=== PATIENT | female | born 1955 | race Caucasian/White ===

== ENCOUNTER 2020-04-07 11:52 | Emergency (ER) | payer MEDICARE, SELFPAY ==
[2020-04-07 12:06] VITALS: BP 175/120; PULSE 107; RESP 14; TEMP 36.6; O2SAT 99; BMI 32.1
--- NOTE | 2020-04-07 12:37 | XRR_ITS ---
PROCEDURE INFORMATION: Exam: XR Left Tibia and Fibula Exam date and time: 04/07/2020 1:15 PM Age: 64 years old Clinical indication: Injury or trauma; Fall; Blunt trauma; Lower leg; Left TECHNIQUE: Imaging protocol: XR Left tibia and fibula. Views: 2 views. COMPARISON: No relevant prior studies available. FINDINGS: Bones/joints: Normal. Soft tissues: Prepatellar soft tissue defect with adjacent edema and/or hematoma. XR/XR tibia fibula LT 2V [id number] IMPRESSION: Prepatellar soft tissue defect with adjacent edema and/or hematoma. No evidence for acute fracture.
--- NOTE | 2020-04-07 12:37 | CTR_ITS ---
PROCEDURE INFORMATION: Exam: CT Lumbar Spine Without Contrast Exam date and time: 04/07/2020 1:18 PM Age: 64 years old Clinical indication: Injury or trauma; Fall; Blunt trauma (contusions or hematomas); Patient HX: Fell 2 wks ago pain in lower back down left leg TECHNIQUE: Imaging protocol: Computed tomography images of the lumbar spine without contrast. Radiation optimization: All CT scans at this facility use at least one of these dose optimization techniques: automated exposure control; mA and/or kV adjustment per patient size (includes targeted exams where dose is matched to clinical indication); or iterative reconstruction. COMPARISON: No relevant prior studies available. RADIATION DOSE METRICS: Total DLP (mGy-cm): 2078.12 FINDINGS: Vertebrae: No evidence for acute fracture. There is a predominantly lytic lesion at the inferior left aspect of the L1 vertebra measuring 2.1 x 1.5 cm in AP/transverse dimensions, consistent with a metastatic lesion. A similar lesion is present in the right L4 posterior elements measuring 2.2 x 2.2 cm in AP/transverse dimensions there is a small soft tissue component extending posterior to this lesion measuring 6 mm in the transverse dimension. There is a predominantly lytic lesion involving the left L5 posterior element extending into the left sacrum which is not completely visualized on these images however measures 0.1 x 3.1 x 3.0 cm in the visualized craniocaudad/transverse/AP dimensions. There is a small soft tissue component posteriorly. L1-L2: There is vacuum disc phenomenon at this level. Moderate facet arthropathy. Canal and neural foramina are within normal limits in caliber. L2-L3: Moderate facet arthropathy. No significant canal or neural foramina stenosis. L3-L4: There is a disc bulge with possible superimposed small midline protrusion and moderate facet arthropathy. No significant canal or neural foramina stenosis. L4-L5: Moderate facet arthropathy. No significant disc protrusion. No severe spinal canal stenosis. No significant neural foraminal narrowing. L5-S1: There are posterior osteophytes and a minimal disc bulge. Moderate facet arthropathy. There is mild to moderate narrowing of the bilateral neural foramina.The soft tissue component of the left L5 lytic lesion extends to the posterior aspect of the left neural foramen contributing to mild to moderate narrowing. Soft tissues: Unremarkable. CT/CT lumbar spine wo con* [id number] IMPRESSION: 1. There are lytic lesions in the sacrum and at the L1, L4, and L5 levels, consistent with metastatic disease. A soft tissue component of the left L5 posterior element lytic lesion extends to the posterior aspect of the left L5-S1 neural foramina contributing to mild to moderate narrowing. 2. Multilevel, multifactorial degenerative changes are present as described above. Radiation Dose CTDIVOL = (mGy): DLP = 2078.12 (mGy-cm)
--- NOTE | 2020-04-07 12:37 | XRR_ITS ---
PROCEDURE INFORMATION: Exam: XR Left Hip with Pelvis when Performed Exam date and time: 04/07/2020 1:15 PM Age: 64 years old Clinical indication: Injury or trauma; Fall; Blunt trauma (contusions or hematomas); Left; Hip TECHNIQUE: Imaging protocol: XR Left hip with pelvis when performed. Views: 2 or 3 views. COMPARISON: No relevant prior studies available. FINDINGS: Bones/joints: Multiple incidental pelvic enthesophytes. There are degenerative changes across the left hip joint. There are [id number] degenerative changes across the sacroiliac joints and pubic symphysis. There is contour abnormality of the left superior pubic ramus which is somewhat obscured by overlying bowel gas. Soft tissues: Unremarkable. XR/XR hip LT 2-3V wo/w pel* [id number] IMPRESSION: There is contour abnormality of the left superior pubic ramus raising concern for acute fracture. This is not optimally visualized secondary to overlying bowel gas. CT scan of the pelvis is recommended for further evaluation.
--- NOTE | 2020-04-07 12:37 | XRR_ITS ---
PROCEDURE INFORMATION: Exam: XR Left Knee Exam date and time: 04/07/2020 1:15 PM Age: 64 years old Clinical indication: Injury or trauma; Fall; Blunt trauma; Knee; Left TECHNIQUE: Imaging protocol: XR Left knee. Views: 1 or 2 views. COMPARISON: No relevant prior studies available. FINDINGS: Bones/joints: There is an small to moderate suprapatellar joint effusion. Soft tissues: There is a prepatellar soft tissue defect with adjacent soft tissue edema and/or hematoma. XR/XR knee LT 1-2V [id number] IMPRESSION: 1. Prepatellar soft tissue defect with adjacent edema and/or hematoma. 2. Small to moderate suprapatellar joint effusion.
--- NOTE | 2020-04-07 13:12 | W.ED.FALL ---
HPI - Fall General: Chief Complaint: Fall Stated Complaint: FALL/BACK & L LEG PAIN Time Seen by Provider: 04/07/20 12:31 Source: patient Mode of arrival: ambulatory Limitations: physical limitation History of Present Illness: HPI Narrative: 64-year-old female patient presents the emergency department complaining of left hip pain left tib-fib pain and left knee pain. Patient also complains of lumbar pain. Patient states that she slipped and fell at [facility] 2 weeks ago and the pain is progressively worsened patient states gotten to the point where she cannot tolerate the pain. Patient denies any numbness or tingling. Patient is able to walk but states it is painful to do so. Patient denies any fever. Patient states she did not strike her head. Patient is not on any blood thinners. Associated symptoms-after fall: Denies abdominal pain, chest pain, headache(s), lightheadedness or neck pain Review of Systems General: Reports: 10 or more systems reviewed and unremarkable except in HPI and below Const: Denies: fever(s) or chills Eyes: Denies: change in vision or blurry vision Card: Denies: chest pain, palpitations, irregular heart rhythm, lightheadedness or syncope Resp: Denies: dyspnea, productive cough, non-productive cough or wheezing GI: Denies: abdominal pain, nausea, vomiting, diarrhea or constipation : Denies: flank pain, difficulty voiding, dysuria or urinary frequency Musc: Reports: extremity pain (Patient complains of left hip pain left tib-fib pain and left knee pain); Denies: neck pain or back pain Skin/Breast: Denies: rash Neuro: Denies: headache(s), numbness in extremities, weakness in extremities or sensory changes Psych: Denies: anxiety, suicidal ideation or homicidal ideation Physical Exam Const: COMMON NORMALS: no acute distress, average body habitus, patient oriented x3, no limitations, healthy appearing, alert and well nourished HENMT: COMMON NORMALS: normocephalic, atraumatic, hearing grossly normal bilaterally, external ears normal, EAC's normal, TM's normal bilaterally, Normal external nose present, Normal nasal mucous membranes and turbinates present, moist oral mucous membranes, oropharynx normal, dentition normal and gingiva normal HEAD & SCALP: normocephalic and atraumatic NOSE: Normal external nose present and Normal nasal mucous membranes and turbinates present EXTERNAL EAR: Yes external ears normal EXTERNAL AUDITORY CANAL: EAC's normal TYMPANIC MEMBRANE: TM's normal bilaterally Eye: COMMON NORMALS: Equal, round and reactive pupils present, EOMs intact bilaterally, conjunctivae normal, no scleral icterus, no papilledema, normal visual chappell by confrontation and fundi normal bilaterally CONJUNCTIVA: Yes conjunctivae normal PUPIL: Yes Equal, round and reactive pupils present DIRECT OPHTHALMOSCOPY: Yes no papilledema and Yes fundi normal bilaterally Neck/C-Spine: COMMON NORMALS: full ROM, no lymphadenopathy, supple, no meningeal signs, Thyroid normal and No carotid bruits THYROID: Thyroid normal Chest: COMMONS NORMALS: normal inspection of the chest, normal palpation of entire chest wall, normal inspection of the breasts and normal palpation of the breasts Resp: COMMON NORMALS: normal respiratory effort, No retractions, No use of accessory muscles, clear to auscultation bilaterally and percussion normal AUSCULTATION: clear to auscultation bilaterally PERCUSSION: percussion normal Cardio: COMMON NORMALS: regular rate and regular rhythm RATE: regular rate RHYTHM: regular rhythm GI: COMMON NORMALS: Normal to inspection, nondistended, normoactive bowel sounds present, Soft to palpation, non-tender, No hepatosplenomegaly present, no masses and no bruits PALPATION: Yes Soft to palpation and Yes No hepatosplenomegaly present : COMMON NORMALS: Yes no CVA tenderness BLADDER/KIDNEY EXAM: Yes no CVA tenderness and No CVA tenderness Back/Pelvis: COMMON NORMALS: no CVA tenderness, thoracic and lumbar spine normal to inspection, no thoracic nor lumbar tenderness, thoraco-lumbar ROM normal and straight leg raise negative bilaterally GENERAL BACK: No CVA tenderness LUMBAR SPINE/LOWER BACK: Yes normal to inspection, Yes lumbar spinal tenderness, Yes paraspinal muscle tenderness and Yes paraspinal muscle spasm Extremity: COMMON NORMALS: normal to inspection, capillary refill normal, no calf tenderness and no pedal edema GENERAL: Yes normal exam except as noted LEFT LOWER EXTREMITY: Yes hip joint Left hip: Yes palpation and Yes neurovascular exam (Neurovascularly intact), Yes knee joint Left knee: Yes palpation (Pain with palpitation) and Yes neurovascular exam ( there is no erythema or edematous area noted) and Yes lower leg Left lower leg: Yes palpation (Tender to palpation to the lateral aspect of the tib-fib) and Yes neurovascular exam (Neurovascularly intact) Neuro: COMMON NORMALS: patient oriented x3 SENSORIUM/ORIENTATION: Yes alert MENINGEAL SIGNS: Yes no meningeal signs Course Vital Signs: Vital signs: Vital Signs Temperature 97.9 F 04/07/20 12:06 Pulse Rate 99 04/07/20 15:47 Respiratory Rate 16 04/07/20 15:47 Blood Pressure 170/115 04/07/20 15:47 Pulse Oximetry 99 04/07/20 15:47 MDM - Fall MDM Narrative: Medical decision making narrative: Patient is well-appearing nontoxic and in no acute distress. Patient states she fell 2 weeks ago and has had progressively worsening hip pain and leg pain to the left side. Patient's initial x-ray of her knee tib-fib did not show any acute findings patient's hip showed questionable metastatic lesion I did order a CT of the hip which revealed Patient: Dacia Way #: [id number] : 4Acct#:[id number] Age/Sex: 64 / FADM Date: 04/07/20 Loc: ERRoom/Bed: Attending Dr: Ordering Provider/Ordering MD: Lorna Allen NP Date of Service: 04/07/20 Procedure(s): CT pelvis con [id number] Accession Number(s): [id number] Report Number: [id number] PROCEDURE INFORMATION: Exam: CT Pelvis Without Contrast; Skeletal Exam date and time: 04/07/2020 2:59 PM Age: 64 years old Clinical indication: Pelvic pain; Additional info: Possible pubic ramis FX TECHNIQUE: Imaging protocol: Computed tomography images of the pelvis without contrast. Exam focused on the skeletal structures. Radiation optimization: All CT scans at this facility use at least one of these dose optimization techniques: automated exposure control; mA and/or kV adjustment per patient size (includes targeted exams where dose is matched to clinical indication); or iterative reconstruction. COMPARISON: CT Chest/Abdomen/Pelvis w IV* 08/05/2018 10:48 AM RADIATION DOSE METRICS: Total DLP (mGy-cm): 341.43 FINDINGS: Bones/joints: There are lytic lesions in the lower lumbar spine and left sacrum, consistent with metastatic disease. There is a lytic lesion with a soft tissue component in the left superior pubic ramus measuring 4.0 cm in the transverse oblique defect dimension. Soft tissue component measures 2.3 x 2.0 cm in the transverse/AP dimensions along the anterior aspect of the superior pubic ramus adjacent to the pubic symphysis. This is in the region of cortical irregularity noted on the prior hip radiographs. No associated fracture is seen. Soft tissues: Unremarkable. CT/CT pelvis wo con [id number] IMPRESSION: There is a lytic lesion in the left superior pubic ramus with a soft tissue component, consistent with metastatic disease. Radiation Dose CTDIVOL = (mGy): DLP = 341.43 (mGy-cm) Patient does have history of breast cancer. Based on these findings I will have patient follow-up with oncology. I told patient we will call her on Wednesday with appointment time. I did send patient home with a short course of pain medications precautions of taking these pain medications were discussed. Patient is neurovascularly intact distal to area of pain. Patient did not have any chest pain or shortness of breath. 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
[2020-04-07] MEDS: ketorolac 30 mg/mL INJ IM (13:27)
[2020-04-07] MEDS: orphenadrine 30 mg/mL Inj 2 mL 60 MG IM (13:27)
--- NOTE | 2020-04-07 14:31 | CTR_ITS ---
PROCEDURE INFORMATION: Exam: CT Pelvis Without Contrast; Skeletal Exam date and time: 04/07/2020 2:59 PM Age: 64 years old Clinical indication: Pelvic pain; Additional info: Possible pubic ramis FX TECHNIQUE: Imaging protocol: Computed tomography images of the pelvis without contrast. Exam focused on the skeletal structures. Radiation optimization: All CT scans at this facility use at least one of these dose optimization techniques: automated exposure control; mA and/or kV adjustment per patient size (includes targeted exams where dose is matched to clinical indication); or iterative reconstruction. COMPARISON: CT Chest/Abdomen/Pelvis w IV* 08/05/2018 10:48 AM RADIATION DOSE METRICS: Total DLP (mGy-cm): 341.43 FINDINGS: Bones/joints: There are lytic lesions in the lower lumbar spine and left sacrum, consistent with metastatic disease. There is a lytic lesion with a soft tissue component in the left superior pubic ramus measuring 4.0 cm in the transverse oblique defect dimension. Soft tissue component measures 2.3 x 2.0 cm in the transverse/AP dimensions along the anterior aspect of the superior pubic ramus adjacent to the pubic symphysis. This is in the region of cortical irregularity noted on the prior hip radiographs. No associated fracture is seen. Soft tissues: Unremarkable. CT/CT pelvis wo con [id number] IMPRESSION: There is a lytic lesion in the left superior pubic ramus with a soft tissue component, consistent with metastatic disease. Radiation Dose CTDIVOL = (mGy): DLP = 341.43 (mGy-cm)
[2020-04-07 15:47] VITALS: BP 170/115; PULSE 99; RESP 16; O2SAT 99
--- NOTE | 2020-04-08 10:42 | DCPLANNER ---
software engineering manager had message to schedule a follow up appointment for patient with oncology. software engineering manager called the oncology department, spoke with Lilli, patient access coordinator for that department, gave clinic patients information. software engineering manager was told that patients information would be printed and reviewed. Clinic is working on scheduling a follow up appointment for patient. Clinic will call patient with appointment information.
--- NOTE | 2020-04-16 11:49 | DCPLANNER ---
Patient had a follow up appointment scheduled for 04.08.[address] Brito - patient did attend appointment.
== END 2020-04-07 15:49 | disposition home or self-care (01) ==
PROVIDERS: Emergency Provider Registered Nurse
DX: M89.9 Disorder of bone, unspecified (principal)
CPT/HCPCS: 12345; 72131; 72192; 73502; 73560; 73590; 96372; 99282; 99283; J1885; J2360

== ENCOUNTER 2020-04-08 15:12 | Outpatient (CLI) | payer MEDICARE, SELFPAY ==
--- NOTE | 2020-04-08 18:07 | ONC FU_ITS ---
Dr. Brito Patient Follow-Up Note Patient: Dacia Way Unit #: [id number]: 1955 Dicatated By: Colt Brito M.D.Date of Visit:Apr 08, 2020 Onc Med Follow-up/Prog Note Chief Complaint: Metastatic breast cancer. 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 On 10/31/2016 she had presented to the emergency room with chest pain. Chest x-ray at that time showed a well-circumscribed opacity in the left lung base measuring 2.1 cm. The appearance was suggestive of pleural or intraparenchymal nodule. She had further evaluation with contrast enhanced chest CT on 11/23/2016. That study showed numerous left upper and left lower lobe pulmonary nodules, the largest in the left lower lobe measuring 1.9 x 2.0 x 1.6 cm. The appearance was suspicious for metastatic disease or primary lung cancer with metastatic disease. Also noted was an anterosuperior mediastinal mass measuring 3.8 x 2.3 cm. The reported differential diagnosis included thymoma/thymic tumor, lymphadenopathy, and germ cell tumor. There was no additional adenopathy identified, and thymic etiology was favored. She was referred to Dr. Villalpando. On 12/14/2016 she underwent left thoracoscopy with wedge resection of the left lower lobe nodule. 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 The tumor was positive for NSE, CK-7, CK-CAM 5.2, and CK-HMW. It was focally positive for synaptophysin and for TTF-1. It was negative for CD-56, chromogranin, and CK-20. It measured 3.0 x 2.3 x 1.5 cm and it was noted to extend to the pleural surface. I had seen her initially on 12/30/2016. At that point she was still recovering from her surgery. Based on the pathology, it was difficult to determine whether her tumor was more in the category of neuroendocrine cancer or non-small cell lung cancer. Her subsequent laboratory evaluation included CBC showing hemoglobin 11.8 g, white blood cell count 10,500, and platelet count 338,000. The red cell indices were hypochromic/microcytic with MCV 73 MCH 24. Chem profile was unremarkable. Her neuroendocrine markers included a chromogranin A of 1 nmol/L, normal range 0-5, whole blood serotonin 178 ng/mL, normal range 50-200, and nonspecific enolase 4.4 ng/mL, normal range 0.0-12.5. Further pathologic evaluation showed that her tumor was strongly positive for BCA-225, suggestive of breast origin. A breast prognostic profile then showed the tumor to be ER positive at 99% with [place] positive at 1%, both strong intensity. It was negative for overexpression of HER-2/bel, 0+ by IHC and amplification ratio by FISH 1.1 with 1.8 HER-2 copies/cell. She had a known history of breast cancer for which she had undergone left mastectomy in 1999. She apparently did receive adjuvant chemotherapy, but those records were not available. There had previously been no evidence of recurrence of the breast cancer. Restaging chest CT on 02/16/2017 showed postsurgical changes in the left lower lobe with a residual left lower lobe nodule measuring 2.3 x 1.8 cm. Three pulmonary nodules were noted in the left upper lobe, largest measuring 1.3 x 1.0 cm, and it appeared unchanged. Two additional smaller nodules included a subpleural nodule in the left upper lobe which had increased from 6 mm to 9 mm. There was a new left pulmonary ligament lymph node. 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 Given the pathologic findings, she then began treatment with letrozole 2.5 mg daily in combination with palbociclib 125 mg daily on a 21/28 day schedule, cycle 1 day 1 on 04/14/2017. She tolerated her initial cycle of palbociclib without significant adverse effects. She then continued treatment at the same dosage and schedule. Repeat chest CT on 08/25/2017 showed smaller anterior mediastinal mass measuring 2.0 x 2.1 cm compared to 3.0 x 3.9 cm on the February 2017 study. A left infrahilar nodule also was slightly smaller. Left upper and lower lobe pulmonary nodules appeared unchanged. Restaging PET/CT on 10/23/2017 reported no evidence for recurrent or residual malignancy. A 1.5 cm anterior mediastinal soft tissue lesion showed less FDG uptake than normal mediastinal background. Left lower lobe pulmonary nodules were FDG negative. On 09/13/2018 she underwent laparoscopic cholecystectomy for chronic cholecystitis. She also underwent liver biopsy. Pathology showed acute and chronic cholecystitis and cholelithiasis. The liver biopsy showed benign hepatic parenchyma with minimal chronic inflammation within portal triads. I had seen her for a follow-up visit on 10/12/2018. At that point she appeared stable clinically with no obvious progression of the breast cancer. She continued her treatment with letrozole/palbociclib. Following that visit, we were unable to get her scheduled for follow-up despite multiple attempts to contact her to get her prescription renewed. Her other medical illnesses have been limited to hyperlipidemia and type II diabetes. She has had a long-standing hypochromic/microcytic anemia, presumably thalassemia trait. She does have a history of smoking 1 pack of cigarettes daily beginning at age 23. She quit smoking in October 2016. INTERIM HISTORY: On 04/07/2020 she presented to the emergency room with pain in her lower back and left leg following a fall 2 weeks earlier. According to her daughter, the back pain actually started well before the fall occurred. In any case, her CT of the lumbar spine and pelvis showed multiple lytic lesions including the sacrum, L1, L4 and L5 levels. At the L5 level the posterior element lytic lesion was noted to extend to the posterior aspect of the left L5/S1 neural foramina contributing to mild to moderate narrowing. The pelvis showed a lytic lesion in the left superior pubic ramus measuring 4.0 cm in transverse oblique defect dimension. An associated soft tissue component measured 2.3 x 2.0 cm. There appeared to be no associated fracture. X-ray of the left knee showed prepatellar soft tissue defect with adjacent edema and/or hematoma with small to moderate suprapatellar joint effusion. Her laboratory studies showed mild anemia, hemoglobin 10.6 g. The nonfasting blood sugar was significantly elevated. Her transferrin saturation was slightly low at 19.1%. Her alkaline phosphatase was just slightly elevated at 108/105 U/L. The bilirubin and liver enzymes were normal. She is seen now for a follow-up visit. She has very limited activity. In addition to her back and leg pain, she has very poor vision, apparently due to cataracts. She mainly now just gets up to the bathroom. Her ECOG score is 3. Her appetite has been okay. She is eating 2 meals a day. Her weight is down 5 pounds. She does not have fever or night sweats. She has no shortness of breath, cough, or chest pain. She reports having occasional nausea. She is having acid reflux. Bowel function has been okay. She has urinary frequency and nocturia. She does not complain of headache. She occasionally has dizziness. She has been having tingling on the bottom of her left foot and she says it allred on the top of her left foot. Medications: Farxiga 1 Tablet (of 5 mg) Oral daily, MetFORMIN HCl 1 (1000 mg) Tablet Oral b.i.d., Trulicity (0.75 mg/0.05mL) Subcutaneous q 7 days, Trulicity 1.5 mg (of 0.75 mg/0.5mL) Subcutaneous q 7 days Allergies: No Known Allergies. Review of Systems: Constitutional - She has very limited activity now. She mainly just gets up to the bathroom. Her appetite is okay. She generally eats 2 meals a day. Her weight is down 5 pounds. She does not have fever, night sweats, or hot flashes. ECOG score is 3, Eyes - She has very poor vision due to cataracts, ENMT - No sinus congestion/drainage. No mouth sores. No sore throat or difficulty swallowing, Hematologic/Lymphatic - No abnormal bruising or bleeding, Respiratory - No shortness of breath. No cough. No pleuritic pain or hemoptysis, Cardiovascular - No angina pain. No palpitations, Gastrointestinal - She occasionally has nausea. She is having acid reflux. No diarrhea or constipation. No blood in the stool or black stools, Genitourinary (F) - No dysuria or hematuria. She has urinary frequency and nocturia. No urgency or incontinence, Musculoskeletal - She is having pain in her lower back, left hip, and left leg. She has pain from her left knee down to her foot. She is not walking very well, Integumentary - No skin rash, Neurologic - No headache. She occasionally has dizziness. She has tingling on the bottom of her left foot and she says it allred on the top of her foot. No other focal neurologic symptoms, Psychiatric - No anxiety or depression. No insomnia. Vital Signs: Performed on Apr 08, 2020 15:28 Height - 62.00 in Weight - 164.8 lbs (LOW) BSA - 1.76 sq.m BMI - 30.14 (HIGH) Temperature - 97.8 F (LOW) Pulse - 101 /min (HIGH) Respiration - 24 /min BP - 181/94 mm(hg) (HIGH) O2 Sat - 98 % Pain - 10 Physical Examination: Constitutional - She appears generally weak, but not acutely ill, Eyes - Sclerae nonicteric. Conjunctivae clear, ENMT - No lesions noted in the oral cavity, Hematologic/Lymphatic - No cervical or clavicular adenopathy, Respiratory - Lungs sound clear, Cardiovascular - Heart is regular with no murmur, gallop or rub noted, Breasts - There are no chest wall lesions noted. There is no axillary adenopathy, Abdomen - Soft. The incisions appear well healed. Liver and spleen are not enlarged. There is no abdominal mass or ascites noted and there is no inguinal adenopathy, Extremities - No edema, Neurologic - No focal neurologic deficits noted. Impression: 1. Patient with multiple nodules in the left lung, initially felt to be atypical carcinoid but subsequently determined to be metastatic breast cancer, ER/NY positive and HER-2 bel negative. 2. She underwent left thoracoscopy with wedge resection of left lower lobe pulmonary nodule on 12/14/2016. 3. She underwent left mastectomy and adjuvant chemotherapy for breast cancer in 1999. 4. There was additional CT evidence of anterior/superior mediastinal mass. The nature of this is uncertain, but the appearance favored thymic etiology. Her other medical illnesses include: 5. Hyperlipidemia. 6. Type II diabetes. 7. She has a longstanding microcytic anemia, presumed to be thalassemia trait. In April 2017 she began treatment with letrozole 2.5 mg daily in combination with palbociclib 125 mg daily on a 21/ day schedule. As of August 2017 she had completed 4 cycles of treatment. Her repeat chest CT at that point did show evidence of response, and she also did appear to have clinical improvement. She continued treatment with letrozole/palbociclib. Restaging PET/CT on 10/23/2017 showed no evidence for recurrent or residual malignancy. She then continued treatment with letrozole in combination with palbociclib. As of her visit on 10/12/2018 she appeared stable clinically with no obvious progression of the breast cancer. However, she was then lost to follow-up, and she stopped her treatment. She comes in now with CT evidence of bony metastatic disease in the lumbar spine and pelvis. She is very symptomatic with it. Plan: I am going to first review the CT scans with Dr. Lundberg, and she likely will benefit with palliative radiation. She will need additional evaluation for the left leg pain, I think the best way to do that may be with a bone scan. She also will need restaging CT scans of the chest, abdomen, and pelvis. She will also then restart systemic therapy, most likely with fulvestrant in combination with a CDK 4/6 inhibitor. In the meantime, she will be given a prescription for MSIR 15 mg to take up to every 4 hours as needed for pain, as she is getting no benefit with hydrocodone 5/APAP 325. Signed By: Colt Brito M.D. <<Signature on File>>
== END 2020-04-08 15:13 | disposition home or self-care (01) ==
PROVIDERS: PCP Nurse Practitioner Family; Visit Provider Internal Medicine Medical Oncology
DX: C50.912 Malignant neoplasm of unspecified site of left female breast (principal); Z17.0 Estrogen receptor positive status [ER+]; C79.51 Secondary malignant neoplasm of bone; C78.02 Secondary malignant neoplasm of left lung; E78.5 Hyperlipidemia, unspecified; E11.9 Type 2 diabetes mellitus without complications; D64.9 Anemia, unspecified; D56.3 Thalassemia minor
CPT/HCPCS: 99214

== ENCOUNTER 2020-05-28 05:50 | Outpatient (RCR) | payer MEDICARE, SELFPAY ==
--- NOTE | 2020-05-06 08:22 | NM_ITS ---
WS: [id number] NUCLEAR MEDICINE BONE SCAN Radiopharmaceutical: 25.6 Tc-99m MDP mCi IV Injection site: Right antecubital Postinjection imaging delay: 2 hr CLINICAL INFORMATION: INTIAL STAGING-HX OF CANCER/METASTATIC BREAST CANCER COMPARISON: August 05, 2018 FINDINGS: Bone lesions: Multiple punctate foci of radiotracer uptake consistent bony metastatic disease involvi ng the cervical spine, thoracic spine, and lumbar spine. This more prominent in the thoracic spine. P rominent lesion involving the left scapula near glenoid. Multiple foci in the left greater than right ribs. Additional punctate foci involving the upper sacrum at the S1 vertebral body. Additional tiny faint foci involving the right distal femur. Small faint foci involving the right ilium and acetabulu m with additional faint focus in the right femoral neck A few additional foci involving the calvarium . Soft tissue contours: Normal. Kidneys: Normal. Other findings: None. NM/NM bone scan whole body* [id number] IMPRESSION: Multiple new abnormal bony foci of radiotracer uptake compatible with metastati c disease described above
--- NOTE | 2020-05-07 | CT_ITS ---
Radiation Therapy Planning CT images; total exam DLP: 770.23 mGy-cm MTDD
--- NOTE | 2020-05-08 21:33 | N.ONRAD NP_ITS ---
Radiation Oncology New Patient Visit Patient: Dacia Way MR#: [id number] : 1955 Age: 64 Sex: Female Dictated by: Dr. Viktor Lundberg Date of Service: 05/06/2020 Referring Physician(s) : Dr. Brito Diagnosis: C79.51 - secondary malignant neoplasm of bone, Diagnosed 04/08/2020 (active), C50.912 - malignant neoplasm of unspecified site of left female breast, Diagnosed 03/26/2017 (active), stage iv, tx, nx, m1, gx, C78.02 - secondary malignant neoplasm of left lung, Diagnosed 03/26/2017 (active) and C34.32 - malignant neoplasm of lower lobe, left bronchus or lung, Diagnosed 12/30/2016 (active). Radiotherapy to date: Summary > No prior radiation therapy. Chief Complaint / History of Present Illness: The patient is a 64-year-old female who was diagnosed in 2017 with metastatic breast cancer involving multiple pulmonary nodules which were initially thought to be atypical carcinoid (immediate grade neuroendocrine carcinoma). The patient has been treated with a wedge resection of a left lower lobe nodule, left mastectomy with adjuvant chemotherapy, letrozole, and Ibrance. On April 07, 2020 the patient presented to the emergency room with low back and left leg pain, and a subsequent CT of the lumbar spine/pelvis (04/07/2020) showed multiple osseous lytic lesions involving L1, L4, L5, S1, and left superior pubic ramus. In follow-up today, the patient reports pain in her low back, and left iliac wing. Per physical exam, the patient has point tenderness along her mid lower lumbar spine and left iliac wing. This correlates with lytic lesions personally reviewed on her most recent CT scan. Of note, the patient did not express pain located in the left superior pubic ramus. Current Medications: Alendronate Sodium, exemestane, farxiga, femara, first-Mouthwash BLM, hydrocodone-Acetaminophen, ibrance, metFORMIN HCl, metFORMIN HCl, morphine Sulfate, pantoprazole Sodium, priLOSEC OTC, prochlorperazine Maleate, trulicity, trulicity. Allergies: No Known Allergies Medical History: - Diabetes type II, - history of breast cancer, - hyperlipidemia. No history of collagen vascular disease. No previous radiation therapy. Surgical History: Appendectomy in 1960, cholecystectomy in 09/2018, left mastectomy in 1999 and left thoracoscopy with wedge biopsy of left lower lobe containing pulmonary nodule on 12/14/2016. Family History: Father is at age 64 having experienced coronary artery disease, and suicide. Mother is at age 79 having experienced coronary artery disease, and breast cancer, and diabetes. Brother is alive. Brother is having experienced coronary artery disease, and diabetes. Sister is alive. Sister is having experienced coronary artery disease. Sister is having experienced diabetes. Father had heart disease and of suicide. Her mother had diabetes and heart disease. She also had been treated for breast cancer. One brother and 2 sisters also with heart disease and diabetes. Social History: Last screened on 10/12/2018 - Yes - but has quit. Smoked 1.0 pack/day for 39 years (39 pack years). Last screened on 07/12/2018 - Never drank. Patient indicated access to the following support systems: lives with spouse, significant other, family, or friends, lives in own house, supportive family/friends willing to assist with needs, and adequate transportation available for expected visits. Patient indicated the following nutritional habits: regular meals. Patient indicated participation in the following forms of activity: daily activities. Current Complaints / Review of Systems: Constitutional - Complains of a poor appetite. Complains of mild fatigue. Complains of change in weight down about 10 lbs. since last seen on . Denies fever and night sweats. Eyes - Complains of blurred vision related to cateracts. Denies double vision. ENMT - Denies dysphagia, ear pain, mouth dryness, stomatitis and altered taste. Neck - Denies neck pain. Integumentary - Denies rash. Breasts - Has no left chest wall pain or right breast pain. Cardiovascular - Denies arrhythmias, chest pain and edema. Respiratory - Denies cough, dyspnea and wheezing. Gastrointestinal - Complains of occasional diarrhea. Complains of mild heartburn / dyspepsia. Complains of nausea. Complains of satiety. Denies abdominal pain, constipation, melena / GI bleeding and vomiting. Genitourinary (F) - Complains of nocturia gets up 1 to 2 times per night. Denies dysuria, frequency, hematuria, incontinence, urgency, vaginal discharge / bleeding and vaginal spotting. Musculoskeletal - Complains of bone pain lower back, left hip and knee and muscle weakness in the lower extremity. Denies joint pain. Neurologic - Complains of dizziness that occurs upon sitting to standing. Denies headaches. Endocrine - Complains of Type 2 diabetes. Denies thyroid disease. Hematologic/Lymphatic - Denies tender or enlarged lymph nodes.. Vital Signs: Performed on 05/06/2020 5:47 PM BMI - 28.277 kg/m2 (high), Height - 62.00 in, Weight - 154.6 lbs, Temperature - 98.3 f, Pulse - 92, Respiration - 20, O2 Sat - 100 %, Pain - 4 and BP - 123/ 84 mm(hg). Physical Exam: GENERAL:??? The patient is alert, and in no acute distress. HEENT:??? Head is normocephalic. Face is symmetric. External ocular movements are intact. Sclera and conjunctivae are non erythematous. NECK:??? Trachea is displaced to the right. LYMPH NODES:???There is no cervical or supraclavicular lymphadenopathy. LUNGS:??? Clear to auscultation bilaterally. Respiratory movement is unlabored. The patient has point tenderness in her lower lumbar spine and left iliac wing. HEART:??? Regular rate and rhythm. EXTREMITIES:??? No deformities. NEUROLOGIC:??? Gait and station are normal.??? The patient is well coordinated and strength is equal bilaterally. DIRECT MAIL MARKETER:??? Cranial nerves II-XII are intact and without focal deficits.??? Psych: Affect is normal. Skin: Cursory review of the skin reveals no obvious lesions concerning for malignancy. Performance Status: 2 - Ambulatory/capable of all self-care, unable to perform any work activities. Up and about more than 50% of waking hours. (ECOG) Pathology: Primary, c79.51 - secondary malignant neoplasm of bone, Diagnosed 04/08/2020 (active), Primary, c50.912 - malignant neoplasm of unspecified site of left female breast, Diagnosed 03/26/2017 (active) stage iv, tx, nx, m1, gx, Primary, c78.02 - secondary malignant neoplasm of left lung, Diagnosed 03/26/2017 (active) and Primary, c34.32 - malignant neoplasm of lower lobe, left bronchus or lung, Diagnosed 12/30/2016 (active). Lab: Imaging: See HPI Impression: The patient is a 64-year-old female who was diagnosed with ER positive, HER-2 negative, metastatic breast cancer which was treated with a wedge resection of a left lower lobe pulmonary nodule in 2016, left mastectomy and adjuvant chemotherapy in 1999, and letrozole/palbociclib. The patient now has multiple lytic lesions involving the pelvis, and lumbar sacral spine. The patient is most symptomatic with respect to her lumbar sacral spine and left iliac wing. Plan: Palliative radiation therapy to a total dose of 30 Bower in 10 fractions to the lumbar sacral spine (i.e., L4-S3), bilateral SI joints, and the lytic focus in the left iliac wing. The patient did not express significant pain in the left superior pubic ramus, therefore, radiation to this location was deferred to a later date. Signed by Viktor Lundberg MD: 05/08/2020 9:31:23 PM <<Signature on File>> CPT Code: CPT Code:
--- NOTE | 2020-05-16 12:22 | ONCRAD TMN_ITS ---
Radiation Oncology Weekly Treatment Management Patient: Dacia Way MR#: [id number] : 1955> Attending Physician: Dinesh Vizcarra M.D. Date of Service: 05/16/2020 Referring Physician(s): Dr. Colt Brito Diagnosis: C79.51 - Secondary malignant neoplasm of bone, Diagnosed 04/08/2020 (Active) Treatment Site: Pelvis Fraction #x: Start Date: 05/14/2020 End Date: 05/16/2020 Elapsed Days: 2 Reason for visit: The patient is being seen today as part of their regularly scheduled weekly on treatment visits to assess for acute toxicities from radiotherapy. Review of Systems: She reported improvement in her pain but is still requiring morphine 15 mg every 4 hours. Vital Signs: Performed on 05/16/2020 12:13 PM BMI - 27.984 kg/m2 (high), Height - 62.00 in, Weight - 153.0 lbs, Temperature - 97.6 f, Pulse - 94, Respiration - 20, O2 Sat - 99 %, Pain - 0 and BP - 114/ 72 mm(hg). Imaging: Radiation therapy imaging related to accurate target localization (i.e. KV, MV and CBCT) was reviewed. Appropriate changes, if any, were made to ensure treatment accuracy. Plan: Continue palliative radiotherapy as prescribed. Signed by: Dr. Dinesh Vizcarra 05/16/2020 12:21:41 PM
--- NOTE | 2020-05-20 12:08 | N.ONRAD NP_ITS ---
Radiation Oncology Weekly Treatment Management Patient: Dacia Way MR#: [id number] : 1955 Attending Physician: Dr. Dinesh Vizcarra Date of Service: 05/20/2020 Referring Physician(s): Colt Brito M.D. Diagnosis: Metastatic breast cancer Treatment Site: Pelvis Dose: 15 Gy of a prescribed 30 Gy. Review of Systems: The patient denied any complaints. She does not require prior narcotic regimen. Vital Signs: Weight - 150 lbs. Temperature -97.9 F, BP -117/78 mm (hg). Pulse ???98 bpm, Respirations - 18, oxygen saturation was 95% on room air Physical Exam: The skin within the pelvis did not demonstrate any erythema. Imaging: Radiation therapy imaging related to accurate target localization (i.e. KV, MV and CBCT) was reviewed. Appropriate changes, if any, were made to ensure treatment accuracy. Plan: Continue palliative radiotherapy as planned. Signed by: Dr. Dinesh Vizcarra 05/20/2020 12:06:23 PM
[2020-05-22 11:54] LABS: Basophils % 0.4 %; Eosinophils # 0.6 10^3/uL (0.0-0.8); Eosinophils % 10.8 %; Hematocrit 38.1 % (37.0-47.0); Hemoglobin 11.4 g/dL (11.5-15.3); Lymphocytes # 0.7 10^3/uL (0.8-4.8); Lymphocytes % 12.5 %; Mean Corpuscular HGB Conc 29.9 g/dL (30.0-36.0); Mean Corpuscular Hemoglobin 24.3 pg (28.0-34.0); Mean Corpuscular Volume 81.2 fL (81-99); Monocytes # 0.3 10^3/uL (0.2-0.9); Monocytes % 5.1 %; Neutrophils # 3.99 10^3/uL (1.8-7.7); Neutrophils % 70.3 %; Nucleated Red Blood Cells % 0 %; Platelet Count 225 10^3/cmm (130-400); Red Blood Count 4.69 10^6/uL (4.1-5.3); Red Cell Distribution Width 14.9 % (12.1-15.1); White Blood Count 5.7 10^3/uL (4.0-10.0)
[2020-05-22 12:12] LABS: Alanine Aminotransferase 10 U/L (0-33); Albumin Level 3.5 g/dL (3.5-5.2); Alkaline Phosphatase 90 IU/L (35-105); Anion Gap 15.7 (5-19); Aspartate Amino Transferase 15 U/L (0-32); Blood Urea Nitrogen 15 mg/dL (8-23); Calcium 9.1 mg/dL (8.5-10.5); Carbon Dioxide 24 mmol/L (22-29); Chloride 101 mmol/L (98-107); Globulin 2.9 g/dL (1.3-4.6); Glomerular Filtration Rate 123.4 mL/min (90-130); Glucose 114 mg/dL (65-115); Osmolality Calculated 286 mOsm/kg (285-295); Potassium 3.7 mmol/L (3.5-5.1); Sodium 137 mmol/L (136-145); Total Bilirubin 0.3 mg/dL (0.15-1.2); Total Protein 6.4 g/dL (6.6-8.7)
[2020-05-23 08:38] LABS: CA 27.29 581 U/mL (<38)
[2020-05-23] MEDS: fulvestrant 250 mg/5 mL Syringe 500 MG IM (12:00)
--- NOTE | 2020-05-27 12:05 | ONCRAD TMN_ITS ---
Radiation Oncology Weekly Treatment Management Patient: Seamus Pedesron MR#: [id number] : 1955> Attending Physician: Dinesh Vizcarra M.D. Date of Service: 05/27/2020 Referring Physician(s): Colt Brito M.D. Diagnosis: Metastatic breast cancer Treatment Site: Pelvis Dose: 27 Gy of a prescribed 30 Gy. Review of Systems: The patient reported dehydration. She also scribed dysuria and left flank pain. Vital Signs: Weight - 148 lbs. Temperature -98.9 F, BP -110/68 (mm Hg). Pulse ??? 88 bpm, Respirations - 16, oxygen saturation was 100% with ambient air Imaging: Radiation therapy imaging related to accurate target localization (i.e. KV, MV and CBCT) was reviewed. Appropriate changes, if any, were made to ensure treatment accuracy. Plan: Palliative radiotherapy concludes tomorrow. I will obtain a urinalysis for the patient's dysuria. Signed by: Dr. Dinesh Vizcarra 05/27/2020 12:04:51 PM
[2020-05-27] MEDS: lactated ringers 1,000 ML 999 ML IV (12:50)
[2020-05-27 15:38] LABS: Add Urine Microscopic? NO
[2020-05-27 15:46] LABS: Bilirubin Urine Neg (Negative); Blood Urine Neg (Negative); Glucose Urine UA 4+ (Normal); Ketones Urine 2+ (Negative); Leukocyte Esterase Urine Negative (Negative); Nitrate Urine Negative (Negative); Protein Urine Neg (Negative); Urine Appearance Clear (CLEAR); Urine Color Yellow (Yellow); Urobilinogen Urine Norm (Negative); pH Urine 5 (5-7)
--- NOTE | 2020-05-29 08:34 | ONC FU_ITS ---
K[facility]rera Patient Note Patient: Dacia Way Unit #: [id number]: 1955 Dictated By: Soco SawyerDate of Visit: May 23, 2020 Onc MED Follow-Up/Prog Note Chief Complaint: Metastatic breast cancer. 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 On 10/31/2016 she had presented to the emergency room with chest pain. Chest x-ray at that time showed a well-circumscribed opacity in the left lung base measuring 2.1 cm. The appearance was suggestive of pleural or intraparenchymal nodule. She had further evaluation with contrast enhanced chest CT on 11/23/2016. That study showed numerous left upper and left lower lobe pulmonary nodules, the largest in the left lower lobe measuring 1.9 x 2.0 x 1.6 cm. The appearance was suspicious for metastatic disease or primary lung cancer with metastatic disease. Also noted was an anterosuperior mediastinal mass measuring 3.8 x 2.3 cm. The reported differential diagnosis included thymoma/thymic tumor, lymphadenopathy, and germ cell tumor. There was no additional adenopathy identified, and thymic etiology was favored. She was referred to Dr. Villalpando. On 12/14/2016 she underwent left thoracoscopy with wedge resection of the left lower lobe nodule. 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 The tumor was positive for NSE, CK-7, CK-CAM 5.2, and CK-HMW. It was focally positive for synaptophysin and for TTF-1. It was negative for CD-56, chromogranin, and CK-20. It measured 3.0 x 2.3 x 1.5 cm and it was noted to extend to the pleural surface. Dr Brito had seen her initially on 12/30/2016. At that point she was still recovering from her surgery. Based on the pathology, it was difficult to determine whether her tumor was more in the category of neuroendocrine cancer or non-small cell lung cancer. Her subsequent laboratory evaluation included CBC showing hemoglobin 11.8 g, white blood cell count 10,500, and platelet count 338,000. The red cell indices were hypochromic/microcytic with MCV 73 MCH 24. Chem profile was unremarkable. Her neuroendocrine markers included a chromogranin A of 1 nmol/L, normal range 0-5, whole blood serotonin 178 ng/mL, normal range 50-200, and nonspecific enolase 4.4 ng/mL, normal range 0.0-12.5. Further pathologic evaluation showed that her tumor was strongly positive for BCA-225, suggestive of breast origin. A breast prognostic profile then showed the tumor to be ER positive at 99% with AL positive at 1%, both strong intensity. It was negative for overexpression of HER-2/bel, 0+ by IHC and amplification ratio by FISH 1.1 with 1.8 HER-2 copies/cell. She had a known history of breast cancer for which she had undergone left mastectomy in 1999. She apparently did receive adjuvant chemotherapy, but those records were not available. There had previously been no evidence of recurrence of the breast cancer. Restaging chest CT on 02/16/2017 showed postsurgical changes in the left lower lobe with a residual left lower lobe nodule measuring 2.3 x 1.8 cm. Three pulmonary nodules were noted in the left upper lobe, largest measuring 1.3 x 1.0 cm, and it appeared unchanged. Two additional smaller nodules included a subpleural nodule in the left upper lobe which had increased from 6 mm to 9 mm. There was a new left pulmonary ligament lymph node. 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 Given the pathologic findings, she then began treatment with letrozole 2.5 mg daily in combination with palbociclib 125 mg daily on a 21/28 day schedule, cycle 1 day 1 on 04/14/2017. She tolerated her initial cycle of palbociclib without significant adverse effects. She then continued treatment at the same dosage and schedule. Repeat chest CT on 08/25/2017 showed smaller anterior mediastinal mass measuring 2.0 x 2.1 cm compared to 3.0 x 3.9 cm on the February 2017 study. A left infrahilar nodule also was slightly smaller. Left upper and lower lobe pulmonary nodules appeared unchanged. Restaging PET/CT on 10/23/2017 reported no evidence for recurrent or residual malignancy. A 1.5 cm anterior mediastinal soft tissue lesion showed less FDG uptake than normal mediastinal background. Left lower lobe pulmonary nodules were FDG negative. On 09/13/2018 she underwent laparoscopic cholecystectomy for chronic cholecystitis. She also underwent liver biopsy. Pathology showed acute and chronic cholecystitis and cholelithiasis. The liver biopsy showed benign hepatic parenchyma with minimal chronic inflammation within portal triads. Dr Brito had seen her for a follow-up visit on 10/12/2018. At that point she appeared stable clinically with no obvious progression of the breast cancer. She continued her treatment with letrozole/palbociclib. Following that visit, we were unable to get her scheduled for follow-up despite multiple attempts to contact her to get her prescription renewed. Her other medical illnesses have been limited to hyperlipidemia and type II diabetes. She has had a long-standing hypochromic/microcytic anemia, presumably thalassemia trait. She does have a history of smoking 1 pack of cigarettes daily beginning at age 23. She quit smoking in October 2016. INTERIM HISTORY: On 04/07/2020 she presented to the emergency room with pain in her lower back and left leg following a fall 2 weeks earlier. According to her daughter, the back pain actually started well before the fall occurred. In any case, her CT of the lumbar spine and pelvis showed multiple lytic lesions including the sacrum, L1, L4 and L5 levels. At the L5 level the posterior element lytic lesion was noted to extend to the posterior aspect of the left L5/S1 neural foramina contributing to mild to moderate narrowing. The pelvis showed a lytic lesion in the left superior pubic ramus measuring 4.0 cm in transverse oblique defect dimension. An associated soft tissue component measured 2.3 x 2.0 cm. There appeared to be no associated fracture. X-ray of the left knee showed prepatellar soft tissue defect with adjacent edema and/or hematoma with small to moderate suprapatellar joint effusion. Her laboratory studies showed mild anemia, hemoglobin 10.6 g. The nonfasting blood sugar was significantly elevated. Her transferrin saturation was slightly low at 19.1%. Her alkaline phosphatase was just slightly elevated at 108/105 U/L. The bilirubin and liver enzymes were normal. In addition to her back and leg pain, she has very poor vision, apparently due to cataracts. Mrs. Way was seen by Dr. Brito on April 08, 2020. At that time she was referred to radiation for palliative radiation. She was also advised that she we will change her treatment plan to Ibrance 125 mg daily 21 out of 28 days, Faslodex and Xgeva. Mrs. Way is currently undergoing palliative radiation to the lumbar sacral spine, bilateral SI joints and a lytic focus in the left iliac wing. She is here today to begin her first cycle of Ibrance, start Faslodex and Xgeva. She states overall she feels pretty good. Her pain is controlled with her current pain regimen of the MSIR 15 mg. She denies any new shortness of breath orthopnea. She denies any fever or chills. She has had no known Covid symptoms or any known exposure. She has no pending test. She states her appetite is fair. Her energy is marginal she still has a hard time getting up and getting around. She has supportive care with her family. She denies any nausea or vomiting at this time. Her ECOG is 3. Past Medical History: Diabetes type II History of breast cancer Hyperlipidemia Past Surgical History: Cholecystectomy in 2019 Left thoracoscopy with wedge biopsy of left lower lobe containing pulmonary nodule in 2017 Left mastectomy in 1999 Appendectomy in 1959 Allergies: No Known Allergies. Medications: Farxiga 1 Tablet (of 5 mg) Oral daily MetFORMIN HCl 1 (1000 mg) Tablet Oral b.i.d. Ondansetron HCl 1 Tablet (of 4 mg) Oral q 4 hours PRN Pantoprazole Sodium 1 Tablet (of 40 mg) Tablet, enteric coated Oral daily Prochlorperazine Maleate 1 Tablet (of 10 mg) Oral q 4 hours PRN Trulicity 1.5 mg (of 0.75 mg/0.5mL) Subcutaneous q 7 days Family History: Ms. Way's mother at age 79: coronary artery disease, and breast cancer, and diabetes. Ms. Way's father at age 64: coronary artery disease, and suicide. Ms. Way has 2 brothers: 1 alive, 1 . Ms. Way's first brother's coronary artery disease, and diabetes. She has 3 sisters: 1 alive, 2 . Ms. Way's first sister's coronary artery disease. Another sister's diabetes. Father had heart disease and of suicide. Her mother had diabetes and heart disease. She also had been treated for breast cancer. One brother and 2 sisters also with heart disease and diabetes. Social History: Ms. Way is and she is unemployed. Ms. Way no longer smokes but had smoked 1.0 pack/day for 39 years. She has no history of drinking. Ms. Way reports the following support systems: lives with spouse, significant other, family, or friends, lives in own house, supportive family/friends willing to assist with needs, and adequate transportation available for expected visits. Her diet consists of regular meals. She indicates her activity level as: daily activities. She has a history of smoking 1 pack of cigarettes daily since age 23. She quit smoking in October 2016. She does not drink alcohol. Review Of Symptoms: Constitutional Denies lack of appetite, fatigue, fever, lethargy, malaise, night sweats or rigors / chills. Allergic/Immunologic Denies allergies and adverse reactions. ENMT Denies dysphagia, ear pain, epistaxis, esophagitis, problems with hearing, mouth dryness, oral bleeding, otitis, sinusitis, sputum production, stomatitis, altered taste and tinnitus. Hematologic/Lymphatic Denies easy bruising and tender or enlarged lymph nodes. Respiratory Denies cough, dyspnea, hemoptysis, hiccoughs, pleuritic chest pain and wheezing. Cardiovascular Denies arrhythmias, chest pain, dyspnea, edema, orthopnea and palpitations. Gastrointestinal Denies abdominal pain, change in bowel habits, constipation, diarrhea, heartburn / dyspepsia, hematemesis, hemorrhoids, melena / GI bleeding, nausea, pain / cramping and vomiting. Genitourinary (F) Denies dysuria, frequency, hematuria, incontinence, nocturia, urgency, urine color change, vaginal discharge / bleeding and vaginal spotting. Musculoskeletal Denies muscle weakness and decreased range of motion. Has bone pain from bone mets but is controlled at present. Integumentary Denies alopecia, blistering, bruising, dry skin, facial burning, nail changes, photosensitivity, pruritus, rash and urticaria. Neurologic Denies disorientation, dizziness, abnormal gait, headaches, insomnia and memory loss. Psychiatric Denies hallucinations and mood swings. Vital Signs: Performed on May 23, 2020 09:52 Height - 62.00 in Weight - 150.0 lbs (LOW) BSA - 1.69 sq.m BMI - 27.44 Temperature - 97.6 F (LOW) Pulse - 93 /min Respiration - 22 /min BP - 123/74 mm(hg) O2 Sat - 96 % Pain - 0,3 - Capable of only limited self-care, confined to bed or chair more than 50% of waking hours. (ECOG) Physical Examination: Constitutional Alert, oriented, no acute distress. Skin pink, warm and dry. Head Normocephalic; atraumatic. Eyes Conjunctivae and sclerae are clear and without icterus. Pupils are reactive and equal. Neck Supple without masses or thyromegaly. No jugular venous distension. Hematologic/Lymphatic No petechiae or purpura. No tender or palpable lymph nodes in the cervical, supraclavicular, or axillary area. Respiratory Lungs are clear to auscultation without rhonchi or wheezing. Cardiovascular Regular rate and rhythm of heart without murmurs,clicks, gallops or rubs. Abdomen Non-tender, non-distended, no masses, ascites or hepatosplenomegaly.Good bowel sounds noted in all quads. No guarding or rebound tenderness. No pulsatile masses. Back/Spine Non-tender to palpation. Extremities No evidence of lower extremities abnormalities, tender or enlarged lymph nodes and upper extremities abnormalities. Musculoskeletal No tenderness or swelling, normal range of motion without obvious weakness. Integumentary No rashes or lesions. Neurologic No sensory or motor deficits, normal cerebellar function. Psychiatric Alert and oriented times three. Coherent speech. Verbalizes understanding of our discussions today. Laboratory:Test performed on May 22, 2020 11:40 Sodium 137 mmol/L Potassium 3.7 mmol/L Chloride 101 mmol/L CO2 24 mmol/L Anion Gap 15.7 BUN 15 mg/dL Creatinine 0.5 mg/dL Cr Clearance (Est) 119.2000 mL/min eGFR 123.4 mL/min Glucose 114 mg/dL Osmolality - Calculated 286 mOsm/kg Calcium 9.1 mg/dL Protein, Total 6.4 g/dL Albumin 3.5 g/dL Globulin 2.9 g/dL Bilirubin, Total 0.3 mg/dL ALT (SGPT) 10 U/L AST (SGOT) 15 U/L Alkaline Phosphatase 90 IU/L WBC 5.7 10 3/uL RBC 4.69 10 6/uL HGB 11.4 g/dL HCT 38.1 % MCV 81.2 fL MCH 24.3 pg MCHC 29.9 g/dL RDW 14.9 % Platelet Count 225 10 3/cmm MPV 9.0 fL Neutrophils 3.99 10 3/uL Lymphocytes 0.7 10 3/uL Monocytes 0.3 10 3/uL Eosinophils 0.6 10 3/uL Basophils 0.0 10 3/uL Neutrophil % 70.3 % Lymphocyte % 12.5 % Monocyte % 5.1 % Eosinophil % 10.8 % Basophils % 0.4 % NRBC % 0 % Impression: 1. Patient with multiple nodules in the left lung, initially felt to be atypical carcinoid but subsequently determined to be metastatic breast cancer, ER/AL positive and HER-2 bel negative. 2. She underwent left thoracoscopy with wedge resection of left lower lobe pulmonary nodule on 12/14/2016. 3. She underwent left mastectomy and adjuvant chemotherapy for breast cancer in 1999. 4. There was additional CT evidence of anterior/superior mediastinal mass. The nature of this is uncertain, but the appearance favored thymic etiology. Her other medical illnesses include: 5. Hyperlipidemia. 6. Type II diabetes. 7. She has a longstanding microcytic anemia, presumed to be thalassemia trait. In April 2017 she began treatment with letrozole 2.5 mg daily in combination with palbociclib 125 mg daily on a 21/28 day schedule. As of August 2017 she had completed 4 cycles of treatment. Her repeat chest CT at that point did show evidence of response, and she also did appear to have clinical improvement. She continued treatment with letrozole/palbociclib. Restaging PET/CT on 10/23/2017 showed no evidence for recurrent or residual malignancy. She then continued treatment with letrozole in combination with palbociclib. As of her visit on 10/12/2018 she appeared stable clinically with no obvious progression of the breast cancer. However, she was then lost to follow-up, and she stopped her treatment. She comes in now with CT evidence of bony metastatic disease in the lumbar spine and pelvis. She has been very symptomatic with it. She was referred to radiation oncology and is currently undergoing palliative radiation at [facility]. She also has pain control with MS IR 15 mg. Plan: 1. We will proceed with Faslodex 500 mg IM today for her first loading dose. 2. I have opted to hold her Ibrance until she completes radiation therapy. She is having a large amount of bone (lumbar sacral spine, bilateral SI joints and lytic focus in the left iliac wing) being radiated and Ibrance does have a tendency to drop blood counts. 3. We will also hold her Xgeva today until she completes her radiation therapy. She has had significant bone pain and I am concerned with the radiation and the Xgeva that her bone pain may worsen. She currently has control of the pain with MSIR. Her initial radiation treatment plan suggested that she would have 10 fractions. She began her first radiation on 05/14/2020. She is tolerating that well thus far. 4. We will have her return in 2 weeks for her second loading dose of Faslodex. I have asked for a CBC CMP at that time as well. 5. Her labs from 05/22/2020 were reviewed in detail and discussed with Ms. Way and her daughter and a copy was given to her daughter. WBC 5.7 hemoglobin 11.4 platelets 10 25,000 ANC is 4000 potassium 3.7 creatinine 0.5 random glucose was 114 her LFTs are normal. Her baseline CA 27-29 from 05/22/2020 was 581. 6. In regards to the Ibrance she has been on it before but was reminded that it can cause low blood counts, nausea vomiting, fatigue, rash, amongst others. In regards to the positive X she was advised that side effects that include injection site irritation, infection, hot flashes, increased risk of osteoporosis, mood swings nausea, mucous membrane dryness, alopecia, headache amongst others. 7. The patient and family were informed of potential side effects of Xgeva ( a RANK ligand inhibitor) include but not limited to nausea/vomiting, rash, fatigue, dizziness, hypophosphatemia, hypokalemia, hypomagnesemia, constipation, diarrhea, anemia, bone pain, myalgia, dyspnea, fever, cough, osteonecrosis of the jaw, hypocalcemia, cystitis and site reactions, such as infection, redness, swelling. They were instructed how to reach the provider rock contractor if questions or concerns arise. 8. The patient and family were informed of chemotherapy plan and specific drugs were discussed. We also discussed how chemotherapy works and identified common side effects including alopecia; myelosuppression-including neutropenia, anemia, thrombocytopenia; peripheral neuropathy; fatigue; nausea; diarrhea; constipation; bleeding or bruising; skin changes-rash/dryness; mouth sores; drug hypersensitivity/allergic reactions or anaphylaxis and increased risk of blood clots. They have also been informed how to contact the clinic with side effects or symptoms, including but not limited to fever greater than 100.4???, chills, sore throat, bleeding or bruising that is not explained or mouth sores, cough, nasal discharge, diarrhea, constipation, nausea and/or vomiting not relieved with medications on hand at home, as well as any other concern or question they may have. Our hours are 8:00 a.m. to 4:30 p.m. on Wednesday through and 8-12:00 on Wednesday. However, someone is rock contractor 24 hours per day and they have been advised to contact the [facility] at if it is after hours. We have also discussed potential long-term side effects of chemotherapy including secondary cancers, infertility, pulmonary complications, cardiac complications, and again peripheral neuropathy. We have discussed that they certainly need to let us know before taking any antioxidants or herbal or further dietary supplements, as we are unsure of how these agents react with chemotherapy and we request that they avoid these products for now. They were informed that it is okay to take multivitamins at normal doses. They verbally state that they understand to take all medications as directed by their healthcare provider unless otherwise indicated. Instructions for oral care with baking soda and salt water rinses as well as a guide for use of [id number] medication were provided with the treatment plan. They have been given a written patient treatment plan, of which a copy is in the chart, as well as specific drug information. They have no questions and verbalized understanding and are willing to proceed with chemotherapy at this time. The majority of this visit was spent in face to face (greater than 45 minutes) communication with this patient and/or his/her family in regards to plan of care, side effect identification and management. Signed By: Soco Sawyer-GEO, IGLESIA Brito MD <<Signature on File>>
== END 2020-06-03 23:59 | disposition home or self-care (01) ==
LOC: ONCMED 05:50
PROVIDERS: Nurse Practitioner; Absent Provider Radiology Radiation Oncology; PCP Nurse Practitioner Family; Visit Provider Radiology Radiation Oncology
DX: Z51.0 Encounter for antineoplastic radiation therapy (principal); C50.812 Malignant neoplasm of overlapping sites of left female breast; Z17.0 Estrogen receptor positive status [ER+]; C78.02 Secondary malignant neoplasm of left lung; C79.51 Secondary malignant neoplasm of bone; E78.5 Hyperlipidemia, unspecified; E11.9 Type 2 diabetes mellitus without complications; D53.9 Nutritional anemia, unspecified; D56.3 Thalassemia minor; Z79.899 Other long term (current) drug therapy; Z79.818 Long term (current) use of other agents affecting estrogen receptors and estrogen levels
CPT/HCPCS: 36415; 77290; 77295; 77300; 77334; 77336; 77387; 77412; 78306; 80053; 81003; 85025; 86300; 96360; 96372; 96402; 99215; A9561; J9395

== ENCOUNTER 2020-06-06 05:49 | Outpatient (RCR) | payer MEDICARE, SELFPAY ==
[2020-06-06 13:05] LABS: Basophils % 0.6 %; Eosinophils # 0.1 10^3/uL (0.0-0.8); Eosinophils % 3.1 %; Hematocrit 37.8 % (37.0-47.0); Hemoglobin 11.6 g/dL (11.5-15.3); Lymphocytes # 0.5 10^3/uL (0.8-4.8); Lymphocytes % 15.6 %; Mean Corpuscular HGB Conc 30.7 g/dL (30.0-36.0); Mean Corpuscular Hemoglobin 24.3 pg (28.0-34.0); Mean Corpuscular Volume 79.2 fL (81-99); Mean Platelet Volume 8.4 fL (7.4-10.4); Monocytes # 0.2 10^3/uL (0.2-0.9); Neutrophils % 75.1 %; Nucleated Red Blood Cells % 0 %; Platelet Count 196 10^3/cmm (130-400); Red Blood Count 4.77 10^6/uL (4.1-5.3); Red Cell Distribution Width 15.9 % (12.1-15.1); White Blood Count 3.2 10^3/uL (4.0-10.0)
[2020-06-06 13:27] LABS: Alanine Aminotransferase 11 U/L (0-33); Albumin Level 3.3 g/dL (3.5-5.2); Alkaline Phosphatase 98 IU/L (35-105); Anion Gap 14.2 (5-19); Aspartate Amino Transferase 20 U/L (0-32); Blood Urea Nitrogen 17 mg/dL (8-23); Calcium 8.3 mg/dL (8.5-10.5); Carbon Dioxide 29 mmol/L (22-29); Chloride 99 mmol/L (98-107); Glucose 121 mg/dL (65-115); Osmolality Calculated 291 mOsm/kg (285-295); Potassium 3.2 mmol/L (3.5-5.1); Sodium 139 mmol/L (136-145); Total Bilirubin 0.6 mg/dL (0.15-1.2); Total Protein 6.3 g/dL (6.6-8.7)
[2020-06-06] MEDS: fulvestrant 250 mg/5 mL Syringe 500 MG IM (13:35)
[2020-06-06] MEDS: denosumab 120 mg SDV SUBCUT (13:40)
== END 2020-07-04 23:59 | disposition home or self-care (01) ==
LOC: ONCMED 05:49
PROVIDERS: Absent Provider Radiology Radiation Oncology; PCP Nurse Practitioner Family; Visit Provider Nurse Practitioner
DX: Z51.11 Encounter for antineoplastic chemotherapy (principal); C50.812 Malignant neoplasm of overlapping sites of left female breast; Z17.0 Estrogen receptor positive status [ER+]; C79.51 Secondary malignant neoplasm of bone; C78.02 Secondary malignant neoplasm of left lung; Z79.818 Long term (current) use of other agents affecting estrogen receptors and estrogen levels
CPT/HCPCS: 36415; 80053; 85025; 96372; 96402; J0897; J9395

== ENCOUNTER 2020-08-03 15:45 | Emergency (ER) | payer MEDICARE, SELFPAY ==
[2020-08-03 16:19] VITALS: BP 105/72; PULSE 87; RESP 14; TEMP 36.2; O2SAT 97; BMI 25.4
[2020-08-03 19:22] VITALS: BP 114/86; PULSE 80; RESP 14; O2SAT 96
--- NOTE | 2020-08-03 19:24 | W.ED.GENADLT ---
HPI - General Adult General: Chief complaint: General Medical Stated complaint: SORE THROAT/BLISTERS ON TONGUE Time Seen by Provider: 08/03/20 19:19 History of Present Illness: HPI narrative: Patient here because she said her tongue hurts and her throat hurts. She is on acyclovir and azithromycin prescribed by Dr. Brito. They told her to come back if she did not seem like she is feeling better. Patient is taken fluids and felt little nauseous this morning denies any other problems. Did have Covid earlier on first week of July. Onset (ago): day(s) Associated symptoms: Reports no associated symptoms; Deny chest pain, dyspnea, headache(s), nausea, rash or vomiting Review of Systems Const: Denies: fever(s), chills or body aches Eyes: Denies: change in vision or blurry vision ENMT: Reports: throat pain and other (Tongue is painful); Denies: nasal congestion Card: Denies: chest pain or dyspnea on exertion Resp: Denies: dyspnea, productive cough or non-productive cough GI: Denies: abdominal pain, nausea or vomiting Musc: Denies: extremity pain Skin/Breast: Denies: rash Neuro: Denies: headache(s) Psych: Denies: anxiety or depression Julio Cesar/Lymph: Denies: easy bruising Physical Exam Const: COMMON NORMALS: no acute distress, average body habitus and patient oriented x3 HENMT: COMMON NORMALS: normocephalic HEAD & SCALP: normal to inspection and normocephalic FACE & SINUS: normal facial exam MOUTH: tongue abnormal (Dry and red) THROAT: posterior oropharynx normal Eye: COMMON NORMALS: conjunctivae normal GENERAL EYE: appearance normal, both eyes and all related structures CONJUNCTIVA: Yes conjunctivae normal Neck/C-Spine: COMMON NORMALS: no JVD Chest: COMMONS NORMALS: normal inspection of the chest Resp: COMMON NORMALS: normal respiratory effort and clear to auscultation bilaterally AUSCULTATION: clear to auscultation bilaterally Cardio: COMMON NORMALS: no JVD, regular rate and regular rhythm RATE: regular rate RHYTHM: regular rhythm GI: COMMON NORMALS: Normal to inspection, nondistended, normoactive bowel sounds present Extremity: COMMON NORMALS: normal to inspection and full ROM Neuro: COMMON NORMALS: patient oriented x3 Skin: OTHER: Turgor poor and back to hands chest sugars fine Course Vital Signs: Vital signs: Vital Signs Temperature 97.1 F L 08/03/20 16:19 Pulse Rate 80 08/03/20 19:22 Respiratory Rate 14 08/03/20 19:22 Blood Pressure 114/86 08/03/20 19:22 Pulse Oximetry 96 08/03/20 19:22 Discharge Plan Discharge Condition: Good Prescriptions: No Action [place] 5-325 mg tablet 1 tab PO Q6H Qty: 14 RF: 0 Coding 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
[2020-08-03] MEDS: lidocaine 2% viscous 15 ML, aluminum-mag hydrox-simethicon 30 ML, sucralfate oral liq 1 GM PO (19:36)
[2020-08-03] MEDS: sodium chloride 0.9% 1,000 ML 999 ML IV (19:36)
[2020-08-03 20:07] VITALS: BP 148/65; PULSE 86; RESP 18; O2SAT 99
[2020-08-03 20:41] VITALS: BP 147/77; PULSE 76; RESP 18; TEMP 36.6; O2SAT 98
== END 2020-08-03 20:41 | disposition home or self-care (01) ==
PROVIDERS: Emergency Provider Emergency Medicine; PCP Nurse Practitioner Family
DX: J02.9 Acute pharyngitis, unspecified (principal); K14.6 Glossodynia
CPT/HCPCS: 12345; 96360; 99282; J7030

== ENCOUNTER 2020-08-06 16:40 | Inpatient (IN) | payer MEDICARE, SELFPAY ==
[2020-08-06] VITALS (8 sets, daily range): BP systolic 115–141; BP diastolic 66–90; PULSE 65–87; RESP 16–20; TEMP 36.6–36.9; O2SAT 95–99; BMI 22.6
--- NOTE | 2020-08-06 17:11 | ECG_ITS ---
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: : 1955 Requested By: Aura Vick I Order Number: [id number] Reading MD: CORNELIO LR Measurements Intervals [place] Rate: 72 P: 57 MS: 239 QRS: -38 QRSD: 129 T: -7 QT: 545 QTc: 597 Interpretive Statements SINUS RHYTHM WITH SINUS ARRHYTHMIA WITH FIRST DEGREE AV BLOCK LEFT AXIS DEVIATION [QRS AXIS < -30] RIGHT BUNDLE BRANCH BLOCK [120+ ms QRS DURATION, UPRIGHT V1, 40+ ms S IN I/aVL/V4/V5/V6] POSSIBLE SEPTAL MYOCARDIAL INFARCTION , OF INDETERMINATE AGE [30 ms Q WAVE IN V1/V2] PROLONGED QT INTERVAL CRITICAL TEST RESULT Compared to ECG 09/12/2018 09:45:43 Left-axis deviation now present Myocardial infarct finding now present Prolonged QT interval now present Electronically Signed On 08-06-2020 18:02:14 POWER OPERATOR by CORNELIO LR [email or web address]
--- NOTE | 2020-08-06 17:11 | W.ED.WEAKNES ---
HPI - Weakness General: Chief complaint: Weakness Stated complaint: GENERAL WEAKNESS, NUMBNESS BILATERAL EXT. Time Seen by Provider: 08/06/20 16:58 Source: patient Mode of arrival: EMS Limitations: no limitations History of Present Illness: HPI Narrative: This is a 64-year-old female patient with a history of metastatic breast cancer including bony metastases who presents to the emergency department with tingling in both hands as well as spasms in both hands making it difficult for her to open open her hands. This started around 2 PM today and has progressively worsened. She has no prior history of electrolyte abnormalities according to her. She has no prior history of a CVA. She has no focal weakness but has generalized weakness. MD Complaint: generalized weakness, numbness and tingling Onset (ago): hour(s) (2) Duration: constant and progressively worsening Location: left hand and right hand Migration: none Severity: moderate Quality: tingling and numbness Relieving factors: none Exacerbating factors: none Associated symptoms: Denies chest pain, chills, confusion, melena, decreased appetite, diaphoresis, dysuria, easy bruising, fever(s), headache(s), myalgias, nausea, rash, short of breath, syncope or vomiting Review of Systems General: Reports: 10 or more systems reviewed and unremarkable except in HPI and below Const: Denies: fever(s), chills or diaphoresis Eyes: Denies: change in vision or blurry vision ENMT: Denies: throat pain, enlarged tonsils, odynophagia, hoarseness, mouth pain or swelling of lips/tongue Card: Denies: chest pain or syncope Resp: Denies: dyspnea, productive cough or non-productive cough GI: Denies: nausea, vomiting or melena : Denies: dysuria Musc: Denies: neck pain, back pain or extremity swelling Skin/Breast: Denies: rash, pruritus or erythema Neuro: Denies: headache(s) or confusion Endo: Denies: polyuria, polydipsia or tired all the time Julio Cesar/Lymph: Denies: easy bruising PFSH ED PFSH: Social History (Reviewed 08/06/20 @ 23:22 by Aura Vick MD, [facility] [place] Smoking and tobacco status: never smoked Alcohol intake: never Substance/Drug Use: never Housing: House Physical Exam Const: COMMON NORMALS: no acute distress, average body habitus, patient oriented x3, no limitations, healthy appearing, alert and well nourished HENMT: COMMON NORMALS: normocephalic, atraumatic and moist oral mucous membranes HEAD & SCALP: normocephalic and atraumatic Eye: COMMON NORMALS: Equal, round and reactive pupils present, EOMs intact bilaterally, conjunctivae normal and no scleral icterus CONJUNCTIVA: Yes conjunctivae normal PUPIL: Yes Equal, round and reactive pupils present Neck/C-Spine: COMMON NORMALS: no meningeal signs and no JVD Resp: COMMON NORMALS: normal respiratory effort, No retractions, No use of accessory muscles, clear to auscultation bilaterally and percussion normal AUSCULTATION: clear to auscultation bilaterally PERCUSSION: percussion normal Cardio: COMMON NORMALS: no JVD, regular rate, regular rhythm, S1 normal heart sound present, S2 normal heart sound present, No gallops present (Cardio), No clicks present (Cardio), No murmurs present (Cardio), No rub (Cardio) and Peripheral pulses 2+ throughout RATE: regular rate RHYTHM: regular rhythm HEART SOUNDS: S1 normal heart sound present and S2 normal heart sound present PERIPHERAL PULSES: Peripheral pulses 2+ throughout GI: COMMON NORMALS: Normal to inspection, nondistended, normoactive bowel sounds present, Soft to palpation, non-tender, No hepatosplenomegaly present, no masses and no bruits PALPATION: Yes Soft to palpation and Yes No hepatosplenomegaly present Extremity: COMMON NORMALS: normal to inspection, full ROM, capillary refill normal, no calf tenderness and no pedal edema Neuro: COMMON NORMALS: patient oriented x3 SENSORIUM/ORIENTATION: Yes alert MENINGEAL SIGNS: Yes no meningeal signs COORDINATION/BALANCE: No dgepbh-ga-kcfy test normal and No coan-uz-cxut test normal MOTOR EXAM: Motor abnormalities not present and Abnormal motor strength present bilateral proximal 4 / 5 COORDINATION: oegqcz-wf-iymj test abnormal and ihaj-ez-opjh test abnormal Skin: COMMON NORMALS: no rashes or lesions noted, no wounds, turgor normal, no jaundice, no petechiae and no mottling GENERAL SKIN EXAM: no rashes or lesions noted and turgor normal Course ED course: Patient with carpopedal spasm and evaluation shows she has severe hypocalcemia and hypokalemia. She was given a 2 g of IV calcium gluconate and 40 mEQ of IV kcl and admitted to the hospital for further evaluation and management. She remained stable throughout her ED stay Consultations: Consultation #1: Discussed the patient with Dr. Rolon, hospitalist and he kindly accepted patient to his service. Time: 19:11 Vital Signs: Vital signs: Vital Signs Temperature 98.5 F 08/06/20 21:31 Pulse Rate 77 08/06/20 21:31 Respiratory Rate 18 08/06/20 21:31 Blood Pressure 141/90 08/06/20 21:31 Pulse Oximetry 96 08/06/20 21:31 MDM - Weakness MDM Narrative: Medical decision making narrative: This pleasant 64 year old female with a history of metastatic breast cancer who presented to the emergency department for evaluation of spasms in her hands and feet as well as numbness and tingling. Evaluation shows she has severe hypocalcemia and hypokalemia. She was given intravenous medications to correct this and admitted to the hospitalist service for further evaluation and management. Medical Records: Attestation: I reviewed the patient's medical records. Lab Data: Attestation: I reviewed the patient's lab results. Labs: Lab Results 08/06/20 08/06/20 08/06/20 Range/Units 16:59 16:59 16:59 WBC 7.7 (4.0-10.0) 10^3/ uL RBC 4.17 (4.1-5.3) 10^6/u L Hgb 10.5 L (11.5-15.3) g/dL Hct 34.3 L (37.0-47.0) % MCV 82.3 (81-99) fL MCH 25.2 L (28.0-34.0) pg MCHC 30.6 (30.0-36.0) g/dL RDW 18.8 H (12.1-15.1) % Plt Count 227 (130-400) 10^3/c mm MPV 9.1 (7.4-10.4) fL Neut % (Auto) 81.9 % Lymph % (Auto) 9.4 % Iroquois % (Auto) 5.6 % Eos % (Auto) 0.0 % Baso % (Auto) 0.4 % Neut # (Auto) 6.27 (1.8-7.7) 10^3/u L Lymph # (Auto) 0.7 L (0.8-4.8) 10^3/u L [place]ois # (Auto) 0.4 (0.2-0.9) 10^3/u L Eos # (Auto) 0.0 (0.0-0.8) 10^3/u L Baso # (Auto) 0.0 (0.0-0.1) 10^3/u L Nucleated RBC % (a uto) 0.3 % Nucleated RBCs # 0.0 /100WBC PT 16.00 H (12.1-14.9) SECO NDS INR 1.24 H (0.8-1.2) APTT 33.9 (23.9-36.7) SECO NDS Sodium 140 (136-145) mmol/L Potassium 2.1 L* (3.5-5.1) mmol/L Chloride 94 L (98-107) mmol/L Carbon Dioxide 31 H (22-29) mmol/L Anion Gap 17.1 (5-19) BUN 4 L (8-23) mg/dL Creatinine 0.5 (0.5-0.9) mg/dL GFR Calculation 123.4 (90-130) mL/min Glucose 100 (65-115) mg/dL POC Glucose (70-110) mg/dL Calculated Osmolal ity 287 (285-295) mOsm/k g Calcium 5.0 L* (8.5-10.5) mg/dL Total Bilirubin 1.0 (0.15-1.2) mg/dL AST 18 (0-32) U/L ALT 9 (0-33) U/L Alkaline Phosphata se 93 (35-105) IU/L Total Protein 5.5 L (6.6-8.7) g/dL Albumin 2.4 L (3.5-5.2) g/dL Globulin 3.1 (1.3-4.6) g/dL Urine Color (Yellow) Urine Appearance (CLEAR) Urine pH (5-7) Ur Specific Gravit y (1.005-1.030) Urine Protein (Negative) Urine Glucose (UA) (Normal) Urine Ketones (Negative) Urine Blood (Negative) Urine Nitrate (Negative) Urine Bilirubin (Negative) Urine Urobilinogen (Negative) mg/dL Ur Leukocyte Alison ase (Negative) Urine RBC (0-2) /hpf Urine WBC (0-5) /hpf Ur Squamous Epith Cells (0-5) /hpf Amorphous Sediment Urine Bacteria (NONE) /hpf Urine Opiates Scre en (Negative) ng/mL Ur Barbiturates Sc reen (Negative) ng/mL Ur Phencyclidine S crn (Negative) ng/mL Ur Amphetamines Sc reen (Negative) ng/mL U Benzodiazepines Scrn (Negative) ng/mL Urine Cocaine Scre en (Negative) ng/mL U Marijuana (THC) Screen (Negative) ng/mL 08/06/20 08/06/20 08/06/20 Range/Units 17:54 18:15 18:15 WBC (4.0-10.0) 10^3/ uL RBC (4.1-5.3) 10^6/u L Hgb (11.5-15.3) g/dL Hct (37.0-47.0) % MCV (81-99) fL MCH (28.0-34.0) pg MCHC (30.0-36.0) g/dL RDW (12.1-15.1) % Plt Count (130-400) 10^3/c mm MPV (7.4-10.4) fL Neut % (Auto) % Lymph % (Auto) % Iroquois % (Auto) % Eos % (Auto) % Baso % (Auto) % Neut # (Auto) (1.8-7.7) 10^3/u L Lymph # (Auto) (0.8-4.8) 10^3/u L [place]quois # (Auto) (0.2-0.9) 10^3/u L Eos # (Auto) (0.0-0.8) 10^3/u L Baso # (Auto) (0.0-0.1) 10^3/u L Nucleated RBC % (a uto) % Nucleated RBCs # /100WBC PT (12.1-14.9) SECO NDS INR (0.8-1.2) APTT (23.9-36.7) SECO NDS Sodium (136-145) mmol/L Potassium (3.5-5.1) mmol/L Chloride (98-107) mmol/L Carbon Dioxide (22-29) mmol/L Anion Gap (5-19) BUN (8-23) mg/dL Creatinine (0.5-0.9) mg/dL GFR Calculation (90-130) mL/min Glucose (65-115) mg/dL POC Glucose 100 (70-110) mg/dL Calculated Osmolal ity (285-295) mOsm/k g Calcium (8.5-10.5) mg/dL Total Bilirubin (0.15-1.2) mg/dL AST (0-32) U/L ALT (0-33) U/L Alkaline Phosphata se (35-105) IU/L Total Protein (6.6-8.7) g/dL Albumin (3.5-5.2) g/dL Globulin (1.3-4.6) g/dL Urine Color Yellow (Yellow) Urine Appearance Turbid (CLEAR) Urine pH 7 (5-7) Ur Specific Gravit y 1.005 (1.005-1.030) Urine Protein 1+ H (Negative) Urine Glucose (UA) Norm (Normal) Urine Ketones Negative (Negative) Urine Blood 2+ H (Negative) Urine Nitrate Negative (Negative) Urine Bilirubin Neg (Negative) Urine Urobilinogen 1 H (Negative) mg/dL Ur Leukocyte Alison ase 2+ H (Negative) Urine RBC 5-10 H (0-2) /hpf Urine WBC Too numerous to c nt H (0-5) /hpf Ur Squamous Epith Cells 0-4 H (0-5) /hpf Amorphous Sediment Not Reportable Urine Bacteria 4+ H (NONE) /hpf Urine Opiates Scre en Positive H (Negative) ng/mL Ur Barbiturates Sc reen Negative (Negative) ng/mL Ur Phencyclidine S crn Negative (Negative) ng/mL Ur Amphetamines Sc reen Positive H (Negative) ng/mL U Benzodiazepines Scrn Negative (Negative) ng/mL Urine Cocaine Scre en Negative (Negative) ng/mL U Marijuana (THC) Screen Negative (Negative) ng/mL Imaging Data^: CT Head: Attestation: I personally reviewed and interpreted this imaging study as follows: Radiologist's impression: [address] [address] [address] Scan Report Signed Patient: Dacia Way #: [id number] : 4Acct#:[id number] Age/Sex: 64 / FADM Date: 08/06/20 Loc: ERRoom/Bed: Attending Dr: Ordering Provider/Ordering MD: Aura Vick MD, [facility] [place] of Service: 08/06/20 Procedure(s): CT head wo con* [id number] Accession Number(s): [id number] Report Number: [id number] PROCEDURE INFORMATION: Exam: CT Head Without Contrast Exam date and time: 08/06/2020 5:21 PM Age: 64 years old Clinical indication: Weakness, extremity; Additional info: Symptoms of acute stroke, weakness, numbness in both hands TECHNIQUE: Imaging protocol: Computed tomography of the head without contrast. Radiation optimization: All CT scans at this facility use at least one of these dose optimization techniques: automated exposure control; mA and/or kV adjustment per patient size (includes targeted exams where dose is matched to clinical indication); or iterative reconstruction. Other technique: STROKE PROTOCOL was implemented. COMPARISON: NM bone scan whole body* [id number] 05/06/2020 8:22 AM RADIATION DOSE METRICS: Total DLP (mGy-cm): 735.62 FINDINGS: Brain: There is mild cortical atrophy. Low-density changes in the white matter are consistent with nonspecific small vessel chronic ischemic change. There is no intracranial mass, hemorrhage or edema. Cerebral ventricles: No ventriculomegaly. Bones/joints: There is a 1.4 cm sized lytic lesion in the right frontal calvarium and a 2.0 cm sized lesion in the high right parietal calvarium consistent with bone metastasis as demonstrated on prior bone scan. Paranasal sinuses: Visualized sinuses are unremarkable. No fluid levels. Mastoid air cells: Visualized mastoid air cells are well aerated. Soft tissues: Unremarkable. CT/CT head wo con* [id number] IMPRESSION: 1. Calvarial metastasis. 2. No acute intracranial finding. ASSESSMENT: ASPECTS ([place] Stroke Program Early CT Score) is 10. Radiation Dose CTDIVOL = (mGy): DLP = 735.62 (mGy-cm) Dictated By:Eduarod Lilly Signed By:Roseanna Lilly Date/Time:08/06/201733 DD/ [address]: Attestation: I personally reviewed and interpreted this imaging study as follows: Radiologist's impression: [facility] [facility] [place] [address] CT Scan Report Signed Patient: Dacia Way #: [id number] : 4Acct#:[id number] Age/Sex: 64 / FADM Date: 08/06/20 Loc: ERRoom/Bed: Attending Dr: Ordering Provider/Ordering MD: Aura Vick MD, [facility] [place] of Service: 08/06/20 Procedure(s): CT angio headneck* [id number] Accession Number(s): [id number] Report Number: [id number] PROCEDURE INFORMATION: Exam: CT Angiography Head With Contrast, Arteries Exam date and time: 08/06/2020 5:21 PM Age: 64 years old Clinical indication: Weakness; Additional info: Stroke-like symptoms TECHNIQUE: Imaging protocol: Computed tomography angiography of the head with intravenous contrast. 3D rendering (Not supervised by radiologist): MIP and/or 3D reconstructed images were created by the technologist. Radiation optimization: All CT scans at this facility use at least one of these dose optimization techniques: automated exposure control; mA and/or kV adjustment per patient size (includes targeted exams where dose is matched to clinical indication); or iterative reconstruction. Contrast material: VISI 320; Contrast volume: 95 ml; Contrast route: INTRAVENOUS (IV); COMPARISON: No relevant prior studies available. RADIATION DOSE METRICS: Total DLP (mGy-cm): 9.31 FINDINGS: ANTERIOR CIRCULATION: Right internal carotid artery: There is atherosclerotic calcification in the right cavernous carotid artery without stenosis or occlusion. Right middle cerebral artery: Unremarkable. No occlusion or significant stenosis. No aneurysm. Right anterior cerebral artery: Unremarkable. No occlusion or significant stenosis. No aneurysm. Left internal carotid artery: There is atherosclerotic plaque in the left cavernous carotid artery without stenosis or occlusion. Left middle cerebral artery: Unremarkable. No occlusion or significant stenosis. No aneurysm. Left anterior cerebral artery: Unremarkable. No occlusion or significant stenosis. No aneurysm. POSTERIOR CIRCULATION: Right vertebral artery: Unremarkable. No occlusion or significant stenosis. No aneurysm. Left vertebral artery: Unremarkable. No occlusion or significant stenosis. No aneurysm. Basilar artery: Unremarkable. No occlusion or significant stenosis. No aneurysm. Right posterior cerebral artery: Unremarkable. No occlusion or significant stenosis. No aneurysm. Left posterior cerebral artery: Unremarkable. No occlusion or significant stenosis. No aneurysm. Brain: No definite mass, mass effect, or midline shift. Cerebral ventricles: No ventriculomegaly. Bones/joints: Calvarial lesions are seen in the right frontal and parietal bones consistent with bone metastasis is seen on CT scan of the brain. Soft tissues: Unremarkable. IMPRESSION: There is no major vascular occlusion or aneurysm. PROCEDURE INFORMATION: Exam: CT Angiography Neck With Contrast Exam date and time: 08/06/2020 5:21 PM Age: 64 years old Clinical indication: Weakness; Additional info: Stroke-like symptoms TECHNIQUE: Imaging protocol: Computed tomography angiography of the neck with intravenous contrast. 3D rendering (Not supervised by radiologist): MIP and/or 3D reconstructed images were created by the technologist. Radiation optimization: All CT scans at this facility use at least one of these dose optimization techniques: automated exposure control; mA and/or kV adjustment per patient size (includes targeted exams where dose is matched to clinical indication); or iterative reconstruction. Contrast material: VISI 320; Contrast volume: 95 ml; Contrast route: INTRAVENOUS (IV); COMPARISON: No relevant prior studies available. RADIATION DOSE METRICS: Total DLP (mGy-cm): 1959.31 FINDINGS: Right common carotid artery: The origin of the right common carotid artery is obscured by streak artifact but there is no evidence of stenosis in the common carotid artery. Right internal carotid artery: No stenosis of the extracranial segment. No dissection or occlusion. Right external carotid artery: No occlusion or stenosis of the origin. Right vertebral artery: There is some small focal calcified plaque at the origin of the right vertebral artery but no stenosis is seen in the cervical portion of the vertebral artery. Left common carotid artery: No stenosis. No dissection or occlusion. Left internal carotid artery: No stenosis of the extracranial segment. No dissection or occlusion. Left external carotid artery: No occlusion or stenosis of the origin. Left vertebral artery: No stenosis. No dissection or occlusion. Bones/joints: No acute fracture. Soft tissues: Normal. No significant soft tissue swelling. CT/CT angio headneck* [id number] IMPRESSION: 1. There is no evidence for major vascular occlusion or stenosis in the common or internal carotid artery on either side of the neck. 2. No stenosis in either vertebral artery. REFERENCES: NASCET CRITERIA. The degree of internal carotid artery stenosis is based on NASCET criteria. Normal is no stenosis. Mild is less than 50% stenosis. Moderate is 50-69% stenosis. Severe is 70% to 99% stenosis. Total occlusion is no detectable patent lumen. Radiation Dose CTDIVOL = (mGy): DLP = 1959.31~1958.31 (mGy-cm) Dictated By:Eduardo Lilly Signed By:Patric Lillyigned Date/Time:08/06/201754 DD/ 52 EKG Data^: EKG 1: Attestation: I personally reviewed and interpreted this EKG as follows: EKG interpretation date: 08/06/20 EKG interpretation time: 18:00 Prior EKG tracings: not available for review Interpretation: Sinus rhythm with sinus arrhythmia. Heart rate 72 bpm. Right bundle branch block. Prolonged QT interval. Critical Care Time Critical Care Time: Critical Care Time: Yes Total Critical Care Time: 60 Attestation: This case had a high probability of a clinically significant, sudden, or life threatening deterioration of this patient's condition which required my full and direct attention, intervention and personal management. Discharge Plan Discharge Patient Disposition: Admitted As Inpatient Admit Provider: Odell Rolon Clinical Impression: Hypocalcemia, Metastatic breast cancer, Hypokalemia, Carpopedal spasm Condition: Stable Coding Level of Care Code ED Animal Attendant for Chg Carlos
[2020-08-06 17:25] LABS: Basophils % 0.4 %; Hematocrit 34.3 % (37.0-47.0); Hemoglobin 10.5 g/dL (11.5-15.3); Lymphocytes # 0.7 10^3/uL (0.8-4.8); Lymphocytes % 9.4 %; Mean Corpuscular HGB Conc 30.6 g/dL (30.0-36.0); Mean Corpuscular Hemoglobin 25.2 pg (28.0-34.0); Mean Corpuscular Volume 82.3 fL (81-99); Mean Platelet Volume 9.1 fL (7.4-10.4); Monocytes # 0.4 10^3/uL (0.2-0.9); Monocytes % 5.6 %; Neutrophils # 6.27 10^3/uL (1.8-7.7); Neutrophils % 81.9 %; Nucleated Red Blood Cells % 0.3 %; Platelet Count 227 10^3/cmm (130-400); Red Blood Count 4.17 10^6/uL (4.1-5.3); Red Cell Distribution Width 18.8 % (12.1-15.1); White Blood Count 7.7 10^3/uL (4.0-10.0)
[2020-08-06 17:36] LABS: INR 1.24 (0.8-1.2)
[2020-08-06 17:37] LABS: Partial Thromboplastin Time 33.9 SECONDS (23.9-36.7)
[2020-08-06 17:38] LABS: Alanine Aminotransferase 9 U/L (0-33); Albumin Level 2.4 g/dL (3.5-5.2); Alkaline Phosphatase 93 IU/L (35-105); Anion Gap 17.1 (5-19); Aspartate Amino Transferase 18 U/L (0-32); Blood Urea Nitrogen 4 mg/dL (8-23); Carbon Dioxide 31 mmol/L (22-29); Chloride 94 mmol/L (98-107); Creatinine Clr Calc Pharmacy 55.0947; Globulin 3.1 g/dL (1.3-4.6); Glomerular Filtration Rate 123.4 mL/min (90-130); Glucose 100 mg/dL (65-115); Osmolality Calculated 287 mOsm/kg (285-295); Sodium 140 mmol/L (136-145); Total Protein 5.5 g/dL (6.6-8.7)
[2020-08-06 17:59] LABS: Glucose Point of Care 100 mg/dL (70-110)
[2020-08-06] MEDS: iodixanol 320 mg/mL 100mL Btl IV (18:03)
[2020-08-06 18:29] LABS: Potassium 2.1 mmol/L (3.5-5.1)
[2020-08-06 19:03] LABS: Protein Urine 1+ (Negative); Specific Gravity, Urine 1.005 (1.005-1.030); Urine Appearance Turbid (CLEAR); Urine Color Yellow (Yellow); pH Urine 7 (5-7)
--- NOTE | 2020-08-06 19:03 | PC.NURSE ---
report recieved from JAGDISH Minaya and care transferred to JAGDISH Castillo
[2020-08-06 19:04] LABS: Add Urine Microscopic? YES; Bilirubin Urine Neg (Negative); Blood Urine 2+ (Negative); Glucose Urine UA Norm (Normal); Ketones Urine Negative (Negative); Leukocyte Esterase Urine 2+ (Negative); Nitrate Urine Negative (Negative); Urobilinogen Urine 1 mg/dL (Negative)
[2020-08-06 19:10] LABS: Amphetamines Screen Urine Positive (Negative); Barbiturates Screen Urine Negative (Negative); Benzodiazepines Screen Urine Negative (Negative); Cocaine Screen Urine Negative (Negative); Opiate Screen Urine Positive (Negative); PCP Screen Urine Negative (Negative); THC Screen Urine Negative (Negative)
[2020-08-06] MEDS: calcium gluconate 0.1 gm/mL 10% SDV 10mL 2 GM IVP (19:13)
[2020-08-06] MEDS: lidocaine 1% 5 ML in potassium chloride premix 100 ML 25 ML IV (19:19)
[2020-08-06 19:34] LABS: Add Urine Culture? Yes; Bacteria Urine 4+ /hpf; Squamous Epithelial Cell Urine 0-4 /hpf (0-5); WBC Urine TOO NUMEROUS TO CNT /hpf (0-5)
--- NOTE | 2020-08-06 19:38 | PM.HP ---
Providers/Chief Complaint Primary Care Provider: Morteza Cote NP Chief Complaint: GENERAL WEAKNESS, NUMBNESS BILATERAL EXT. History of Present Illness Dacia Way is a 64 year old female with a history of metastatic breast cancer with metastasis to the lumbar vertebral status post left mastectomy, status post radiation therapy to the lumbar spine, patient currently undergoing chemotherapy. She presented to the emergency department with a complaint of spasms of both hands and numbness of both upper extremities and the right lower extremity. Patient denied any episodes of nausea or vomiting or anxiety or hyperventilation. She also denies any diarrhea. Work-up in the emergency department revealed severe hypercalcemia with a calcium of 5. Her potassium level is also low at 2.1. Patient diagnosed with carpopedal spasms secondary to hypocalcemia. She was given 2 g of calcium gluconate IV and 40 mEq of potassium IV in the ED. Patient is admitted for further management. Review of Systems Narrative: Patient denied any headache, she denied any fever, she denied any bodily pains. She endorsed generalized weakness. Except as documented, all other systems reviewed and negative. Medications/Allergies Home Medications Medication Instructions Recorded Confirmed Last Taken Type hydrocodone-acetaminophen [Perry] 1 tab PO Q6H #14 tab 04/07/20 08/06/20 08/05/20 Rx lidocaine HCl [Lidocaine Viscous] 5 ml MUCOUS MEMBRANE TID PRN #100 08/03/20 08/06/20 08/05/20 Rx ml azithromycin See Rx Instructions .ROUTE .COMPLEX 08/06/20 08/06/20 08/05/20 History famciclovir 500 mg PO TID@1000,1200,2230 08/06/20 08/06/20 08/06/20 History metformin 500 mg PO DAILY@2230 08/06/20 08/06/20 08/05/20 History pantoprazole 40 mg PO DAILY@2230 08/06/20 08/06/20 08/05/20 History Allergies Allergy/AdvReac Type Severity Reaction Status Date / Time No Known Allergies Allergy Verified 08/06/20 16:49 PFSH Acute PFSH: Social History Smoking and tobacco status: never smoked Alcohol intake: never Substance/Drug Use: never Housing: House Vitals/I&O/Wt Last Vital Signs Temp 97.8 F 08/06/20 16:42 Pulse 65 08/06/20 19:20 Resp 16 08/06/20 19:20 BP 129/81 08/06/20 18:19 Pulse Ox 97 08/06/20 19:20 Weight last 48 hrs Weight 54.431 kg Physical Exam Const: COMMON NORMALS: no acute distress, patient oriented x3 and well nourished GENERAL APPEARANCE: cooperative and comfortable NUTRITIONAL APPEARANCE: obese Eye: COMMON NORMALS: Equal, round and reactive pupils present, EOMs intact bilaterally, conjunctivae normal and no scleral icterus Neck/C-Spine: COMMON NORMALS: supple, no JVD and No carotid bruits Lymph: LYMPHATIC: no lymphedema noted Chest: COMMONS NORMALS: normal inspection of the chest and normal inspection of the breasts (Left mastectomy) Resp: COMMON NORMALS: normal respiratory effort AUSCULTATION: clear to auscultation bilaterally, no crackles, no rales, no rhonchi and no wheezes Cardio: RHYTHM: regular rhythm HEART SOUNDS: S1 normal heart sound present and S2 normal heart sound present PERIPHERAL PULSES: Peripheral pulses 2+ throughout GI: INSPECTION: Yes normal to inspection AUSCULTATION: Yes normoactive bowel sounds PALPATION: Yes Soft to palpation, Yes Tenderness to palpation present (GI) and Yes No hepatosplenomegaly present Back/Pelvis: COMMON NORMALS: no CVA tenderness Extremity: GENERAL: No cyanosis and No edema Neuro: COMMON NORMALS: patient oriented x3, CN's II-XII intact bilaterally and no focal motor deficits Psych: COMMON NORMALS: mental status grossly normal, cooperative and speech normal THOUGHT CONTENT: Yes Normal thought content present Skin: GENERAL SKIN EXAM: no rashes or lesions noted and turgor normal Data : 08/07/20 05:08 08/07/20 05:08 A&P Assessment and plan (1) Metastatic breast cancer: Patient currently undergoing chemotherapy Status: Acute (2) Bone metastasis: Status: Chronic (3) Hypocalcemia: Unknown etiology Status: Acute (4) Hypokalemia: Status: Acute (5) Carpopedal spasm: Secondary to hypercalcemia Status: Acute Additional A&P Information Admit patient to the medical floor. Telemetry. Aggressive IV calcium replacement. Hydrate with IV normal saline. Check serial calcium level. Check free ionized calcium. Check vitamin D leves. Check and monitor phosphate levels Replete potassium IV Monitor BMP. Attestations Medical Necessity Statement*: Patient presenting with severe symptomatic hypercalcemia needing prompt calcium replacement by IV route. She will need to be hospitalized for IV potassium replacement and monitoring. She is expected to spend more than 2 midnights. Time Spent in Patient Care: (>than 50% of time spent in counselling and/or direct pt care on unit). Time spent in patient care: 65 minutes. Coding Level of Care Code Acute [employer] Professor for g Fwd Exam Comprehensive Diagnoses Metastatic breast cancer C50.919 Bone metastasis C79.51 Hypocalcemia E83.51 Hypokalemia E87.6 Carpopedal spasm R29.0
--- NOTE | 2020-08-06 19:44 | PC.NURSE ---
patient given water by nurse with hcp approval
[2020-08-06 21:53] LABS: Ionized Calcium 0.7 mmol/L (1.1-1.4)
[2020-08-06] MEDS: enoxaparin 40 mg/0.4 mL Syringe SUBCUT (22:02)
[2020-08-06] MEDS: sodium chloride 0.9% 1,000 ML 100 ML IV (22:06)
[2020-08-06 22:13] LABS: Phosphorus 1.3 mg/dL (2.5-4.5)
[2020-08-06 22:54] LABS: Calcium 5.7 mg/dL (8.5-10.5); Magnesium 0.7 mg/dL (1.7-2.3)
[2020-08-06] MEDS: pneumococcal (23 valent) SDV 0.5 mL IM (23:49)
[2020-08-06] MEDS: magnesium sulfate premix 2 GM/50 ML PIGGYBACK IV (23:55)
[2020-08-07] VITALS (13 sets, daily range): BP systolic 100–136; BP diastolic 68–82; PULSE 64–98; RESP 16–18; TEMP 36.1–36.7; O2SAT 95–98
[2020-08-07] MEDS: HYDROcodone-acetaminophen 5-325 mg Tablet 1 TAB PO (04:10)
[2020-08-07 06:05] LABS: Basophils % 0.5 %; Eosinophils % 0.3 %; Hematocrit 31.2 % (37.0-47.0); Hemoglobin 9.6 g/dL (11.5-15.3); Lymphocytes # 0.7 10^3/uL (0.8-4.8); Lymphocytes % 12.7 %; Mean Corpuscular HGB Conc 30.8 g/dL (30.0-36.0); Mean Corpuscular Hemoglobin 25.9 pg (28.0-34.0); Mean Corpuscular Volume 84.1 fL (81-99); Mean Platelet Volume 9.2 fL (7.4-10.4); Monocytes # 0.5 10^3/uL (0.2-0.9); Monocytes % 8.4 %; Neutrophils # 4.33 10^3/uL (1.8-7.7); Neutrophils % 74.7 %; Nucleated Red Blood Cells % 0.3 %; Platelet Count 182 10^3/cmm (130-400); Red Blood Count 3.71 10^6/uL (4.1-5.3); Red Cell Distribution Width 19.2 % (12.1-15.1); White Blood Count 5.8 10^3/uL (4.0-10.0)
[2020-08-07 06:42] LABS: Anion Gap 13.3 (5-19); Blood Urea Nitrogen 5 mg/dL (8-23); Calcium 6.3 mg/dL (8.5-10.5); Carbon Dioxide 32 mmol/L (22-29); Chloride 98 mmol/L (98-107); Creatinine Clr Calc Pharmacy 55.0947; Glomerular Filtration Rate 222.6 mL/min (90-130); Glucose 77 mg/dL (65-115); Magnesium 1.6 mg/dL (1.7-2.3); Osmolality Calculated 288 mOsm/kg (285-295); Phosphorus 2.3 mg/dL (2.5-4.5); Sodium 141 mmol/L (136-145)
[2020-08-07 06:48] LABS: Potassium 2.3 mmol/L (3.5-5.1)
--- NOTE | 2020-08-07 09:39 | PC.CHAP ---
Pastoral Care Encounter/Spiritual Assessment Type of Contact [] Declined flight engineer instructor visit [] Patient/Family/Request visit [] Outpatient visit [] Follow-up visit [] Physician referral [] Code/Alert [x] Routine visit [] Staff referral [] Actively dying [] Patient sleeping [] Family support [] [] Out of room [] Palliative care [] [] Receiving care in room [] Pre-surgical visit [] Trauma [] Long length of stay [] ICU visit [] Other: Relational/Emotional Strength [x] Patient feels connected with others/family/visitors/staff [] Distress [] Loneliness/isolation [] Abandonment Spirituality of Patient [x] Person of Nereida [] Attends Yarsani of their [place]re[place] [] Believes in Prayer [] Reads Bible or Buddhism materials [] There are Spiritual issues to be addressed Sweater Designer Interventions [x] Prayer [] Active listening [] Non-anxious presence [] Spiritual/emotional support [] Crisis/trauma care [] Spiritual counseling [] Bereavement support [] Provided bereavement packet [] Provided Bible/devotional materials [] Provided toy/stuffed animal, coloring book to patient or family member [] Provided Communion [] Anointing/[place] [] Salvation [x] Completed spiritual assessment [] Other: Impact on Illness or Injury [] Angry [] Fearful [] Anxious [] Often cries [] Exhaustion [] Unable to work [] Unable to attend yazidi [] Unable to walk/stand [] Unable to read [] Unable to drive [] Unable to eat/drink [] Unable to sleep [] Unable to be with family [] Patient intubated [] Other: Summary Time spent with patient patient doing much better
[2020-08-07] MEDS: sodium chloride 0.9% 1,000 ML 100 ML IV (10:45)
[2020-08-07] MEDS: cefTRIAXone 1,000 MG in sodium chloride 0.9% (plus) 50 ML 100 MG IV (10:45)
[2020-08-07] MEDS: potassium phosphate (mEq K) 40 MEQ in sodium chloride 0.9% (100 ml) 100 ML 27.3 MEQ IV ×3 (10:46→22:17)
[2020-08-07] MEDS: magnesium sulfate premix 4 GM/100 ML PREMIX IV (10:46)
--- NOTE | 2020-08-07 16:20 | P.PN_ITS ---
Subjective Subjective: Interval history: Patient denies shortness of breath or chest pain. She denies any signs and symptoms of urinary tract infection. She denies using any illicit drugs. She was found to have UTI and started on ceftriaxone. Vitals/I&O/Wt Last Vital Signs Temp 97.8 F 08/07/20 15:26 Pulse 80 08/07/20 15:26 Resp 17 08/07/20 15:26 BP 118/77 08/07/20 15:26 Pulse Ox 98 08/07/20 15:26 08/07/20 08/07/20 08/07/20 06:59 14:59 22:59 Intake Total 225 / 225 1270 / 1270 Output Total 350 / 350 150 / 150 Balance -125 / -125 1120 / 1120 Weight last 48 hrs Weight 54.431 kg Weight 54.431 kg Physical Exam Narrative: EXAM NARRATIVE: Patient has clear lungs and regular heart. Abdomen is soft and nontender. No lower extremity edema. Data : 08/07/20 05:08 08/07/20 05:08 A&P Assessment and plan (1) Metastatic breast cancer: Patient currently undergoing chemotherapy Status: Acute (2) Bone metastasis: Status: Chronic (3) Hypocalcemia: Unknown etiology Status: Acute (4) Hypokalemia: Status: Acute (5) Carpopedal spasm: Secondary to hypercalcemia Status: Acute Additional A&P Information PLAN: Replete electrolytes. Ceftriaxone started. Physical therapy. Encouraged oral intake. Attestations Medical Necessity Statement*: Patient with severe electrolyte abnormality as w ell as UTI requires close inpatient monitoring and treatment until deemed safe for discharge. Coding Level of Care Code Acute Housekeeper Child Care for Jeffrey Gonzalez Diagnoses Metastatic breast cancer C50.919 Bone metastasis C79.51 Hypocalcemia E83.51 Hypokalemia E87.6 Carpopedal spasm R29.0
[2020-08-07] MEDS: enoxaparin 40 mg/0.4 mL Syringe SUBCUT (21:17)
[2020-08-08] MEDS: pantoprazole DR 40 mg Tablet PO ×2 (02:44→22:55)
[2020-08-08 04:00] VITALS: BP 115/78; PULSE 77; RESP 18; TEMP 36.6; O2SAT 95
[2020-08-08 06:00] VITALS: PULSE 66
[2020-08-08 06:51] LABS: Basophils % 0.5 %; Eosinophils % 0.5 %; Hematocrit 27.6 % (37.0-47.0); Hemoglobin 8.6 g/dL (11.5-15.3); Lymphocytes # 0.8 10^3/uL (0.8-4.8); Lymphocytes % 20.4 %; Mean Corpuscular HGB Conc 31.2 g/dL (30.0-36.0); Mean Corpuscular Hemoglobin 25.4 pg (28.0-34.0); Mean Corpuscular Volume 81.7 fL (81-99); Mean Platelet Volume 8.7 fL (7.4-10.4); Monocytes # 0.4 10^3/uL (0.2-0.9); Monocytes % 10.3 %; Neutrophils # 2.58 10^3/uL (1.8-7.7); Neutrophils % 66.5 %; Nucleated Red Blood Cells % 0 %; Platelet Count 143 10^3/cmm (130-400); Red Blood Count 3.38 10^6/uL (4.1-5.3); Red Cell Distribution Width 19.3 % (12.1-15.1); White Blood Count 3.9 10^3/uL (4.0-10.0)
[2020-08-08 07:17] LABS: Alanine Aminotransferase 7 U/L (0-33); Albumin Level 2.1 g/dL (3.5-5.2); Alkaline Phosphatase 90 IU/L (35-105); Anion Gap 13.2 (5-19); Aspartate Amino Transferase 13 U/L (0-32); Blood Urea Nitrogen 4 mg/dL (8-23); Carbon Dioxide 30 mmol/L (22-29); Chloride 98 mmol/L (98-107); Globulin 2.9 g/dL (1.3-4.6); Glomerular Filtration Rate 222.6 mL/min (90-130); Glucose 84 mg/dL (65-115); Magnesium 1.6 mg/dL (1.7-2.3); Osmolality Calculated 284 mOsm/kg (285-295); Phosphorus 5.3 mg/dL (2.5-4.5); Sodium 139 mmol/L (136-145); Total Bilirubin 0.7 mg/dL (0.15-1.2)
[2020-08-08 07:22] LABS: Calcium 5.5 mg/dL (8.5-10.5); Potassium 2.2 mmol/L (3.5-5.1)
[2020-08-08 07:30] VITALS: BP 111/68; PULSE 66; RESP 19; TEMP 36.4; O2SAT 95
[2020-08-08] MEDS: potassium chloride ER 20 mEq Tablet PO (10:14)
[2020-08-08] MEDS: cefTRIAXone 1,000 MG in sodium chloride 0.9% (plus) 50 ML 100 MG IV (10:14)
[2020-08-08] MEDS: magnesium sulfate premix 2 GM/50 ML PIGGYBACK IV (11:04)
[2020-08-08 11:21] VITALS: BP 118/69; PULSE 64; RESP 18; TEMP 36.4; O2SAT 97
[2020-08-08] MEDS: lidocaine 1% 5 ML in potassium chloride premix 100 ML 25 ML IV ×2 (11:45→16:51)
[2020-08-08 15:20] VITALS: BP 110/65; PULSE 85; RESP 19; TEMP 36.7; O2SAT 97
--- NOTE | 2020-08-08 15:23 | P.PN_ITS ---
Subjective Subjective: Interval history: Patient reports feeling much better. Denies shortness of breath or chest pain this morning. Was tolerating physical therapy relatively well this morning. Potassium came back very low at 2.2 and replacement was ordered. Urine is growing 2 gram-negative rods. Vitals/I&O/Wt Last Vital Signs Temp 98.0 F 08/08/20 15:20 Pulse 85 08/08/20 15:20 Resp 19 H 08/08/20 15:20 BP 110/65 08/08/20 15:20 Pulse Ox 97 08/08/20 15:20 08/08/20 08/08/20 08/08/20 06:59 14:59 22:59 Intake Total 109.0909 / 1597.2727 410 / 410 50 / 460 Output Total 1000 / 1150 Balance -890.9091 / 447.2727 410 / 410 50 / 460 Weight last 48 hrs Weight 54.885 kg Weight 54.431 kg Weight 54.431 kg Physical Exam Narrative: EXAM NARRATIVE: Patient has clear lungs and regular heart. Abdomen is soft and nontender. No lower extremity edema. Data : 08/08/20 05:33 08/08/20 05:33 Micro: Microbiology 08/06/20 18:15 Urine Culture - Preliminary Urine,Clean Catch Gram Negative Rods Gram Negative Rods#2 A&P Assessment and plan (1) Metastatic breast cancer: Patient currently undergoing chemotherapy Status: Acute (2) Bone metastasis: Status: Chronic (3) Hypocalcemia: Unknown etiology Status: Acute (4) Hypokalemia: Status: Acute (5) Carpopedal spasm: Secondary to hypercalcemia Status: Acute Additional A&P Information PLAN: Replete electrolytes. Continue antibiotic. Awaiting culture results. Monitor labs Physical therapy. Attestations Medical Necessity Statement*: Patient with severe electrolyte abnormality as well as UTI requires close inpatient monitoring and treatment until deemed safe for discharge. Coding Level of Care Code Acute Adult Care Provider for Jfefrey Fwd Diagnoses Metastatic breast cancer C50.919 Bone metastasis C79.51 Hypocalcemia E83.51 Hypokalemia E87.6 Carpopedal spasm R29.0
[2020-08-08] MEDS: potassium chloride ER 20 mEq Tablet 40 MEQ PO (17:49)
[2020-08-08 19:52] VITALS: BP 131/84; PULSE 87; RESP 18; TEMP 36.6; O2SAT 97
[2020-08-08] MEDS: enoxaparin 40 mg/0.4 mL Syringe SUBCUT (20:27)
[2020-08-09] VITALS (8 sets, daily range): BP systolic 122–144; BP diastolic 71–84; PULSE 71–96; RESP 16–20; TEMP 36.2–36.9; O2SAT 90–98
[2020-08-09] MEDS: HYDROcodone-acetaminophen 5-325 mg Tablet 1 TAB PO (04:49)
[2020-08-09 05:12] LABS: Basophils % 0.5 %; Eosinophils # 0.1 10^3/uL (0.0-0.8); Eosinophils % 1.6 %; Hematocrit 29.7 % (37.0-47.0); Lymphocytes # 0.7 10^3/uL (0.8-4.8); Lymphocytes % 17.3 %; Mean Corpuscular HGB Conc 30.3 g/dL (30.0-36.0); Mean Corpuscular Hemoglobin 25.5 pg (28.0-34.0); Mean Corpuscular Volume 84.1 fL (81-99); Mean Platelet Volume 9.6 fL (7.4-10.4); Monocytes # 0.4 10^3/uL (0.2-0.9); Monocytes % 9.4 %; Neutrophils % 68.1 %; Nucleated Red Blood Cells % 0 %; Platelet Count 144 10^3/cmm (130-400); Red Blood Count 3.53 10^6/uL (4.1-5.3); Red Cell Distribution Width 19.5 % (12.1-15.1); White Blood Count 3.8 10^3/uL (4.0-10.0)
[2020-08-09] MEDS: morphine 4 mg/mL SDV 1 mL 2 MG IVP (05:20)
[2020-08-09] MEDS: ondansetron 2 mg/ML SDV 2 mL 4 MG IVP (05:23)
[2020-08-09 05:28] LABS: Alanine Aminotransferase 9 U/L (0-33); Albumin Level 2.4 g/dL (3.5-5.2); Alkaline Phosphatase 89 IU/L (35-105); Anion Gap 13.6 (5-19); Aspartate Amino Transferase 13 U/L (0-32); Blood Urea Nitrogen 3 mg/dL (8-23); Calcium 6.1 mg/dL (8.5-10.5); Carbon Dioxide 27 mmol/L (22-29); Chloride 98 mmol/L (98-107); Globulin 2.9 g/dL (1.3-4.6); Glomerular Filtration Rate 159.7 mL/min (90-130); Glucose 128 mg/dL (65-115); Magnesium 1.3 mg/dL (1.7-2.3); Osmolality Calculated 280 mOsm/kg (285-295); Sodium 136 mmol/L (136-145); Total Bilirubin 0.4 mg/dL (0.15-1.2); Total Protein 5.3 g/dL (6.6-8.7)
[2020-08-09 05:53] LABS: Potassium 2.6 mmol/L (3.5-5.1)
--- NOTE | 2020-08-09 06:35 | PC.NURSE ---
Pt given opportunity to get out of bed and into a chair. Pt declined and stated she would stay in bed because her head hurt if she moved.
[2020-08-09] MEDS: magnesium sulfate premix 4 GM/100 ML PREMIX IV (08:16)
[2020-08-09] MEDS: potassium chloride ER 20 mEq Tablet 40 MEQ PO ×3 (09:04→16:23)
[2020-08-09] MEDS: cefTRIAXone 1,000 MG in sodium chloride 0.9% (plus) 50 ML 100 MG IV (10:18)
--- NOTE | 2020-08-09 11:51 | PM.PN ---
Subjective Subjective: Interval history: Patient reports feeling better this morning but reported that she got somewhat lightheaded during physical therapy and had slight headache this morning. This resolved and during my evaluation patient was asymptomatic. She continues to have significant hypokalemia and hypomagnesemia. Cultures are growing Klebsiella and E. coli susceptible to ceftriaxone. Vitals/I&O/Wt Last Vital Signs Temp 97.9 F 08/09/20 11:14 Pulse 86 08/09/20 11:14 Resp 17 08/09/20 11:14 BP 144/71 08/09/20 11:14 Pulse Ox 95 08/09/20 11:14 08/08/20 08/09/20 08/09/20 22:59 06:59 14:59 Intake Total 500 / 910 300 / 1210 510 / 510 Output Total 300 / 300 600 / 900 1000 / 1000 Balance 200 / 610 -300 / 310 -490 / -490 Weight last 48 hrs Weight 55.792 kg Weight 54.885 kg Physical Exam Narrative: EXAM NARRATIVE: Patient has clear lungs and regular heart. Abdomen is soft and nontender. No lower extremity edema. Data : 08/09/20 04:46 08/09/20 04:46 Micro: Microbiology 08/06/20 18:15 Urine Culture - Final Urine,Clean Catch Klebsiella pneumoniae Escherichia coli A&P Assessment and plan (1) Metastatic breast cancer: Patient currently undergoing chemotherapy Status: Acute (2) Bone metastasis: Status: Chronic (3) Hypocalcemia: Unknown etiology Status: Acute (4) Hypokalemia: Status: Acute (5) Carpopedal spasm: Secondary to hypercalcemia Status: Acute Additional A&P Information PLAN: Replete electrolytes. Continue ceftriaxone with plan to transition to oral Omnicef Monitor CBC and CMP. Encouraged oral intake. Continue physical therapy. Attestations Medical Necessity Statement*: Patient with severe electrolyte disbalance and UTI requires close inpatient monitoring and treatment until deemed safe for discharge. Coding Level of Care Code Acute Manager Wound for Jeffrey Gonzalez Diagnoses Metastatic breast cancer C50.919 Bone metastasis C79.51 Hypocalcemia E83.51 Hypokalemia E87.6 Carpopedal spasm R29.0
--- NOTE | 2020-08-09 16:11 | PC.SOCIAL ---
*IMM* Patient received IMM from medicare. Placed in chart and initialled.
[2020-08-09] MEDS: enoxaparin 40 mg/0.4 mL Syringe SUBCUT (20:58)
[2020-08-09] MEDS: pantoprazole DR 40 mg Tablet PO (21:00)
[2020-08-10] VITALS (7 sets, daily range): BP systolic 110–128; BP diastolic 68–81; PULSE 82–104; RESP 17–20; TEMP 36.5–36.9; O2SAT 92–99
[2020-08-10 05:30] LABS: Basophils % 1.3 %; Eosinophils # 0.1 10^3/uL (0.0-0.8); Eosinophils % 4.2 %; Hematocrit 27.9 % (37.0-47.0); Hemoglobin 8.3 g/dL (11.5-15.3); Lymphocytes # 0.6 10^3/uL (0.8-4.8); Lymphocytes % 19.9 %; Mean Corpuscular HGB Conc 29.7 g/dL (30.0-36.0); Mean Corpuscular Hemoglobin 25.2 pg (28.0-34.0); Mean Corpuscular Volume 84.5 fL (81-99); Mean Platelet Volume 9.6 fL (7.4-10.4); Monocytes # 0.3 10^3/uL (0.2-0.9); Monocytes % 10.1 %; Neutrophils # 1.85 10^3/uL (1.8-7.7); Neutrophils % 60.6 %; Nucleated Red Blood Cells % 0.7 %; Platelet Count 121 10^3/cmm (130-400); Red Cell Distribution Width 19.4 % (12.1-15.1); White Blood Count 3.1 10^3/uL (4.0-10.0)
[2020-08-10 05:57] LABS: Alanine Aminotransferase 8 U/L (0-33); Albumin Level 2.4 g/dL (3.5-5.2); Alkaline Phosphatase 89 IU/L (35-105); Anion Gap 12.3 (5-19); Aspartate Amino Transferase 12 U/L (0-32); Blood Urea Nitrogen 4 mg/dL (8-23); Calcium 6.5 mg/dL (8.5-10.5); Carbon Dioxide 22 mmol/L (22-29); Chloride 106 mmol/L (98-107); Globulin 2.9 g/dL (1.3-4.6); Glomerular Filtration Rate 159.7 mL/min (90-130); Glucose 192 mg/dL (65-115); Magnesium 1.4 mg/dL (1.7-2.3); Osmolality Calculated 284 mOsm/kg (285-295); Potassium 4.3 mmol/L (3.5-5.1); Sodium 136 mmol/L (136-145); Total Bilirubin 0.3 mg/dL (0.15-1.2); Total Protein 5.3 g/dL (6.6-8.7)
[2020-08-10] MEDS: HYDROcodone-acetaminophen 5-325 mg Tablet 1 TAB PO (06:46)
[2020-08-10] MEDS: magnesium sulfate premix 4 GM/100 ML PREMIX IV (07:26)
[2020-08-10] MEDS: cefTRIAXone 1,000 MG in sodium chloride 0.9% (plus) 50 ML 100 MG IV (09:55)
--- NOTE | 2020-08-10 16:22 | PM.PN ---
Subjective Subjective: Interval history: Patient reports feeling better this morning but reports that her is working today and she will not be able to go home today. She wants to wait until tomorrow. She denies shortness of breath or chest pain. Patient is pancytopenic today and this is likely related to underlying metastatic malignancy. Vitals/I&O/Wt Last Vital Signs Temp 98.0 F 08/10/20 15:39 Pulse 84 08/10/20 15:39 Resp 18 08/10/20 15:39 BP 127/77 08/10/20 15:39 Pulse Ox 97 08/10/20 15:39 08/10/20 08/10/20 08/10/20 06:59 14:59 22:59 Intake Total 870 / 870 Output Total 450 / 2400 Balance -450 / -1630 870 / 870 Weight last 48 hrs Weight 147.4 g Weight 55.792 kg Physical Exam Narrative: EXAM NARRATIVE: Patient has clear lungs and regular heart. Abdomen is soft and nontender. No lower extremity edema. Data : 08/10/20 04:53 08/10/20 04:53 Micro: Microbiology 08/09/20 18:30 C.difficile Toxin B Gene (PCR) - Final Stool Routine Collection A&P Assessment and plan (1) Metastatic breast cancer: Patient currently undergoing chemotherapy Status: Acute (2) Bone metastasis: Status: Chronic (3) Hypocalcemia: Unknown etiology Status: Acute (4) Hypokalemia: Status: Acute (5) Carpopedal spasm: Secondary to hypercalcemia Status: Acute (6) Urinary tract infection: Present on admission. Status: Acute Additional A&P Information PLAN: Replete magnesium Continue ceftriaxone with plan to transition to oral Omnicef Repeat CBC and CMP in a.m. Encouraged oral intake. Continue physical therapy. Attestations Medical Necessity Statement*: Patient with metastatic breast cancer and electrolyte abnormality as well as UTI requires close inpatient monitoring and treatment till deemed safe for discharge. Coding Level of Care Code Acute Ecological Modeler for Boubacarg Fwd Diagnoses Metastatic breast cancer C50.919 Bone metastasis C79.51 Hypocalcemia E83.51 Hypokalemia E87.6 Carpopedal spasm R29.0 Urinary tract infection N39.0
[2020-08-10] MEDS: enoxaparin 40 mg/0.4 mL Syringe SUBCUT (21:35)
[2020-08-10] MEDS: pantoprazole DR 40 mg Tablet PO (21:35)
[2020-08-11] VITALS (7 sets, daily range): BP systolic 115–146; BP diastolic 68–82; PULSE 88–101; RESP 17–20; TEMP 36.5–37.2; O2SAT 97–99
[2020-08-11] MEDS: cefTRIAXone 1,000 MG in sodium chloride 0.9% (plus) 50 ML 100 MG IV (08:39)
--- NOTE | 2020-08-11 09:34 | PM.DCS ---
Discharge Providers Date of Admission: 08/06/20 19:21 Date of Discharge: August 11, 2020 Attending Provider at Admission: Odell Rolon Attending Provider at Discharge: Sohail Major MD Primary Care Provider: Morteza Cote NP Diagnoses at Discharge Discharge Diagnosis (1) Metastatic breast cancer: Status: Acute (2) Bone metastasis: Status: Chronic (3) Hypocalcemia: Status: Acute (4) Hypokalemia: Status: Acute (5) Carpopedal spasm: Status: Acute (6) Urinary tract infection: Status: Acute Permanent problem details: With 2 organisms growing morning Klebsiella pneumoniae and E. coli (7) Hypomagnesemia: Status: Acute Permanent problem details: Present on admission. Reason for Visit Reason for Visit: GENERAL WEAKNESS, NUMBNESS BILATERAL EXT. Hospital Course Hospital Course Patient with underlying widely metastatic cancer presented with severe electrolyte abnormality as well as urinary tract infection. Patient was treated accordingly with antibiotics and electrolytes were repleted. Patient gradually improved and this morning reports feeling much better and strong enough to be dismissed home. Patient will be started on oral magnesium oxide as well as small dose 8 mEq of potassium chloride. I will request lab work checked next Wednesday with results sent to primary care physician. Patient will need to follow-up with her oncology doctors as she is getting radiation treatments as well. Patient does have pancytopenia likely related to infection and/or underlying malignancy. Given clinical improvement I think infection plays least role. We are trying to arrange home health which most likely can be done tomorrow. This morning patient denies shortness of breath or chest pain. Reports that she has left lower extremity numbness and tingling since February last year. This could definitely be related to peripheral neuropathy versus metastatic malignancy. Physical Exam Narrative: EXAM NARRATIVE: Patient shows clear lungs and regular heart. No lower extremity edema. Discharge Data Data Completed and Pending: Completed Studies During Hospitalization Category Date Time Status CT angio headneck * [id number] Stat Cat Scan 08/06/20 17:[address] head wo con* [id number] Stat Cat Scan 08/06/20 17:11 Completed Pending at discharge Category Date Time Status Complete Blood Co unt w/Auto Routine Lab 08/11/20 07:21 Ordered Comprehensive Met abolic Panel Routi ne Lab 08/11/20 07:21 Ordered Magnesium Routine Lab 08/11/20 07:21 Ordered Phosphorus Routin e Lab 08/11/20 07:21 Ordered Vitals: Last Vital Signs Temp 98.7 F 08/11/20 07:26 Pulse 98 08/11/20 07:26 Resp 17 08/11/20 07:26 BP 146/71 08/11/20 07:26 Pulse Ox 97 08/11/20 07:26 Discharge Plan Discharge Patient Disposition: Home Health Service Condition: Stable Prescriptions: New cefdinir 300 mg capsule 300 mg PO BID 5 Days Qty: 10 RF: 0 magnesium oxide 400 mg magnesium tablet 400 mg PO BID Qty: 60 RF: 0 potassium chloride [K-Tab] 8 mEq tablet extended release 8 meq PO DAILY Qty: 30 RF: 0 Continued hydrocodone-acetaminophen [[place]] 5-325 mg tablet 1 tab PO Q6H Qty: 14 RF: 0 Lidocaine Viscous 2 % solution 5 ml mucous membrane TID PRN (Reason: pain) Qty: 100 RF: 0 famciclovir 500 mg tablet 500 mg PO TID@1000,1200,2230 RF: 0 pantoprazole 40 mg tablet,delayed release (DR/EC) 40 mg PO DAILY@2230 RF: 0 metformin 500 mg Tablet 500 mg PO DAILY@2230 RF: 0 Discontinued azithromycin 250 mg tablet See Rx Instructions .ROUTE .COMPLEX RF: 0 Discharge Orders: Discharge Order (Routine); Ordered 08/11/20 Ordered By: Sohail Major Other Ambulatory Orders: Complete Blood Count w/Auto (Routine) Timeframe: 20200816 Location: Determined by Patient Ordered By: Sohail Major Comprehensive Metabolic Panel (Routine) Timeframe: 20200816 Facility: [facility] - Location: Lab - Main Lab Ordered By: Sohail Major Magnesium (Routine) Timeframe: 20200816 Facility: [facility] - Location: Lab - Main Lab Ordered By: Sohail Major Referrals: Morteza Cote NP [Primary Care Provider] - 4-7 days Discharge Diet: Usual diet Discharge Activity: Increase activity as tolerated Activity Restrictions/Additional Instructions: Please call your doctor or present to emergency department if your condition worsens or you develop diarrhea, lightheadedness, fatigue or see blood in your stool or black stool. Discharge Attestations Time Spent in Discharge Care*: greater than 30 min Quality Metrics Clinical Quality Measures During this hospital stay, did patient experience: None Coding Level of Care Code Acute Still Operator Gin for Chg Fwd Diagnoses Metastatic breast cancer C50.919 Bone metastasis C79.51 Hypocalcemia E83.51 Hypokalemia E87.6 Carpopedal spasm R29.0 Urinary tract infection N39.0 Hypomagnesemia E83.42
== END 2020-08-11 13:02 | disposition home health service (06) | DRG 641 ==
LOC: ER 16:58 → MEDSURG 20:23
PROVIDERS: Admitting Provider Internal Medicine; Emergency Provider Family Medicine; PCP Nurse Practitioner Family; Visit Provider Internal Medicine
DX: E83.51 Hypocalcemia (principal); C79.51 Secondary malignant neoplasm of bone; R29.0 Tetany; N39.0 Urinary tract infection, site not specified; D61.818 Other pancytopenia; C50.912 Malignant neoplasm of unspecified site of left female breast; Z90.12 Acquired absence of left breast and nipple; Z92.3 Personal history of irradiation; Z79.899 Other long term (current) drug therapy; E87.6 Hypokalemia; B96.1 Klebsiella pneumoniae [K. pneumoniae] as the cause of diseases classified elsewhere; B96.20 Unspecified Escherichia coli [E. coli] as the cause of diseases classified elsewhere; E83.42 Hypomagnesemia; G62.9 Polyneuropathy, unspecified; Z79.891 Long term (current) use of opiate analgesic
CPT/HCPCS: 12345; 36415; 36416; 70450; 70496; 70498; 80048; 80053; 80306; 81001; 82310; 82330; 82962; 83735; 84100; 85025; 85610; 85730; 87077; 87086; 87186; 87493; 90471; 90732; 92526; 92610; 93005; 96360; 96372; 97110; 97116; 97162; 99282; 99283; J0610; J0696; J1650; J2270; J2405; J3475; J3480; J7030; Q9967

== ENCOUNTER 2020-08-13 08:56 | Outpatient (CLI) | payer MEDICARE, SELFPAY ==
[2020-08-13 09:25] LABS: Basophils # 0.1 10^3/uL (0.0-0.1); Basophils % 1.3 %; Eosinophils # 0.1 10^3/uL (0.0-0.8); Eosinophils % 1.8 %; Hematocrit 30.8 % (37.0-47.0); Hemoglobin 9.3 g/dL (11.5-15.3); Lymphocytes # 0.8 10^3/uL (0.8-4.8); Lymphocytes % 20.6 %; Mean Corpuscular HGB Conc 30.2 g/dL (30.0-36.0); Mean Corpuscular Hemoglobin 25.8 pg (28.0-34.0); Mean Corpuscular Volume 85.3 fL (81-99); Mean Platelet Volume 9.7 fL (7.4-10.4); Monocytes # 0.3 10^3/uL (0.2-0.9); Monocytes % 7.8 %; Neutrophils # 2.62 10^3/uL (1.8-7.7); Neutrophils % 65.5 %; Nucleated Red Blood Cells % 0 %; Platelet Count 213 10^3/cmm (130-400); Red Blood Count 3.61 10^6/uL (4.1-5.3); Red Cell Distribution Width 20.4 % (12.1-15.1)
[2020-08-13 09:37] LABS: Alanine Aminotransferase 15 U/L (0-33); Alkaline Phosphatase 101 IU/L (35-105); Anion Gap 12.1 (5-19); Aspartate Amino Transferase 25 U/L (0-32); Blood Urea Nitrogen 7 mg/dL (8-23); Calcium 7.9 mg/dL (8.5-10.5); Carbon Dioxide 25 mmol/L (22-29); Chloride 103 mmol/L (98-107); Globulin 3.5 g/dL (1.3-4.6); Glomerular Filtration Rate 159.7 mL/min (90-130); Glucose 145 mg/dL (65-115); Osmolality Calculated 285 mOsm/kg (285-295); Potassium 3.1 mmol/L (3.5-5.1); Sodium 137 mmol/L (136-145); Total Bilirubin 0.4 mg/dL (0.15-1.2); Total Protein 6.5 g/dL (6.6-8.7)
[2020-08-13 11:28] LABS: Iron 57 ug/dL (37-145); Magnesium 1.1 mg/dL (1.7-2.3); Percent Saturation 33.1 % (20-50); Total Iron Binding Capacity 172 mcg/dl; Unsaturated Iron Binding 115 ug/dL (112-347)
[2020-08-13] MEDS: fulvestrant 250 mg/5 mL Syringe 500 MG IM (11:38)
[2020-08-13] MEDS: denosumab 120 mg SDV SUBCUT (11:40)
--- NOTE | 2020-08-13 20:17 | ONC FU_ITS ---
Dr. Brito Patient Follow-Up Note Patient: Dacia [address] Unit #: [id number]: [id number] Dicatated By: Colt Brito M.D.Date of Visit:Aug 13, 2020 Onc Med Follow-up/Prog Note Chief Complaint: Metastatic breast cancer. 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 On 10/31/2016 she had presented to the emergency room with chest pain. Chest x-ray at that time showed a well-circumscribed opacity in the left lung base measuring 2.1 cm. The appearance was suggestive of pleural or intraparenchymal nodule. She had further evaluation with contrast enhanced chest CT on 11/23/2016. That study showed numerous left upper and left lower lobe pulmonary nodules, the largest in the left lower lobe measuring 1.9 x 2.0 x 1.6 cm. The appearance was suspicious for metastatic disease or primary lung cancer with metastatic disease. Also noted was an anterosuperior mediastinal mass measuring 3.8 x 2.3 cm. The reported differential diagnosis included thymoma/thymic tumor, lymphadenopathy, and germ cell tumor. There was no additional adenopathy identified, and thymic etiology was favored. She was referred to Dr. Villalpando. On 12/14/2016 she underwent left thoracoscopy with wedge resection of the left lower lobe nodule. 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 The tumor was positive for NSE, CK-7, CK-CAM 5.2, and CK-HMW. It was focally positive for synaptophysin and for TTF-1. It was negative for CD-56, chromogranin, and CK-20. It measured 3.0 x 2.3 x 1.5 cm and it was noted to extend to the pleural surface. I had seen her initially on 12/30/2016. At that point she was still recovering from her surgery. Based on the pathology, it was difficult to determine whether her tumor was more in the category of neuroendocrine cancer or non-small cell lung cancer. Her subsequent laboratory evaluation included CBC showing hemoglobin 11.8 g, white blood cell count 10,500, and platelet count 338,000. The red cell indices were hypochromic/microcytic with MCV 73 MCH 24. Chem profile was unremarkable. Her neuroendocrine markers included a chromogranin A of 1 nmol/L, normal range 0-5, whole blood serotonin 178 ng/mL, normal range 50-200, and nonspecific enolase 4.4 ng/mL, normal range 0.0-12.5. Further pathologic evaluation showed that her tumor was strongly positive for BCA-225, suggestive of breast origin. A breast prognostic profile then showed the tumor to be ER positive at 99% with MA positive at 1%, both strong intensity. It was negative for overexpression of HER-2/bel, 0+ by IHC and amplification ratio by FISH 1.1 with 1.8 HER-2 copies/cell. She had a known history of breast cancer for which she had undergone left mastectomy in 1999. She apparently did receive adjuvant chemotherapy, but those records were not available. There had previously been no evidence of recurrence of the breast cancer. Restaging chest CT on 02/16/2017 showed postsurgical changes in the left lower lobe with a residual left lower lobe nodule measuring 2.3 x 1.8 cm. Three pulmonary nodules were noted in the left upper lobe, largest measuring 1.3 x 1.0 cm, and it appeared unchanged. Two additional smaller nodules included a subpleural nodule in the left upper lobe which had increased from 6 mm to 9 mm. There was a new left pulmonary ligament lymph node. 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 Given the pathologic findings, she then began treatment with letrozole 2.5 mg daily in combination with palbociclib 125 mg daily on a 21/28 day schedule, cycle 1 day 1 on 04/14/2017. She tolerated her initial cycle of palbociclib without significant adverse effects. She then continued treatment at the same dosage and schedule. Repeat chest CT on 08/25/2017 showed smaller anterior mediastinal mass measuring 2.0 x 2.1 cm compared to 3.0 x 3.9 cm on the February 2017 study. A left infrahilar nodule also was slightly smaller. Left upper and lower lobe pulmonary nodules appeared unchanged. Restaging PET/CT on 10/23/2017 reported no evidence for recurrent or residual malignancy. A 1.5 cm anterior mediastinal soft tissue lesion showed less FDG uptake than normal mediastinal background. Left lower lobe pulmonary nodules were FDG negative. On 09/13/2018 she underwent laparoscopic cholecystectomy for chronic cholecystitis. She also underwent liver biopsy. Pathology showed acute and chronic cholecystitis and cholelithiasis. The liver biopsy showed benign hepatic parenchyma with minimal chronic inflammation within portal triads. I had seen her for a follow-up visit on 10/12/2018. At that point she appeared stable clinically with no obvious progression of the breast cancer. She continued her treatment with letrozole/palbociclib. Following that visit, we were unable to get her scheduled for follow-up despite multiple attempts to contact her to get her prescription renewed. Her other medical illnesses have been limited to hyperlipidemia and type II diabetes. She has had a long-standing hypochromic/microcytic anemia, presumably thalassemia trait. She does have a history of smoking 1 pack of cigarettes daily beginning at age 23. She quit smoking in October 2016. INTERIM HISTORY: On 04/07/2020 she presented to the emergency room with pain in her lower back and left leg following a fall 2 weeks earlier. According to her daughter, the back pain actually started well before the fall occurred. In any case, her CT of the lumbar spine and pelvis showed multiple lytic lesions including the sacrum, L1, L4 and L5 levels. At the L5 level the posterior element lytic lesion was noted to extend to the posterior aspect of the left L5/S1 neural foramina contributing to mild to moderate narrowing. The pelvis showed a lytic lesion in the left superior pubic ramus measuring 4.0 cm in transverse oblique defect dimension. An associated soft tissue component measured 2.3 x 2.0 cm. There appeared to be no associated fracture. X-ray of the left knee showed prepatellar soft tissue defect with adjacent edema and/or hematoma with small to moderate suprapatellar joint effusion. Her laboratory studies showed mild anemia, hemoglobin 10.6 g. The nonfasting blood sugar was significantly elevated. Her transferrin saturation was slightly low at 19.1%. Her alkaline phosphatase was just slightly elevated at 108/105 U/L. The bilirubin and liver enzymes were normal. In the setting of symptomatic bony metastatic disease, she was given palliative radiation to the pelvis, completed on 05/28/2020 to a total dose of 3000 cGy. In the meantime, on 05/23/2020 she began second line hormonal therapy with fulvestrant in combination with palbociclib. She tolerated the initial injection of fulvestrant with no adverse effects, and she did return in 2 weeks to complete for the second injection as part of her loading dose schedule. During that time, she also started treatment with denosumab for the metastatic bone involvement. Her further treatment was then delayed, first in June due to unspecified illness, and then in July when she was diagnosed with COVID-19 virus infection. On 08/06/2020 she was admitted to the hospital after presenting to the emergency room with weakness and numbness in both hands. She was found to have hypokalemia and hypomagnesemia. She also was found to have urinary tract infection. She was discharged home on antibiotic therapy with cefdinir and with potassium and magnesium replacement. She is seen for a follow-up visit. She continues to have very limited activity. Her ECOG score is 3. Her appetite lately has been okay. She has not had fever, night sweats, or hot flashes. She had sore mouth, but it is better now. She does not have difficulty swallowing. She has no shortness of breath, cough, or chest pain. Yesterday she had vomiting and diarrhea. She also has been having acid reflux symptoms. Her bowels had otherwise been okay. She was having dysuria and frequency/urgency with urination, but her bladder symptoms now are improving. She is having pain in her left hip area, but she Edwige has no other joint or bone pain. She does complain that her left foot feels numb and tingly. Medications: Farxiga 1 Tablet (of 5 mg) Oral daily, MetFORMIN HCl 1 (1000 mg) Tablet Oral b.i.d., Ondansetron HCl 1 Tablet (of 4 mg) Oral q 4 hours PRN, Pantoprazole Sodium 1 Tablet (of 40 mg) Tablet, enteric coated Oral daily, Prochlorperazine Maleate 1 Tablet (of 10 mg) Oral q 4 hours PRN, Trulicity 1.5 mg (of 0.75 mg/0.5mL) Subcutaneous q 7 days Allergies: No Known Allergies. Vital Signs: Performed on Aug 13, 2020 11:07 Height - 62.00 in Temperature - 97.9 F (LOW) Pulse - 115 /min (HIGH) Respiration - 16 /min BP - 93/62 mm(hg) O2 Sat - 98 % Pain - 0 Physical Examination: Constitutional - She appears generally weak, Eyes - Sclerae nonicteric. Conjunctivae clear, ENMT - No lesions noted in the oral cavity, Hematologic/Lymphatic - No cervical or clavicular adenopathy, Respiratory - Lungs sound clear, Cardiovascular - Heart is regular with no murmur, gallop or rub noted, Abdomen - Soft. Liver and spleen are not enlarged. There is no abdominal mass or ascites noted and there is no inguinal adenopathy, Extremities - No edema, Neurologic - No focal neurologic deficits noted. Lab/Imaging: Test performed on Aug 13, 2020 09:09 Iron 57 mcg/dL Magnesium 1.1 mg/dL Sodium 137 mmol/L Iron Binding Capacity (TIBC) 172 mcg/dl Potassium 3.1 mmol/L % Iron Saturation 33.1 % Chloride 103 mmol/L CO2 25 mmol/L UIBC 115 mcg/dL Anion Gap 12.1 BUN 7 mg/dL Creatinine 0.4 mg/dL Cr Clearance (Est) 146.8200 mL/min eGFR 159.7 mL/min Glucose 145 mg/dL Osmolality - Calculated 285 mOsm/kg Calcium 7.9 mg/dL Protein, Total 6.5 g/dL Albumin 3.0 g/dL Globulin 3.5 g/dL Bilirubin, Total 0.4 mg/dL ALT (SGPT) 15 U/L AST (SGOT) 25 U/L Alkaline Phosphatase 101 IU/L WBC 4.0 10 3/uL RBC 3.61 10 6/uL HGB 9.3 g/dL HCT 30.8 % MCV 85.3 fL MCH 25.8 pg MCHC 30.2 g/dL RDW 20.4 % Platelet Count 213 10 3/cmm MPV 9.7 fL Neutrophils 2.62 10 3/uL Lymphocytes 0.8 10 3/uL Monocytes 0.3 10 3/uL Eosinophils 0.1 10 3/uL Basophils 0.1 10 3/uL Neutrophil % 65.5 % Lymphocyte % 20.6 % Monocyte % 7.8 % Eosinophil % 1.8 % Basophils % 1.3 % NRBC % 0 % Problem List: 1. Metastatic breast cancer, ER/MA positive and HER-2 bel negative. 2. Hyperlipidemia. 3. Type II diabetes. 4. She has a longstanding microcytic anemia, presumed to be thalassemia trait. 5. GERD. 6. She was diagnosed with COVID-19 virus infection in July 2020. Problems Addressed with this Encounter and Plan: 1. Metastatic breast cancer, ER/MA positive and HER-2/bel negative. She had originally undergone left mastectomy and adjuvant chemotherapy for breast cancer in 1999. She had subsequently presented with multiple pulmonary nodules. She underwent left thoracoscopy with wedge resection of left lower lobe pulmonary nodule on 12/14/2016. In April 2017 she began treatment with letrozole 2.5 mg daily in combination with palbociclib 125 mg daily on a 21/28 day schedule. She had a good response with restaging PET/CT on 10/23/2017 showing no evidence for recurrent or residual malignancy. As of her visit on 10/12/2018 she appeared stable clinically with no obvious progression of the breast cancer. However, she was then lost to follow-up, and she stopped her treatment. In April 2020 she presented with symptomatic bony metastatic disease in the lumbar spine and pelvis. She was given palliative radiation and she began second line hormonal therapy with fulvestrant in combination with palbociclib. Her treatment was interrupted during the loading dose portion of her fulvestrant, first due to unspecified illness and subsequently to COVID-19 virus infection. She then had a recent hospitalization for symptomatic hypokalemia and hypomagnesemia. She also required treatment for urinary tract infection. She has had significant improvement in her bone pain following the radiation. It is unclear if she has had any response to the second line hormonal therapy. Given the delay in her treatment, I will restart the fulvestrant with the usual loading dose schedule, that is 500 mg by intramuscular injection every 2 weeks for the first month and then repeated monthly. She will restart palbociclib at the usual doses of 125 mg daily on a 21/28-day schedule. 2. Metastatic bone involvement. She also restarts denosumab, 120 mg by subcutaneous injection to be repeated monthly. 3. She has had a recent hospitalization with symptomatic hypokalemia and hypomagnesemia. She is going to continue her potassium and magnesium supplements. She will require ongoing monitoring of electrolyte levels. She is to call and let us know if she has further diarrhea, as she may require IV replacement therapy. 4. GERD. She will increase Protonix to 40 mg twice daily. Signed By: Colt Brito M.D. <<Signature on File>>
[2020-08-14 07:57] LABS: CA 27.29 429 U/mL (<38)
== END 2020-08-13 08:57 | disposition home or self-care (01) ==
LOC: ONCMED 08:57
PROVIDERS: PCP Nurse Practitioner Family; Visit Provider Internal Medicine Medical Oncology
DX: Z51.11 Encounter for antineoplastic chemotherapy (principal); C50.812 Malignant neoplasm of overlapping sites of left female breast; Z17.0 Estrogen receptor positive status [ER+]; C79.51 Secondary malignant neoplasm of bone; C78.02 Secondary malignant neoplasm of left lung; E78.5 Hyperlipidemia, unspecified; E11.9 Type 2 diabetes mellitus without complications; D56.3 Thalassemia minor; K21.9 Gastro-esophageal reflux disease without esophagitis; Z86.16 Personal history of COVID-19
CPT/HCPCS: 36415; 80053; 83540; 83550; 83735; 85025; 86300; 96372; 96402; 99215; J0897; J9395

== ENCOUNTER 2020-08-27 05:54 | Outpatient (CLI) | payer MEDICARE, SELFPAY ==
[2020-08-27 12:27] LABS: Eosinophils # 0.1 10^3/uL (0.0-0.8); Hematocrit 30.2 % (37.0-47.0); Hemoglobin 9.1 g/dL (11.5-15.3); Lymphocytes # 0.9 10^3/uL (0.8-4.8); Lymphocytes % 28.9 %; Mean Corpuscular HGB Conc 30.1 g/dL (30.0-36.0); Mean Corpuscular Hemoglobin 26.8 pg (28.0-34.0); Mean Corpuscular Volume 89.1 fL (81-99); Mean Platelet Volume 8.9 fL (7.4-10.4); Monocytes # 0.4 10^3/uL (0.2-0.9); Monocytes % 11.5 %; Neutrophils # 1.64 10^3/uL (1.8-7.7); Neutrophils % 53.6 %; Nucleated Red Blood Cells % 0 %; Platelet Count 231 10^3/cmm (130-400); Red Blood Count 3.39 10^6/uL (4.1-5.3); Red Cell Distribution Width 18.8 % (12.1-15.1); White Blood Count 3.1 10^3/uL (4.0-10.0)
[2020-08-27 12:46] LABS: Alanine Aminotransferase 10 U/L (0-33); Albumin Level 3.7 g/dL (3.5-5.2); Alkaline Phosphatase 84 IU/L (35-105); Anion Gap 15.5 (5-19); Aspartate Amino Transferase 15 U/L (0-32); Blood Urea Nitrogen 16 mg/dL (8-23); Calcium 9.7 mg/dL (8.5-10.5); Carbon Dioxide 23 mmol/L (22-29); Chloride 100 mmol/L (98-107); Glomerular Filtration Rate 99.7 mL/min (90-130); Glucose 207 mg/dL (65-115); Magnesium 1.4 mg/dL (1.7-2.3); Osmolality Calculated 285 mOsm/kg (285-295); Potassium 4.5 mmol/L (3.5-5.1); Sodium 134 mmol/L (136-145); Total Bilirubin 0.3 mg/dL (0.15-1.2); Total Protein 7.7 g/dL (6.6-8.7)
[2020-08-27] MEDS: fulvestrant 250 mg/5 mL Syringe 500 MG IM (14:35)
== END 2020-08-27 05:55 | disposition home or self-care (01) ==
LOC: ONCMED 05:56
PROVIDERS: PCP Nurse Practitioner Family; Visit Provider Internal Medicine Medical Oncology
DX: C50.812 Malignant neoplasm of overlapping sites of left female breast (principal); Z17.0 Estrogen receptor positive status [ER+]; E83.42 Hypomagnesemia; Z79.818 Long term (current) use of other agents affecting estrogen receptors and estrogen levels; C79.51 Secondary malignant neoplasm of bone; C78.02 Secondary malignant neoplasm of left lung; C34.32 Malignant neoplasm of lower lobe, left bronchus or lung
CPT/HCPCS: 36415; 80053; 83735; 85025; 96402; J9395

== ENCOUNTER → 2020-08-28 08:15 | Outpatient (BNVA) | payer MEDICARE, SELFPAY | PROVIDERS: PCP Nurse Practitioner Family; Referring Provider Nurse Practitioner Family; Visit Provider Nurse Practitioner | DX: C50.919 Malignant neoplasm of unspecified site of unspecified female breast (principal); C79.51 Secondary malignant neoplasm of bone; G81.94 Hemiplegia, unspecified affecting left nondominant side; R53.1 Weakness; Z87.891 Personal history of nicotine dependence | CPT/HCPCS: 99204 ==

== ENCOUNTER 2020-09-10 06:02 | Outpatient (CLI) | payer MEDICARE, SELFPAY ==
[2020-09-10 10:20] LABS: Eosinophils # 0.1 10^3/uL (0.0-0.8); Eosinophils % 3.1 %; Hemoglobin 8.7 g/dL (11.5-15.3); Lymphocytes # 0.8 10^3/uL (0.8-4.8); Lymphocytes % 21.5 %; Mean Corpuscular Hemoglobin 26.4 pg (28.0-34.0); Mean Corpuscular Volume 88.1 fL (81-99); Mean Platelet Volume 8.9 fL (7.4-10.4); Monocytes # 0.3 10^3/uL (0.2-0.9); Monocytes % 6.6 %; Neutrophils # 2.52 10^3/uL (1.8-7.7); Neutrophils % 66.2 %; Nucleated Red Blood Cells % 0 %; Platelet Count 253 10^3/cmm (130-400); Red Blood Count 3.29 10^6/uL (4.1-5.3); Red Cell Distribution Width 16.3 % (12.1-15.1); White Blood Count 3.8 10^3/uL (4.0-10.0)
[2020-09-10 11:29] LABS: Alanine Aminotransferase 7 U/L (0-33); Albumin Level 3.6 g/dL (3.5-5.2); Alkaline Phosphatase 73 IU/L (35-105); Anion Gap 11.8 (5-19); Aspartate Amino Transferase 13 U/L (0-32); Blood Urea Nitrogen 14 mg/dL (8-23); Calcium 9.2 mg/dL (8.5-10.5); Carbon Dioxide 24 mmol/L (22-29); Chloride 103 mmol/L (98-107); Globulin 3.5 g/dL (1.3-4.6); Glomerular Filtration Rate 99.7 mL/min (90-130); Glucose 136 mg/dL (65-115); Magnesium 1.4 mg/dL (1.7-2.3); Osmolality Calculated 283 mOsm/kg (285-295); Potassium 3.8 mmol/L (3.5-5.1); Sodium 135 mmol/L (136-145); Total Bilirubin 0.3 mg/dL (0.15-1.2); Total Protein 7.1 g/dL (6.6-8.7)
[2020-09-10] MEDS: fulvestrant 250 mg/5 mL Syringe 500 MG IM (12:45)
[2020-09-10] MEDS: denosumab 120 mg SDV SUBCUT (12:48)
[2020-09-10 14:32] LABS: Ferritin 205 ng/mL (15-150); Iron 52 ug/dL (37-145); Percent Saturation 20.4 % (20-50); Total Iron Binding Capacity 254 mcg/dl; Unsaturated Iron Binding 202 ug/dL (112-347)
[2020-09-10 14:49] LABS: Folate Level 2.9 ng/mL (4.8-37.3); Vitamin B12 250 pg/mL (232-1245)
[2020-09-11 10:18] LABS: CA 27.29 418 U/mL (<38)
--- NOTE | 2020-09-22 16:05 | ONC FU_ITS ---
[facility] Patient Note Patient: Dacia Way Unit #: [id number]: 1955 Dictated By: Soco SawyerDate of Visit: Sep 10, 2020 Onc MED Follow-Up/Prog Note Chief Complaint: Metastatic breast cancer. 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 On 10/31/2016 she had presented to the emergency room with chest pain. Chest x-ray at that time showed a well-circumscribed opacity in the left lung base measuring 2.1 cm. The appearance was suggestive of pleural or intraparenchymal nodule. She had further evaluation with contrast enhanced chest CT on 11/23/2016. That study showed numerous left upper and left lower lobe pulmonary nodules, the largest in the left lower lobe measuring 1.9 x 2.0 x 1.6 cm. The appearance was suspicious for metastatic disease or primary lung cancer with metastatic disease. Also noted was an anterosuperior mediastinal mass measuring 3.8 x 2.3 cm. The reported differential diagnosis included thymoma/thymic tumor, lymphadenopathy, and germ cell tumor. There was no additional adenopathy identified, and thymic etiology was favored. She was referred to Dr. Villalpando. On 12/14/2016 she underwent left thoracoscopy with wedge resection of the left lower lobe nodule. 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 The tumor was positive for NSE, CK-7, CK-CAM 5.2, and CK-HMW. It was focally positive for synaptophysin and for TTF-1. It was negative for CD-56, chromogranin, and CK-20. It measured 3.0 x 2.3 x 1.5 cm and it was noted to extend to the pleural surface. Dr Brito had seen her initially on 12/30/2016. At that point she was still recovering from her surgery. Based on the pathology, it was difficult to determine whether her tumor was more in the category of neuroendocrine cancer or non-small cell lung cancer. Her subsequent laboratory evaluation included CBC showing hemoglobin 11.8 g, white blood cell count 10,500, and platelet count 338,000. The red cell indices were hypochromic/microcytic with MCV 73 MCH 24. Chem profile was unremarkable. Her neuroendocrine markers included a chromogranin A of 1 nmol/L, normal range 0-5, whole blood serotonin 178 ng/mL, normal range 50-200, and nonspecific enolase 4.4 ng/mL, normal range 0.0-12.5. Further pathologic evaluation showed that her tumor was strongly positive for BCA-225, suggestive of breast origin. A breast prognostic profile then showed the tumor to be ER positive at 99% with WI positive at 1%, both strong intensity. It was negative for overexpression of HER-2/bel, 0+ by IHC and amplification ratio by FISH 1.1 with 1.8 HER-2 copies/cell. She had a known history of breast cancer for which she had undergone left mastectomy in 1999. She apparently did receive adjuvant chemotherapy, but those records were not available. There had previously been no evidence of recurrence of the breast cancer. Restaging chest CT on 02/16/2017 showed postsurgical changes in the left lower lobe with a residual left lower lobe nodule measuring 2.3 x 1.8 cm. Three pulmonary nodules were noted in the left upper lobe, largest measuring 1.3 x 1.0 cm, and it appeared unchanged. Two additional smaller nodules included a subpleural nodule in the left upper lobe which had increased from 6 mm to 9 mm. There was a new left pulmonary ligament lymph node. 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 Given the pathologic findings, she then began treatment with letrozole 2.5 mg daily in combination with palbociclib 125 mg daily on a 21/28 day schedule, cycle 1 day 1 on 04/14/2017. She tolerated her initial cycle of palbociclib without significant adverse effects. She then continued treatment at the same dosage and schedule. Repeat chest CT on 08/25/2017 showed smaller anterior mediastinal mass measuring 2.0 x 2.1 cm compared to 3.0 x 3.9 cm on the February 2017 study. A left infrahilar nodule also was slightly smaller. Left upper and lower lobe pulmonary nodules appeared unchanged. Restaging PET/CT on 10/23/2017 reported no evidence for recurrent or residual malignancy. A 1.5 cm anterior mediastinal soft tissue lesion showed less FDG uptake than normal mediastinal background. Left lower lobe pulmonary nodules were FDG negative. On 09/13/2018 she underwent laparoscopic cholecystectomy for chronic cholecystitis. She also underwent liver biopsy. Pathology showed acute and chronic cholecystitis and cholelithiasis. The liver biopsy showed benign hepatic parenchyma with minimal chronic inflammation within portal triads. I had seen her for a follow-up visit on 10/12/2018. At that point she appeared stable clinically with no obvious progression of the breast cancer. She continued her treatment with letrozole/palbociclib. Following that visit, we were unable to get her scheduled for follow-up despite multiple attempts to contact her to get her prescription renewed. Her other medical illnesses have been limited to hyperlipidemia and type II diabetes. She has had a long-standing hypochromic/microcytic anemia, presumably thalassemia trait. She does have a history of smoking 1 pack of cigarettes daily beginning at age 23. She quit smoking in October 2016. INTERIM HISTORY: On 04/07/2020 she presented to the emergency room with pain in her lower back and left leg following a fall 2 weeks earlier. According to her daughter, the back pain actually started well before the fall occurred. In any case, her CT of the lumbar spine and pelvis showed multiple lytic lesions including the sacrum, L1, L4 and L5 levels. At the L5 level the posterior element lytic lesion was noted to extend to the posterior aspect of the left L5/S1 neural foramina contributing to mild to moderate narrowing. The pelvis showed a lytic lesion in the left superior pubic ramus measuring 4.0 cm in transverse oblique defect dimension. An associated soft tissue component measured 2.3 x 2.0 cm. There appeared to be no associated fracture. X-ray of the left knee showed prepatellar soft tissue defect with adjacent edema and/or hematoma with small to moderate suprapatellar joint effusion. Her laboratory studies showed mild anemia, hemoglobin 10.6 g. The nonfasting blood sugar was significantly elevated. Her transferrin saturation was slightly low at 19.1%. Her alkaline phosphatase was just slightly elevated at 108/105 U/L. The bilirubin and liver enzymes were normal. In the setting of symptomatic bony metastatic disease, she was given palliative radiation to the pelvis, completed on 05/28/2020 to a total dose of 3000 cGy. In the meantime, on 05/23/2020 she began second line hormonal therapy with fulvestrant in combination with palbociclib. She tolerated the initial injection of fulvestrant with no adverse effects, and she did return in 2 weeks to complete for the second injection as part of her loading dose schedule. During that time, she also started treatment with denosumab for the metastatic bone involvement. Her further treatment was then delayed, first in June due to unspecified illness, and then in July 2020 when she was diagnosed with COVID-19 virus infection. On 08/06/2020 she was admitted to the hospital after presenting to the emergency room with weakness and numbness in both hands. She was found to have hypokalemia and hypomagnesemia. She also was found to have urinary tract infection. She was discharged home on antibiotic therapy with cefdinir and with potassium and magnesium replacement. Ms. Way is here today for follow-up. She states overall she is doing okay but is having left hip and foot pain. She states the pain is primarily in her hip. It is there intermittently. It does not wake her up at night but it bothers her enough that is she has trouble walking. She states otherwise her bone pain has gotten much better after her radiation. Her only other concern is that she is having trouble swallowing water and tea. She states she has no trouble swallowing anything else just water and tea. She denies any mouth sores, sore throat. She denies any pain with swallowing states it just does not want to go down. She has had no nausea or vomiting. She denies diarrhea or constipation. She states her bowels actually have been really good for her especially since she is not had significant diarrhea. She denies any other pain. She denies any shortness of breath or orthopnea. She denies hot flashes. She is tolerating the Fosamax reinitiation well thus far. She will be due to resume her Ibrance with this injection planned for today. She states she is eating good and overall feels that her energy is good for her. Her ECOG is 1 encephalopathy due to the hip pain. Past Medical History: Diabetes type II History of breast cancer Hyperlipidemia Past Surgical History: Cholecystectomy in 2019 Left thoracoscopy with wedge biopsy of left lower lobe containing pulmonary nodule in 2017 Left mastectomy in 1999 Appendectomy in 1959 Allergies: No Known Allergies. Medications: Farxiga 1 Tablet (of 5 mg) Oral daily Klor-Con Sprinkle (8 meq) Capsule, controlled release Oral daily MetFORMIN HCl 1 (1000 mg) Tablet Oral b.i.d. Ondansetron HCl 1 Tablet (of 4 mg) Oral q 4 hours PRN Pantoprazole Sodium 1 Tablet (of 40 mg) Tablet, enteric coated Oral daily Prochlorperazine Maleate 1 Tablet (of 10 mg) Oral q 4 hours PRN Trulicity 1.5 mg (of 0.75 mg/0.5mL) Subcutaneous q 7 days Family History: Ms. Way's mother at age 79: coronary artery disease, and breast cancer, and diabetes. Ms. Way's father at age 64: coronary artery disease, and suicide. Ms. Way has 2 brothers: 1 alive, 1 . Ms. Way's first brother's coronary artery disease, and diabetes. She has 3 sisters: 1 alive, 2 . Ms. Way's first sister's coronary artery disease. Another sister's diabetes. Father had heart disease and of suicide. Her mother had diabetes and heart disease. She also had been treated for breast cancer. One brother and 2 sisters also with heart disease and diabetes. Social History: Ms. Way is and she is unemployed. Ms. Way no longer smokes but had smoked 1.0 pack/day for 39 years. She has no history of drinking. Ms. Way reports the following support systems: lives with spouse, significant other, family, or friends, lives in own house, supportive family/friends willing to assist with needs, and adequate transportation available for expected visits. Her diet consists of regular meals. She indicates her activity level as: daily activities. She has a history of smoking 1 pack of cigarettes daily since age 23. She quit smoking in October 2016. She does not drink alcohol. Review Of Symptoms: Constitutional Denies lack of appetite, fatigue, fever, lethargy, malaise, night sweats or rigors / chills. Allergic/Immunologic Denies allergies and adverse reactions. Eyes Denies blurred vision, double vision, lacrimation, night blindness, visual difficulties and photophobia. ENMT She states she is having problems swallowing water and Tea. Hematologic/Lymphatic Denies easy bruising and tender or enlarged lymph nodes. Respiratory Denies cough, dyspnea, hemoptysis, hiccoughs, pleuritic chest pain and wheezing. Cardiovascular Denies arrhythmias, chest pain, dyspnea, edema, orthopnea and palpitations. Gastrointestinal Denies abdominal pain, change in bowel habits, constipation, diarrhea, heartburn / dyspepsia, hematemesis, hemorrhoids, melena / GI bleeding, nausea, pain / cramping and vomiting. Genitourinary (F) Denies dysuria, frequency, hematuria, incontinence, nocturia, urgency, urine color change, vaginal discharge / bleeding and vaginal spotting. Musculoskeletal Denies muscle weakness and decreased range of motion. Has bone pain from bone mets but is controlled at present except Left hip is a little worse today . Integumentary Denies alopecia, blistering, bruising, dry skin, facial burning, nail changes, photosensitivity, pruritus, rash and urticaria. Neurologic Denies disorientation, dizziness, abnormal gait, headaches, insomnia and memory loss. Psychiatric Denies hallucinations and mood swings. Vital Signs: Performed on Sep 10, 2020 12:11 Height - 62.00 in Weight - 153.6 lbs (HIGH) BSA - 1.71 sq.m BMI - 28.09 Temperature - 98.2 F (LOW) Pulse - 86 /min Respiration - 18 /min BP - 135/82 mm(hg) O2 Sat - 99 % Pain - 0 Fatigue - 0,1 - No physically strenuous activity, but ambulatory and able to carry out light or sedentary work (e.g. office work, light house work). (ECOG) Physical Examination: Constitutional Alert, oriented, no acute distress. Skin pink, warm and dry. Head Normocephalic; atraumatic. Eyes Conjunctivae and sclerae are clear and without icterus. Pupils are reactive and equal. ENMT No oral exudates, ulcers, masses, thrush or mucositis. Oropharynx clear. Tongue normal. Neck Supple without masses or thyromegaly. No jugular venous distension. Hematologic/Lymphatic No petechiae or purpura. No tender or palpable lymph nodes in the cervical, supraclavicular, or axillary area. Respiratory Lungs are clear to auscultation without rhonchi or wheezing. Cardiovascular Regular rate and rhythm of heart without murmurs,clicks, gallops or rubs. Back/Spine Non-tender to palpation. Extremities No evidence of lower extremities abnormalities, tender or enlarged lymph nodes and upper extremities abnormalities. Musculoskeletal No tenderness or swelling, normal range of motion without obvious weakness. Integumentary No rashes or lesions. Neurologic No sensory or motor deficits, normal cerebellar function. Slow gait. Psychiatric Alert and oriented times three. Coherent speech. Verbalizes understanding of our discussions today. Laboratory:Test performed on Sep 10, 2020 10:07 Ferritin 205 ng/mL Folate, Serum 2.9 ng/mL Iron 52 mcg/dL Magnesium 1.4 mg/dL Sodium 135 mmol/L Vitamin B12 250 pg/mL Iron Binding Capacity (TIBC) 254 mcg/dl Potassium 3.8 mmol/L % Iron Saturation 20.4 % Chloride 103 mmol/L CO2 24 mmol/L UIBC 202 mcg/dL Anion Gap 11.8 BUN 14 mg/dL Creatinine 0.6 mg/dL Cr Clearance (Est) 100.0700 mL/min eGFR 99.7 mL/min Glucose 136 mg/dL Osmolality - Calculated 283 mOsm/kg Calcium 9.2 mg/dL Protein, Total 7.1 g/dL Albumin 3.6 g/dL Globulin 3.5 g/dL Bilirubin, Total 0.3 mg/dL ALT (SGPT) 7 U/L AST (SGOT) 13 U/L Alkaline Phosphatase 73 IU/L WBC 3.8 10 3/uL RBC 3.29 10 6/uL HGB 8.7 g/dL HCT 29.0 % MCV 88.1 fL MCH 26.4 pg MCHC 30.0 g/dL RDW 16.3 % Platelet Count 253 10 3/cmm MPV 8.9 fL Neutrophils 2.52 10 3/uL Lymphocytes 0.8 10 3/uL Monocytes 0.3 10 3/uL Eosinophils 0.1 10 3/uL Basophils 0.0 10 3/uL Neutrophil % 66.2 % Lymphocyte % 21.5 % Monocyte % 6.6 % Eosinophil % 3.1 % Basophils % 1.0 % NRBC % 0 % CA 27.29 418 U/mL Impression: 1. Metastatic breast cancer, ER/WI positive and HER-2 bel negative. 2. Hyperlipidemia. 3. Type II diabetes. 4. She has a longstanding microcytic anemia, presumed to be thalassemia trait. 5. GERD. 6. She was diagnosed with COVID-19 virus infection in July 2020. Plan: 1. Metastatic breast cancer, ER/WI positive and HER-2/bel negative. She had originally undergone left mastectomy and adjuvant chemotherapy for breast cancer in 1999. She had subsequently presented with multiple pulmonary nodules. She underwent left thoracoscopy with wedge resection of left lower lobe pulmonary nodule on 12/14/2016. In April 2017 she began treatment with letrozole 2.5 mg daily in combination with palbociclib 125 mg daily on a 21/28 day schedule. She had a good response with restaging PET/CT on 10/23/2017 showing no evidence for recurrent or residual malignancy. As of her visit on 10/12/2018 she appeared stable clinically with no obvious progression of the breast cancer. However, she was then lost to follow-up, and she stopped her treatment. In April 2020 she presented with symptomatic bony metastatic disease in the lumbar spine and pelvis. She was given palliative radiation and she began second line hormonal therapy with fulvestrant in combination with palbociclib. Her treatment was interrupted during the loading dose portion of her fulvestrant, first due to unspecified illness and subsequently to COVID-19 virus infection. She then had a recent hospitalization for symptomatic hypokalemia and hypomagnesemia. She also required treatment for urinary tract infection. She has had significant improvement in her bone pain following the radiation. It is unclear if she has had any response to the second line hormonal therapy. Given the delay in her treatment, she did restart the fulvestrant with the usual loading dose schedule on 08/13/2020, that is 500 mg by intramuscular injection every 2 weeks for the first month and then repeated monthly. She will restart palbociclib at the usual doses of 125 mg daily on a 21/28-day schedule. A. Proceed with Faslodex 500 mg today???then she will be due monthly. B. Today's labs reviewed in detail discussed with Ms. Way and a copy was given to her. WBC 3.8, hemoglobin 8.7, platelets 253,000 ANC is 2520. BUN 14, creatinine 0.6 potassium magnesium as above LFTs are normal. Her last CA 27-29 was on August 13, 2020 reported at 429. 2. Metastatic bone involvement. She also restarted denosumab, 120 mg by subcutaneous injection on 08/13/2020 to be repeated monthly. A. Her last dose was on August 13, 2020. B. She is due for Xgeva today. C. In regards, to her hip pain we will asked Dr. Vizcarra to review her field to see if it is possible to offer any radiation to the hip for suspected metastatic disease. She did have 10 fractions for a total of 30 Bower to the pelvis in May 2020. E. She does have some MSIR 15 mg tablets that she does take when she needs pain relief. Her last prescription was on August 13, 2020. 3. She has had a recent hospitalization with symptomatic hypokalemia and hypomagnesemia. Potassium was 3.8 over magnesium continues to be 1 4. She will continue her current potassium and magnesium replacement as she has tolerated it well without diarrhea. 4. GERD. She will continue Protonix 40 mg twice daily. 5. Follow-up plan A. We will plan to see her back in 1 month with CBC, CMP, CA 27-29. She will be due for follow-up visit and Faslodex as well as Xgeva at that time. B. Mrs. Way was instructed to contact us in interim should questions or problems arise. C. She is encouraged to let us know if the swelling does not improve at which time she may need a barium swallow for further swallowing evaluation studies done. D. I did request iron studies as well as folate and B12 levels be added to the blood in lab if possible for evaluation of persistent anemia. Signed By: Soco Sawyer-, AOCNP Amado Brito MD <<Signature on File>>
== END 2020-09-10 06:03 | disposition home or self-care (01) ==
LOC: ONCMED 06:04
PROVIDERS: PCP Nurse Practitioner Family; Visit Provider Nurse Practitioner
DX: C79.51 Secondary malignant neoplasm of bone (principal); C78.02 Secondary malignant neoplasm of left lung; C50.912 Malignant neoplasm of unspecified site of left female breast; D63.0 Anemia in neoplastic disease; E87.6 Hypokalemia; E83.42 Hypomagnesemia; K21.9 Gastro-esophageal reflux disease without esophagitis; M25.552 Pain in left hip; G89.3 Neoplasm related pain (acute) (chronic); D50.9 Iron deficiency anemia, unspecified; Z79.818 Long term (current) use of other agents affecting estrogen receptors and estrogen levels; Z87.891 Personal history of nicotine dependence; Z79.899 Other long term (current) drug therapy
CPT/HCPCS: 36415; 80053; 82607; 82728; 82746; 83540; 83550; 83735; 85025; 86300; 96372; 96402; 99214; J0897; J9395

== ENCOUNTER 2020-09-30 14:34 | Emergency (ER) | payer MEDICARE, SELFPAY ==
[2020-09-30 14:52] VITALS: BP 147/84; PULSE 95; RESP 16; TEMP 36.5; O2SAT 98; BMI 26.4
--- NOTE | 2020-09-30 17:20 | ECG_ITS ---
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 Measurements Intervals [place] Rate: 90 P: 72 MD: 231 QRS: -25 QRSD: 127 T: 11 QT: 375 QTc: 460 Interpretive Statements SINUS RHYTHM WITH FIRST DEGREE AV BLOCK WITH OCCASIONAL SUPRAVENTRICULAR PREMATURE COMPLEXES BORDERLINE LEFT AXIS DEVIATION [QRS AXIS < -20] RIGHT BUNDLE BRANCH BLOCK [120+ ms QRS DURATION, UPRIGHT V1, 40+ ms S IN I/aVL/V4/V5/V6] Compared to ECG 08/06/2020 18:00:33 Sinus arrhythmia no longer present Myocardial infarct finding no longer present Prolonged QT interval no longer present Electronically Signed On 09-30-2020 19:13:13 CDT by Praful Luna M.D. [email or web address]
--- NOTE | 2020-09-30 17:20 | XRR_ITS ---
PROCEDURE INFORMATION: Exam: XR Chest Exam date and time: 09/30/2020 5:23 PM Age: 65 years old Clinical indication: Chest pain; Type not specified; Patient HX: HX of breast cancer TECHNIQUE: Imaging protocol: XR of the chest Views: 1 view. Total images: 1 COMPARISON: 1. CT angio chest PE protcl [id number] 09/30/2020 6:54:[address] chest w con* [id number] 10/10/2018 10:21 AM FINDINGS: Lungs: Known lung cancer, either primary or metastatic breast cancer, as detailed in the CTA chest examination report same date. Again note of the dominant left lower lobe mass. Left hilar fullness with known lung cancer. Suspected hematogenous metastasis. Pleural spaces: Unremarkable. No pleural effusion. No pneumothorax. Heart/Mediastinum: Cardiac structures and configuration with coronary artery disease. Bones/joints: Known skeletal metastasis.. Soft tissues: Status post left mastectomy. Other findings: Please review separate examination CTA chest 09/30/2020 7:00 p.m. XR/XR chest 1V portable [id number] IMPRESSION: Known lung cancer of either primary or metastatic breast cancer.
[2020-09-30 17:30] VITALS: BP 144/76; PULSE 84; PULSE 90; RESP 23; O2SAT 100
--- NOTE | 2020-09-30 17:32 | W.ED.CHESTPA ---
Documented by User: Home Daniels DO 10/01/20 06:51 HPI - Chest Pain General: Chief Complaint: Chest Pain Stated Complaint: R SIDE CP, HURTS THROUGH TO BACK Time Seen by Provider: 09/30/20 17:19 History of Present Illness: HPI narrative: 65-year-old female presents emergency room complaining of chest pain it is actually very positional. It began 2 days ago radiates into her back. It is better when she moves to certain positions such as sitting up is little bit worse when she lays back. She has a history of metastatic breast cancer metastatic to the lungs and to the spine. She is planning to treated however there is been some delay because of Covid and are trying to make arrangements for some medicines. She did have Covid earlier this year as well. MD complaint: chest pain Pertinent past history: other (Breast cancer with known metastasis to the lungs ribs and thoracic vertebra) Onset (ago): day(s) Timing of current episode: episodic Prior episodes: Yes Onset: during rest, during exertion and awoke with symptoms Pain location: right chest and posterior Pain radiation: none Severity: moderate Quality: sharp Relieving factors: rest Exacerbating factors: palpation and movement Associated symptoms: Reports dyspnea; Deny abdominal pain, diaphoresis, fever(s), leg edema, nausea, palpitations, sense of impending doom, syncope or vomiting Treatment prior to arrival: none Review of Systems Const: Denies: fever(s) or diaphoresis ENMT: Denies: throat pain, ear or mastoid pain, nasal discharge or nasal congestion Card: Denies: palpitations or syncope Resp: Reports: dyspnea GI: Denies: abdominal pain, nausea or vomiting : Denies: flank pain, difficulty voiding, dysuria, urinary frequency or urinary urgency Skin/Breast: Denies: rash or pruritus PFS ED PFSH: Medical History Left hemiparesis Family History Other Cancer Heart disease Psychiatric illness Social History Smoking and tobacco status: former smoker Alcohol intake: never Housing: House History of recent travel: No Physical Exam Const: COMMON NORMALS: no acute distress GENERAL APPEARANCE: cooperative and comfortable ORIENTATION/CONSCIOUSNESS: Yes awake, Yes oriented to person, Yes oriented to place and Yes oriented to time HENMT: COMMON NORMALS: normocephalic, atraumatic and hearing grossly normal bilaterally HEAD & SCALP: normocephalic and atraumatic Neck/C-Spine: COMMON NORMALS: no JVD Resp: COMMON NORMALS: normal respiratory effort, No retractions, No use of accessory muscles and clear to auscultation bilaterally AUSCULTATION: clear to auscultation bilaterally Cardio: COMMON NORMALS: no JVD, regular rate, regular rhythm and No murmurs present (Cardio) RATE: regular rate RHYTHM: regular rhythm GI: COMMON NORMALS: Soft to palpation and No hepatosplenomegaly present AUSCULTATION: Yes normoactive bowel sounds PALPATION: Yes Soft to palpation, No Tenderness to palpation present (GI), No Guarding due to palpation present (GI) and Yes No hepatosplenomegaly present Extremity: COMMON NORMALS: normal to inspection, capillary refill normal, no clubbing, cyanosis or edema, no calf tenderness and no pedal edema Neuro: SENSORIUM/ORIENTATION: Yes oriented to person, Yes oriented to place and Yes oriented to time Skin: COMMON NORMALS: no rashes or lesions noted GENERAL SKIN EXAM: no rashes or lesions noted Course Vital Signs: Vital signs: Vital Signs Temperature 97.7 F 09/30/20 20:41 Pulse Rate 81 09/30/20 20:41 Respiratory Rate 23 H 09/30/20 20:41 Blood Pressure 129/72 09/30/20 20:41 Pulse Oximetry 100 09/30/20 20:41 MDM - Chest Pain MDM Narrative: Medical decision making narrative: Turned over to Dr. Tenorio at change of shift please see his notes for diagnosis and final disposition. Lab Data: Labs: Lab Results 09/30/20 09/30/20 09/30/20 Range/Units 17:27 17:27 17:27 WBC 5.6 (4.0-10.0) 10^3/ uL RBC 4.24 (4.1-5.3) 10^6/u L Hgb 10.7 L (11.5-15.3) g/dL Hct 35.1 L (37.0-47.0) % MCV 82.8 (81-99) fL MCH 25.2 L (28.0-34.0) pg MCHC 30.5 (30.0-36.0) g/dL RDW 15.2 H (12.1-15.1) % Plt Count 354 (130-400) 10^3/c mm MPV 8.9 (7.4-10.4) fL Neut % (Auto) 67.1 % Lymph % (Auto) 23.0 % [place] % (Auto) 7.0 % Eos % (Auto) 1.8 % Baso % (Auto) 0.7 % Neut # (Auto) 3.76 (1.8-7.7) 10^3/u L Lymph # (Auto) 1.3 (0.8-4.8) 10^3/u L [place] # (Auto) 0.4 (0.2-0.9) 10^3/u L Eos # (Auto) 0.1 (0.0-0.8) 10^3/u L Baso # (Auto) 0.0 (0.0-0.1) 10^3/u L Nucleated RBC % (a uto) 0 % Nucleated RBCs # 0.0 /100WBC D-Dimer 0.88 H (0-0.59) ug/mIFE U Sodium 135 L (136-145) mmol/L Potassium 4.6 (3.5-5.1) mmol/L Chloride 98 (98-107) mmol/L Carbon Dioxide 25 (22-29) mmol/L Anion Gap 16.6 (5-19) BUN 19 (8-23) mg/dL Creatinine 0.6 (0.5-0.9) mg/dL GFR Calculation 99.7 (90-130) mL/min Glucose 120 H (65-115) mg/dL Calculated Osmolal ity 283 L (285-295) mOsm/k g Calcium 9.9 (8.5-10.5) mg/dL Total Bilirubin 0.4 (0.15-1.2) mg/dL AST 15 (0-32) U/L ALT 6 (0-33) U/L Alkaline Phosphata se 84 (35-105) IU/L Creatine Kinase 37 (26-192) U/L Troponin T Baselin e (0-10) ng/L Troponin T 120 Min little shell tribe (0-10) ng/L Delta Troponin T (0-10) ABS# C-Reactive Protein 53.3 H (0.0-4.9) mg/L Total Protein 7.8 (6.6-8.7) g/dL Albumin 4.2 (3.5-5.2) g/dL Globulin 3.6 (1.3-4.6) g/dL Lipase 38 (13-60) U/L 09/30/20 09/30/20 Range/Units 17:27 20:11 WBC (4.0-10.0) 10^3/ uL RBC (4.1-5.3) 10^6/u L Hgb (11.5-15.3) g/dL Hct (37.0-47.0) % MCV (81-99) fL MCH (28.0-34.0) pg MCHC (30.0-36.0) g/dL RDW (12.1-15.1) % Plt Count (130-400) 10^3/c mm MPV (7.4-10.4) fL Neut % (Auto) % Lymph % (Auto) % [place] % (Auto) % Eos % (Auto) % Baso % (Auto) % Neut # (Auto) (1.8-7.7) 10^3/u L Lymph # (Auto) (0.8-4.8) 10^3/u L [place] # (Auto) (0.2-0.9) 10^3/u L Eos # (Auto) (0.0-0.8) 10^3/u L Baso # (Auto) (0.0-0.1) 10^3/u L Nucleated RBC % (a uto) % Nucleated RBCs # /100WBC D-Dimer (0-0.59) ug/mIFE U Sodium (136-145) mmol/L Potassium (3.5-5.1) mmol/L Chloride (98-107) mmol/L Carbon Dioxide (22-29) mmol/L Anion Gap (5-19) BUN (8-23) mg/dL Creatinine (0.5-0.9) mg/dL GFR Calculation (90-130) mL/min Glucose (65-115) mg/dL Calculated Osmolal ity (285-295) mOsm/k g Calcium (8.5-10.5) mg/dL Total Bilirubin (0.15-1.2) mg/dL AST (0-32) U/L ALT (0-33) U/L Alkaline Phosphata se (35-105) IU/L Creatine Kinase (26-192) U/L Troponin T Baselin e 9 (0-10) ng/L Troponin T 120 Min little shell tribe 11.80 H (0-10) ng/L Delta Troponin T 2.80 (0-10) ABS# C-Reactive Protein (0.0-4.9) mg/L Total Protein (6.6-8.7) g/dL Albumin (3.5-5.2) g/dL Globulin (1.3-4.6) g/dL Lipase (13-60) U/L Discharge Plan Discharge Patient Disposition: Home Clinical Impression: Chest pain, Metastatic breast cancer Condition: Stable Prescriptions: No Action morphine 15 mg tablet 15 mg PO Q4H PRN (Reason: Pain) RF: 0 Ibrance 125 mg tablet 125 mg PO DAILY RF: 0 Lidocaine Viscous 2 % solution 5 ml mucous membrane TID PRN (Reason: pain) Qty: 100 RF: 0 pantoprazole 40 mg tablet,delayed release (DR/EC) 40 mg PO DAILY@2230 RF: 0 metformin 500 mg Tablet 500 mg PO DAILY@2230 RF: 0 K-Tab 8 mEq tablet extended release 8 meq PO DAILY@0800 RF: 0 ondansetron 8 mg Film 8 mg PO Q8H PRN (Reason: NAUSEA/VOMITING) RF: 0 Trulicity 1.5 mg/0.5 mL pen injector 1.5 mg SUBCUT Q7D RF: 0 Discharge Orders: Discharge ED (Routine); Ordered 09/30/20 Ordered By: Jose Tenorio Referrals: Morteza Cote NP [Primary Care Provider] - Discharge Diet: Advance as tolerated Discharge Activity: Resume usual activity Patient Instructions: Chest Pain (ED), Opioid Safety Coding Level of Care Code ED Welding Engineer for Chg Fwd Documented by User: Jose Tenorio MD 09/30/20 19:53 HPI - Chest Pain General: Chief Complaint: Chest Pain Stated Complaint: R SIDE CP, HURTS THROUGH TO BACK Time Seen by Provider: 09/30/20 17:19 PFSH ED PFSH: Medical History Left hemiparesis Family History Other Cancer Heart disease Psychiatric illness Social History Smoking and tobacco status: former smoker Alcohol intake: never Housing: House History of recent travel: No Course Vital Signs: Vital signs: Vital Signs Temperature 97.7 F 09/30/20 20:41 Pulse Rate 81 09/30/20 20:41 Respiratory Rate 23 H 09/30/20 20:41 Blood Pressure 129/72 09/30/20 20:41 Pulse Oximetry 100 09/30/20 20:41 MDM - Chest Pain MDM Narrative: Medical decision making narrative: 65-year-old female presented here with chest pain that is atypical in nature. Her initial troponin and EKG here are normal. I believe her pain is likely due to her cancer to bone metastases. She has no signs of pulmonary embolism or cardiac cause. She is stable for discharge and return if worsening. Lab Data: Labs: Lab Results 09/30/20 09/30/20 09/30/20 Range/Units 17:27 17:27 17:27 WBC 5.6 (4.0-10.0) 10^3/ uL RBC 4.24 (4.1-5.3) 10^6/u L Hgb 10.7 L (11.5-15.3) g/dL Hct 35.1 L (37.0-47.0) % MCV 82.8 (81-99) fL MCH 25.2 L (28.0-34.0) pg MCHC 30.5 (30.0-36.0) g/dL RDW 15.2 H (12.1-15.1) % Plt Count 354 (130-400) 10^3/c mm MPV 8.9 (7.4-10.4) fL Neut % (Auto) 67.1 % Lymph % (Auto) 23.0 % [place] % (Auto) 7.0 % Eos % (Auto) 1.8 % Baso % (Auto) 0.7 % Neut # (Auto) 3.76 (1.8-7.7) 10^3/u L Lymph # (Auto) 1.3 (0.8-4.8) 10^3/u L [place] # (Auto) 0.4 (0.2-0.9) 10^3/u L Eos # (Auto) 0.1 (0.0-0.8) 10^3/u L Baso # (Auto) 0.0 (0.0-0.1) 10^3/u L Nucleated RBC % (a uto) 0 % Nucleated RBCs # 0.0 /100WBC D-Dimer 0.88 H (0-0.59) ug/mIFE U Sodium 135 L (136-145) mmol/L Potassium 4.6 (3.5-5.1) mmol/L Chloride 98 (98-107) mmol/L Carbon Dioxide 25 (22-29) mmol/L Anion Gap 16.6 (5-19) BUN 19 (8-23) mg/dL Creatinine 0.6 (0.5-0.9) mg/dL GFR Calculation 99.7 (90-130) mL/min Glucose 120 H (65-115) mg/dL Calculated Osmolal ity 283 L (285-295) mOsm/k g Calcium 9.9 (8.5-10.5) mg/dL Total Bilirubin 0.4 (0.15-1.2) mg/dL AST 15 (0-32) U/L ALT 6 (0-33) U/L Alkaline Phosphata se 84 (35-105) IU/L Creatine Kinase 37 (26-192) U/L Troponin T Baselin e (0-10) ng/L Troponin T 120 Min little shell tribe (0-10) ng/L Delta Troponin T (0-10) ABS# C-Reactive Protein 53.3 H (0.0-4.9) mg/L Total Protein 7.8 (6.6-8.7) g/dL Albumin 4.2 (3.5-5.2) g/dL Globulin 3.6 (1.3-4.6) g/dL Lipase 38 (13-60) U/L 09/30/20 09/30/20 Range/Units 17:27 20:11 WBC (4.0-10.0) 10^3/ uL RBC (4.1-5.3) 10^6/u L Hgb (11.5-15.3) g/dL Hct (37.0-47.0) % MCV (81-99) fL MCH (28.0-34.0) pg MCHC (30.0-36.0) g/dL RDW (12.1-15.1) % Plt Count (130-400) 10^3/c mm MPV (7.4-10.4) fL Neut % (Auto) % Lymph % (Auto) % [place] % (Auto) % Eos % (Auto) % Baso % (Auto) % Neut # (Auto) (1.8-7.7) 10^3/u L Lymph # (Auto) (0.8-4.8) 10^3/u L [place] # (Auto) (0.2-0.9) 10^3/u L Eos # (Auto) (0.0-0.8) 10^3/u L Baso # (Auto) (0.0-0.1) 10^3/u L Nucleated RBC % (a uto) % Nucleated RBCs # /100WBC D-Dimer (0-0.59) ug/mIFE U Sodium (136-145) mmol/L Potassium (3.5-5.1) mmol/L Chloride (98-107) mmol/L Carbon Dioxide (22-29) mmol/L Anion Gap (5-19) BUN (8-23) mg/dL Creatinine (0.5-0.9) mg/dL GFR Calculation (90-130) mL/min Glucose (65-115) mg/dL Calculated Osmolal ity (285-295) mOsm/k g Calcium (8.5-10.5) mg/dL Total Bilirubin (0.15-1.2) mg/dL AST (0-32) U/L ALT (0-33) U/L Alkaline Phosphata se (35-105) IU/L Creatine Kinase (26-192) U/L Troponin T Baselin e 9 (0-10) ng/L Troponin T 120 Min little shell tribe 11.80 H (0-10) ng/L Delta Troponin T 2.80 (0-10) ABS# C-Reactive Protein (0.0-4.9) mg/L Total Protein (6.6-8.7) g/dL Albumin (3.5-5.2) g/dL Globulin (1.3-4.6) g/dL Lipase (13-60) U/L Imaging Data^: CT Chest: Attestation: I personally reviewed and interpreted this imaging study as follows: Radiologist's impression: [facility] [facility] [address] [address] Scan Report Signed Patient: Dacia Way Unit #: [id number] : 1955 Age/Sex: 65 / F ADM Date: 09/30/20 Loc: ER Room/Bed: Attending Dr: Ordering Provider/Ordering MD: Home Daniels DO Date of Service: 09/30/20 Procedure(s): CT angio chest PE protcl [id number] Accession Number(s): [id number] Report Number: [id number] PROCEDURE INFORMATION: Exam: CT Angiography Chest With Contrast Exam date and time: 09/30/2020 6:05 PM Age: 65 years old Clinical indication: Chest pain; Prior surgery; Surgery type: Mastectomy; Additional info: Chest pain dyspnea. Breast CA w mets TECHNIQUE: Imaging protocol: Computed tomographic angiography of the chest with contrast. 3D rendering (Not supervised by radiologist): MIP and/or 3D reconstructed images were created by the technologist. Total images: 797 Radiation optimization: All CT scans at this facility use at least one of these dose optimization techniques: automated exposure control; mA and/or kV adjustment per patient size (includes targeted exams where dose is matched to clinical indication); or iterative reconstruction. Contrast material: OMNI 350; Contrast volume: 77 ml; Contrast route: INTRAVENOUS (IV); COMPARISON: CT chest w con* [id number] 10/10/2018 10:21 AM RADIATION DOSE METRICS: Total DLP (mGy-cm): 506.03 FINDINGS: Pulmonary arteries: No visible evidence of pulmonary embolism/pulmonary arterial thrombus. Aorta: The thoracic aorta is nonaneurysmal. No visible intimal flap or dissection. Mild arteriosclerosis. Lungs: Left lower lobe tumor mass measuring 29 mm x 19 mm x 26 mm. Left perihilar left lower lobe tumor mass measuring 18 mm in maximum diameter. Both of increased in size since examination of 10/10/2018. Evidence of hematogenous metastasis to include a 5 mm pulmonary nodule right middle lobe and 4 left lung pulmonary nodules the dominant superior segment lingula measuring 7 mm. The lingula nodule appears relatively stable since 10/10/2018; whereas, the other pulmonary nodules have either increased in size or represent new hematogenous metastatic foci. Findings of a probable partial left lower lobectomy. Pleural spaces: Unremarkable. No pneumothorax. No pleural effusion. Heart: Unremarkable. No cardiomegaly. No pericardial effusion. Lymph nodes: Left hilar tumor lymphadenopathy. Prominent left hilar lymph node measures 13 mm in the short axis. Prominent retrocrural lymph node measuring 14 mm in the short axis. Gallbladder and bile ducts: Status post cholecystectomy. Bones/joints: Osteolytic and osteoblastic skeletal metastasis with involvement of at least T4, T5, T7, T12, L1, and the left scapula. Other metastatic foci may be present but would be better evaluated with MRI. Old lateral left 10th rib fracture potentially pathologic at a metastatic focus. Soft tissues: Status post left mastectomy. CT/CT angio chest PE protcl [id number] IMPRESSION: 1. No visible evidence of pulmonary embolism/pulmonary arterial thrombus. 2. Lung cancer, either primary or metastatic breast cancer, as detailed in text above. 3. Skeletal metastasis as detailed in text above. 4. Left hilar tumor lymphadenopathy. 5. Status post left mastectomy. Discharge Plan Discharge Patient Disposition: Home Clinical Impression: Chest pain, Metastatic breast cancer Condition: Stable Prescriptions: No Action morphine 15 mg tablet 15 mg PO Q4H PRN (Reason: Pain) RF: 0 Ibrance 125 mg tablet 125 mg PO DAILY RF: 0 Lidocaine Viscous 2 % solution 5 ml mucous membrane TID PRN (Reason: pain) Qty: 100 RF: 0 pantoprazole 40 mg tablet,delayed release (DR/EC) 40 mg PO DAILY@2230 RF: 0 metformin 500 mg Tablet 500 mg PO DAILY@2230 RF: 0 K-Tab 8 mEq tablet extended release 8 meq PO DAILY@0800 RF: 0 ondansetron 8 mg Film 8 mg PO Q8H PRN (Reason: NAUSEA/VOMITING) RF: 0 Trulicity 1.5 mg/0.5 mL pen injector 1.5 mg SUBCUT Q7D RF: 0 Discharge Orders: Discharge ED (Routine); Ordered 09/30/20 Ordered By: Jose Tenorio Referrals: Morteza Cote FUNERAL DRIVER [Primary Care Provider] - Discharge Diet: Advance as tolerated Discharge Activity: Resume usual activity Patient Instructions: Chest Pain (ED), Opioid Safety Coding Level of Care Code ED Welding Engineer for Jeffrey Gonzalez
[2020-09-30 17:53] LABS: Basophils % 0.7 %; Eosinophils # 0.1 10^3/uL (0.0-0.8); Eosinophils % 1.8 %; Hematocrit 35.1 % (37.0-47.0); Hemoglobin 10.7 g/dL (11.5-15.3); Lymphocytes # 1.3 10^3/uL (0.8-4.8); Mean Corpuscular HGB Conc 30.5 g/dL (30.0-36.0); Mean Corpuscular Hemoglobin 25.2 pg (28.0-34.0); Mean Corpuscular Volume 82.8 fL (81-99); Mean Platelet Volume 8.9 fL (7.4-10.4); Monocytes # 0.4 10^3/uL (0.2-0.9); Neutrophils # 3.76 10^3/uL (1.8-7.7); Neutrophils % 67.1 %; Nucleated Red Blood Cells % 0 %; Platelet Count 354 10^3/cmm (130-400); Red Blood Count 4.24 10^6/uL (4.1-5.3); Red Cell Distribution Width 15.2 % (12.1-15.1); White Blood Count 5.6 10^3/uL (4.0-10.0)
[2020-09-30 17:59] LABS: D Dimer 0.88 ug/mIFEU (0-0.59)
[2020-09-30 18:04] LABS: Alanine Aminotransferase 6 U/L (0-33); Albumin Level 4.2 g/dL (3.5-5.2); Alkaline Phosphatase 84 IU/L (35-105); Anion Gap 16.6 (5-19); Aspartate Amino Transferase 15 U/L (0-32); Blood Urea Nitrogen 19 mg/dL (8-23); C Reactive Protein 53.3 mg/L (0.0-4.9); Calcium 9.9 mg/dL (8.5-10.5); Carbon Dioxide 25 mmol/L (22-29); Chloride 98 mmol/L (98-107); Creatine Phosphokinase 37 U/L (26-192); Creatinine Clr Calc Pharmacy 58.2593; Globulin 3.6 g/dL (1.3-4.6); Glomerular Filtration Rate 99.7 mL/min (90-130); Glucose 120 mg/dL (65-115); Lipase 38 U/L (13-60); Osmolality Calculated 283 mOsm/kg (285-295); Potassium 4.6 mmol/L (3.5-5.1); Sodium 135 mmol/L (136-145); Total Bilirubin 0.4 mg/dL (0.15-1.2); Total Protein 7.8 g/dL (6.6-8.7)
[2020-09-30 18:09] LABS: Troponin(5th) Baseline 9 ng/L (0-10)
[2020-09-30 18:40] VITALS: BP 114/71; PULSE 87; RESP 21; O2SAT 100
[2020-09-30] MEDS: iohexol 350 mg/mL 100 mL Btl IV (18:45)
[2020-09-30 20:17] VITALS: RESP 15; O2SAT 96
[2020-09-30] MEDS: morphine 4 mg/mL SDV 1 mL IVP (20:17)
[2020-09-30 20:41] VITALS: BP 129/72; PULSE 81; RESP 23; TEMP 36.5; O2SAT 100
== END 2020-09-30 20:43 | disposition home or self-care (01) ==
PROVIDERS: Family Medicine; Emergency Provider Emergency Medicine; PCP Nurse Practitioner Family
DX: R07.9 Chest pain, unspecified (principal); C50.919 Malignant neoplasm of unspecified site of unspecified female breast; Z87.891 Personal history of nicotine dependence
CPT/HCPCS: 36415; 71045; 71275; 80053; 82550; 83690; 84484; 85025; 85378; 86140; 93005; 96374; 99284; J2270; Q9967

== ENCOUNTER 2020-10-08 10:45 | Outpatient (CLI) | payer MEDICARE, SELFPAY ==
[2020-10-08 12:16] LABS: Basophils # 0.1 10^3/uL (0.0-0.1); Basophils % 1.2 %; Eosinophils # 0.1 10^3/uL (0.0-0.8); Eosinophils % 2.4 %; Hematocrit 30.2 % (37.0-47.0); Hemoglobin 9.2 g/dL (11.5-15.3); Lymphocytes # 1.3 10^3/uL (0.8-4.8); Lymphocytes % 24.6 %; Mean Corpuscular HGB Conc 30.5 g/dL (30.0-36.0); Mean Corpuscular Hemoglobin 24.7 pg (28.0-34.0); Mean Corpuscular Volume 81.2 fL (81-99); Mean Platelet Volume 8.9 fL (7.4-10.4); Monocytes # 0.4 10^3/uL (0.2-0.9); Monocytes % 7.1 %; Neutrophils # 3.27 10^3/uL (1.8-7.7); Neutrophils % 64.1 %; Nucleated Red Blood Cells % 0 %; Platelet Count 393 10^3/cmm (130-400); Red Blood Count 3.72 10^6/uL (4.1-5.3); Red Cell Distribution Width 14.7 % (12.1-15.1); White Blood Count 5.1 10^3/uL (4.0-10.0)
[2020-10-08 12:38] LABS: Alanine Aminotransferase 6 U/L (0-33); Albumin Level 3.8 g/dL (3.5-5.2); Alkaline Phosphatase 82 IU/L (35-105); Anion Gap 16.4 (5-19); Aspartate Amino Transferase 11 U/L (0-32); Blood Urea Nitrogen 20 mg/dL (8-23); Calcium 9.7 mg/dL (8.5-10.5); Carbon Dioxide 23 mmol/L (22-29); Chloride 101 mmol/L (98-107); Globulin 3.6 g/dL (1.3-4.6); Glomerular Filtration Rate 99.7 mL/min (90-130); Glucose 118 mg/dL (65-115); Osmolality Calculated 286 mOsm/kg (285-295); Potassium 4.4 mmol/L (3.5-5.1); Sodium 136 mmol/L (136-145); Total Bilirubin 0.2 mg/dL (0.15-1.2); Total Protein 7.4 g/dL (6.6-8.7)
[2020-10-08 12:52] LABS: Slide Review Slide Review Perform
[2020-10-08] MEDS: denosumab 120 mg SDV SUBCUT (14:27)
[2020-10-08] MEDS: fulvestrant 250 mg/5 mL Syringe 500 MG IM (14:30)
[2020-10-09 07:08] LABS: CA 27.29 405 U/mL (<38)
--- NOTE | 2020-10-12 10:32 | ONC FU_ITS ---
Dr. Brito Patient Follow-Up Note Patient: Dacia [address] Unit #: [id number]: 1955 Dicatated By: Colt Brito M.D.Date of Visit:Oct 08, 2020 Onc Med Follow-up/Prog Note Chief Complaint: Metastatic breast cancer. 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 On 10/31/2016 she had presented to the emergency room with chest pain. Chest x-ray at that time showed a well-circumscribed opacity in the left lung base measuring 2.1 cm. The appearance was suggestive of pleural or intraparenchymal nodule. She had further evaluation with contrast enhanced chest CT on 11/23/2016. That study showed numerous left upper and left lower lobe pulmonary nodules, the largest in the left lower lobe measuring 1.9 x 2.0 x 1.6 cm. The appearance was suspicious for metastatic disease or primary lung cancer with metastatic disease. Also noted was an anterosuperior mediastinal mass measuring 3.8 x 2.3 cm. The reported differential diagnosis included thymoma/thymic tumor, lymphadenopathy, and germ cell tumor. There was no additional adenopathy identified, and thymic etiology was favored. She was referred to Dr. Villalpando. On 12/14/2016 she underwent left thoracoscopy with wedge resection of the left lower lobe nodule. 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 The tumor was positive for NSE, CK-7, CK-CAM 5.2, and CK-HMW. It was focally positive for synaptophysin and for TTF-1. It was negative for CD-56, chromogranin, and CK-20. It measured 3.0 x 2.3 x 1.5 cm and it was noted to extend to the pleural surface. I had seen her initially on 12/30/2016. At that point she was still recovering from her surgery. Based on the pathology, it was difficult to determine whether her tumor was more in the category of neuroendocrine cancer or non-small cell lung cancer. Her subsequent laboratory evaluation included CBC showing hemoglobin 11.8 g, white blood cell count 10,500, and platelet count 338,000. The red cell indices were hypochromic/microcytic with MCV 73 MCH 24. Chem profile was unremarkable. Her neuroendocrine markers included a chromogranin A of 1 nmol/L, normal range 0-5, whole blood serotonin 178 ng/mL, normal range 50-200, and nonspecific enolase 4.4 ng/mL, normal range 0.0-12.5. Further pathologic evaluation showed that her tumor was strongly positive for BCA-225, suggestive of breast origin. A breast prognostic profile then showed the tumor to be ER positive at 99% with MI positive at 1%, both strong intensity. It was negative for overexpression of HER-2/bel, 0+ by IHC and amplification ratio by FISH 1.1 with 1.8 HER-2 copies/cell. She had a known history of breast cancer for which she had undergone left mastectomy in 1999. She apparently did receive adjuvant chemotherapy, but those records were not available. There had previously been no evidence of recurrence of the breast cancer. Restaging chest CT on 02/16/2017 showed postsurgical changes in the left lower lobe with a residual left lower lobe nodule measuring 2.3 x 1.8 cm. Three pulmonary nodules were noted in the left upper lobe, largest measuring 1.3 x 1.0 cm, and it appeared unchanged. Two additional smaller nodules included a subpleural nodule in the left upper lobe which had increased from 6 mm to 9 mm. There was a new left pulmonary ligament lymph node. 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 Given the pathologic findings, she then began treatment with letrozole 2.5 mg daily in combination with palbociclib 125 mg daily on a 21/28 day schedule, cycle 1 day 1 on 04/14/2017. She tolerated her initial cycle of palbociclib without significant adverse effects. She then continued treatment at the same dosage and schedule. Repeat chest CT on 08/25/2017 showed smaller anterior mediastinal mass measuring 2.0 x 2.1 cm compared to 3.0 x 3.9 cm on the February 2017 study. A left infrahilar nodule also was slightly smaller. Left upper and lower lobe pulmonary nodules appeared unchanged. Restaging PET/CT on 10/23/2017 reported no evidence for recurrent or residual malignancy. A 1.5 cm anterior mediastinal soft tissue lesion showed less FDG uptake than normal mediastinal background. Left lower lobe pulmonary nodules were FDG negative. On 09/13/2018 she underwent laparoscopic cholecystectomy for chronic cholecystitis. She also underwent liver biopsy. Pathology showed acute and chronic cholecystitis and cholelithiasis. The liver biopsy showed benign hepatic parenchyma with minimal chronic inflammation within portal triads. I had seen her for a follow-up visit on 10/12/2018. At that point she appeared stable clinically with no obvious progression of the breast cancer. She continued her treatment with letrozole/palbociclib. Following that visit, we were unable to get her scheduled for follow-up despite multiple attempts to contact her to get her prescription renewed. Her other medical illnesses have been limited to hyperlipidemia and type II diabetes. She has had a long-standing hypochromic/microcytic anemia, presumably thalassemia trait. She does have a history of smoking 1 pack of cigarettes daily beginning at age 23. She quit smoking in October 2016. INTERIM HISTORY: On 04/07/2020 she presented to the emergency room with pain in her lower back and left leg following a fall 2 weeks earlier. According to her daughter, the back pain actually started well before the fall occurred. In any case, her CT of the lumbar spine and pelvis showed multiple lytic lesions including the sacrum, L1, L4 and L5 levels. At the L5 level the posterior element lytic lesion was noted to extend to the posterior aspect of the left L5/S1 neural foramina contributing to mild to moderate narrowing. The pelvis showed a lytic lesion in the left superior pubic ramus measuring 4.0 cm in transverse oblique defect dimension. An associated soft tissue component measured 2.3 x 2.0 cm. There appeared to be no associated fracture. X-ray of the left knee showed prepatellar soft tissue defect with adjacent edema and/or hematoma with small to moderate suprapatellar joint effusion. Her laboratory studies showed mild anemia, hemoglobin 10.6 g. The nonfasting blood sugar was significantly elevated. Her transferrin saturation was slightly low at 19.1%. Her alkaline phosphatase was just slightly elevated at 108/105 U/L. The bilirubin and liver enzymes were normal. In the setting of symptomatic bony metastatic disease, she was given palliative radiation to the pelvis, completed on 05/28/2020 to a total dose of 3000 cGy. In the meantime, on 05/23/2020 she began second line hormonal therapy with fulvestrant in combination with palbociclib. She tolerated the initial injection of fulvestrant with no adverse effects, and she did return in 2 weeks to complete for the second injection as part of her loading dose schedule. During that time, she also started treatment with denosumab for the metastatic bone involvement. Her further treatment was then delayed, first in June due to unspecified illness, and then in July when she was diagnosed with COVID-19 virus infection. On 08/06/2020 she was admitted to the hospital after presenting to the emergency room with weakness and numbness in both hands. She was found to have hypokalemia and hypomagnesemia. She also was found to have urinary tract infection. She was discharged home on antibiotic therapy with cefdinir and with potassium and magnesium replacement. As of 08/13/2020 she restarted treatment with a loading dose of fulvestrant in combination with palbociclib, and she also started monthly denosumab injections for the metastatic bone involvement. As of 09/10/2020 she continued fulvestrant and denosumab on a monthly schedule, but she apparently did not receive her supply of palbociclib for that cycle. She is seen for a follow-up visit. She has been feeling good generally. She was seen in the emergency room again 2 weeks ago because of chest pain. It was thought to be associated with her metastatic disease, and she just continue with symptomatic management. She says her energy lately has been good and she has normal activity. Appetite has not been very good. Her weight has fluctuated up and down. She does not have fever or night sweats. She has had no mouth sores. She has continued to have some sharp stabbing pain in the right side under her arm radiating around to the back. She does not complain of cough or shortness of breath. She occasionally has nausea after eating. She has no other GI or complaints. She has no other joint or bone pain. She does not complain of headache. She sometimes has orthostatic lightheadedness. For the past month she has been having some numbness in her left foot. Medications: Farxiga 1 Tablet (of 5 mg) Oral daily, Klor-Con Sprinkle (8 meq) Capsule, controlled release Oral daily, MetFORMIN HCl 1 (1000 mg) Tablet Oral b.i.d., Ondansetron HCl 1 Tablet (of 4 mg) Oral q 4 hours PRN, Pantoprazole Sodium 1 Tablet (of 40 mg) Tablet, enteric coated Oral daily, Prochlorperazine Maleate 1 Tablet (of 10 mg) Oral q 4 hours PRN, Trulicity 1.5 mg (of 0.75 mg/0.5mL) Subcutaneous q 7 days Allergies: No Known Allergies. Vital Signs: Performed on Oct 08, 2020 12:49 Height - 62.00 in Weight - 145.2 lbs (LOW) BSA - 1.67 sq.m BMI - 26.56 Temperature - 97.4 F (LOW) Pulse - 84 /min Respiration - 18 /min BP - 127/78 mm(hg) O2 Sat - 99 % Pain - 0 Physical Examination: Constitutional - She appears somewhat weak generally, Eyes - Sclerae nonicteric. Conjunctivae clear, ENMT - No lesions noted in the oral cavity, Hematologic/Lymphatic - There is some tenderness in the area of the right axilla. There is no cervical, clavicular, or axillary adenopathy, Respiratory - Lungs sound clear, Cardiovascular - Heart is regular with no murmur, gallop or rub noted, Abdomen - Soft. Liver and spleen are not enlarged. There is no abdominal mass or ascites noted and there is no inguinal adenopathy, Back/Spine - There is bony tenderness in the upper thoracic spine area, Extremities - No edema, Neurologic - No focal neurologic deficits noted. Lab/Imaging: Test performed on Oct 08, 2020 12:05 Sodium 136 mmol/L Potassium 4.4 mmol/L Chloride 101 mmol/L CO2 23 mmol/L Anion Gap 16.4 BUN 20 mg/dL Creatinine 0.6 mg/dL Cr Clearance (Est) 94.60 mL/min eGFR 99.7 mL/min Glucose 118 mg/dL Osmolality - Calculated 286 mOsm/kg Calcium 9.7 mg/dL Protein, Total 7.4 g/dL Albumin 3.8 g/dL Globulin 3.6 g/dL Bilirubin, Total 0.2 mg/dL ALT (SGPT) 6 U/L AST (SGOT) 11 U/L Alkaline Phosphatase 82 IU/L WBC 5.1 10 3/uL RBC 3.72 10 6/uL HGB 9.2 g/dL HCT 30.2 % MCV 81.2 fL MCH 24.7 pg MCHC 30.5 g/dL RDW 14.7 % Platelet Count 393 10 3/cmm MPV 8.9 fL Neutrophils 3.27 10 3/uL Lymphocytes 1.3 10 3/uL Monocytes 0.4 10 3/uL Eosinophils 0.1 10 3/uL Basophils 0.1 10 3/uL Neutrophil % 64.1 % Lymphocyte % 24.6 % Monocyte % 7.1 % Eosinophil % 2.4 % Basophils % 1.2 % NRBC % 0 % CBC Slide Review Slide Review Perform SLIDE REVIEW AGREES WITH AUTOMATED RESULT CA 27.29 405 U/mL Problem List: 1. Metastatic breast cancer, ER/MI positive and HER-2 bel negative. 2. Hyperlipidemia. 3. Type II diabetes. 4. She has a longstanding microcytic anemia, presumed to be thalassemia trait. 5. GERD. 6. She was diagnosed with COVID-19 virus infection in July 2020. Problems Addressed with this Encounter and Plan: 1. Patient with metastatic breast cancer, ER/MI positive and HER-2/bel negative. She had originally undergone left mastectomy and adjuvant chemotherapy for breast cancer in 1999. She had subsequently presented with multiple pulmonary nodules. She underwent left thoracoscopy with wedge resection of left lower lobe pulmonary nodule on 12/14/2016. In April 2017 she began treatment with letrozole 2.5 mg daily in combination with palbociclib 125 mg daily on a day schedule. She had a good response with restaging PET/CT on 10/23/2017 showing no evidence for recurrent or residual malignancy. As of her visit on 10/12/2018 she appeared stable clinically with no obvious progression of the breast cancer. However, she was then lost to follow-up, and she stopped her treatment. In April 2020 she presented with symptomatic bony metastatic disease in the lumbar spine and pelvis. She was given palliative radiation and she began second line hormonal therapy with fulvestrant in combination with palbociclib. Her treatment was interrupted during the loading dose portion of her fulvestrant, first due to unspecified illness and subsequently to COVID-19 virus infection. She then had a recent hospitalization for symptomatic hypokalemia and hypomagnesemia. She also required treatment for urinary tract infection. She has had significant improvement in her bone pain following the radiation. It remains unclear if she has had any response to the second line hormonal therapy, but thus far there has at least been no evidence of further disease progression. As such, she will continue treatment with fulvestrant 500 mg by intramuscular injection together with palbociclib. The palbociclib dosage will now be reduced to 100 mg daily on a 21/28 day schedule. She will be scheduled for a followup visit in 4 weeks. 2. Metastatic bone involvement. She continues denosumab 120 mg by subcutaneous injection. Signed By: Colt Brito M.D. <<Signature on File>>
== END 2020-10-08 10:46 | disposition home or self-care (01) ==
LOC: ONCMED 10:47
PROVIDERS: PCP Nurse Practitioner Family; Visit Provider Internal Medicine Medical Oncology
DX: C79.51 Secondary malignant neoplasm of bone (principal); C50.912 Malignant neoplasm of unspecified site of left female breast; Z17.0 Estrogen receptor positive status [ER+]; Z92.3 Personal history of irradiation; Z86.16 Personal history of COVID-19; Z79.818 Long term (current) use of other agents affecting estrogen receptors and estrogen levels; Z79.899 Other long term (current) drug therapy
CPT/HCPCS: 80053; 85025; 86300; 96372; 96402; 99214; J0897; J9395

== ENCOUNTER 2020-11-06 08:58 | Outpatient (CLI) | payer MEDICARE, SELFPAY ==
[2020-11-06 09:44] LABS: Basophils % 0.9 %; Eosinophils % 1.8 %; Hemoglobin 9.7 g/dL (11.5-15.3); Lymphocytes # 0.7 10^3/uL (0.8-4.8); Lymphocytes % 58.8 %; Mean Corpuscular HGB Conc 30.3 g/dL (30.0-36.0); Mean Corpuscular Hemoglobin 24.9 pg (28.0-34.0); Mean Corpuscular Volume 82.1 fL (81-99); Mean Platelet Volume 9.2 fL (7.4-10.4); Monocytes # 0.1 10^3/uL (0.2-0.9); Monocytes % 12.3 %; Neutrophils % 25.3 %; Nucleated Red Blood Cells % 0 %; Platelet Count 151 10^3/cmm (130-400); Red Cell Distribution Width 18.6 % (12.1-15.1); White Blood Count 1.1 10^3/uL (4.0-10.0)
[2020-11-06 09:59] LABS: Neutrophils # 0.29 10^3/uL (1.8-7.7)
[2020-11-06 10:00] LABS: Alanine Aminotransferase 8 U/L (0-33); Alkaline Phosphatase 73 IU/L (35-105); Anion Gap 11.1 (5-19); Aspartate Amino Transferase 13 U/L (0-32); Blood Urea Nitrogen 18 mg/dL (8-23); Calcium 8.9 mg/dL (8.5-10.5); Carbon Dioxide 24 mmol/L (22-29); Chloride 106 mmol/L (98-107); Globulin 3.1 g/dL (1.3-4.6); Glomerular Filtration Rate 83.5 mL/min (90-130); Glucose 99 mg/dL (65-115); Osmolality Calculated 286 mOsm/kg (285-295); Potassium 4.1 mmol/L (3.5-5.1); Sodium 137 mmol/L (136-145); Total Bilirubin 0.2 mg/dL (0.15-1.2); Total Protein 7.1 g/dL (6.6-8.7)
[2020-11-07 09:57] LABS: CA 27.29 440 U/mL (<38)
--- NOTE | 2020-11-18 21:16 | ONC FU_ITS ---
[facility] Patient Note Patient: Dacia Way Unit #: [id number]: [id number] Dictated By: Soco SawyerDate of Visit: November 06, 2020 Onc MED Follow-Up/Prog Note Chief Complaint: Metastatic breast cancer. 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 On 10/31/2016 she had presented to the emergency room with chest pain. Chest x-ray at that time showed a well-circumscribed opacity in the left lung base measuring 2.1 cm. The appearance was suggestive of pleural or intraparenchymal nodule. She had further evaluation with contrast enhanced chest CT on 11/23/2016. That study showed numerous left upper and left lower lobe pulmonary nodules, the largest in the left lower lobe measuring 1.9 x 2.0 x 1.6 cm. The appearance was suspicious for metastatic disease or primary lung cancer with metastatic disease. Also noted was an anterosuperior mediastinal mass measuring 3.8 x 2.3 cm. The reported differential diagnosis included thymoma/thymic tumor, lymphadenopathy, and germ cell tumor. There was no additional adenopathy identified, and thymic etiology was favored. She was referred to Dr. Villalpando. On 12/14/2016 she underwent left thoracoscopy with wedge resection of the left lower lobe nodule. 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 The tumor was positive for NSE, CK-7, CK-CAM 5.2, and CK-HMW. It was focally positive for synaptophysin and for TTF-1. It was negative for CD-56, chromogranin, and CK-20. It measured 3.0 x 2.3 x 1.5 cm and it was noted to extend to the pleural surface. Dr Brito had seen her initially on 12/30/2016. At that point she was still recovering from her surgery. Based on the pathology, it was difficult to determine whether her tumor was more in the category of neuroendocrine cancer or non-small cell lung cancer. Her subsequent laboratory evaluation included CBC showing hemoglobin 11.8 g, white blood cell count 10,500, and platelet count 338,000. The red cell indices were hypochromic/microcytic with MCV 73 MCH 24. Chem profile was unremarkable. Her neuroendocrine markers included a chromogranin A of 1 nmol/L, normal range 0-5, whole blood serotonin 178 ng/mL, normal range 50-200, and nonspecific enolase 4.4 ng/mL, normal range 0.0-12.5. Further pathologic evaluation showed that her tumor was strongly positive for BCA-225, suggestive of breast origin. A breast prognostic profile then showed the tumor to be ER positive at 99% with KY positive at 1%, both strong intensity. It was negative for overexpression of HER-2/bel, 0+ by IHC and amplification ratio by FISH 1.1 with 1.8 HER-2 copies/cell. She had a known history of breast cancer for which she had undergone left mastectomy in 1999. She apparently did receive adjuvant chemotherapy, but those records were not available. There had previously been no evidence of recurrence of the breast cancer. Restaging chest CT on 02/16/2017 showed postsurgical changes in the left lower lobe with a residual left lower lobe nodule measuring 2.3 x 1.8 cm. Three pulmonary nodules were noted in the left upper lobe, largest measuring 1.3 x 1.0 cm, and it appeared unchanged. Two additional smaller nodules included a subpleural nodule in the left upper lobe which had increased from 6 mm to 9 mm. There was a new left pulmonary ligament lymph node. 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 Given the pathologic findings, she then began treatment with letrozole 2.5 mg daily in combination with palbociclib 125 mg daily on a 21/28 day schedule, cycle 1 day 1 on 04/14/2017. She tolerated her initial cycle of palbociclib without significant adverse effects. She then continued treatment at the same dosage and schedule. Repeat chest CT on 08/25/2017 showed smaller anterior mediastinal mass measuring 2.0 x 2.1 cm compared to 3.0 x 3.9 cm on the February 2017 study. A left infrahilar nodule also was slightly smaller. Left upper and lower lobe pulmonary nodules appeared unchanged. Restaging PET/CT on 10/23/2017 reported no evidence for recurrent or residual malignancy. A 1.5 cm anterior mediastinal soft tissue lesion showed less FDG uptake than normal mediastinal background. Left lower lobe pulmonary nodules were FDG negative. On 09/13/2018 she underwent laparoscopic cholecystectomy for chronic cholecystitis. She also underwent liver biopsy. Pathology showed acute and chronic cholecystitis and cholelithiasis. The liver biopsy showed benign hepatic parenchyma with minimal chronic inflammation within portal triads. She was seen for a follow-up visit on 10/12/2018. At that point she appeared stable clinically with no obvious progression of the breast cancer. She continued her treatment with letrozole/palbociclib. Following that visit, we were unable to get her scheduled for follow-up despite multiple attempts to contact her to get her prescription renewed. Her other medical illnesses have been limited to hyperlipidemia and type II diabetes. She has had a long-standing hypochromic/microcytic anemia, presumably thalassemia trait. She does have a history of smoking 1 pack of cigarettes daily beginning at age 23. She quit smoking in October 2016. INTERIM HISTORY: On 04/07/2020 she presented to the emergency room with pain in her lower back and left leg following a fall 2 weeks earlier. According to her daughter, the back pain actually started well before the fall occurred. In any case, her CT of the lumbar spine and pelvis showed multiple lytic lesions including the sacrum, L1, L4 and L5 levels. At the L5 level the posterior element lytic lesion was noted to extend to the posterior aspect of the left L5/S1 neural foramina contributing to mild to moderate narrowing. The pelvis showed a lytic lesion in the left superior pubic ramus measuring 4.0 cm in transverse oblique defect dimension. An associated soft tissue component measured 2.3 x 2.0 cm. There appeared to be no associated fracture. X-ray of the left knee showed prepatellar soft tissue defect with adjacent edema and/or hematoma with small to moderate suprapatellar joint effusion. Her laboratory studies showed mild anemia, hemoglobin 10.6 g. The nonfasting blood sugar was significantly elevated. Her transferrin saturation was slightly low at 19.1%. Her alkaline phosphatase was just slightly elevated at 108/105 U/L. The bilirubin and liver enzymes were normal. In the setting of symptomatic bony metastatic disease, she was given palliative radiation to the pelvis, completed on 05/28/2020 to a total dose of 3000 cGy. In the meantime, on 05/23/2020 she began second line hormonal therapy with fulvestrant in combination with palbociclib. She tolerated the initial injection of fulvestrant with no adverse effects, and she did return in 2 weeks to complete for the second injection as part of her loading dose schedule. During that time, she also started treatment with denosumab for the metastatic bone involvement. Her further treatment was then delayed, first in June due to unspecified illness, and then in July when she was diagnosed with COVID-19 virus infection. On 08/06/2020 she was admitted to the hospital after presenting to the emergency room with weakness and numbness in both hands. She was found to have hypokalemia and hypomagnesemia. She also was found to have urinary tract infection. She was discharged home on antibiotic therapy with cefdinir and with potassium and magnesium replacement. As of 08/13/2020 she restarted treatment with a loading dose of fulvestrant in combination with palbociclib, and she also started monthly denosumab injections for the metastatic bone involvement. As of 09/10/2020 she continued fulvestrant and denosumab on a monthly schedule, but she apparently did not receive her supply of palbociclib for that cycle. She was seen in the emergency room on 09/30/2020 because of chest pain. She did have chest x-ray which reported no acute findings. Her EKG did not show any prolonged QT interval, myocardial infarction or sinus arrhythmia. She did have a CT a of the chest for pulmonary emboli protocol. There was no evidence of pulmonary embolism pulmonary arterial thrombosis. The thoracic aorta was non aneurysmal; the lower left lung tumor mass measured 29 mm x 19 mm x 26 mm in the left perihilar lower lobe tumor mass measured 18 mm in maximum diameter. Both increase in size 6 examination of 10/10/2018. There is evidence of a metastatic nodule on the right middle lobe measuring 5 mm and 4 left lung pulmonary nodules in the dominant superior segment lingula measuring 7 mm. The lingula nodule measured to be relatively stable since 10/10/2018 or the other pulmonary nodules had either increased in size or represent new metastatic foci. There is findings of a probable partial left lower lobectomy . There is no cardiomegaly no pericardial effusion. The left hilar tumor lymphadenopathy was noted. Prominent left hilar lymph node measuring 13 mm in the short axis prominent retrocrural lymph node measuring 14 mm in the short axis. She did have a osteolytic and osteoblastic stick skeletal metastasis with improvement of at least T4-T5, T7, T12 and L1 in the left scapula. Other metastatic foci may represent but would be rather evaluated with MRI hold lateral left 10th rib fracture potentially for the logic metastatic focus. She was ultimately discharged with thoughts of the chest pain was due to her metastatic breast cancer. She is on morphine 15 mg every 4 hours as needed pain. She is to continue the Ibrance, lidocaine viscous and Protonix, metformin potassium and ondansetron. Her last follow-up visit here was with Dr. Brito on October 08, 2020. She continues with Ibrance but at 100 mg daily 21 out of 28 days. She continues with the Faslodex monthly and the Xgeva monthly. Ms. Way is here today for follow-up. She states that she has been having a lot of heartburn and feels that the Protonix is no longer helping. She states she has taken twice a day. We will attempt to change her to Prevacid to see if this will give her any relief. She states she is also had problems with recent UTI. She been on Bactrim for 10 days. She is reporting that she had left eye surgery on 10/27/2020 for cataracts. She reports that she had nausea vomiting yesterday but nothing prior to that. She states she has no appetite and has had intermittent headache. She states that the headache is getting worse and more frequent. She states she really cannot tell with the vision after having the recent eye surgery. She states she cannot sleep at night just because she has insomnia. She denies really any pain or worsening headache at night. The heartburn does bother her at night when she tries to lay down. She denies any fever or chills. States her appetite is poor. Her energy is fair but has declined since her last visit. She denies any diarrhea or constipation. She denies any worsening of neuropathy symptoms. She has had no new pain. She states her pain is still controlled with the morphine. Her ECOG is 2. Past Medical History: Diabetes type II History of breast cancer Hyperlipidemia Past Surgical History: Cholecystectomy in 2019 Left thoracoscopy with wedge biopsy of left lower lobe containing pulmonary nodule in 2017 Left mastectomy in 1999 Appendectomy in 1959 Allergies: No Known Allergies. Medications: Farxiga 1 Tablet (of 5 mg) Oral daily Ibrance 1 Capsule (of 100 mg) Oral daily for 21 days Klor-Con Sprinkle (8 meq) Capsule, controlled release Oral daily MetFORMIN HCl 1 (1000 mg) Tablet Oral b.i.d. Ondansetron HCl 1 Tablet (of 4 mg) Oral q 4 hours PRN Pantoprazole Sodium 1 Tablet (of 40 mg) Tablet, enteric coated Oral daily Prochlorperazine Maleate 1 Tablet (of 10 mg) Oral q 4 hours PRN Trulicity 1.5 mg (of 0.75 mg/0.5mL) Subcutaneous q 7 days Family History: Ms. Way's mother at age 79: coronary artery disease, and breast cancer, and diabetes. Ms. Way's father at age 64: coronary artery disease, and suicide. Ms. Way has 2 brothers: 1 alive, 1 . Ms. Way's first brother's coronary artery disease, and diabetes. She has 3 sisters: 1 alive, 2 . [address] Way's first sister's coronary artery disease. Another sister's diabetes. Father had heart disease and of suicide. Her mother had diabetes and heart disease. She also had been treated for breast cancer. One brother and 2 sisters also with heart disease and diabetes. Social History: Ms. Way is and she is unemployed. Ms. Way no longer smokes but had smoked 1.0 pack/day for 40 years. She has no history of drinking. Ms. Way reports the following support systems: lives with spouse, significant other, family, or friends, lives in own house, supportive family/friends willing to assist with needs, and adequate transportation available for expected visits. Her diet consists of regular meals. She indicates her activity level as: daily activities. She has a history of smoking 1 pack of cigarettes daily since age 23. She quit smoking in October 2016. She does not drink alcohol. Review Of Symptoms: <See Above> Vital Signs: Performed on November 06, 2020 10:48 Height - 62.00 in Weight - 147.2 lbs (HIGH) BSA - 1.68 sq.m BMI - 26.92 Temperature - 97.4 F (LOW) Pulse - 85 /min Respiration - 18 /min BP - 88/66 mm(hg) (LOW) O2 Sat - 99 % Pain - 0,2 - Ambulatory/capable of all self-care, unable to perform any work activities. Up and about more than 50% of waking hours. (ECOG) Physical Examination: Constitutional Alert, oriented, no acute distress. Skin pink, warm and dry. Head Normocephalic; atraumatic. Eyes Conjunctivae and sclerae are clear and without icterus. Pupils are reactive and equal. Neck Supple without masses or thyromegaly. No jugular venous distension. Respiratory Lungs are clear to auscultation without rhonchi or wheezing. Cardiovascular Regular rate and rhythm of heart without murmurs,clicks, gallops or rubs. Back/Spine Non-tender to palpation. Musculoskeletal No tenderness or swelling, normal range of motion without obvious weakness. Integumentary No rashes or lesions. Neurologic No sensory or motor deficits, normal cerebellar function. Slow gait. Psychiatric Alert and oriented times three. Coherent speech. Verbalizes understanding of our discussions today. Laboratory:Test performed on November 06, 2020 09:12 Sodium 137 mmol/L Potassium 4.1 mmol/L Chloride 106 mmol/L CO2 24 mmol/L Anion Gap 11.1 BUN 18 mg/dL Creatinine 0.7 mg/dL Cr Clearance (Est) 82.20 mL/min eGFR 83.5 mL/min Glucose 99 mg/dL Osmolality - Calculated 286 mOsm/kg Calcium 8.9 mg/dL Protein, Total 7.1 g/dL Albumin 4.0 g/dL Globulin 3.1 g/dL Bilirubin, Total 0.2 mg/dL ALT (SGPT) 8 U/L AST (SGOT) 13 U/L Alkaline Phosphatase 73 IU/L WBC 1.1 10 3/uL RBC 3.90 10 6/uL HGB 9.7 g/dL HCT 32.0 % MCV 82.1 fL MCH 24.9 pg MCHC 30.3 g/dL RDW 18.6 % Platelet Count 151 10 3/cmm MPV 9.2 fL Neutrophils 0.29 10 3/uL Lymphocytes 0.7 10 3/uL Monocytes 0.1 10 3/uL Eosinophils 0.0 10 3/uL Basophils 0.0 10 3/uL Neutrophil % 25.3 % Lymphocyte % 58.8 % Monocyte % 12.3 % Eosinophil % 1.8 % Basophils % 0.9 % NRBC % 0 % CA 27.29 440 U/mL Test performed on Oct 08, 2020 12:05 CBC Slide Review Slide Review Perform SLIDE REVIEW AGREES WITH AUTOMATED RESULT Test performed on Sep 10, 2020 10:07 Ferritin 205 ng/mL Folate, Serum 2.9 ng/mL Iron 52 mcg/dL Magnesium 1.4 mg/dL Vitamin B12 250 pg/mL Iron Binding Capacity (TIBC) 254 mcg/dl % Iron Saturation 20.4 % UIBC 202 mcg/dL Impression: 1. Metastatic breast cancer, ER/KY positive and HER-2 bel negative. 2. Hyperlipidemia. 3. Type II diabetes. 4. She has a longstanding microcytic anemia, presumed to be thalassemia trait. 5. GERD. 6. She was diagnosed with COVID-19 virus infection in July 2020. Plan/Problems Addressed at this Visit: 1. Metastatic breast cancer, ER/KY positive and HER-2/bel negative. She had originally undergone left mastectomy and adjuvant chemotherapy for breast cancer in 1999. She had subsequently presented with multiple pulmonary nodules. She underwent left thoracoscopy with wedge resection of left lower lobe pulmonary nodule on 12/14/2016. In April 2017 she began treatment with letrozole 2.5 mg daily in combination with palbociclib 125 mg daily on a 21/28 day schedule. She had a good response with restaging PET/CT on 10/23/2017 showing no evidence for recurrent or residual malignancy. As of her visit on 10/12/2018 she appeared stable clinically with no obvious progression of the breast cancer. However, she was then lost to follow-up, and she stopped her treatment. In April 2020 she presented with symptomatic bony metastatic disease in the lumbar spine and pelvis. She was given palliative radiation and she began second line hormonal therapy with fulvestrant in combination with palbociclib. Her treatment was interrupted during the loading dose portion of her fulvestrant, first due to unspecified illness and subsequently to COVID-19 virus infection. She then had a recent hospitalization for symptomatic hypokalemia and hypomagnesemia. She also required treatment for urinary tract infection. She has had significant improvement in her bone pain following the radiation. It remains unclear if she has had any response to the second line hormonal therapy, but thus far there has at least been no evidence of further disease progression. A. We will hold planned dose of fulvestrant 500 mg by intramuscular injection together with palbociclib due to today's ANC of 290. B. The palbociclib dosage was recently reduced to 100 mg daily on a 21/28 day schedule. Her last prescription on October 23, 2020 was for 100 mg 21 out of 28 days. C. Today's labs reviewed in detail discussed with Ms. Way and a copy was given to her. WBC 1.1, hemoglobin 9.7, platelets 151,000 ANC is 290. Potassium 4.1 random glucose 99 creatinine 0.7 calcium 8.9 LFTs are normal. Her CA 27-29 is reported at 440 today- last visit was 405. It was noted to be 581 on May 22, 2020. D. I have asked for an MRI of the head with contrast to evaluate her nausea/vomiting, Headache and general performance status decline. She states she has had a sharp pain the left side of her head as well but is unsure if this was related to her eye surgery or not. She also has anorexia. 2. Metastatic bone involvement. A. She is due for denosumab 120 mg by subcutaneous injection. I have placed this on hold today due to ANC of 290 and risk of infection from injection. B. We will resume the denosumab and Faslodex once her blood counts recover. 3. GERD A. We will have her stop the Protonix and try Prevacid 30 mg once to twice daily. B. She is encouraged to let us know in interim if this is not helping. 4. UTI???chronic but recent acute flare A. She just completed 10 days of Bactrim DS twice daily. We will have her refill this and remain on due to the neutropenia. She tolerates Bactrim well. 5. She is having some situational insomnia. A. She could try lorazepam or Benadryl to help her sleep. B. She is encouraged to let us know if this is not working so we could try another agent. 6. Refills requested we refill her Zofran and prochlorperazine. This will go to [facility]. 7. Follow-up plan A. We will plan to establish follow-up after we see the MRI and PET/CT results. B. I have asked for repeat CBC CMP in 1 week to reevaluate her neutropenia. C. Neutropenic precautions have been discussed and she has been encouraged to call us if she has any fever 100.4 or greater or any signs or symptoms of infection or any questions or concerns. D. I have also requested a PET/CT for restaging of her metastatic breast cancer as her tumor marker is elevating and her blood counts are dropping with her current treatment of Ibrance. She is on 100 mg daily and dose could be dropped but deficiency would be doubtful at that time. Last PET/CT imaging we have in our chart is from October 23, 2017. Her last CT of the chest was October 10, 2018 and bone scan from August 05, 2018. She did have the CTA in the ER as indicated above in her September 2020 visit. Total time spent on Ms. Way's care today including review of her records including ER visit prior to her appointment, review of her labs and discussion of neutropenic indications and management as well as side effect identification; discussion of putting her current treatment on hold and possibly decreasing the dose in the future; discussion follow-up plans and then post visit documentation was 60 minutes. Signed By: Soco Sawyer-, AOCNP Colt Brito MD <<Signature on File>>
== END 2020-11-06 08:59 | disposition home or self-care (01) ==
LOC: ONCMED 09:00
PROVIDERS: PCP Nurse Practitioner Family; Visit Provider Nurse Practitioner
DX: C50.812 Malignant neoplasm of overlapping sites of left female breast (principal); Z17.0 Estrogen receptor positive status [ER+]; Z90.12 Acquired absence of left breast and nipple; C79.51 Secondary malignant neoplasm of bone; C78.01 Secondary malignant neoplasm of right lung; C78.02 Secondary malignant neoplasm of left lung; E78.5 Hyperlipidemia, unspecified; E11.9 Type 2 diabetes mellitus without complications; D56.3 Thalassemia minor; K21.9 Gastro-esophageal reflux disease without esophagitis; Z86.16 Personal history of COVID-19; Z79.811 Long term (current) use of aromatase inhibitors; Z92.21 Personal history of antineoplastic chemotherapy
CPT/HCPCS: 36415; 80053; 85025; 86300; 99215

== ENCOUNTER 2020-11-21 11:32 | Outpatient (CLI) | payer MEDICARE, SELFPAY ==
--- NOTE | 2020-11-21 11:43 | MR_ITS ---
WS: [id number] MRI HEAD WITH CONTRAST TECHNIQUE: Sagittal T1, T2 axial, T2 axial FLAIR, axial susceptibility weighted imaging, axial diffus ion weighted images, and coronal T2 images were obtained. Pre and post-T1 axial and post T1 coronal I mages. ADC and FSPGR images. CLINICAL INFORMATION: HEADACHES,NAUSEA,ANOXERIA,METASTATIC BREAST CA COMPARISON: CT head August 06, 2020. FINDINGS: No evidence of restricted diffusion to suggest acute ischemia. Ventricular system and basal cisterns are patent. Mild small vessel changes with mild parenchymal volume loss. Normal posterior fossa. Norm al vascular flow voids at the skull base. No extra-axial fluid collections. No evidence of mass or ma ss effect. Paranasal sinuses and mastoid air cells are well aerated. Normal cavernous sinuses and Mec quirino's cave. Mild symmetric atrophy temporal lobes and hippocampal formations. Normal optic chiasm and pituitary infundibulum. Right frontal enhancing transcalvarial metastatic les ion measures 1.4 x 0.4 cm. Right parietal transcalvarial lesion measures 1.9 x 0.8 cm. Calvarial lesi ons similar to prior CT August 2020. Small amount of underlying dural enhancement. No intraparenchy mal metastatic lesions. Normal dural venous sinuses. MR/MR head wo/w con [id number] IMPRESSION: 1. No evidence of restricted diffusion to suggest acute ischemia. 2. Enhancing calvarial metastasis involving the right frontal and right pariet al calvarium as seen on the recent CT. Small amount of underlying dural thicken ing and enhancement. 3. No enhancing intraparenchymal metastatic lesions. 4. Mild small vessel changes with mild parenchymal volume loss. 5. No hemosiderin on susceptibly weighted images.
[2020-11-21] MEDS: gadobenate dimeglumine 20 mL vial IV (12:27)
== END 2020-11-21 11:33 | disposition home or self-care (01) ==
LOC: RADSHAW 11:39
PROVIDERS: PCP Nurse Practitioner Family; Visit Provider Nurse Practitioner
DX: C79.51 Secondary malignant neoplasm of bone (principal); C50.912 Malignant neoplasm of unspecified site of left female breast; C78.02 Secondary malignant neoplasm of left lung; C34.32 Malignant neoplasm of lower lobe, left bronchus or lung
CPT/HCPCS: 70553; A9577

== ENCOUNTER 2020-12-05 09:43 | Outpatient (CLI) | payer MEDICARE, SELFPAY ==
--- NOTE | 2020-12-05 09:55 | XR_ITS ---
WS: [id number] Thoracic spine, 4 views, 12/05/2020 Clinical Data: THORACIC BACK PAIN Comparison: None. Findings: No compression fractures are seen. The disc heights are normal. There is osteoarthritic change involving all the thoracic vertebral bodies. Diffuse osteoporosis is p resent. The paravertebral regions are normal. There is coronary artery calcification. There are clips in the right upper quadrant from a cholecystectomy. XR/XR thoracic spine 2V [id number] Impression: 1. Osteoporosis. 2. Osteoarthritis.
== END 2020-12-05 09:44 | disposition home or self-care (01) ==
PROVIDERS: PCP Nurse Practitioner Family; Visit Provider Nurse Practitioner Family
DX: M54.6 Pain in thoracic spine (principal); M81.0 Age-related osteoporosis without current pathological fracture; M47.814 Spondylosis without myelopathy or radiculopathy, thoracic region
CPT/HCPCS: 72070

== ENCOUNTER 2020-12-18 12:51 | Outpatient (CLI) | payer MEDICARE, SELFPAY ==
[2020-12-18] MEDS: denosumab 120 mg SDV SUBCUT (14:05)
[2020-12-18] MEDS: fulvestrant 250 mg/5 mL Syringe 500 MG IM (14:12)
[2020-12-18 14:20] LABS: Basophils % 0.8 %; Eosinophils # 0.2 10^3/uL (0.0-0.8); Eosinophils % 3.4 %; Hematocrit 34.9 % (37.0-47.0); Hemoglobin 10.5 g/dL (11.5-15.3); Lymphocytes # 1.1 10^3/uL (0.8-4.8); Lymphocytes % 20.6 %; Mean Corpuscular HGB Conc 30.1 g/dL (30.0-36.0); Mean Corpuscular Volume 79.9 fL (81-99); Mean Platelet Volume 8.9 fL (7.4-10.4); Monocytes # 0.5 10^3/uL (0.2-0.9); Monocytes % 9.3 %; Neutrophils # 3.47 10^3/uL (1.8-7.7); Neutrophils % 65.5 %; Nucleated Red Blood Cells % 0 %; Platelet Count 257 10^3/cmm (130-400); Red Blood Count 4.37 10^6/uL (4.1-5.3); White Blood Count 5.3 10^3/uL (4.0-10.0)
[2020-12-18 14:47] LABS: Alanine Aminotransferase 6 U/L (0-33); Albumin Level 3.9 g/dL (3.5-5.2); Alkaline Phosphatase 74 IU/L (35-105); Aspartate Amino Transferase 12 U/L (0-32); Blood Urea Nitrogen 16 mg/dL (8-23); Calcium 8.6 mg/dL (8.5-10.5); Carbon Dioxide 25 mmol/L (22-29); Chloride 106 mmol/L (98-107); Globulin 3.1 g/dL (1.3-4.6); Glomerular Filtration Rate 71.5 mL/min (90-130); Glucose 88 mg/dL (65-115); Osmolality Calculated 291 mOsm/kg (285-295); Sodium 140 mmol/L (136-145); Total Bilirubin 0.4 mg/dL (0.15-1.2)
[2020-12-18 14:53] LABS: Add Urine Microscopic? YES; Bilirubin Urine 1+ (Negative); Blood Urine 2+ (Negative); Glucose Urine UA Norm (Normal); Ketones Urine Negative (Negative); Leukocyte Esterase Urine 2+ (Negative); Nitrate Urine Positive (Negative); Protein Urine 2+ (Negative); Specific Gravity, Urine 1.015 (1.005-1.030); Urine Appearance Cloudy (CLEAR); Urine Color Yellow (Yellow); Urobilinogen Urine 1 mg/dL (Negative); pH Urine 5 (5-7)
[2020-12-18 14:54] LABS: Bacteria Urine 4+ /hpf; Squamous Epithelial Cell Urine 0-4 /hpf (0-5); WBC Urine 40-55 /hpf (0-5)
[2020-12-18 14:55] LABS: Add Urine Culture? Yes
[2020-12-20 00:08] LABS: CA 27.29 419 U/mL (<38)
--- NOTE | 2020-12-22 12:04 | ONC FU_ITS ---
Dr. Brito Patient Follow-Up Note Patient: Dacia [address] Unit #: [id number]: 1955 Dicatated By: Colt Brito M.D.Date of Visit:Dec 18, 2020 Onc Med Follow-up/Prog Note Chief Complaint: Metastatic breast cancer. 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 On 10/31/2016 she had presented to the emergency room with chest pain. Chest x-ray at that time showed a well-circumscribed opacity in the left lung base measuring 2.1 cm. The appearance was suggestive of pleural or intraparenchymal nodule. She had further evaluation with contrast enhanced chest CT on 11/23/2016. That study showed numerous left upper and left lower lobe pulmonary nodules, the largest in the left lower lobe measuring 1.9 x 2.0 x 1.6 cm. The appearance was suspicious for metastatic disease or primary lung cancer with metastatic disease. Also noted was an anterosuperior mediastinal mass measuring 3.8 x 2.3 cm. The reported differential diagnosis included thymoma/thymic tumor, lymphadenopathy, and germ cell tumor. There was no additional adenopathy identified, and thymic etiology was favored. She was referred to Dr. Villalpando. On 12/14/2016 she underwent left thoracoscopy with wedge resection of the left lower lobe nodule. 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 The tumor was positive for NSE, CK-7, CK-CAM 5.2, and CK-HMW. It was focally positive for synaptophysin and for TTF-1. It was negative for CD-56, chromogranin, and CK-20. It measured 3.0 x 2.3 x 1.5 cm and it was noted to extend to the pleural surface. I had seen her initially on 12/30/2016. At that point she was still recovering from her surgery. Based on the pathology, it was difficult to determine whether her tumor was more in the category of neuroendocrine cancer or non-small cell lung cancer. Her subsequent laboratory evaluation included CBC showing hemoglobin 11.8 g, white blood cell count 10,500, and platelet count 338,000. The red cell indices were hypochromic/microcytic with MCV 73 MCH 24. Chem profile was unremarkable. Her neuroendocrine markers included a chromogranin A of 1 nmol/L, normal range 0-5, whole blood serotonin 178 ng/mL, normal range 50-200, and nonspecific enolase 4.4 ng/mL, normal range 0.0-12.5. Further pathologic evaluation showed that her tumor was strongly positive for BCA-225, suggestive of breast origin. A breast prognostic profile then showed the tumor to be ER positive at 99% with AZ positive at 1%, both strong intensity. It was negative for overexpression of HER-2/bel, 0+ by IHC and amplification ratio by FISH 1.1 with 1.8 HER-2 copies/cell. She had a known history of breast cancer for which she had undergone left mastectomy in 1999. She apparently did receive adjuvant chemotherapy, but those records were not available. There had previously been no evidence of recurrence of the breast cancer. Restaging chest CT on 02/16/2017 showed postsurgical changes in the left lower lobe with a residual left lower lobe nodule measuring 2.3 x 1.8 cm. Three pulmonary nodules were noted in the left upper lobe, largest measuring 1.3 x 1.0 cm, and it appeared unchanged. Two additional smaller nodules included a subpleural nodule in the left upper lobe which had increased from 6 mm to 9 mm. There was a new left pulmonary ligament lymph node. 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 Given the pathologic findings, she then began treatment with letrozole 2.5 mg daily in combination with palbociclib 125 mg daily on a 21/28 day schedule, cycle 1 day 1 on 04/14/2017. She tolerated her initial cycle of palbociclib without significant adverse effects. She then continued treatment at the same dosage and schedule. Repeat chest CT on 08/25/2017 showed smaller anterior mediastinal mass measuring 2.0 x 2.1 cm compared to 3.0 x 3.9 cm on the February 2017 study. A left infrahilar nodule also was slightly smaller. Left upper and lower lobe pulmonary nodules appeared unchanged. Restaging PET/CT on 10/23/2017 reported no evidence for recurrent or residual malignancy. A 1.5 cm anterior mediastinal soft tissue lesion showed less FDG uptake than normal mediastinal background. Left lower lobe pulmonary nodules were FDG negative. On 09/13/2018 she underwent laparoscopic cholecystectomy for chronic cholecystitis. She also underwent liver biopsy. Pathology showed acute and chronic cholecystitis and cholelithiasis. The liver biopsy showed benign hepatic parenchyma with minimal chronic inflammation within portal triads. I had seen her for a follow-up visit on 10/12/2018. At that point she appeared stable clinically with no obvious progression of the breast cancer. She continued her treatment with letrozole/palbociclib. Following that visit, we were unable to get her scheduled for follow-up despite multiple attempts to contact her to get her prescription renewed. Her other medical illnesses have been limited to hyperlipidemia and type II diabetes. She has had a long-standing hypochromic/microcytic anemia, presumably thalassemia trait. She does have a history of smoking 1 pack of cigarettes daily beginning at age 23. She quit smoking in October 2016. INTERIM HISTORY: On 04/07/2020 she presented to the emergency room with pain in her lower back and left leg following a fall 2 weeks earlier. According to her daughter, the back pain actually started well before the fall occurred. In any case, her CT of the lumbar spine and pelvis showed multiple lytic lesions including the sacrum, L1, L4 and L5 levels. At the L5 level the posterior element lytic lesion was noted to extend to the posterior aspect of the left L5/S1 neural foramina contributing to mild to moderate narrowing. The pelvis showed a lytic lesion in the left superior pubic ramus measuring 4.0 cm in transverse oblique defect dimension. An associated soft tissue component measured 2.3 x 2.0 cm. There appeared to be no associated fracture. X-ray of the left knee showed prepatellar soft tissue defect with adjacent edema and/or hematoma with small to moderate suprapatellar joint effusion. Her laboratory studies showed mild anemia, hemoglobin 10.6 g. The nonfasting blood sugar was significantly elevated. Her transferrin saturation was slightly low at 19.1%. Her alkaline phosphatase was just slightly elevated at 108/105 U/L. The bilirubin and liver enzymes were normal. In the setting of symptomatic bony metastatic disease, she was given palliative radiation to the pelvis, completed on 05/28/2020 to a total dose of 3000 cGy. In the meantime, on 05/23/2020 she began second line hormonal therapy with fulvestrant in combination with palbociclib. She tolerated the initial injection of fulvestrant with no adverse effects, and she did return in 2 weeks to complete for the second injection as part of her loading dose schedule. During that time, she also started treatment with denosumab for the metastatic bone involvement. Her further treatment was then delayed, first in June due to unspecified illness, and then in July when she was diagnosed with COVID-19 virus infection. On 08/06/2020 she was admitted to the hospital after presenting to the emergency room with weakness and numbness in both hands. She was found to have hypokalemia and hypomagnesemia. She also was found to have urinary tract infection. She was discharged home on antibiotic therapy with cefdinir and with potassium and magnesium replacement. As of 08/13/2020 she restarted treatment with a loading dose of fulvestrant in combination with palbociclib, and she also started monthly denosumab injections for the metastatic bone involvement. As of 09/10/2020 she continued fulvestrant and denosumab on a monthly schedule, but she apparently did not receive her supply of palbociclib for that cycle, but it was restarted in October with the dosage reduced to 100 mg daily on a -day schedule. In November her treatment was put on hold due to neutropenia with her ANC at 300. She is seen for a follow-up visit. She has been feeling pretty good generally. She does have some fatigue, but she has been able to maintain normal activity. ECOG score 0. Her appetite is not very good. She eats once or twice a day. She does not have fever, night sweats, or hot flashes. She has not had sore mouth or throat. She does not complain of cough and she has not had shortness of breath or chest pain. She was having nausea/vomiting on the palbociclib. Bowel and bladder function have been okay. For the past 2 weeks she has been having pain in the low back area. She is not having headache. She sometimes has dizziness. She has some numbness in her left foot. Medications: Farxiga 1 Tablet (of 5 mg) Oral daily, Ibrance 1 Capsule (of 100 mg) Oral daily for 21 days, Klor-Con Sprinkle (8 meq) Capsule, controlled release Oral daily, MetFORMIN HCl 1 (1000 mg) Tablet Oral b.i.d., Ondansetron HCl 1 Tablet (of 4 mg) Oral q 4 hours PRN, Pantoprazole Sodium 1 Tablet (of 40 mg) Tablet, enteric coated Oral daily, Prochlorperazine Maleate 1 Tablet (of 10 mg) Oral q 4 hours PRN, Trulicity 1.5 mg (of 0.75 mg/0.5mL) Subcutaneous q 7 days Allergies: No Known Allergies. Vital Signs: Performed on Dec 18, 2020 15:54 Height - 62.00 in Weight - 148.2 lbs (HIGH) BSA - 1.68 sq.m BMI - 27.11 Temperature - 97.4 F (LOW) Pulse - 90 /min Respiration - 18 /min BP - 120/80 mm(hg) O2 Sat - 95 % (LOW) Pain - 5 Fatigue - 0 Physical Examination: Constitutional - She looks pretty good generally, Eyes - Sclerae nonicteric. Conjunctivae clear, ENMT - No lesions noted in the oral cavity, Hematologic/Lymphatic - No cervical, clavicular, or axillary adenopathy, Respiratory - Lungs sound clear, Cardiovascular - Heart is regular with no murmur, gallop or rub noted, Abdomen - Soft. Liver and spleen are not enlarged. There is no abdominal mass or ascites noted and there is no inguinal adenopathy, Back/Spine - There is some tenderness in the area of the right costovertebral angle, Extremities - No edema, Neurologic - No focal neurologic deficits noted. Lab/Imaging: Test performed on Dec 18, 2020 13:44 Sodium 140 mmol/L Potassium 4.0 mmol/L Chloride 106 mmol/L CO2 25 mmol/L Anion Gap 13.0 BUN 16 mg/dL Creatinine 0.8 mg/dL Cr Clearance (Est) 72.42 mL/min eGFR 71.5 mL/min Glucose 88 mg/dL Osmolality - Calculated 291 mOsm/kg Calcium 8.6 mg/dL Protein, Total 7.0 g/dL Albumin 3.9 g/dL Globulin 3.1 g/dL Bilirubin, Total 0.4 mg/dL ALT (SGPT) 6 U/L AST (SGOT) 12 U/L Alkaline Phosphatase 74 IU/L Ua Color Yellow WBC 5.3 10 3/uL Ua Appearance Cloudy RBC 4.37 10 6/uL Ua Glucose Norm HGB 10.5 g/dL Ua Bilirubin 1+ HCT 34.9 % Ua Ketones Negative MCV 79.9 fL Ua Specific [place] 1.015 MCH 24.0 pg Ua Blood 2+ MCHC 30.1 g/dL Ua pH 5 RDW 18.0 % Ua Protein 2+ Platelet Count 257 10 3/cmm MPV 8.9 fL Ua Urobilinogen 1 mg/dL Neutrophils 3.47 10 3/uL Ua Nitrites Positive Lymphocytes 1.1 10 3/uL Ua Leukocyte Esterase 2+ Monocytes 0.5 10 3/uL Eosinophils 0.2 10 3/uL Basophils 0.0 10 3/uL Neutrophil % 65.5 % Lymphocyte % 20.6 % Monocyte % 9.3 % Eosinophil % 3.4 % Basophils % 0.8 % NRBC % 0 % Ua Micro: WBC 40-55 /hpf Ua Micro: RBC 5-10 /hpf Ua Micro: Squam Epith Cells 0-4 /hpf Ua Micro: Bacteria 4+ /hpf CA 27.29 419 U/mL Problem List: 1. Metastatic breast cancer, ER/AZ positive and HER-2 bel negative. 2. Hyperlipidemia. 3. Type II diabetes. 4. She has a longstanding microcytic anemia, presumed to be thalassemia trait. 5. GERD. 6. She was diagnosed with COVID-19 virus infection in July 2020. Problems Addressed with this Encounter and Plan: 1. Patient with metastatic breast cancer, ER/AZ positive and HER-2/bel negative. She had originally undergone left mastectomy and adjuvant chemotherapy for breast cancer in 1999. She had subsequently presented with multiple pulmonary nodules. She underwent left thoracoscopy with wedge resection of left lower lobe pulmonary nodule on 12/14/2016. In April 2017 she began treatment with letrozole 2.5 mg daily in combination with palbociclib 125 mg daily on a day schedule. She had a good response with restaging PET/CT on 10/23/2017 showing no evidence for recurrent or residual malignancy. As of her visit on 10/12/2018 she appeared stable clinically with no obvious progression of the breast cancer. However, she was then lost to follow-up, and she stopped her treatment. In April 2020 she presented with symptomatic bony metastatic disease in the lumbar spine and pelvis. She was given palliative radiation and she began second line hormonal therapy with fulvestrant in combination with palbociclib. Her treatment was interrupted during the loading dose portion of her fulvestrant, first due to unspecified illness and subsequently to COVID-19 virus infection. She then had a recent hospitalization for symptomatic hypokalemia and hypomagnesemia. She also required treatment for urinary tract infection. She had significant improvement in her bone pain following the radiation. It has been difficult to determine if she has had any response to the second line hormonal therapy, but thus far there has no documentation of any further disease progression. Her CA-125 level remains significantly elevated, but stable. Recently she has developed some new back pain, which is an obvious concern, and I am now going to schedule her for restaging PET/CT. The palbociclib will remain on hold, but she will continue hormonal therapy with fulvestrant 500 mg by intramuscular injection. 2. Metastatic bone involvement. She continues denosumab 120 mg by subcutaneous injection. Signed By: Colt Brito M.D. <<Signature on File>>
== END 2020-12-18 12:52 | disposition home or self-care (01) ==
LOC: ONCMED 12:54
PROVIDERS: PCP Nurse Practitioner Family; Visit Provider Internal Medicine Medical Oncology
DX: Z51.11 Encounter for antineoplastic chemotherapy (principal); C50.811 Malignant neoplasm of overlapping sites of right female breast; C50.812 Malignant neoplasm of overlapping sites of left female breast; Z17.0 Estrogen receptor positive status [ER+]; C78.01 Secondary malignant neoplasm of right lung; C78.02 Secondary malignant neoplasm of left lung; E78.5 Hyperlipidemia, unspecified; E11.9 Type 2 diabetes mellitus without complications; D56.3 Thalassemia minor; K21.9 Gastro-esophageal reflux disease without esophagitis; Z86.16 Personal history of COVID-19; Z79.899 Other long term (current) drug therapy; Z92.21 Personal history of antineoplastic chemotherapy; Z79.811 Long term (current) use of aromatase inhibitors
CPT/HCPCS: 80053; 81001; 85025; 86300; 87077; 87086; 87186; 96372; 96402; 99214; J0897; J9395

== ENCOUNTER 2021-02-04 14:14 | Outpatient (CLI) | payer MEDICARE, SELFPAY ==
--- NOTE | 2021-02-07 17:37 | ONC FU_ITS ---
Dr. Brito Patient Follow-Up Note Patient: Dacia [address] Unit #: [id number]: 1955 Dicatated By: Colt Brito M.D.Date of Visit:Feb 04, 2021 Onc Med Follow-up/Prog Note Chief Complaint: Metastatic breast cancer. 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 On 10/31/2016 she had presented to the emergency room with chest pain. Chest x-ray at that time showed a well-circumscribed opacity in the left lung base measuring 2.1 cm. The appearance was suggestive of pleural or intraparenchymal nodule. She had further evaluation with contrast enhanced chest CT on 11/23/2016. That study showed numerous left upper and left lower lobe pulmonary nodules, the largest in the left lower lobe measuring 1.9 x 2.0 x 1.6 cm. The appearance was suspicious for metastatic disease or primary lung cancer with metastatic disease. Also noted was an anterosuperior mediastinal mass measuring 3.8 x 2.3 cm. The reported differential diagnosis included thymoma/thymic tumor, lymphadenopathy, and germ cell tumor. There was no additional adenopathy identified, and thymic etiology was favored. She was referred to Dr. Villalpando. On 12/14/2016 she underwent left thoracoscopy with wedge resection of the left lower lobe nodule. 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 The tumor was positive for NSE, CK-7, CK-CAM 5.2, and CK-HMW. It was focally positive for synaptophysin and for TTF-1. It was negative for CD-56, chromogranin, and CK-20. It measured 3.0 x 2.3 x 1.5 cm and it was noted to extend to the pleural surface. I had seen her initially on 12/30/2016. At that point she was still recovering from her surgery. Based on the pathology, it was difficult to determine whether her tumor was more in the category of neuroendocrine cancer or non-small cell lung cancer. Her subsequent laboratory evaluation included CBC showing hemoglobin 11.8 g, white blood cell count 10,500, and platelet count 338,000. The red cell indices were hypochromic/microcytic with MCV 73 MCH 24. Chem profile was unremarkable. Her neuroendocrine markers included a chromogranin A of 1 nmol/L, normal range 0-5, whole blood serotonin 178 ng/mL, normal range 50-200, and nonspecific enolase 4.4 ng/mL, normal range 0.0-12.5. Further pathologic evaluation showed that her tumor was strongly positive for BCA-225, suggestive of breast origin. A breast prognostic profile then showed the tumor to be ER positive at 99% with VT positive at 1%, both strong intensity. It was negative for overexpression of HER-2/bel, 0+ by IHC and amplification ratio by FISH 1.1 with 1.8 HER-2 copies/cell. She had a known history of breast cancer for which she had undergone left mastectomy in 1999. She apparently did receive adjuvant chemotherapy, but those records were not available. There had previously been no evidence of recurrence of the breast cancer. Restaging chest CT on 02/16/2017 showed postsurgical changes in the left lower lobe with a residual left lower lobe nodule measuring 2.3 x 1.8 cm. Three pulmonary nodules were noted in the left upper lobe, largest measuring 1.3 x 1.0 cm, and it appeared unchanged. Two additional smaller nodules included a subpleural nodule in the left upper lobe which had increased from 6 mm to 9 mm. There was a new left pulmonary ligament lymph node. 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 Given the pathologic findings, she then began treatment with letrozole 2.5 mg daily in combination with palbociclib 125 mg daily on a 21/28 day schedule, cycle 1 day 1 on 04/14/2017. She tolerated her initial cycle of palbociclib without significant adverse effects. She then continued treatment at the same dosage and schedule. Repeat chest CT on 08/25/2017 showed smaller anterior mediastinal mass measuring 2.0 x 2.1 cm compared to 3.0 x 3.9 cm on the February 2017 study. A left infrahilar nodule also was slightly smaller. Left upper and lower lobe pulmonary nodules appeared unchanged. Restaging PET/CT on 10/23/2017 reported no evidence for recurrent or residual malignancy. A 1.5 cm anterior mediastinal soft tissue lesion showed less FDG uptake than normal mediastinal background. Left lower lobe pulmonary nodules were FDG negative. On 09/13/2018 she underwent laparoscopic cholecystectomy for chronic cholecystitis. She also underwent liver biopsy. Pathology showed acute and chronic cholecystitis and cholelithiasis. The liver biopsy showed benign hepatic parenchyma with minimal chronic inflammation within portal triads. I had seen her for a follow-up visit on 10/12/2018. At that point she appeared stable clinically with no obvious progression of the breast cancer. She continued her treatment with letrozole/palbociclib. Following that visit, we were unable to get her scheduled for follow-up despite multiple attempts to contact her to get her prescription renewed. Her other medical illnesses have been limited to hyperlipidemia and type II diabetes. She has had a long-standing hypochromic/microcytic anemia, presumably thalassemia trait. She does have a history of smoking 1 pack of cigarettes daily beginning at age 23. She quit smoking in October 2016. INTERIM HISTORY: On 04/07/2020 she presented to the emergency room with pain in her lower back and left leg following a fall 2 weeks earlier. According to her daughter, the back pain actually started well before the fall occurred. In any case, her CT of the lumbar spine and pelvis showed multiple lytic lesions including the sacrum, L1, L4 and L5 levels. At the L5 level the posterior element lytic lesion was noted to extend to the posterior aspect of the left L5/S1 neural foramina contributing to mild to moderate narrowing. The pelvis showed a lytic lesion in the left superior pubic ramus measuring 4.0 cm in transverse oblique defect dimension. An associated soft tissue component measured 2.3 x 2.0 cm. There appeared to be no associated fracture. X-ray of the left knee showed prepatellar soft tissue defect with adjacent edema and/or hematoma with small to moderate suprapatellar joint effusion. Her laboratory studies showed mild anemia, hemoglobin 10.6 g. The nonfasting blood sugar was significantly elevated. Her transferrin saturation was slightly low at 19.1%. Her alkaline phosphatase was just slightly elevated at 108/105 U/L. The bilirubin and liver enzymes were normal. In the setting of symptomatic bony metastatic disease, she was given palliative radiation to the pelvis, completed on 05/28/2020 to a total dose of 3000 cGy. In the meantime, on 05/23/2020 she began second line hormonal therapy with fulvestrant in combination with palbociclib. She tolerated the initial injection of fulvestrant with no adverse effects, and she did return in 2 weeks to complete for the second injection as part of her loading dose schedule. During that time, she also started treatment with denosumab for the metastatic bone involvement. Her further treatment was then delayed, first in June due to unspecified illness, and then in July when she was diagnosed with COVID-19 virus infection. On 08/06/2020 she was admitted to the hospital after presenting to the emergency room with weakness and numbness in both hands. She was found to have hypokalemia and hypomagnesemia. She also was found to have urinary tract infection. She was discharged home on antibiotic therapy with cefdinir and with potassium and magnesium replacement. As of 08/13/2020 she restarted treatment with a loading dose of fulvestrant in combination with palbociclib, and she also started monthly denosumab injections for the metastatic bone involvement. As of 09/10/2020 she continued fulvestrant and denosumab on a monthly schedule, but she apparently did not receive her supply of palbociclib for that cycle, but it was restarted in October with the dosage reduced to 100 mg daily on a /-day schedule. In November her treatment was put on hold due to neutropenia with her ANC at 300. Restaging PET/CT on 12/31/2020 showed a small focus of increased metabolic activity in the left hilum, SUV 4.1. A nodular density in the left lower lobe base adjacent to the major fissure measuring 2.3 x 2.9 cm was FDG avid with SUV 4.94. A left upper lobe subpleural nodular density showed no significant metabolic activity. There was no evidence of metastatic involvement in the abdomen/pelvis. There was extensive metabolic Noah active osseous metastatic disease which included destructive changes in the left glenoid, left symphysis, and left sacrum. With those findings, I had requested next generation sequencing study on the lung biopsy from 2017. It did confirm that the tumor was ER/VT positive, and it was also was positive for androgen receptor. However, there were no actionable mutations identified. She is seen for a follow-up visit. She has still been feeling good generally. She says she has good energy and activity tolerance. Her ECOG score is 0. Her appetite is not that good. She eats once or twice a day. She does not have fever or night sweats. She has no shortness of breath, cough, or chest pain. She sometimes has nausea. Her acid reflux is adequately managed with medication. She has no complaints with bowel or bladder function. She does not have any significant joint or bone pain. She occasionally has headaches. She sometimes has orthostatic dizziness. She has some numbness in her left foot. Medications: Farxiga 1 Tablet (of 5 mg) Oral daily, Ibrance 1 Capsule (of 100 mg) Oral daily for 21 days, Klor-Con Sprinkle (8 meq) Capsule, controlled release Oral daily, MetFORMIN HCl 1 (1000 mg) Tablet Oral b.i.d., Ondansetron HCl 1 Tablet (of 4 mg) Oral q 4 hours PRN, Pantoprazole Sodium 1 Tablet (of 40 mg) Tablet, enteric coated Oral daily, Prochlorperazine Maleate 1 Tablet (of 10 mg) Oral q 4 hours PRN, Trulicity 1.5 mg (of 0.75 mg/0.5mL) Subcutaneous q 7 days Allergies: No Known Allergies. Vital Signs: Performed on Feb 04, 2021 16:35 Height - 62.00 in Weight - 154.6 lbs (HIGH) BSA - 1.71 sq.m BMI - 28.28 Temperature - 97.1 F (LOW) Pulse - 79 /min Respiration - 18 /min BP - 136/81 mm(hg) O2 Sat - 97 % Pain - 0 Fatigue - 0 Physical Examination: Constitutional - She looks pretty good generally, Eyes - Sclerae nonicteric. Conjunctivae clear, ENMT - No lesions noted in the oral cavity, Hematologic/Lymphatic - No cervical or clavicular adenopathy, Respiratory - Lungs sound clear, Cardiovascular - Heart is regular with no murmur, gallop or rub noted, Breasts - There are no chest wall lesions noted. There is no axillary adenopathy, Abdomen - Soft. Liver and spleen are not enlarged. There is no abdominal mass or ascites noted and there is no inguinal adenopathy, Extremities - No edema, Neurologic - No focal neurologic deficits noted. Problem List: 1. Metastatic breast cancer, ER/VT positive and HER-2 bel negative. 2. Hyperlipidemia. 3. Type II diabetes. 4. She has a longstanding microcytic anemia, presumed to be thalassemia trait. 5. GERD. 6. She was diagnosed with COVID-19 virus infection in July 2020. Problems Addressed with this Encounter and Plan: 1. Patient with metastatic breast cancer, ER/VT positive and HER-2/bel negative. She had originally undergone left mastectomy and adjuvant chemotherapy for breast cancer in 1999. She had subsequently presented with multiple pulmonary nodules. She underwent left thoracoscopy with wedge resection of left lower lobe pulmonary nodule on 12/14/2016. In April 2017 she began treatment with letrozole 2.5 mg daily in combination with palbociclib 125 mg daily on a / day schedule. She had a good response with restaging PET/CT on 10/23/2017 showing no evidence for recurrent or residual malignancy. As of her visit on 10/12/2018 she appeared stable clinically with no obvious progression of the breast cancer. However, she was then lost to follow-up, and she stopped her treatment. In April 2020 she presented with symptomatic bony metastatic disease in the lumbar spine and pelvis. She was given palliative radiation and she began second line hormonal therapy with fulvestrant in combination with palbociclib. Her treatment was interrupted during the loading dose portion of her fulvestrant, first due to unspecified illness and subsequently to COVID-19 virus infection. She then had a recent hospitalization for symptomatic hypokalemia and hypomagnesemia. She also required treatment for urinary tract infection. She had significant improvement in her bone pain following the radiation. During subsequent follow-up it was difficult to determine if she had any response to the second line hormonal therapy. There was previously no evidence of further disease progression, but her CA-125 level remained significantly elevated. She then did show evidence of disease progression by restaging PET/CT on 12/31/2020. Findings included extensive metastatic bone involvement, but she has really not been overtly symptomatic with it. A next generation sequencing study on her initial lung biopsy showed no actionable mutations. In the setting of disease progression on second line endocrine therapy and with no actionable mutations identified, she is advised now to proceed to palliative chemotherapy. I will recommend an initial trial of therapy with capecitabine. It will be administered at a reduced dosage and on a 7 days on/7 days off schedule to minimize risks of toxicity. I did review potential side effects which may include nausea/vomiting, mucositis, diarrhea, fatigue, and low blood counts. I also discussed the possibility of hand/foot syndrome. Alopecia is possible, but not expected. She will begin treatment as soon as we have verified insurance coverage. 2. Metastatic bone involvement. She also will continue treatment with denosumab. Signed By: Colt Brito M.D. <<Signature on File>>
== END 2021-02-04 14:15 | disposition home or self-care (01) ==
LOC: ONCMED 14:19
PROVIDERS: PCP Nurse Practitioner Family; Visit Provider Internal Medicine Medical Oncology
DX: C50.812 Malignant neoplasm of overlapping sites of left female breast (principal); Z17.0 Estrogen receptor positive status [ER+]; Z79.811 Long term (current) use of aromatase inhibitors; C78.01 Secondary malignant neoplasm of right lung; C78.02 Secondary malignant neoplasm of left lung; E78.5 Hyperlipidemia, unspecified; E11.9 Type 2 diabetes mellitus without complications; D56.3 Thalassemia minor; K21.9 Gastro-esophageal reflux disease without esophagitis; Z86.16 Personal history of COVID-19; Z79.899 Other long term (current) drug therapy; Z92.21 Personal history of antineoplastic chemotherapy
CPT/HCPCS: 99215

== ENCOUNTER 2021-02-18 06:02 | Outpatient (CLI) | payer MEDICARE, SELFPAY ==
[2021-02-18 08:19] LABS: Basophils % 0.7 %; Eosinophils # 0.1 10^3/uL (0.0-0.8); Eosinophils % 3.1 %; Hematocrit 35.7 % (37.0-47.0); Lymphocytes % 22.6 %; Mean Corpuscular HGB Conc 30.8 g/dL (30.0-36.0); Mean Corpuscular Hemoglobin 24.9 pg (28.0-34.0); Mean Platelet Volume 8.8 fL (7.4-10.4); Monocytes # 0.3 10^3/uL (0.2-0.9); Neutrophils # 2.76 10^3/uL (1.8-7.7); Neutrophils % 64.9 %; Nucleated Red Blood Cells % 0 %; Platelet Count 207 10^3/cmm (130-400); Red Blood Count 4.41 10^6/uL (4.1-5.3); Red Cell Distribution Width 14.6 % (12.1-15.1); White Blood Count 4.3 10^3/uL (4.0-10.0)
[2021-02-18 08:47] LABS: Alanine Aminotransferase 6 U/L (0-33); Albumin Level 3.8 g/dL (3.5-5.2); Alkaline Phosphatase 72 IU/L (35-105); Anion Gap 13.9 (5-19); Aspartate Amino Transferase 11 U/L (0-32); Blood Urea Nitrogen 14 mg/dL (8-23); Carbon Dioxide 26 mmol/L (22-29); Chloride 104 mmol/L (98-107); Globulin 3.5 g/dL (1.3-4.6); Glomerular Filtration Rate 83.5 mL/min (90-130); Glucose 109 mg/dL (65-115); Osmolality Calculated 291 mOsm/kg (285-295); Potassium 3.9 mmol/L (3.5-5.1); Sodium 140 mmol/L (136-145); Total Bilirubin 0.2 mg/dL (0.15-1.2); Total Protein 7.3 g/dL (6.6-8.7)
[2021-02-18] MEDS: denosumab 120 mg SDV SUBCUT (10:00)
--- NOTE | 2021-02-18 10:01 | ONC FU_ITS ---
Dr. Brito Patient Follow-Up Note Patient: Dacia [address] Unit #: [id number]: [id number] Dicatated By: Colt Brito M.D.Date of Visit:Feb 18, 2021 Onc Med Follow-up/Prog Note Chief Complaint: Metastatic breast cancer. 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 On 10/31/2016 she had presented to the emergency room with chest pain. Chest x-ray at that time showed a well-circumscribed opacity in the left lung base measuring 2.1 cm. The appearance was suggestive of pleural or intraparenchymal nodule. She had further evaluation with contrast enhanced chest CT on 11/23/2016. That study showed numerous left upper and left lower lobe pulmonary nodules, the largest in the left lower lobe measuring 1.9 x 2.0 x 1.6 cm. The appearance was suspicious for metastatic disease or primary lung cancer with metastatic disease. Also noted was an anterosuperior mediastinal mass measuring 3.8 x 2.3 cm. The reported differential diagnosis included thymoma/thymic tumor, lymphadenopathy, and germ cell tumor. There was no additional adenopathy identified, and thymic etiology was favored. She was referred to Dr. Villalpando. On 12/14/2016 she underwent left thoracoscopy with wedge resection of the left lower lobe nodule. 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 The tumor was positive for NSE, CK-7, CK-CAM 5.2, and CK-HMW. It was focally positive for synaptophysin and for TTF-1. It was negative for CD-56, chromogranin, and CK-20. It measured 3.0 x 2.3 x 1.5 cm and it was noted to extend to the pleural surface. I had seen her initially on 12/30/2016. At that point she was still recovering from her surgery. Based on the pathology, it was difficult to determine whether her tumor was more in the category of neuroendocrine cancer or non-small cell lung cancer. Her subsequent laboratory evaluation included CBC showing hemoglobin 11.8 g, white blood cell count 10,500, and platelet count 338,000. The red cell indices were hypochromic/microcytic with MCV 73 MCH 24. Chem profile was unremarkable. Her neuroendocrine markers included a chromogranin A of 1 nmol/L, normal range 0-5, whole blood serotonin 178 ng/mL, normal range 50-200, and nonspecific enolase 4.4 ng/mL, normal range 0.0-12.5. Further pathologic evaluation showed that her tumor was strongly positive for BCA-225, suggestive of breast origin. A breast prognostic profile then showed the tumor to be ER positive at 99% with NE positive at 1%, both strong intensity. It was negative for overexpression of HER-2/bel, 0+ by IHC and amplification ratio by FISH 1.1 with 1.8 HER-2 copies/cell. She had a known history of breast cancer for which she had undergone left mastectomy in 1999. She apparently did receive adjuvant chemotherapy, but those records were not available. There had previously been no evidence of recurrence of the breast cancer. Restaging chest CT on 02/16/2017 showed postsurgical changes in the left lower lobe with a residual left lower lobe nodule measuring 2.3 x 1.8 cm. Three pulmonary nodules were noted in the left upper lobe, largest measuring 1.3 x 1.0 cm, and it appeared unchanged. Two additional smaller nodules included a subpleural nodule in the left upper lobe which had increased from 6 mm to 9 mm. There was a new left pulmonary ligament lymph node. 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 Given the pathologic findings, she then began treatment with letrozole 2.5 mg daily in combination with palbociclib 125 mg daily on a 21/28 day schedule, cycle 1 day 1 on 04/14/2017. She tolerated her initial cycle of palbociclib without significant adverse effects. She then continued treatment at the same dosage and schedule. Repeat chest CT on 08/25/2017 showed smaller anterior mediastinal mass measuring 2.0 x 2.1 cm compared to 3.0 x 3.9 cm on the February 2017 study. A left infrahilar nodule also was slightly smaller. Left upper and lower lobe pulmonary nodules appeared unchanged. Restaging PET/CT on 10/23/2017 reported no evidence for recurrent or residual malignancy. A 1.5 cm anterior mediastinal soft tissue lesion showed less FDG uptake than normal mediastinal background. Left lower lobe pulmonary nodules were FDG negative. On 09/13/2018 she underwent laparoscopic cholecystectomy for chronic cholecystitis. She also underwent liver biopsy. Pathology showed acute and chronic cholecystitis and cholelithiasis. The liver biopsy showed benign hepatic parenchyma with minimal chronic inflammation within portal triads. I had seen her for a follow-up visit on 10/12/2018. At that point she appeared stable clinically with no obvious progression of the breast cancer. She continued her treatment with letrozole/palbociclib. Following that visit, we were unable to get her scheduled for follow-up despite multiple attempts to contact her to get her prescription renewed. Her other medical illnesses have been limited to hyperlipidemia and type II diabetes. She has had a long-standing hypochromic/microcytic anemia, presumably thalassemia trait. She does have a history of smoking 1 pack of cigarettes daily beginning at age 23. She quit smoking in October 2016. INTERIM HISTORY: On 04/07/2020 she presented to the emergency room with pain in her lower back and left leg following a fall 2 weeks earlier. According to her daughter, the back pain actually started well before the fall occurred. In any case, her CT of the lumbar spine and pelvis showed multiple lytic lesions including the sacrum, L1, L4 and L5 levels. At the L5 level the posterior element lytic lesion was noted to extend to the posterior aspect of the left L5/S1 neural foramina contributing to mild to moderate narrowing. The pelvis showed a lytic lesion in the left superior pubic ramus measuring 4.0 cm in transverse oblique defect dimension. An associated soft tissue component measured 2.3 x 2.0 cm. There appeared to be no associated fracture. X-ray of the left knee showed prepatellar soft tissue defect with adjacent edema and/or hematoma with small to moderate suprapatellar joint effusion. Her laboratory studies showed mild anemia, hemoglobin 10.6 g. The nonfasting blood sugar was significantly elevated. Her transferrin saturation was slightly low at 19.1%. Her alkaline phosphatase was just slightly elevated at 108/105 U/L. The bilirubin and liver enzymes were normal. In the setting of symptomatic bony metastatic disease, she was given palliative radiation to the pelvis, completed on 05/28/2020 to a total dose of 3000 cGy. In the meantime, on 05/23/2020 she began second line hormonal therapy with fulvestrant in combination with palbociclib. She tolerated the initial injection of fulvestrant with no adverse effects, and she did return in 2 weeks to complete for the second injection as part of her loading dose schedule. During that time, she also started treatment with denosumab for the metastatic bone involvement. Her further treatment was then delayed, first in June due to unspecified illness, and then in July when she was diagnosed with COVID-19 virus infection. On 08/06/2020 she was admitted to the hospital after presenting to the emergency room with weakness and numbness in both hands. She was found to have hypokalemia and hypomagnesemia. She also was found to have urinary tract infection. She was discharged home on antibiotic therapy with cefdinir and with potassium and magnesium replacement. As of 08/13/2020 she restarted treatment with a loading dose of fulvestrant in combination with palbociclib, and she also started monthly denosumab injections for the metastatic bone involvement. As of 09/10/2020 she continued fulvestrant and denosumab on a monthly schedule, but she apparently did not receive her supply of palbociclib for that cycle, but it was restarted in October with the dosage reduced to 100 mg daily on a /-day schedule. In November her treatment was put on hold due to neutropenia with her ANC at 300. Restaging PET/CT on 12/31/2020 showed a small focus of increased metabolic activity in the left hilum, SUV 4.1. A nodular density in the left lower lobe base adjacent to the major fissure measuring 2.3 x 2.9 cm was FDG avid with SUV 4.94. A left upper lobe subpleural nodular density showed no significant metabolic activity. There was no evidence of metastatic involvement in the abdomen/pelvis. There was extensive metabolic Noah active osseous metastatic disease which included destructive changes in the left glenoid, left symphysis, and left sacrum. With those findings, I had requested next generation sequencing study on the lung biopsy from 2017. It did confirm that the tumor was ER/NE positive, and it was also was positive for androgen receptor. However, there were no actionable mutations identified. I had seen her for a follow-up visit on 02/04/2021. With evidence of disease progression and with no other treatment options available, she was recommended to proceed with a trial of chemotherapy with Xeloda. She is seen for a follow-up visit. She is still feeling good generally. She has good energy and activity tolerance. ECOG score is 0. She says her appetite has been better lately. She does not have fever or night sweats. She has had no mouth sores. She has no shortness of breath, cough, or chest pain. She has no GI/ complaints other than occasional acid reflux. She has no significant joint or bone pain. She has just occasional headache. She does not complain of dizziness, and she has no focal neurologic symptoms. Medications: Farxiga 1 Tablet (of 5 mg) Oral daily, Ibrance 1 Capsule (of 100 mg) Oral daily for 21 days, Klor-Con Sprinkle (8 meq) Capsule, controlled release Oral daily, MetFORMIN HCl 1 (1000 mg) Tablet Oral b.i.d., Ondansetron HCl 1 Tablet (of 4 mg) Oral q 4 hours PRN, Pantoprazole Sodium 1 Tablet (of 40 mg) Tablet, enteric coated Oral daily, Prochlorperazine Maleate 1 Tablet (of 10 mg) Oral q 4 hours PRN, Trulicity 1.5 mg (of 0.75 mg/0.5mL) Subcutaneous q 7 days Allergies: No Known Allergies. Vital Signs: Weight is 157 pounds. Blood pressure 131/82, pulse 75, respirations 18, temp 97.5 degrees, oxygen saturation 98%. Physical Examination: Constitutional - She looks pretty good generally, Eyes - Sclerae nonicteric. Conjunctivae clear, ENMT - No lesions noted in the oral cavity, Hematologic/Lymphatic - No cervical or clavicular adenopathy, Respiratory - Lungs sound clear, Cardiovascular - Heart is regular with no murmur, gallop or rub noted, Breasts - There are no lesions noted in the left chest wall. There is no axillary adenopathy noted, Abdomen - Soft. Liver and spleen are not enlarged. There is no abdominal mass or ascites noted and there is no inguinal adenopathy, Extremities - No edema, Neurologic - No focal neurologic deficits noted. Lab/Imaging: Test performed on Feb 18, 2021 08:08 Sodium 140 mmol/L Potassium 3.9 mmol/L Chloride 104 mmol/L CO2 26 mmol/L Anion Gap 13.9 BUN 14 mg/dL Creatinine 0.7 mg/dL Cr Clearance (Est) 86.3400 mL/min eGFR 83.5 mL/min Glucose 109 mg/dL Osmolality - Calculated 291 mOsm/kg Calcium 9.0 mg/dL Protein, Total 7.3 g/dL Albumin 3.8 g/dL Globulin 3.5 g/dL Bilirubin, Total 0.2 mg/dL ALT (SGPT) 6 U/L AST (SGOT) 11 U/L Alkaline Phosphatase 72 IU/L WBC 4.3 10 3/uL RBC 4.41 10 6/uL HGB 11.0 g/dL HCT 35.7 % MCV 81.0 fl MCH 24.9 pg MCHC 30.8 g/dL RDW 14.6 % Platelet Count 207 10 3/cmm MPV 8.8 fL Neutrophils 2.76 10 3/uL Lymphocytes 1.0 10 3/uL Monocytes 0.3 10 3/uL Eosinophils 0.1 10 3/uL Basophils 0.0 10 3/uL Neutrophil % 64.9 % Lymphocyte % 22.6 % Monocyte % 8.0 % Eosinophil % 3.1 % Basophils % 0.7 % NRBC % 0 % Problem List: 1. Metastatic breast cancer, ER/NE positive and HER-2 bel negative. 2. Hyperlipidemia. 3. Type II diabetes. 4. She has a longstanding microcytic anemia, presumed to be thalassemia trait. 5. GERD. 6. She was diagnosed with COVID-19 virus infection in July 2020. Problems Addressed with this Encounter and Plan: 1. Patient with metastatic breast cancer, ER/NE positive and HER-2/bel negative. She had originally undergone left mastectomy and adjuvant chemotherapy for breast cancer in 1999. She had subsequently presented with multiple pulmonary nodules. She underwent left thoracoscopy with wedge resection of left lower lobe pulmonary nodule on 12/14/2016. In April 2017 she began treatment with letrozole 2.5 mg daily in combination with palbociclib 125 mg daily on a 21/ day schedule. She had a good response with restaging PET/CT on 10/23/2017 showing no evidence for recurrent or residual malignancy. As of her visit on 10/12/2018 she appeared stable clinically with no obvious progression of the breast cancer. However, she was then lost to follow-up, and she stopped her treatment. In April 2020 she presented with symptomatic bony metastatic disease in the lumbar spine and pelvis. She was given palliative radiation and she began second line hormonal therapy with fulvestrant in combination with palbociclib. Her treatment was interrupted during the loading dose portion of her fulvestrant, first due to unspecified illness and subsequently to COVID-19 virus infection. She then had a recent hospitalization for symptomatic hypokalemia and hypomagnesemia. She also required treatment for urinary tract infection. She had significant improvement in her bone pain following the radiation. During subsequent follow-up it was difficult to determine if she had any response to the second line hormonal therapy. There was previously no evidence of further disease progression, but her CA-125 level remained significantly elevated. She then did show evidence of disease progression by restaging PET/CT on 12/31/2020. Findings included extensive metastatic bone involvement, but she has really not been overtly symptomatic with it. A next generation sequencing study on her initial lung biopsy showed no actionable mutations. In the setting of disease progression on second line endocrine therapy and with no actionable mutations identified, she was advised to proceed to a trial of chemotherapy with capecitabine. She will start at a reduced dosage of 1500 mg twice daily and it will be administered on a 7 days on/7 days off schedule to minimize risks of toxicity. I reviewed potential side effects which may include nausea/vomiting, mucositis, diarrhea, fatigue, low blood counts, and hand/foot syndrome, among others. She will start her first cycle now. She will have repeat CBC in 2 weeks and I will see her for follow-up visit in 4 weeks. 2. Metastatic bone involvement. She will continue treatment with denosumab 120 mg by subcutaneous injection monthly. Signed By: Colt Brito M.D. <<Signature on File>>
[2021-02-19 11:02] LABS: CA 27.29 432 U/mL (<38)
== END 2021-02-18 06:03 | disposition home or self-care (01) ==
LOC: ONCMED 06:05
PROVIDERS: PCP Nurse Practitioner Family; Visit Provider Internal Medicine Medical Oncology
DX: Z51.11 Encounter for antineoplastic chemotherapy (principal); C50.812 Malignant neoplasm of overlapping sites of left female breast; Z17.0 Estrogen receptor positive status [ER+]; Z90.12 Acquired absence of left breast and nipple; C78.02 Secondary malignant neoplasm of left lung; C79.51 Secondary malignant neoplasm of bone; E78.5 Hyperlipidemia, unspecified; E11.9 Type 2 diabetes mellitus without complications; D56.3 Thalassemia minor; K21.9 Gastro-esophageal reflux disease without esophagitis; Z86.16 Personal history of COVID-19; Z79.899 Other long term (current) drug therapy; Z92.21 Personal history of antineoplastic chemotherapy; Z92.3 Personal history of irradiation
CPT/HCPCS: 36415; 80053; 85025; 86300; 96372; 99214; J0897

== ENCOUNTER 2021-03-04 06:06 | Outpatient (CLI) | payer MEDICARE, SELFPAY ==
[2021-03-04 15:00] LABS: Basophils % 0.4 %; Eosinophils # 0.1 10^3/uL (0.0-0.8); Eosinophils % 2.3 %; Hematocrit 34.3 % (37.0-47.0); Hemoglobin 10.6 g/dL (11.5-15.3); Lymphocytes # 1.2 10^3/uL (0.8-4.8); Lymphocytes % 26.3 %; Mean Corpuscular HGB Conc 30.9 g/dL (30.0-36.0); Mean Corpuscular Hemoglobin 24.9 pg (28.0-34.0); Mean Corpuscular Volume 80.7 fl (81-99); Monocytes # 0.3 10^3/uL (0.2-0.9); Monocytes % 6.8 %; Neutrophils # 2.95 10^3/uL (1.8-7.7); Neutrophils % 62.5 %; Nucleated Red Blood Cells % 0 %; Platelet Count 255 10^3/cmm (130-400); Red Blood Count 4.25 10^6/uL (4.1-5.3); Red Cell Distribution Width 15.4 % (12.1-15.1); White Blood Count 4.7 10^3/uL (4.0-10.0)
== END 2021-03-04 06:07 | disposition home or self-care (01) ==
LOC: ONCMED 06:06
PROVIDERS: PCP Nurse Practitioner Family; Visit Provider Internal Medicine Medical Oncology
DX: C50.812 Malignant neoplasm of overlapping sites of left female breast (principal); Z17.0 Estrogen receptor positive status [ER+]; C78.01 Secondary malignant neoplasm of right lung; C78.02 Secondary malignant neoplasm of left lung; D56.3 Thalassemia minor; Z79.899 Other long term (current) drug therapy
CPT/HCPCS: 36415; 85025

== ENCOUNTER 2021-03-18 07:55 | Outpatient (CLI) | payer MEDICARE, SELFPAY ==
[2021-03-18 08:32] LABS: Basophils % 0.7 %; Eosinophils # 0.2 10^3/uL (0.0-0.8); Eosinophils % 4.2 %; Hematocrit 36.8 % (37.0-47.0); Lymphocytes # 1.2 10^3/uL (0.8-4.8); Lymphocytes % 30.2 %; Mean Corpuscular HGB Conc 29.9 g/dL (30.0-36.0); Mean Corpuscular Hemoglobin 24.8 pg (28.0-34.0); Mean Corpuscular Volume 83.1 fl (81-99); Mean Platelet Volume 9.1 fL (7.4-10.4); Monocytes # 0.3 10^3/uL (0.2-0.9); Monocytes % 6.1 %; Neutrophils # 2.34 10^3/uL (1.8-7.7); Neutrophils % 57.6 %; Nucleated Red Blood Cells % 0 %; Platelet Count 229 10^3/cmm (130-400); Red Blood Count 4.43 10^6/uL (4.1-5.3); Red Cell Distribution Width 15.2 % (12.1-15.1); White Blood Count 4.1 10^3/uL (4.0-10.0)
[2021-03-18 08:56] LABS: Alanine Aminotransferase 8 U/L (0-33); Albumin Level 3.8 g/dL (3.5-5.2); Alkaline Phosphatase 73 IU/L (35-105); Anion Gap 13.8 (5-19); Aspartate Amino Transferase 13 U/L (0-32); Blood Urea Nitrogen 10 mg/dL (8-23); Calcium 8.5 mg/dL (8.5-10.5); Carbon Dioxide 22 mmol/L (22-29); Chloride 107 mmol/L (98-107); Globulin 3.2 g/dL (1.3-4.6); Glomerular Filtration Rate 83.5 mL/min (90-130); Glucose 133 mg/dL (65-115); Osmolality Calculated 289 mOsm/kg (285-295); Potassium 3.8 mmol/L (3.5-5.1); Sodium 139 mmol/L (136-145); Total Bilirubin 0.2 mg/dL (0.15-1.2)
[2021-03-18] MEDS: denosumab 120 mg SDV SUBCUT (09:20)
--- NOTE | 2021-03-18 16:09 | ONC FU_ITS ---
Dr. Brito Patient Follow-Up Note Patient: Dacia [address] Unit #: [id number]: [id number] Dicatated By: Colt Brito M.D.Date of Visit:Mar 18, 2021 Onc Med Follow-up/Prog Note Chief Complaint: Metastatic breast cancer. 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 On 10/31/2016 she had presented to the emergency room with chest pain. Chest x-ray at that time showed a well-circumscribed opacity in the left lung base measuring 2.1 cm. The appearance was suggestive of pleural or intraparenchymal nodule. She had further evaluation with contrast enhanced chest CT on 11/23/2016. That study showed numerous left upper and left lower lobe pulmonary nodules, the largest in the left lower lobe measuring 1.9 x 2.0 x 1.6 cm. The appearance was suspicious for metastatic disease or primary lung cancer with metastatic disease. Also noted was an anterosuperior mediastinal mass measuring 3.8 x 2.3 cm. The reported differential diagnosis included thymoma/thymic tumor, lymphadenopathy, and germ cell tumor. There was no additional adenopathy identified, and thymic etiology was favored. She was referred to Dr. Villalpando. On 12/14/2016 she underwent left thoracoscopy with wedge resection of the left lower lobe nodule. 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 The tumor was positive for NSE, CK-7, CK-CAM 5.2, and CK-HMW. It was focally positive for synaptophysin and for TTF-1. It was negative for CD-56, chromogranin, and CK-20. It measured 3.0 x 2.3 x 1.5 cm and it was noted to extend to the pleural surface. I had seen her initially on 12/30/2016. At that point she was still recovering from her surgery. Based on the pathology, it was difficult to determine whether her tumor was more in the category of neuroendocrine cancer or non-small cell lung cancer. Her subsequent laboratory evaluation included CBC showing hemoglobin 11.8 g, white blood cell count 10,500, and platelet count 338,000. The red cell indices were hypochromic/microcytic with MCV 73 MCH 24. Chem profile was unremarkable. Her neuroendocrine markers included a chromogranin A of 1 nmol/L, normal range 0-5, whole blood serotonin 178 ng/mL, normal range 50-200, and nonspecific enolase 4.4 ng/mL, normal range 0.0-12.5. Further pathologic evaluation showed that her tumor was strongly positive for BCA-225, suggestive of breast origin. A breast prognostic profile then showed the tumor to be ER positive at 99% with VT positive at 1%, both strong intensity. It was negative for overexpression of HER-2/bel, 0+ by IHC and amplification ratio by FISH 1.1 with 1.8 HER-2 copies/cell. She had a known history of breast cancer for which she had undergone left mastectomy in 1999. She apparently did receive adjuvant chemotherapy, but those records were not available. There had previously been no evidence of recurrence of the breast cancer. Restaging chest CT on 02/16/2017 showed postsurgical changes in the left lower lobe with a residual left lower lobe nodule measuring 2.3 x 1.8 cm. Three pulmonary nodules were noted in the left upper lobe, largest measuring 1.3 x 1.0 cm, and it appeared unchanged. Two additional smaller nodules included a subpleural nodule in the left upper lobe which had increased from 6 mm to 9 mm. There was a new left pulmonary ligament lymph node. 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 Given the pathologic findings, she then began treatment with letrozole 2.5 mg daily in combination with palbociclib on 04/14/2017. She tolerated her initial cycle of palbociclib without significant adverse effects. She then continued treatment at the same dosage and schedule. Repeat chest CT on 08/25/2017 showed smaller anterior mediastinal mass measuring 2.0 x 2.1 cm compared to 3.0 x 3.9 cm on the February 2017 study. A left infrahilar nodule also was slightly smaller. Left upper and lower lobe pulmonary nodules appeared unchanged. Restaging PET/CT on 10/23/2017 reported no evidence for recurrent or residual malignancy. A 1.5 cm anterior mediastinal soft tissue lesion showed less FDG uptake than normal mediastinal background. Left lower lobe pulmonary nodules were FDG negative. On 09/13/2018 she underwent laparoscopic cholecystectomy for chronic cholecystitis. She also underwent liver biopsy. Pathology showed acute and chronic cholecystitis and cholelithiasis. The liver biopsy showed benign hepatic parenchyma with minimal chronic inflammation within portal triads. I had seen her for a follow-up visit on 10/12/2018. At that point she appeared stable clinically with no obvious progression of the breast cancer. She continued her treatment with letrozole/palbociclib. Following that visit, we were unable to get her scheduled for follow-up despite multiple attempts to contact her to get her prescription renewed. On 04/07/2020 she presented to the emergency room with pain in her lower back and left leg following a fall 2 weeks earlier. According to her daughter, the back pain actually started well before the fall occurred. In any case, her CT of the lumbar spine and pelvis showed multiple lytic lesions including the sacrum, L1, L4 and L5 levels. At the L5 level the posterior element lytic lesion was noted to extend to the posterior aspect of the left L5/S1 neural foramina contributing to mild to moderate narrowing. The pelvis showed a lytic lesion in the left superior pubic ramus measuring 4.0 cm in transverse oblique defect dimension. An associated soft tissue component measured 2.3 x 2.0 cm. There appeared to be no associated fracture. X-ray of the left knee showed prepatellar soft tissue defect with adjacent edema and/or hematoma with small to moderate suprapatellar joint effusion. Her laboratory studies showed mild anemia, hemoglobin 10.6 g. The nonfasting blood sugar was significantly elevated. Her transferrin saturation was slightly low at 19.1%. Her alkaline phosphatase was just slightly elevated at 108/105 U/L. The bilirubin and liver enzymes were normal. In the setting of symptomatic bony metastatic disease, she was given palliative radiation to the pelvis, completed on 05/28/2020 to a total dose of 3000 cGy. In the meantime, on 05/23/2020 she began second line hormonal therapy with fulvestrant in combination with palbociclib. She tolerated the initial injection of fulvestrant with no adverse effects, and she did return in 2 weeks to complete for the second injection as part of her loading dose schedule. During that time, she also started treatment with denosumab for the metastatic bone involvement. Her further treatment was then delayed, first in June due to unspecified illness, and then in July when she was diagnosed with COVID-19 virus infection. On 08/06/2020 she was admitted to the hospital after presenting to the emergency room with weakness and numbness in both hands. She was found to have hypokalemia and hypomagnesemia. She also was found to have urinary tract infection. She was discharged home on antibiotic therapy with cefdinir and with potassium and magnesium replacement. As of 08/13/2020 she restarted treatment with a loading dose of fulvestrant in combination with palbociclib, and she also started monthly denosumab injections for the metastatic bone involvement. As of 09/10/2020 she continued fulvestrant and denosumab on a monthly schedule, but she apparently did not receive her supply of palbociclib for that cycle, but it was restarted in October with the dosage reduced to 100 mg daily on a 21/28-day schedule. In November her treatment was put on hold due to neutropenia with her ANC at 300. Restaging PET/CT on 12/31/2020 showed a small focus of increased metabolic activity in the left hilum, SUV 4.1. A nodular density in the left lower lobe base adjacent to the major fissure measuring 2.3 x 2.9 cm was FDG avid with SUV 4.94. A left upper lobe subpleural nodular density showed no significant metabolic activity. There was no evidence of metastatic involvement in the abdomen/pelvis. There was extensive metabolicallyactive osseous metastatic disease which included destructive changes in the left glenoid, left symphysis, and left sacrum. With those findings, I had requested next generation sequencing study on the lung biopsy from 2016. It did confirm that the tumor was ER/VT positive, and it was also was positive for androgen receptor. However, there were no actionable mutations identified. I had seen her for a follow-up visit on 02/04/2021. With evidence of disease progression and with no other treatment options available, she was recommended to proceed with a trial of chemotherapy with Xeloda. Her other medical illnesses have been limited to hyperlipidemia and type II diabetes. She has had a long-standing hypochromic/microcytic anemia, presumably thalassemia trait. She does have a history of smoking 1 pack of cigarettes daily beginning at age 23. She quit smoking in October 2016. INTERIM HISTORY: She has now started treatment with Xeloda 1500 mg twice daily on a 7 days on/7 days off schedule. She initially was having significant nausea with it, but she has been able to manage it adequately taking ondansetron 30 minutes prior to each dosage. She still has pretty good energy, and she is still doing normal activities. ECOG score is 0. Appetite is not fantastic, but she is eating. She does not have fever or night sweats. She has had no mouth sores. She does not complain of shortness of breath, cough, or chest pain. In addition to the nausea, she sometimes has heartburn. Her bowel function has been okay. She has had no diarrhea. She has no complaints. She has occasional aching, mainly in her hips. She has no other joint or bone pain. She does not complain of headache. She has no numbness/paresthesia or other neuropathy symptoms. She has had no skin changes. Medications: Farxiga 1 Tablet (of 5 mg) Oral daily, Ibrance 1 Capsule (of 100 mg) Oral daily for 21 days, Klor-Con Sprinkle (8 meq) Capsule, controlled release Oral daily, MetFORMIN HCl 1 (1000 mg) Tablet Oral b.i.d., Ondansetron HCl 1 Tablet (of 4 mg) Oral q 4 hours PRN, Pantoprazole Sodium 1 Tablet (of 40 mg) Tablet, enteric coated Oral daily, Prochlorperazine Maleate 1 Tablet (of 10 mg) Oral q 4 hours PRN, Trulicity 1.5 mg (of 0.75 mg/0.5mL) Subcutaneous q 7 days Allergies: No Known Allergies. Vital Signs: Performed on Mar 18, 2021 09:30 Height - 62.00 in Weight - 162 lbs (HIGH) BSA - 1.75 sq.m BMI - 29.63 Temperature - 97.8 F (LOW) Pulse - 80 /min Respiration - 18 /min BP - 142/84 mm(hg) (HIGH) O2 Sat - 98 % Pain - 0 Fatigue - 0 Physical Examination: Constitutional - She looks pretty good generally, Eyes - Sclerae nonicteric. Conjunctivae clear, ENMT - No lesions noted in the oral cavity, Hematologic/Lymphatic - No cervical, clavicular, or axillary adenopathy, Respiratory - Lungs sound clear, Cardiovascular - Heart rhythm is regular. There is no murmur, gallop or rub noted, Abdomen - Soft. Liver and spleen are not enlarged. There is no abdominal mass or ascites noted and there is no inguinal adenopathy, Extremities - No edema, Neurologic - No focal neurologic deficits noted. Lab/Imaging: Test performed on Mar 18, 2021 08:17 Sodium 139 mmol/L Potassium 3.8 mmol/L Chloride 107 mmol/L CO2 22 mmol/L Anion Gap 13.8 BUN 10 mg/dL Creatinine 0.7 mg/dL Cr Clearance (Est) 90.47 mL/min eGFR 83.5 mL/min Glucose 133 mg/dL Osmolality - Calculated 289 mOsm/kg Calcium 8.5 mg/dL Protein, Total 7.0 g/dL Albumin 3.8 g/dL Globulin 3.2 g/dL Bilirubin, Total 0.2 mg/dL ALT (SGPT) 8 U/L AST (SGOT) 13 U/L Alkaline Phosphatase 73 IU/L WBC 4.1 10 3/uL RBC 4.43 10 6/uL HGB 11.0 g/dL HCT 36.8 % MCV 83.1 fl MCH 24.8 pg MCHC 29.9 g/dL RDW 15.2 % Platelet Count 229 10 3/cmm MPV 9.1 fL Neutrophils 2.34 10 3/uL Lymphocytes 1.2 10 3/uL Monocytes 0.3 10 3/uL Eosinophils 0.2 10 3/uL Basophils 0.0 10 3/uL Neutrophil % 57.6 % Lymphocyte % 30.2 % Monocyte % 6.1 % Eosinophil % 4.2 % Basophils % 0.7 % NRBC % 0 % Problem List: 1. Metastatic breast cancer, ER/VT positive and HER-2 bel negative. 2. Hyperlipidemia. 3. Type II diabetes. 4. She has a longstanding microcytic anemia, presumed to be thalassemia trait. 5. GERD. 6. She was diagnosed with COVID-19 virus infection in July 2020. Problems Addressed with this Encounter and Plan: 1. Patient with metastatic breast cancer, ER/VT positive and HER-2/bel negative. She had originally undergone left mastectomy and adjuvant chemotherapy for breast cancer in 1999. She had subsequently presented with multiple pulmonary nodules. She underwent left thoracoscopy with wedge resection of left lower lobe pulmonary nodule on 12/14/2016. In April 2017 she began treatment with letrozole 2.5 mg daily in combination with palbociclib 125 mg daily on a day schedule. She had a good response with restaging PET/CT on 10/23/2017 showing no evidence for recurrent or residual malignancy. As of her visit on 10/12/2018 she appeared stable clinically with no obvious progression of the breast cancer. However, she was then lost to follow-up, and she stopped her treatment. In April 2020 she presented with symptomatic bony metastatic disease in the lumbar spine and pelvis. She was given palliative radiation and she began second line hormonal therapy with fulvestrant in combination with palbociclib. Her treatment was interrupted during the loading dose portion of her fulvestrant, first due to unspecified illness and subsequently to COVID-19 virus infection. She then had a recent hospitalization for symptomatic hypokalemia and hypomagnesemia. She also required treatment for urinary tract infection. She had significant improvement in her bone pain following the radiation. During subsequent follow-up it was difficult to determine if she had any response to the second line hormonal therapy. There was previously no evidence of further disease progression, but her CA-125 level remained significantly elevated. She then did show evidence of disease progression by restaging PET/CT on 12/31/2020. Findings included extensive metastatic bone involvement, but she has really not been overtly symptomatic with it. A next generation sequencing study on her initial lung biopsy showed no actionable mutations. In the setting of disease progression on second line endocrine therapy and with no actionable mutations identified, she was advised to proceed to a trial of chemotherapy with capecitabine. It was started at a reduced dosage of 1500 mg twice daily on a 7 days on/7 days off schedule. She is in her first cycle, and thus far she appears to be tolerating it well. She initially did have significant nausea with it, but that has been managed adequately with ondansetron. She will continue treatment at the same dose and schedule. I will see her again in 1 month. 2. Metastatic bone involvement. She will continue treatment with denosumab 120 mg by subcutaneous injection monthly. Signed By: Colt Brito M.D. <<Signature on File>>
[2021-03-19 07:28] LABS: CA 27.29 533 U/mL (<38)
== END 2021-03-18 07:56 | disposition home or self-care (01) ==
LOC: ONCMED 07:57
PROVIDERS: PCP Nurse Practitioner Family; Visit Provider Internal Medicine Medical Oncology
DX: C79.51 Secondary malignant neoplasm of bone (principal); Z85.3 Personal history of malignant neoplasm of breast; D50.9 Iron deficiency anemia, unspecified; E78.5 Hyperlipidemia, unspecified; E11.9 Type 2 diabetes mellitus without complications; K21.9 Gastro-esophageal reflux disease without esophagitis; Z86.16 Personal history of COVID-19; Z79.899 Other long term (current) drug therapy; Z79.84 Long term (current) use of oral hypoglycemic drugs
CPT/HCPCS: 36415; 80053; 85025; 86300; 96372; 99215; J0897

== ENCOUNTER 2021-04-22 13:34 | Outpatient (CLI) | payer MEDICARE, SELFPAY ==
[2021-04-22 14:08] LABS: Basophils % 0.4 %; Eosinophils # 0.1 10^3/uL (0.0-0.8); Hematocrit 36.5 % (37.0-47.0); Hemoglobin 11.1 g/dL (11.5-15.3); Lymphocytes # 1.2 10^3/uL (0.8-4.8); Lymphocytes % 21.5 %; Mean Corpuscular HGB Conc 30.4 g/dL (30.0-36.0); Mean Corpuscular Volume 82.2 fl (81-99); Monocytes # 0.4 10^3/uL (0.2-0.9); Monocytes % 6.4 %; Neutrophils # 3.88 10^3/uL (1.8-7.7); Neutrophils % 68.8 %; Nucleated Red Blood Cells % 0 %; Platelet Count 234 10^3/cmm (130-400); Red Blood Count 4.44 10^6/uL (4.1-5.3); Red Cell Distribution Width 15.3 % (12.1-15.1); White Blood Count 5.6 10^3/uL (4.0-10.0)
[2021-04-22 14:45] LABS: Alanine Aminotransferase 12 U/L (0-33); Alkaline Phosphatase 64 IU/L (35-105); Aspartate Amino Transferase 20 U/L (0-32); Blood Urea Nitrogen 17 mg/dL (8-23); Calcium 9.3 mg/dL (8.5-10.5); Carbon Dioxide 24 mmol/L (22-29); Chloride 103 mmol/L (98-107); Globulin 3.4 g/dL (1.3-4.6); Glomerular Filtration Rate 99.7 mL/min (90-130); Glucose 122 mg/dL (65-115); Osmolality Calculated 291 mOsm/kg (285-295); Sodium 139 mmol/L (136-145); Total Bilirubin 0.4 mg/dL (0.15-1.2); Total Protein 7.4 g/dL (6.6-8.7)
[2021-04-22 14:50] LABS: Anion Gap 15.6 (5-19); Potassium 3.6 mmol/L (3.5-5.1)
[2021-04-22] MEDS: denosumab 120 mg SDV SUBCUT (15:10)
--- NOTE | 2021-04-26 11:58 | ONC FU_ITS ---
Dr. Brito Patient Follow-Up Note Patient: Dacia [address] Unit #: [id number]: 1955 Dicatated By: Colt Brito M.D.Date of Visit:Apr 22, 2021 Onc Med Follow-up/Prog Note Chief Complaint: Metastatic breast cancer. 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 On 10/31/2016 she had presented to the emergency room with chest pain. Chest x-ray at that time showed a well-circumscribed opacity in the left lung base measuring 2.1 cm. The appearance was suggestive of pleural or intraparenchymal nodule. She had further evaluation with contrast enhanced chest CT on 11/23/2016. That study showed numerous left upper and left lower lobe pulmonary nodules, the largest in the left lower lobe measuring 1.9 x 2.0 x 1.6 cm. The appearance was suspicious for metastatic disease or primary lung cancer with metastatic disease. Also noted was an anterosuperior mediastinal mass measuring 3.8 x 2.3 cm. The reported differential diagnosis included thymoma/thymic tumor, lymphadenopathy, and germ cell tumor. There was no additional adenopathy identified, and thymic etiology was favored. She was referred to Dr. Villalpando. On 12/14/2016 she underwent left thoracoscopy with wedge resection of the left lower lobe nodule. 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 The tumor was positive for NSE, CK-7, CK-CAM 5.2, and CK-HMW. It was focally positive for synaptophysin and for TTF-1. It was negative for CD-56, chromogranin, and CK-20. It measured 3.0 x 2.3 x 1.5 cm and it was noted to extend to the pleural surface. I had seen her initially on 12/30/2016. At that point she was still recovering from her surgery. Based on the pathology, it was difficult to determine whether her tumor was more in the category of neuroendocrine cancer or non-small cell lung cancer. Her subsequent laboratory evaluation included CBC showing hemoglobin 11.8 g, white blood cell count 10,500, and platelet count 338,000. The red cell indices were hypochromic/microcytic with MCV 73 MCH 24. Chem profile was unremarkable. Her neuroendocrine markers included a chromogranin A of 1 nmol/L, normal range 0-5, whole blood serotonin 178 ng/mL, normal range 50-200, and nonspecific enolase 4.4 ng/mL, normal range 0.0-12.5. Further pathologic evaluation showed that her tumor was strongly positive for BCA-225, suggestive of breast origin. A breast prognostic profile then showed the tumor to be ER positive at 99% with TX positive at 1%, both strong intensity. It was negative for overexpression of HER-2/bel, 0+ by IHC and amplification ratio by FISH 1.1 with 1.8 HER-2 copies/cell. She had a known history of breast cancer for which she had undergone left mastectomy in 1999. She apparently did receive adjuvant chemotherapy, but those records were not available. There had previously been no evidence of recurrence of the breast cancer. Restaging chest CT on 02/16/2017 showed postsurgical changes in the left lower lobe with a residual left lower lobe nodule measuring 2.3 x 1.8 cm. Three pulmonary nodules were noted in the left upper lobe, largest measuring 1.3 x 1.0 cm, and it appeared unchanged. Two additional smaller nodules included a subpleural nodule in the left upper lobe which had increased from 6 mm to 9 mm. There was a new left pulmonary ligament lymph node. 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 Given the pathologic findings, she then began treatment with letrozole 2.5 mg daily in combination with palbociclib on 04/14/2017. She tolerated her initial cycle of palbociclib without significant adverse effects. She then continued treatment at the same dosage and schedule. Repeat chest CT on 08/25/2017 showed smaller anterior mediastinal mass measuring 2.0 x 2.1 cm compared to 3.0 x 3.9 cm on the February 2017 study. A left infrahilar nodule also was slightly smaller. Left upper and lower lobe pulmonary nodules appeared unchanged. Restaging PET/CT on 10/23/2017 reported no evidence for recurrent or residual malignancy. A 1.5 cm anterior mediastinal soft tissue lesion showed less FDG uptake than normal mediastinal background. Left lower lobe pulmonary nodules were FDG negative. On 09/13/2018 she underwent laparoscopic cholecystectomy for chronic cholecystitis. She also underwent liver biopsy. Pathology showed acute and chronic cholecystitis and cholelithiasis. The liver biopsy showed benign hepatic parenchyma with minimal chronic inflammation within portal triads. I had seen her for a follow-up visit on 10/12/2018. At that point she appeared stable clinically with no obvious progression of the breast cancer. She continued her treatment with letrozole/palbociclib. Following that visit, we were unable to get her scheduled for follow-up despite multiple attempts to contact her to get her prescription renewed. On 04/07/2020 she presented to the emergency room with pain in her lower back and left leg following a fall 2 weeks earlier. According to her daughter, the back pain actually started well before the fall occurred. In any case, her CT of the lumbar spine and pelvis showed multiple lytic lesions including the sacrum, L1, L4 and L5 levels. At the L5 level the posterior element lytic lesion was noted to extend to the posterior aspect of the left L5/S1 neural foramina contributing to mild to moderate narrowing. The pelvis showed a lytic lesion in the left superior pubic ramus measuring 4.0 cm in transverse oblique defect dimension. An associated soft tissue component measured 2.3 x 2.0 cm. There appeared to be no associated fracture. X-ray of the left knee showed prepatellar soft tissue defect with adjacent edema and/or hematoma with small to moderate suprapatellar joint effusion. Her laboratory studies showed mild anemia, hemoglobin 10.6 g. The nonfasting blood sugar was significantly elevated. Her transferrin saturation was slightly low at 19.1%. Her alkaline phosphatase was just slightly elevated at 108/105 U/L. The bilirubin and liver enzymes were normal. In the setting of symptomatic bony metastatic disease, she was given palliative radiation to the pelvis, completed on 05/28/2020 to a total dose of 3000 cGy. In the meantime, on 05/23/2020 she began second line hormonal therapy with fulvestrant in combination with palbociclib. She tolerated the initial injection of fulvestrant with no adverse effects, and she did return in 2 weeks to complete for the second injection as part of her loading dose schedule. During that time, she also started treatment with denosumab for the metastatic bone involvement. Her further treatment was then delayed, first in June due to unspecified illness, and then in July when she was diagnosed with COVID-19 virus infection. On 08/06/2020 she was admitted to the hospital after presenting to the emergency room with weakness and numbness in both hands. She was found to have hypokalemia and hypomagnesemia. She also was found to have urinary tract infection. She was discharged home on antibiotic therapy with cefdinir and with potassium and magnesium replacement. As of 08/13/2020 she restarted treatment with a loading dose of fulvestrant in combination with palbociclib, and she also started monthly denosumab injections for the metastatic bone involvement. As of 09/10/2020 she continued fulvestrant and denosumab on a monthly schedule, but she apparently did not receive her supply of palbociclib for that cycle, but it was restarted in October with the dosage reduced to 100 mg daily on a 21/28-day schedule. In November her treatment was put on hold due to neutropenia with her ANC at 300. Restaging PET/CT on 12/31/2020 showed a small focus of increased metabolic activity in the left hilum, SUV 4.1. A nodular density in the left lower lobe base adjacent to the major fissure measuring 2.3 x 2.9 cm was FDG avid with SUV 4.94. A left upper lobe subpleural nodular density showed no significant metabolic activity. There was no evidence of metastatic involvement in the abdomen/pelvis. There was extensive metabolicallyactive osseous metastatic disease which included destructive changes in the left glenoid, left symphysis, and left sacrum. With those findings, I had requested next generation sequencing study on the lung biopsy from 2016. It did confirm that the tumor was ER/TX positive, and it was also was positive for androgen receptor. However, there were no actionable mutations identified. I had seen her for a follow-up visit on 02/04/2021. With evidence of disease progression and with no other treatment options available, she was recommended to proceed with a trial of chemotherapy with Xeloda. Her other medical illnesses have been limited to hyperlipidemia and type II diabetes. She has had a long-standing hypochromic/microcytic anemia, presumably thalassemia trait. She does have a history of smoking 1 pack of cigarettes daily beginning at age 23. She quit smoking in October 2016. INTERIM HISTORY: In March she began treatment with Xeloda 1500 mg twice daily on a 7 days on/7 days off schedule. Initially she was having significant nausea with it, but she was able to manage it adequately taking ondansetron 30 minutes prior to each dosage. She is seen for a follow-up visit. On Wednesday she completed 7 days of Xeloda at 1500 mg twice daily. For the past 3 days she has been having nausea and diarrhea. Her energy, though, has still been okay, and she has continued normal activity. ECOG score is 0. Appetite is somewhat variable. She has no fever or night sweats. She has had no mouth sores. She has no shortness of breath, cough, or chest pain. She has no complaints. She has some pain in the left shoulder associated with the previous fracture. She has no other joint or bone pain. She does not complain of headache or dizziness, and she has no focal neurologic symptoms. Thus far she has had no symptoms of hand/foot syndrome or other skin changes. Medications: Farxiga 1 Tablet (of 5 mg) Oral daily, Ibrance 1 Capsule (of 100 mg) Oral daily for 21 days, Klor-Con Sprinkle (8 meq) Capsule, controlled release Oral daily, MetFORMIN HCl 1 (1000 mg) Tablet Oral b.i.d., Ondansetron HCl 1 Tablet (of 4 mg) Oral q 4 hours PRN, Pantoprazole Sodium 1 Tablet (of 40 mg) Tablet, enteric coated Oral daily, Prochlorperazine Maleate 1 Tablet (of 10 mg) Oral q 4 hours PRN, Trulicity 1.5 mg (of 0.75 mg/0.5mL) Subcutaneous q 7 days Allergies: No Known Allergies. Vital Signs: Performed on Apr 22, 2021 14:36 Height - 62.00 in Weight - 161 lbs (LOW) BSA - 1.74 sq.m BMI - 29.45 Temperature - 97.2 F (LOW) Pulse - 85 /min Respiration - 18 /min BP - 145/80 mm(hg) (HIGH) O2 Sat - 98 % Pain - 0 Fatigue - 0 Physical Examination: Constitutional - She looks pretty good generally, Eyes - Sclerae nonicteric. Conjunctivae clear, ENMT - No lesions noted in the oral cavity, Hematologic/Lymphatic - No cervical, clavicular, or axillary adenopathy, Respiratory - Lungs sound clear with some decrease in air movement bilaterally, Cardiovascular - Heart rhythm is regular. There is no murmur, gallop or rub noted, Abdomen - Soft. Liver and spleen are not enlarged. There is no abdominal mass or ascites noted and there is no inguinal adenopathy, Extremities - No edema, Neurologic - No focal neurologic deficits noted. Lab/Imaging: Test performed on Apr 22, 2021 13:56 Sodium 139 mmol/L Potassium 3.6 mmol/L Chloride 103 mmol/L CO2 24 mmol/L Anion Gap 15.6 BUN 17 mg/dL Creatinine 0.6 mg/dL Cr Clearance (Est) 104.9000 mL/min eGFR 99.7 mL/min Glucose 122 mg/dL Osmolality - Calculated 291 mOsm/kg Calcium 9.3 mg/dL Protein, Total 7.4 g/dL Albumin 4.0 g/dL Globulin 3.4 g/dL Bilirubin, Total 0.4 mg/dL ALT (SGPT) 12 U/L AST (SGOT) 20 U/L Alkaline Phosphatase 64 IU/L WBC 5.6 10 3/uL RBC 4.44 10 6/uL HGB 11.1 g/dL HCT 36.5 % MCV 82.2 fl MCH 25.0 pg MCHC 30.4 g/dL RDW 15.3 % Platelet Count 234 10 3/cmm MPV 9.0 fL Neutrophils 3.88 10 3/uL Lymphocytes 1.2 10 3/uL Monocytes 0.4 10 3/uL Eosinophils 0.1 10 3/uL Basophils 0.0 10 3/uL Neutrophil % 68.8 % Lymphocyte % 21.5 % Monocyte % 6.4 % Eosinophil % 2.0 % Basophils % 0.4 % NRBC % 0 % Problem List: 1. Metastatic breast cancer, ER/TX positive and HER-2 bel negative. 2. Hyperlipidemia. 3. Type II diabetes. 4. She has a longstanding microcytic anemia, presumed to be thalassemia trait. 5. GERD. 6. She was diagnosed with COVID-19 virus infection in July 2020. Problems Addressed with this Encounter and Plan: 1. Patient with metastatic breast cancer, ER/TX positive and HER-2/bel negative. She had originally undergone left mastectomy and adjuvant chemotherapy for breast cancer in 1999. She had subsequently presented with multiple pulmonary nodules. She underwent left thoracoscopy with wedge resection of left lower lobe pulmonary nodule on 12/14/2016. In April 2017 she began treatment with letrozole 2.5 mg daily in combination with palbociclib 125 mg daily on a day schedule. She had a good response with restaging PET/CT on 10/23/2017 showing no evidence for recurrent or residual malignancy. As of her visit on 10/12/2018 she appeared stable clinically with no obvious progression of the breast cancer. However, she was then lost to follow-up, and she stopped her treatment. In April 2020 she presented with symptomatic bony metastatic disease in the lumbar spine and pelvis. She was given palliative radiation and she began second line hormonal therapy with fulvestrant in combination with palbociclib. Her treatment was interrupted during the loading dose portion of her fulvestrant, first due to unspecified illness and subsequently to COVID-19 virus infection. She then had a recent hospitalization for symptomatic hypokalemia and hypomagnesemia. She also required treatment for urinary tract infection. She had significant improvement in her bone pain following the radiation. During subsequent follow-up it was difficult to determine if she had any response to the second line hormonal therapy. There was previously no evidence of further disease progression, but her CA-125 level remained significantly elevated. She then did show evidence of disease progression by restaging PET/CT on 12/31/2020. Findings included extensive metastatic bone involvement, but she has really not been overtly symptomatic with it. A next generation sequencing study on her initial lung biopsy showed no actionable mutations. In the setting of disease progression on second line endocrine therapy and with no actionable mutations identified, she was advised to proceed to a trial of chemotherapy with capecitabine. It was started in March at a reduced dosage of 1500 mg twice daily on a 7 days on/7 days off schedule. Initially she did have some nausea with it, but she was able to control that by premedicating with ondansetron. Following her last 7-day treatment at 1500 mg twice daily she had developed increased nausea and diarrhea. As such, she will delay her next cycle for 1 week and she will reduce the dosage to 1000 mg twice daily. She will be scheduled for a follow-up visit in 5 weeks. 2. Metastatic bone involvement. She will continue treatment with denosumab 120 mg by subcutaneous injection monthly. Signed By: Colt Brito M.D. <<Signature on File>>
== END 2021-04-22 13:35 | disposition home or self-care (01) ==
PROVIDERS: PCP Nurse Practitioner Family; Visit Provider Internal Medicine Medical Oncology
DX: Z51.11 Encounter for antineoplastic chemotherapy (principal); C50.811 Malignant neoplasm of overlapping sites of right female breast; Z17.0 Estrogen receptor positive status [ER+]; C78.01 Secondary malignant neoplasm of right lung; C78.02 Secondary malignant neoplasm of left lung; D56.3 Thalassemia minor; Z90.12 Acquired absence of left breast and nipple
CPT/HCPCS: 80053; 85025; 96372; 99215; J0897

== ENCOUNTER 2021-05-20 08:18 | Outpatient (CLI) | payer MEDICARE, SELFPAY ==
[2021-05-20 08:57] LABS: Basophils % 0.7 %; Eosinophils # 0.2 10^3/uL (0.0-0.8); Eosinophils % 3.9 %; Hematocrit 36.8 % (37.0-47.0); Hemoglobin 11.3 g/dL (11.5-15.3); Lymphocytes # 1.2 10^3/uL (0.8-4.8); Lymphocytes % 19.3 %; Mean Corpuscular HGB Conc 30.7 g/dL (30.0-36.0); Mean Corpuscular Hemoglobin 25.1 pg (28.0-34.0); Mean Corpuscular Volume 81.6 fl (81-99); Mean Platelet Volume 9.1 fL (7.4-10.4); Monocytes # 0.4 10^3/uL (0.2-0.9); Monocytes % 6.5 %; Neutrophils # 4.21 10^3/uL (1.8-7.7); Neutrophils % 68.9 %; Nucleated Red Blood Cells % 0 %; Platelet Count 219 10^3/cmm (130-400); Red Blood Count 4.51 10^6/uL (4.1-5.3); Red Cell Distribution Width 14.6 % (12.1-15.1); White Blood Count 6.1 10^3/uL (4.0-10.0)
[2021-05-20 09:34] LABS: Alanine Aminotransferase 8 U/L (0-33); Albumin Level 3.9 g/dL (3.5-5.2); Alkaline Phosphatase 70 IU/L (35-105); Anion Gap 14.9 (5-19); Aspartate Amino Transferase 11 U/L (0-32); Blood Urea Nitrogen 18 mg/dL (8-23); Calcium 8.9 mg/dL (8.5-10.5); Carbon Dioxide 26 mmol/L (22-29); Chloride 105 mmol/L (98-107); Globulin 3.5 g/dL (1.3-4.6); Glomerular Filtration Rate 99.7 mL/min (90-130); Glucose 98 mg/dL (65-115); Osmolality Calculated 296 mOsm/kg (285-295); Potassium 3.9 mmol/L (3.5-5.1); Sodium 142 mmol/L (136-145); Total Bilirubin 0.4 mg/dL (0.15-1.2); Total Protein 7.4 g/dL (6.6-8.7)
[2021-05-20 10:02] LABS: CA 15-3 718.8 U/mL (0-25)
[2021-05-20] MEDS: denosumab 120 mg SDV SUBCUT (10:30)
--- NOTE | 2021-06-02 23:20 | ONC FU_ITS ---
[facility] Patient Note Patient: Dacia Way Unit #: [id number]: [id number] Dictated By: Soco SawyerDate of Visit: May 20, 2021 Onc MED Follow-Up/Prog Note Chief Complaint: Metastatic breast cancer. 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 On 10/31/2016 she had presented to the emergency room with chest pain. Chest x-ray at that time showed a well-circumscribed opacity in the left lung base measuring 2.1 cm. The appearance was suggestive of pleural or intraparenchymal nodule. She had further evaluation with contrast enhanced chest CT on 11/23/2016. That study showed numerous left upper and left lower lobe pulmonary nodules, the largest in the left lower lobe measuring 1.9 x 2.0 x 1.6 cm. The appearance was suspicious for metastatic disease or primary lung cancer with metastatic disease. Also noted was an anterosuperior mediastinal mass measuring 3.8 x 2.3 cm. The reported differential diagnosis included thymoma/thymic tumor, lymphadenopathy, and germ cell tumor. There was no additional adenopathy identified, and thymic etiology was favored. She was referred to Dr. Villalpando. On 12/14/2016 she underwent left thoracoscopy with wedge resection of the left lower lobe nodule. 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 The tumor was positive for NSE, CK-7, CK-CAM 5.2, and CK-HMW. It was focally positive for synaptophysin and for TTF-1. It was negative for CD-56, chromogranin, and CK-20. It measured 3.0 x 2.3 x 1.5 cm and it was noted to extend to the pleural surface. Dr Brito had seen her initially on 12/30/2016. At that point she was still recovering from her surgery. Based on the pathology, it was difficult to determine whether her tumor was more in the category of neuroendocrine cancer or non-small cell lung cancer. Her subsequent laboratory evaluation included CBC showing hemoglobin 11.8 g, white blood cell count 10,500, and platelet count 338,000. The red cell indices were hypochromic/microcytic with MCV 73 MCH 24. Chem profile was unremarkable. Her neuroendocrine markers included a chromogranin A of 1 nmol/L, normal range 0-5, whole blood serotonin 178 ng/mL, normal range 50-200, and nonspecific enolase 4.4 ng/mL, normal range 0.0-12.5. Further pathologic evaluation showed that her tumor was strongly positive for BCA-225, suggestive of breast origin. A breast prognostic profile then showed the tumor to be ER positive at 99% with KS positive at 1%, both strong intensity. It was negative for overexpression of HER-2/bel, 0+ by IHC and amplification ratio by FISH 1.1 with 1.8 HER-2 copies/cell. She had a known history of breast cancer for which she had undergone left mastectomy in 1999. She apparently did receive adjuvant chemotherapy, but those records were not available. There had previously been no evidence of recurrence of the breast cancer. Restaging chest CT on 02/16/2017 showed postsurgical changes in the left lower lobe with a residual left lower lobe nodule measuring 2.3 x 1.8 cm. Three pulmonary nodules were noted in the left upper lobe, largest measuring 1.3 x 1.0 cm, and it appeared unchanged. Two additional smaller nodules included a subpleural nodule in the left upper lobe which had increased from 6 mm to 9 mm. There was a new left pulmonary ligament lymph node. 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 Given the pathologic findings, she then began treatment with letrozole 2.5 mg daily in combination with palbociclib on 04/14/2017. She tolerated her initial cycle of palbociclib without significant adverse effects. She then continued treatment at the same dosage and schedule. Repeat chest CT on 08/25/2017 showed smaller anterior mediastinal mass measuring 2.0 x 2.1 cm compared to 3.0 x 3.9 cm on the February 2017 study. A left infrahilar nodule also was slightly smaller. Left upper and lower lobe pulmonary nodules appeared unchanged. Restaging PET/CT on 10/23/2017 reported no evidence for recurrent or residual malignancy. A 1.5 cm anterior mediastinal soft tissue lesion showed less FDG uptake than normal mediastinal background. Left lower lobe pulmonary nodules were FDG negative. On 09/13/2018 she underwent laparoscopic cholecystectomy for chronic cholecystitis. She also underwent liver biopsy. Pathology showed acute and chronic cholecystitis and cholelithiasis. The liver biopsy showed benign hepatic parenchyma with minimal chronic inflammation within portal triads. I had seen her for a follow-up visit on 10/12/2018. At that point she appeared stable clinically with no obvious progression of the breast cancer. She continued her treatment with letrozole/palbociclib. Following that visit, we were unable to get her scheduled for follow-up despite multiple attempts to contact her to get her prescription renewed. On 04/07/2020 she presented to the emergency room with pain in her lower back and left leg following a fall 2 weeks earlier. According to her daughter, the back pain actually started well before the fall occurred. In any case, her CT of the lumbar spine and pelvis showed multiple lytic lesions including the sacrum, L1, L4 and L5 levels. At the L5 level the posterior element lytic lesion was noted to extend to the posterior aspect of the left L5/S1 neural foramina contributing to mild to moderate narrowing. The pelvis showed a lytic lesion in the left superior pubic ramus measuring 4.0 cm in transverse oblique defect dimension. An associated soft tissue component measured 2.3 x 2.0 cm. There appeared to be no associated fracture. X-ray of the left knee showed prepatellar soft tissue defect with adjacent edema and/or hematoma with small to moderate suprapatellar joint effusion. Her laboratory studies showed mild anemia, hemoglobin 10.6 g. The nonfasting blood sugar was significantly elevated. Her transferrin saturation was slightly low at 19.1%. Her alkaline phosphatase was just slightly elevated at 108/105 U/L. The bilirubin and liver enzymes were normal. In the setting of symptomatic bony metastatic disease, she was given palliative radiation to the pelvis, completed on 05/28/2020 to a total dose of 3000 cGy. In the meantime, on 05/23/2020 she began second line hormonal therapy with fulvestrant in combination with palbociclib. She tolerated the initial injection of fulvestrant with no adverse effects, and she did return in 2 weeks to complete for the second injection as part of her loading dose schedule. During that time, she also started treatment with denosumab for the metastatic bone involvement. Her further treatment was then delayed, first in June due to unspecified illness, and then in July when she was diagnosed with COVID-19 virus infection. On 08/06/2020 she was admitted to the hospital after presenting to the emergency room with weakness and numbness in both hands. She was found to have hypokalemia and hypomagnesemia. She also was found to have urinary tract infection. She was discharged home on antibiotic therapy with cefdinir and with potassium and magnesium replacement. As of 08/13/2020 she restarted treatment with a loading dose of fulvestrant in combination with palbociclib, and she also started monthly denosumab injections for the metastatic bone involvement. As of 09/10/2020 she continued fulvestrant and denosumab on a monthly schedule, but she apparently did not receive her supply of palbociclib for that cycle, but it was restarted in October with the dosage reduced to 100 mg daily on a 21/28-day schedule. In November her treatment was put on hold due to neutropenia with her ANC at 300. Restaging PET/CT on 12/31/2020 showed a small focus of increased metabolic activity in the left hilum, SUV 4.1. A nodular density in the left lower lobe base adjacent to the major fissure measuring 2.3 x 2.9 cm was FDG avid with SUV 4.94. A left upper lobe subpleural nodular density showed no significant metabolic activity. There was no evidence of metastatic involvement in the abdomen/pelvis. There was extensive metabolicallyactive osseous metastatic disease which included destructive changes in the left glenoid, left symphysis, and left sacrum. With those findings, I had requested next generation sequencing study on the lung biopsy from 2016. It did confirm that the tumor was ER/KS positive, and it was also was positive for androgen receptor. However, there were no actionable mutations identified. I had seen her for a follow-up visit on 02/04/2021. With evidence of disease progression and with no other treatment options available, she was recommended to proceed with a trial of chemotherapy with Xeloda. Her other medical illnesses have been limited to hyperlipidemia and type II diabetes. She has had a long-standing hypochromic/microcytic anemia, presumably thalassemia trait. She does have a history of smoking 1 pack of cigarettes daily beginning at age 23. She quit smoking in October 2016. INTERIM HISTORY: In March she began treatment with Xeloda 1500 mg twice daily on a 7 days on/7 days off schedule. Initially she was having significant nausea with it, but she was able to manage it adequately taking ondansetron 30 minutes prior to each dosage. Ms Way is here today for a follow-up visit. She completed 7 days of Xeloda at 1000 mg twice daily on 05/15/21 and is due to resume her 7 days on beginning 05/22/21. Her dose was reduced at her last visit to 1000 mg twice daily due to persistent nausea and diarrhea. She states that has resolved. She is doing well. She states she has good energy. She is eating well. She denies any fever or chills. She denies mouth sores, sore throat or difficulty swallowing. She has had no skin changes particularly no [id number] symptoms. She denies any peeling or redness of the hands or feet. She states her bowels are normal for her. The diarrhea has resolved. She denies any neuropathy. She is tolerating the monthly Xgeva well and denies any bone pain. She denies any pain. She denies any new concerns. Her ECOG is 0. Past Medical History: Diabetes type II History of breast cancer Hyperlipidemia COVID-19 in 2019 Past Surgical History: Covid vaccine #2 modrna in 2020 Covid vaccine #1 moderna in 2020 Cholecystectomy in 2019 Left thoracoscopy with wedge biopsy of left lower lobe containing pulmonary nodule in 2017 Left mastectomy in 1999 Appendectomy in 1959 Allergies: No Known Allergies. Medications: Farxiga 1 Tablet (of 5 mg) Oral daily Ibrance 1 Capsule (of 100 mg) Oral daily for 21 days Klor-Con Sprinkle (8 meq) Capsule, controlled release Oral daily MetFORMIN HCl 1 (1000 mg) Tablet Oral b.i.d. Ondansetron HCl 1 Tablet (of 4 mg) Oral q 4 hours PRN Pantoprazole Sodium 1 Tablet (of 40 mg) Tablet, enteric coated Oral daily Prochlorperazine Maleate 1 Tablet (of 10 mg) Oral q 4 hours PRN Trulicity 1.5 mg (of 0.75 mg/0.5mL) Subcutaneous q 7 days Family History: Ms. Way's mother at age 79: coronary artery disease, and breast cancer, and diabetes. Ms. Way's father at age 64: coronary artery disease, and suicide. Ms. Way has 2 brothers: 1 alive, 1 . Ms[address] Way's first brother's coronary artery disease, and diabetes. She has 3 sisters: 1 alive, 2 . [address] Way's first sister's coronary artery disease. Another sister's diabetes. Father had heart disease and of suicide. Her mother had diabetes and heart disease. She also had been treated for breast cancer. One brother and 2 sisters also with heart disease and diabetes. Social History: Ms. Way is and she is unemployed. Ms. Way no longer smokes but had smoked 1.0 pack/day for 40 years. She has no history of drinking. Ms. Way reports the following support systems: lives with spouse, significant other, family, or friends, lives in own house, supportive family/friends willing to assist with needs, and adequate transportation available for expected visits. Her diet consists of regular meals. She indicates her activity level as: daily activities. She has a history of smoking 1 pack of cigarettes daily since age 23. She quit smoking in October 2016. She does not drink alcohol. Review Of Symptoms: <See Above> Vital Signs: Performed on May 20, 2021 09:45 Height - 62.00 in Weight - 164.4 lbs (HIGH) BSA - 1.76 sq.m BMI - 30.07 (HIGH) Temperature - 97.2 F (LOW) Pulse - 78 /min Respiration - 18 /min BP - 158/85 mm(hg) (HIGH) O2 Sat - 99 % Pain - 0 Fatigue - 0,0 - Fully active, able to carry on all predisease activities without restrictions. (ECOG) Physical Examination: Constitutional Alert, oriented, no acute distress. Skin pink, warm and dry. Head Normocephalic; atraumatic. Eyes Conjunctivae and sclerae are clear and without icterus. Pupils are reactive and equal. Neck Supple without masses or thyromegaly. No jugular venous distension. Hematologic/Lymphatic No petechiae or purpura. No tender or palpable lymph nodes in the cervical, supraclavicular, or axillary area. Respiratory Lungs are clear to auscultation without rhonchi or wheezing. Cardiovascular Regular rate and rhythm of heart without murmurs,clicks, gallops or rubs. Back/Spine Non-tender to palpation. Extremities No evidence of lower extremities abnormalities, tender or enlarged lymph nodes and upper extremities abnormalities. Musculoskeletal No tenderness or swelling, normal range of motion without obvious weakness. Integumentary No rashes or lesions. Neurologic No sensory or motor deficits, normal cerebellar function. Slow gait. Psychiatric Alert and oriented times three. Coherent speech. Verbalizes understanding of our discussions today. Laboratory:Test performed on May 20, 2021 08:40 Sodium 142 mmol/L Potassium 3.9 mmol/L Chloride 105 mmol/L CO2 26 mmol/L Anion Gap 14.9 BUN 18 mg/dL Creatinine 0.6 mg/dL Cr Clearance (Est) 107.11 mL/min eGFR 99.7 mL/min Glucose 98 mg/dL Osmolality - Calculated 296 mOsm/kg Calcium 8.9 mg/dL Protein, Total 7.4 g/dL Albumin 3.9 g/dL Globulin 3.5 g/dL Bilirubin, Total 0.4 mg/dL ALT (SGPT) 8 U/L AST (SGOT) 11 U/L Alkaline Phosphatase 70 IU/L WBC 6.1 10 3/uL RBC 4.51 10 6/uL HGB 11.3 g/dL HCT 36.8 % MCV 81.6 fl MCH 25.1 pg MCHC 30.7 g/dL RDW 14.6 % Platelet Count 219 10 3/cmm MPV 9.1 fL Neutrophils 4.21 10 3/uL Lymphocytes 1.2 10 3/uL Monocytes 0.4 10 3/uL Eosinophils 0.2 10 3/uL Basophils 0.0 10 3/uL Neutrophil % 68.9 % Lymphocyte % 19.3 % Monocyte % 6.5 % Eosinophil % 3.9 % Basophils % 0.7 % NRBC % 0 % CA 15-3 718.8 U/mL Test performed on Mar 18, 2021 08:17 CA 27.29 533 U/mL Test performed on Dec 18, 2020 13:44 Ua Color Yellow Ua Appearance Cloudy Ua Glucose Norm Ua Bilirubin 1+ Ua Ketones Negative Ua Specific Badger 1.015 Ua Blood 2+ Ua pH 5 Ua Protein 2+ Ua Urobilinogen 1 mg/dL Ua Nitrites Positive Ua Leukocyte Esterase 2+ Ua Micro: WBC 40-55 /hpf Urine Culture CC 100 CFU/ml Ua Micro: RBC 5-10 /hpf Ua Micro: Squam Epith Cells 0-4 /hpf Ua Micro: Bacteria 4+ /hpf Impression: 1. Metastatic breast cancer, ER/KS positive and HER-2 bel negative. 2. Hyperlipidemia. 3. Type II diabetes. 4. She has a longstanding microcytic anemia, presumed to be thalassemia trait. 5. GERD. 6. She was diagnosed with COVID-19 virus infection in July 2020. Plan/Problems Addressed at this Visit: 1. Metastatic breast cancer, ER/KS positive and HER-2/bel negative. She had originally undergone left mastectomy and adjuvant chemotherapy for breast cancer in 1999. She had subsequently presented with multiple pulmonary nodules. She underwent left thoracoscopy with wedge resection of left lower lobe pulmonary nodule on 12/14/2016. In April 2017 she began treatment with letrozole 2.5 mg daily in combination with palbociclib 125 mg daily on a / day schedule. She had a good response with restaging PET/CT on 10/23/2017 showing no evidence for recurrent or residual malignancy. As of her visit on 10/12/2018 she appeared stable clinically with no obvious progression of the breast cancer. However, she was then lost to follow-up, and she stopped her treatment. In April 2020 she presented with symptomatic bony metastatic disease in the lumbar spine and pelvis. She was given palliative radiation and she began second line hormonal therapy with fulvestrant in combination with palbociclib. Her treatment was interrupted during the loading dose portion of her fulvestrant, first due to unspecified illness and subsequently to COVID-19 virus infection. She then had a recent hospitalization for symptomatic hypokalemia and hypomagnesemia. She also required treatment for urinary tract infection. She had significant improvement in her bone pain following the radiation. During subsequent follow-up it was difficult to determine if she had any response to the second line hormonal therapy. There was previously no evidence of further disease progression, but her CA-125 level remained significantly elevated. She then did show evidence of disease progression by restaging PET/CT on 12/31/2020. Findings included extensive metastatic bone involvement, but she has really not been overtly symptomatic with it. A next generation sequencing study on her initial lung biopsy showed no actionable mutations. In the setting of disease progression on second line endocrine therapy and with no actionable mutations identified, she was advised to proceed to a trial of chemotherapy with capecitabine. It was started in March at a reduced dosage of 1500 mg twice daily on a 7 days on/7 days off schedule. Initially she did have some nausea with it, but she was able to control that by premedicating with ondansetron. Following her last 7-day treatment at 1500 mg twice daily she had developed increased nausea and diarrhea. As such, her next cycle was delayed for 1 week and the dose reduced to 1000 mg twice daily. A. Proceed with Xeloda 1000 mg twice daily 7 days on 7 days off. She is due to resume her 7 days on beginning May 22, 2021. B. Today's labs reviewed in detail discussed with Ms. Way and a copy was given to her. WBC 6.1, hemoglobin 11.3, platelets are 19,000 ANC is 4210. Potassium 3.9 random glucose 98 creatinine 0.6 LFTs are normal. Her last CA 27-29 was 533 on March 18, 2021. We discussed that we are now monitoring with a CA 15???3. That resulted at 718.8 today. I did inform them that this was a new test for her and we have no baseline. We will recheck this again in 1 month. C. We will plan to see her back in 4 weeks with CBC CMP and repeat CA 15-3. D. Ms. Way was instructed to contact us in interim should questions or problems arise. 2. Metastatic bone involvement. She will continue treatment with denosumab 120 mg by subcutaneous injection monthly. A. Her last dose was given on April 22, 2021. B. She will proceed with Xgeva today if it has been 28 days since her last schedule. C. We will plan to repeat her Xgeva again in 28 days. Signed By: Soco Sawyer-, [facility] Colt Brito MD <<Signature on File>>
== END 2021-05-20 08:19 | disposition home or self-care (01) ==
PROVIDERS: PCP Nurse Practitioner Family; Visit Provider Nurse Practitioner
DX: Z51.11 Encounter for antineoplastic chemotherapy (principal); C50.812 Malignant neoplasm of overlapping sites of left female breast; Z17.0 Estrogen receptor positive status [ER+]; C79.51 Secondary malignant neoplasm of bone; C78.01 Secondary malignant neoplasm of right lung; C78.02 Secondary malignant neoplasm of left lung; Z79.899 Other long term (current) drug therapy
CPT/HCPCS: 36415; 80053; 85025; 86300; 96372; 99214; J0897

== ENCOUNTER 2021-07-08 09:40 | Outpatient (CLI) | payer MEDICARE, SELFPAY ==
[2021-07-08 10:35] LABS: Basophils % 0.5 %; Eosinophils # 0.2 10^3/uL (0.0-0.8); Eosinophils % 2.7 %; Hematocrit 37.5 % (37.0-47.0); Hemoglobin 11.5 g/dL (11.5-15.3); Lymphocytes # 1.2 10^3/uL (0.8-4.8); Lymphocytes % 19.7 %; Mean Corpuscular HGB Conc 30.7 g/dL (30.0-36.0); Mean Corpuscular Hemoglobin 24.7 pg (28.0-34.0); Mean Corpuscular Volume 80.5 fl (81-99); Mean Platelet Volume 9.1 fL (7.4-10.4); Monocytes # 0.4 10^3/uL (0.2-0.9); Monocytes % 6.4 %; Neutrophils # 4.17 10^3/uL (1.8-7.7); Nucleated Red Blood Cells % 0 %; Platelet Count 236 10^3/cmm (130-400); Red Blood Count 4.66 10^6/uL (4.1-5.3); Red Cell Distribution Width 14.8 % (12.1-15.1)
[2021-07-08 11:05] LABS: Alanine Aminotransferase 13 U/L (0-33); Alkaline Phosphatase 72 IU/L (35-105); Blood Urea Nitrogen 14 mg/dL (8-23); Calcium 8.5 mg/dL (8.5-10.5); Carbon Dioxide 20 mmol/L (22-29); Chloride 104 mmol/L (98-107); Globulin 3.3 g/dL (1.3-4.6); Glomerular Filtration Rate 99.7 mL/min (90-130); Glucose 86 mg/dL (65-115); Osmolality Calculated 286 mOsm/kg (285-295); Sodium 138 mmol/L (136-145); Total Bilirubin 0.3 mg/dL (0.15-1.2); Total Protein 7.3 g/dL (6.6-8.7)
[2021-07-08 11:08] LABS: Anion Gap 18.5 (5-19); Aspartate Amino Transferase 22 U/L (0-32); Potassium 4.5 mmol/L (3.5-5.1)
[2021-07-08 11:34] LABS: CA 15-3 748.8 U/mL (0-25)
[2021-07-08] MEDS: sodium chloride 0.9% (100 ml) 100 ML 75 ML (11:50)
[2021-07-08] MEDS: ondansetron 2 mg/ML SDV 2 mL 4 MG IVP (11:55)
[2021-07-08] MEDS: zoledronic acid 4 MG in sodium chloride 0.9% (100 ml) 100 ML 375 MG IV (12:00)
--- NOTE | 2021-07-12 10:30 | ONC FU_ITS ---
Dr. Brito Patient Follow-Up Note Patient: Dacia [address] Unit #: [id number]: 1955 Dicatated By: Colt Brito M.D.Date of Visit:Jul 08, 2021 Onc Med Follow-up/Prog Note Chief Complaint: Metastatic breast cancer. 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 On 10/31/2016 she had presented to the emergency room with chest pain. Chest x-ray at that time showed a well-circumscribed opacity in the left lung base measuring 2.1 cm. The appearance was suggestive of pleural or intraparenchymal nodule. She had further evaluation with contrast enhanced chest CT on 11/23/2016. That study showed numerous left upper and left lower lobe pulmonary nodules, the largest in the left lower lobe measuring 1.9 x 2.0 x 1.6 cm. The appearance was suspicious for metastatic disease or primary lung cancer with metastatic disease. Also noted was an anterosuperior mediastinal mass measuring 3.8 x 2.3 cm. The reported differential diagnosis included thymoma/thymic tumor, lymphadenopathy, and germ cell tumor. There was no additional adenopathy identified, and thymic etiology was favored. She was referred to Dr. Villalpando. On 12/14/2016 she underwent left thoracoscopy with wedge resection of the left lower lobe nodule. 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 The tumor was positive for NSE, CK-7, CK-CAM 5.2, and CK-HMW. It was focally positive for synaptophysin and for TTF-1. It was negative for CD-56, chromogranin, and CK-20. It measured 3.0 x 2.3 x 1.5 cm and it was noted to extend to the pleural surface. I had seen her initially on 12/30/2016. At that point she was still recovering from her surgery. Based on the pathology, it was difficult to determine whether her tumor was more in the category of neuroendocrine cancer or non-small cell lung cancer. Her subsequent laboratory evaluation included CBC showing hemoglobin 11.8 g, white blood cell count 10,500, and platelet count 338,000. The red cell indices were hypochromic/microcytic with MCV 73 MCH 24. Chem profile was unremarkable. Her neuroendocrine markers included a chromogranin A of 1 nmol/L, normal range 0-5, whole blood serotonin 178 ng/mL, normal range 50-200, and nonspecific enolase 4.4 ng/mL, normal range 0.0-12.5. Further pathologic evaluation showed that her tumor was strongly positive for BCA-225, suggestive of breast origin. A breast prognostic profile then showed the tumor to be ER positive at 99% with FL positive at 1%, both strong intensity. It was negative for overexpression of HER-2/bel, 0+ by IHC and amplification ratio by FISH 1.1 with 1.8 HER-2 copies/cell. She had a known history of breast cancer for which she had undergone left mastectomy in 1999. She apparently did receive adjuvant chemotherapy, but those records were not available. There had previously been no evidence of recurrence of the breast cancer. Restaging chest CT on 02/16/2017 showed postsurgical changes in the left lower lobe with a residual left lower lobe nodule measuring 2.3 x 1.8 cm. Three pulmonary nodules were noted in the left upper lobe, largest measuring 1.3 x 1.0 cm, and it appeared unchanged. Two additional smaller nodules included a subpleural nodule in the left upper lobe which had increased from 6 mm to 9 mm. There was a new left pulmonary ligament lymph node. 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 Given the pathologic findings, she then began treatment with letrozole 2.5 mg daily in combination with palbociclib on 04/14/2017. She tolerated her initial cycle of palbociclib without significant adverse effects. She then continued treatment at the same dosage and schedule. Repeat chest CT on 08/25/2017 showed smaller anterior mediastinal mass measuring 2.0 x 2.1 cm compared to 3.0 x 3.9 cm on the February 2017 study. A left infrahilar nodule also was slightly smaller. Left upper and lower lobe pulmonary nodules appeared unchanged. Restaging PET/CT on 10/23/2017 reported no evidence for recurrent or residual malignancy. A 1.5 cm anterior mediastinal soft tissue lesion showed less FDG uptake than normal mediastinal background. Left lower lobe pulmonary nodules were FDG negative. On 09/13/2018 she underwent laparoscopic cholecystectomy for chronic cholecystitis. She also underwent liver biopsy. Pathology showed acute and chronic cholecystitis and cholelithiasis. The liver biopsy showed benign hepatic parenchyma with minimal chronic inflammation within portal triads. I had seen her for a follow-up visit on 10/12/2018. At that point she appeared stable clinically with no obvious progression of the breast cancer. She continued her treatment with letrozole/palbociclib. Following that visit, we were unable to get her scheduled for follow-up despite multiple attempts to contact her to get her prescription renewed. On 04/07/2020 she presented to the emergency room with pain in her lower back and left leg following a fall 2 weeks earlier. According to her daughter, the back pain actually started well before the fall occurred. In any case, her CT of the lumbar spine and pelvis showed multiple lytic lesions including the sacrum, L1, L4 and L5 levels. At the L5 level the posterior element lytic lesion was noted to extend to the posterior aspect of the left L5/S1 neural foramina contributing to mild to moderate narrowing. The pelvis showed a lytic lesion in the left superior pubic ramus measuring 4.0 cm in transverse oblique defect dimension. An associated soft tissue component measured 2.3 x 2.0 cm. There appeared to be no associated fracture. X-ray of the left knee showed prepatellar soft tissue defect with adjacent edema and/or hematoma with small to moderate suprapatellar joint effusion. Her laboratory studies showed mild anemia, hemoglobin 10.6 g. The nonfasting blood sugar was significantly elevated. Her transferrin saturation was slightly low at 19.1%. Her alkaline phosphatase was just slightly elevated at 108/105 U/L. The bilirubin and liver enzymes were normal. In the setting of symptomatic bony metastatic disease, she was given palliative radiation to the pelvis, completed on 05/28/2020 to a total dose of 3000 cGy. In the meantime, on 05/23/2020 she began second line hormonal therapy with fulvestrant in combination with palbociclib. She tolerated the initial injection of fulvestrant with no adverse effects, and she did return in 2 weeks to complete for the second injection as part of her loading dose schedule. During that time, she also started treatment with denosumab for the metastatic bone involvement. Her further treatment was then delayed, first in June due to unspecified illness, and then in July when she was diagnosed with COVID-19 virus infection. On 08/06/2020 she was admitted to the hospital after presenting to the emergency room with weakness and numbness in both hands. She was found to have hypokalemia and hypomagnesemia. She also was found to have urinary tract infection. She was discharged home on antibiotic therapy with cefdinir and with potassium and magnesium replacement. As of 08/13/2020 she restarted treatment with a loading dose of fulvestrant in combination with palbociclib, and she also started monthly denosumab injections for the metastatic bone involvement. As of 09/10/2020 she continued fulvestrant and denosumab on a monthly schedule, but she apparently did not receive her supply of palbociclib for that cycle, but it was restarted in October with the dosage reduced to 100 mg daily on a 21/28-day schedule. In November her treatment was put on hold due to neutropenia with her ANC at 300. Restaging PET/CT on 12/31/2020 showed a small focus of increased metabolic activity in the left hilum, SUV 4.1. A nodular density in the left lower lobe base adjacent to the major fissure measuring 2.3 x 2.9 cm was FDG avid with SUV 4.94. A left upper lobe subpleural nodular density showed no significant metabolic activity. There was no evidence of metastatic involvement in the abdomen/pelvis. There was extensive metabolicallyactive osseous metastatic disease which included destructive changes in the left glenoid, left symphysis, and left sacrum. With those findings, I had requested next generation sequencing study on the lung biopsy from 2016. It did confirm that the tumor was ER/FL positive, and it was also was positive for androgen receptor. However, there were no actionable mutations identified. I had seen her for a follow-up visit on 02/04/2021. With evidence of disease progression and with no other treatment options available, she was recommended to proceed with a trial of chemotherapy with Xeloda. Her other medical illnesses have been limited to hyperlipidemia and type II diabetes. She has had a long-standing hypochromic/microcytic anemia, presumably thalassemia trait. She does have a history of smoking 1 pack of cigarettes daily beginning at age 23. She quit smoking in October 2016. INTERIM HISTORY: In March she began treatment with Xeloda 1500 mg twice daily on a 7 days on/7 days off schedule. Initially she was having significant nausea with it, but she was able to manage it adequately taking ondansetron 30 minutes prior to each dosage. As of her follow-up visit on 05/20/2021 she was tolerating treatment with acceptable toxicity. She appeared stable clinically, and she continued her treatment with capecitabine 1000 mg twice daily on a 7 days on/7 days off schedule. She also continued denosumab injections for the metastatic bone involvement. She is seen for a follow-up visit. She says she had been feeling really good until this past Wednesday when she developed vomiting and diarrhea. It has resolved now. She still has good energy and activity tolerance. Her ECOG score is 0. She says her appetite is not real good, but she does eat. She has no fever or night sweats. She has not had sore mouth or throat. She does not complain of cough, and she has not been having shortness of breath or chest pain. She has had no other GI complaints other than occasional acid reflux. Bladder function has been okay. Her left hip hurts occasionally. She has no other joint or bone pain. She does not complain of headache or dizziness, and she has no focal neurologic symptoms. She has had no skin changes in her hands or feet. Medications: Farxiga 1 Tablet (of 5 mg) Oral daily, Ibrance 1 Capsule (of 100 mg) Oral daily for 21 days, Klor-Con Sprinkle (8 meq) Capsule, controlled release Oral daily, MetFORMIN HCl 1 (1000 mg) Tablet Oral b.i.d., Ondansetron HCl 1 Tablet (of 4 mg) Oral q 4 hours PRN, Pantoprazole Sodium 1 Tablet (of 40 mg) Tablet, enteric coated Oral daily, Prochlorperazine Maleate 1 Tablet (of 10 mg) Oral q 4 hours PRN, Trulicity 1.5 mg (of 0.75 mg/0.5mL) Subcutaneous q 7 days Allergies: No Known Allergies. Vital Signs: Performed on Jul 08, 2021 10:51 Height - 62.00 in Weight - 162.6 lbs (LOW) BSA - 1.75 sq.m BMI - 29.74 Temperature - 96.7 F (LOW) Pulse - 72 /min Respiration - 23 /min BP - 122/65 mm(hg) O2 Sat - 99 % Pain - 0 Physical Examination: Constitutional - She looks pretty good generally, Eyes - Sclerae nonicteric. Conjunctivae clear, ENMT - No lesions noted in the oral cavity, Hematologic/Lymphatic - No cervical, clavicular, or axillary adenopathy, Respiratory - Lungs sound clear with some decrease in air movement bilaterally, Cardiovascular - Heart rhythm is regular. There is no murmur, gallop or rub noted, Abdomen - Soft. Liver and spleen are not enlarged. There is no abdominal mass or ascites noted and there is no inguinal adenopathy, Extremities - No edema, Neurologic - No focal neurologic deficits noted. Lab/Imaging: Test performed on Jul 08, 2021 10:00 Sodium 138 mmol/L Potassium 4.5 mmol/L Chloride 104 mmol/L CO2 20 mmol/L Anion Gap 18.5 BUN 14 mg/dL Creatinine 0.6 mg/dL Cr Clearance (Est) 105.9400 mL/min eGFR 99.7 mL/min Glucose 86 mg/dL Osmolality - Calculated 286 mOsm/kg Calcium 8.5 mg/dL Protein, Total 7.3 g/dL Albumin 4.0 g/dL Globulin 3.3 g/dL Bilirubin, Total 0.3 mg/dL ALT (SGPT) 13 U/L AST (SGOT) 22 U/L Alkaline Phosphatase 72 IU/L WBC 6.0 10 3/uL RBC 4.66 10 6/uL HGB 11.5 g/dL HCT 37.5 % MCV 80.5 fl MCH 24.7 pg MCHC 30.7 g/dL RDW 14.8 % Platelet Count 236 10 3/cmm MPV 9.1 fL Neutrophils 4.17 10 3/uL Lymphocytes 1.2 10 3/uL Monocytes 0.4 10 3/uL Eosinophils 0.2 10 3/uL Basophils 0.0 10 3/uL Neutrophil % 70.0 % Lymphocyte % 19.7 % Monocyte % 6.4 % Eosinophil % 2.7 % Basophils % 0.5 % NRBC % 0 % CA 15-3 748.8 U/mL Problem List: 1. Metastatic breast cancer, ER/FL positive and HER-2 bel negative. 2. Hyperlipidemia. 3. Type II diabetes. 4. She has a longstanding microcytic anemia, presumed to be thalassemia trait. 5. GERD. 6. She was diagnosed with COVID-19 virus infection in July 2020. Problems Addressed with this Encounter and Plan: 1. Patient with metastatic breast cancer, ER/FL positive and HER-2/bel negative. She had originally undergone left mastectomy and adjuvant chemotherapy for breast cancer in 1999. She had subsequently presented with multiple pulmonary nodules. She underwent left thoracoscopy with wedge resection of left lower lobe pulmonary nodule on 12/14/2016. In April 2017 she began treatment with letrozole 2.5 mg daily in combination with palbociclib 125 mg daily on a 21/ day schedule. She had a good response with restaging PET/CT on 10/23/2017 showing no evidence for recurrent or residual malignancy. As of her visit on 10/12/2018 she appeared stable clinically with no obvious progression of the breast cancer. However, she was then lost to follow-up, and she stopped her treatment. In April 2020 she presented with symptomatic bony metastatic disease in the lumbar spine and pelvis. She was given palliative radiation and she began second line hormonal therapy with fulvestrant in combination with palbociclib. Her treatment was interrupted during the loading dose portion of her fulvestrant, first due to unspecified illness and subsequently to COVID-19 virus infection. She then had a recent hospitalization for symptomatic hypokalemia and hypomagnesemia. She also required treatment for urinary tract infection. She had significant improvement in her bone pain following the radiation. During subsequent follow-up it was difficult to determine if she had any response to the second line hormonal therapy. There was previously no evidence of further disease progression, but her CA-27.29 level remained significantly elevated. She then did show evidence of disease progression by restaging PET/CT on 12/31/2020. Findings included extensive metastatic bone involvement, but she has really not been overtly symptomatic with it. A next generation sequencing study on her initial lung biopsy showed no actionable mutations. In the setting of disease progression on second line endocrine therapy and with no actionable mutations identified, she was advised to proceed to a trial of chemotherapy with capecitabine. It was started in March 2021 at a reduced dosage of 1500 mg twice daily on a 7 days on/7 days off schedule. Initially she did have some nausea with it, but she was able to control that by premedicating with ondansetron. As of her follow-up visit in April 2021 her dosage was decreased to 1000 mg twice daily due to GI toxicity. She had subsequently been tolerating the treatment very well. At this point she appears to be doing well clinically. She recently developed some vomiting and diarrhea again, but it is uncertain to what extent that may be treatment related. She is having no other treatment related side effects. As such, her treatment will be delayed for 1 week. If she is feeling better she can resume the capecitabine at the same dosage, 1000 mg twice daily on a 7 days on/7 days off schedule. She will be scheduled for a follow-up visit in 5 weeks. 2. Metastatic bone involvement. She has been on supportive therapy with denosumab 120 mg by subcutaneous injection monthly. Due to requirements imposed by her insurance carrier, her treatment is being changed to IV zoledronic acid, which will be continued monthly provided she has adequate tolerance and venous access. Signed By: Colt Brito M.D. <<Signature on File>>
== END 2021-07-08 09:41 | disposition home or self-care (01) ==
PROVIDERS: PCP Nurse Practitioner Family; Visit Provider Internal Medicine Medical Oncology
DX: Z51.11 Encounter for antineoplastic chemotherapy (principal); C79.81 Secondary malignant neoplasm of breast; Z17.0 Estrogen receptor positive status [ER+]; E78.5 Hyperlipidemia, unspecified; E11.9 Type 2 diabetes mellitus without complications; D50.9 Iron deficiency anemia, unspecified; K21.9 Gastro-esophageal reflux disease without esophagitis; Z86.16 Personal history of COVID-19; C79.51 Secondary malignant neoplasm of bone
CPT/HCPCS: 80053; 85025; 86300; 96365; 96375; 99215; J2405; J3489

== ENCOUNTER 2021-08-13 11:18 | Outpatient (CLI) | payer MEDICARE, SELFPAY ==
[2021-08-13 13:11] LABS: Basophils % 0.6 %; Eosinophils # 0.2 10^3/uL (0.0-0.8); Eosinophils % 3.2 %; Hematocrit 38.1 % (37.0-47.0); Hemoglobin 11.6 g/dL (11.5-15.3); Lymphocytes # 1.6 10^3/uL (0.8-4.8); Lymphocytes % 23.7 %; Mean Corpuscular HGB Conc 30.4 g/dL (30.0-36.0); Mean Corpuscular Hemoglobin 24.5 pg (28.0-34.0); Mean Corpuscular Volume 80.5 fl (81-99); Mean Platelet Volume 8.9 fL (7.4-10.4); Monocytes # 0.4 10^3/uL (0.2-0.9); Monocytes % 5.1 %; Neutrophils % 66.5 %; Nucleated Red Blood Cells % 0 %; Platelet Count 256 10^3/cmm (130-400); Red Blood Count 4.73 10^6/uL (4.1-5.3); Red Cell Distribution Width 14.4 % (12.1-15.1); White Blood Count 6.9 10^3/uL (4.0-10.0)
[2021-08-13 14:01] LABS: Alanine Aminotransferase 14 U/L (0-33); Albumin Level 4.1 g/dL (3.5-5.2); Alkaline Phosphatase 79 IU/L (35-105); Anion Gap 18.6 (5-19); Aspartate Amino Transferase 21 U/L (0-32); Blood Urea Nitrogen 17 mg/dL (8-23); Calcium 9.2 mg/dL (8.5-10.5); Carbon Dioxide 20 mmol/L (22-29); Chloride 106 mmol/L (98-107); Globulin 3.2 g/dL (1.3-4.6); Glomerular Filtration Rate 99.7 mL/min (90-130); Glucose 83 mg/dL (65-115); Osmolality Calculated 291 mOsm/kg (285-295); Potassium 4.6 mmol/L (3.5-5.1); Sodium 140 mmol/L (136-145); Total Bilirubin 0.4 mg/dL (0.15-1.2); Total Protein 7.3 g/dL (6.6-8.7)
[2021-08-13] MEDS: sodium chloride 0.9% 100 mL Bag IV (14:25)
[2021-08-13 15:48] LABS: CA 15-3 864.9 U/mL (0-25)
== END 2021-08-13 11:19 | disposition home or self-care (01) ==
PROVIDERS: PCP Nurse Practitioner Family; Visit Provider Internal Medicine Medical Oncology
DX: C50.812 Malignant neoplasm of overlapping sites of left female breast (principal); Z17.0 Estrogen receptor positive status [ER+]; C79.51 Secondary malignant neoplasm of bone; C78.02 Secondary malignant neoplasm of left lung; E78.5 Hyperlipidemia, unspecified; E11.9 Type 2 diabetes mellitus without complications; D56.3 Thalassemia minor; K21.9 Gastro-esophageal reflux disease without esophagitis; Z86.16 Personal history of COVID-19; Z79.899 Other long term (current) drug therapy
CPT/HCPCS: 80053; 85025; 86300; 96365; 99215; J3489

== ENCOUNTER 2021-09-10 08:56 | Outpatient (CLI) | payer MEDICARE, SELFPAY ==
[2021-09-10 09:38] LABS: Basophils % 0.7 %; Eosinophils # 0.2 10^3/uL (0.0-0.8); Eosinophils % 3.2 %; Hematocrit 37.4 % (37.0-47.0); Hemoglobin 11.2 g/dL (11.5-15.3); Lymphocytes % 17.7 %; Mean Corpuscular HGB Conc 29.9 g/dL (30.0-36.0); Mean Corpuscular Hemoglobin 24.1 pg (28.0-34.0); Mean Corpuscular Volume 80.6 fl (81-99); Mean Platelet Volume 9.2 fL (7.4-10.4); Monocytes # 0.4 10^3/uL (0.2-0.9); Monocytes % 6.6 %; Neutrophils # 4.17 10^3/uL (1.8-7.7); Neutrophils % 70.9 %; Nucleated Red Blood Cells % 0 %; Platelet Count 272 10^3/cmm (130-400); Red Blood Count 4.64 10^6/uL (4.1-5.3); Red Cell Distribution Width 14.6 % (12.1-15.1); White Blood Count 5.9 10^3/uL (4.0-10.0)
[2021-09-10 10:02] LABS: Alanine Aminotransferase 12 U/L (0-33); Albumin Level 4.1 g/dL (3.5-5.2); Alkaline Phosphatase 80 IU/L (35-105); Anion Gap 15.3 (5-19); Aspartate Amino Transferase 15 U/L (0-32); Blood Urea Nitrogen 15 mg/dL (8-23); Calcium 9.9 mg/dL (8.5-10.5); Carbon Dioxide 22 mmol/L (22-29); Chloride 105 mmol/L (98-107); Glomerular Filtration Rate 122.7 mL/min (90-130); Glucose 125 mg/dL (65-115); Osmolality Calculated 288 mOsm/kg (285-295); Potassium 4.3 mmol/L (3.5-5.1); Sodium 138 mmol/L (136-145); Total Bilirubin 0.3 mg/dL (0.15-1.2); Total Protein 8.1 g/dL (6.6-8.7)
[2021-09-10] MEDS: zoledronic acid 4 MG in sodium chloride 0.9% (100 ml) 100 ML 420 MG IV (10:50)
--- NOTE | 2021-09-10 14:15 | ONC FU_ITS ---
Dr. Brito Patient Follow-Up Note Patient: Dacia Way Unit #: [id number]: [id number] Dicatated By: Colt Brito M.D.Date of Visit:Sep 10, 2021 Onc Med Follow-up/Prog Note Chief Complaint: Metastatic breast cancer. 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 On 10/31/2016 she had presented to the emergency room with chest pain. Chest x-ray at that time showed a well-circumscribed opacity in the left lung base measuring 2.1 cm. The appearance was suggestive of pleural or intraparenchymal nodule. She had further evaluation with contrast enhanced chest CT on 11/23/2016. That study showed numerous left upper and left lower lobe pulmonary nodules, the largest in the left lower lobe measuring 1.9 x 2.0 x 1.6 cm. The appearance was suspicious for metastatic disease or primary lung cancer with metastatic disease. Also noted was an anterosuperior mediastinal mass measuring 3.8 x 2.3 cm. The reported differential diagnosis included thymoma/thymic tumor, lymphadenopathy, and germ cell tumor. There was no additional adenopathy identified, and thymic etiology was favored. She was referred to Dr. Villalpando. On 12/14/2016 she underwent left thoracoscopy with wedge resection of the left lower lobe nodule. 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 The tumor was positive for NSE, CK-7, CK-CAM 5.2, and CK-HMW. It was focally positive for synaptophysin and for TTF-1. It was negative for CD-56, chromogranin, and CK-20. It measured 3.0 x 2.3 x 1.5 cm and it was noted to extend to the pleural surface. I had seen her initially on 12/30/2016. At that point she was still recovering from her surgery. Based on the pathology, it was difficult to determine whether her tumor was more in the category of neuroendocrine cancer or non-small cell lung cancer. Her subsequent laboratory evaluation included CBC showing hemoglobin 11.8 g, white blood cell count 10,500, and platelet count 338,000. The red cell indices were hypochromic/microcytic with MCV 73 MCH 24. Chem profile was unremarkable. Her neuroendocrine markers included a chromogranin A of 1 nmol/L, normal range 0-5, whole blood serotonin 178 ng/mL, normal range 50-200, and nonspecific enolase 4.4 ng/mL, normal range 0.0-12.5. Further pathologic evaluation showed that her tumor was strongly positive for BCA-225, suggestive of breast origin. A breast prognostic profile then showed the tumor to be ER positive at 99% with NE positive at 1%, both strong intensity. It was negative for overexpression of HER-2/bel, 0+ by IHC and amplification ratio by FISH 1.1 with 1.8 HER-2 copies/cell. She had a known history of breast cancer for which she had undergone left mastectomy in 1999. She apparently did receive adjuvant chemotherapy, but those records were not available. There had previously been no evidence of recurrence of the breast cancer. Restaging chest CT on 02/16/2017 showed postsurgical changes in the left lower lobe with a residual left lower lobe nodule measuring 2.3 x 1.8 cm. Three pulmonary nodules were noted in the left upper lobe, largest measuring 1.3 x 1.0 cm, and it appeared unchanged. Two additional smaller nodules included a subpleural nodule in the left upper lobe which had increased from 6 mm to 9 mm. There was a new left pulmonary ligament lymph node. 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 Given the pathologic findings, she then began treatment with letrozole 2.5 mg daily in combination with palbociclib on 04/14/2017. She tolerated her initial cycle of palbociclib without significant adverse effects. She then continued treatment at the same dosage and schedule. Repeat chest CT on 08/25/2017 showed smaller anterior mediastinal mass measuring 2.0 x 2.1 cm compared to 3.0 x 3.9 cm on the February 2017 study. A left infrahilar nodule also was slightly smaller. Left upper and lower lobe pulmonary nodules appeared unchanged. Restaging PET/CT on 10/23/2017 reported no evidence for recurrent or residual malignancy. A 1.5 cm anterior mediastinal soft tissue lesion showed less FDG uptake than normal mediastinal background. Left lower lobe pulmonary nodules were FDG negative. On 09/13/2018 she underwent laparoscopic cholecystectomy for chronic cholecystitis. She also underwent liver biopsy. Pathology showed acute and chronic cholecystitis and cholelithiasis. The liver biopsy showed benign hepatic parenchyma with minimal chronic inflammation within portal triads. I had seen her for a follow-up visit on 10/12/2018. At that point she appeared stable clinically with no obvious progression of the breast cancer. She continued her treatment with letrozole/palbociclib. Following that visit, we were unable to get her scheduled for follow-up despite multiple attempts to contact her to get her prescription renewed. On 04/07/2020 she presented to the emergency room with pain in her lower back and left leg following a fall 2 weeks earlier. According to her daughter, the back pain actually started well before the fall occurred. In any case, her CT of the lumbar spine and pelvis showed multiple lytic lesions including the sacrum, L1, L4 and L5 levels. At the L5 level the posterior element lytic lesion was noted to extend to the posterior aspect of the left L5/S1 neural foramina contributing to mild to moderate narrowing. The pelvis showed a lytic lesion in the left superior pubic ramus measuring 4.0 cm in transverse oblique defect dimension. An associated soft tissue component measured 2.3 x 2.0 cm. There appeared to be no associated fracture. X-ray of the left knee showed prepatellar soft tissue defect with adjacent edema and/or hematoma with small to moderate suprapatellar joint effusion. Her laboratory studies showed mild anemia, hemoglobin 10.6 g. The nonfasting blood sugar was significantly elevated. Her transferrin saturation was slightly low at 19.1%. Her alkaline phosphatase was just slightly elevated at 108/105 U/L. The bilirubin and liver enzymes were normal. In the setting of symptomatic bony metastatic disease, she was given palliative radiation to the pelvis, completed on 05/28/2020 to a total dose of 3000 cGy. In the meantime, on 05/23/2020 she began second line hormonal therapy with fulvestrant in combination with palbociclib. She tolerated the initial injection of fulvestrant with no adverse effects, and she did return in 2 weeks to complete for the second injection as part of her loading dose schedule. During that time, she also started treatment with denosumab for the metastatic bone involvement. Her further treatment was then delayed, first in June due to unspecified illness, and then in July when she was diagnosed with COVID-19 virus infection. On 08/06/2020 she was admitted to the hospital after presenting to the emergency room with weakness and numbness in both hands. She was found to have hypokalemia and hypomagnesemia. She also was found to have urinary tract infection. She was discharged home on antibiotic therapy with cefdinir and with potassium and magnesium replacement. As of 08/13/2020 she restarted treatment with a loading dose of fulvestrant in combination with palbociclib, and she also started monthly denosumab injections for the metastatic bone involvement. As of 09/10/2020 she continued fulvestrant and denosumab on a monthly schedule, but she apparently did not receive her supply of palbociclib for that cycle, but it was restarted in October with the dosage reduced to 100 mg daily on a 21/28-day schedule. In November her treatment was put on hold due to neutropenia with her ANC at 300. Restaging PET/CT on 12/31/2020 showed a small focus of increased metabolic activity in the left hilum, SUV 4.1. A nodular density in the left lower lobe base adjacent to the major fissure measuring 2.3 x 2.9 cm was FDG avid with SUV 4.94. A left upper lobe subpleural nodular density showed no significant metabolic activity. There was no evidence of metastatic involvement in the abdomen/pelvis. There was extensive metabolicallyactive osseous metastatic disease which included destructive changes in the left glenoid, left symphysis, and left sacrum. With those findings, I had requested next generation sequencing study on the lung biopsy from 2016. It did confirm that the tumor was ER/NE positive, and it was also was positive for androgen receptor. However, there were no actionable mutations identified. I had seen her for a follow-up visit on 02/04/2021. With evidence of disease progression and with no other treatment options available, she was recommended to proceed with a trial of chemotherapy with Xeloda. Her other medical illnesses have been limited to hyperlipidemia and type II diabetes. She has had a long-standing hypochromic/microcytic anemia, presumably thalassemia trait. She does have a history of smoking 1 pack of cigarettes daily beginning at age 23. She quit smoking in October 2016. INTERIM HISTORY: In March she began treatment with Xeloda 1500 mg twice daily on a 7 days on/7 days off schedule. Initially she was having significant nausea with it, but she was able to manage it adequately taking ondansetron 30 minutes prior to each dosage. As of her follow-up visit on 05/20/2021 she was tolerating treatment with acceptable toxicity. She appeared stable clinically, and she continued her treatment with capecitabine 1000 mg twice daily on a 7 days on/7 days off schedule. She also continued denosumab injections for the metastatic bone involvement. As of July 2021 that treatment was changed to IV zoledronic acid, as mandated by her insurance carrier. She is seen for a follow-up visit. She has been feeling pretty good generally. She does complain that she has been having nausea and diarrhea on the weeks that she takes the Xeloda. She still has good energy and she has normal activity. ECOG score is 0. Her appetite, though, has not been very good. She says she has been eating at least once a day. Her weight is stable. She does not have fever, night sweats, or hot flashes. She does not complain of sore mouth or throat, and she has not been having cough, shortness of breath, or chest pain. She has just occasional acid reflux taking Prilosec twice a day. She has no complaints. She has no significant joint or bone pain. She occasionally has sharp pain in her head, but it does not last more than 2 or 3 minutes. She has not been dizzy or lightheaded. She has had some numbness in her left foot. Medications: Farxiga 1 Tablet (of 5 mg) Oral daily, Ibrance 1 Capsule (of 100 mg) Oral daily for 21 days, Klor-Con Sprinkle (8 meq) Capsule, controlled release Oral daily, MetFORMIN HCl 1 (1000 mg) Tablet Oral b.i.d., Ondansetron HCl 1 Tablet (of 4 mg) Oral q 4 hours PRN, Pantoprazole Sodium 1 Tablet (of 40 mg) Tablet, enteric coated Oral daily, Prochlorperazine Maleate 1 Tablet (of 10 mg) Oral q 4 hours PRN, Trulicity 1.5 mg (of 0.75 mg/0.5mL) Subcutaneous q 7 days Allergies: No Known Allergies. Vital Signs: Performed on Sep 10, 2021 11:12 Height - 62.00 in Temperature - 97.3 F (LOW) Pulse - 80 /min Respiration - 18 /min BP - 137/88 mm(hg) O2 Sat - 99 % Pain - 0 Fatigue - 0 Physical Examination: Constitutional - She looks pretty good generally, Eyes - Sclerae nonicteric. Conjunctivae clear, ENMT - No lesions noted in the oral cavity, Hematologic/Lymphatic - No cervical or clavicular adenopathy, Respiratory - Lungs sound clear with some decrease in air movement bilaterally, Cardiovascular - Heart rhythm is regular. There is no murmur, gallop or rub noted, Breasts - There are no lesions noted in the left chest wall. There is no axillary adenopathy noted, Abdomen - Soft. Liver and spleen are not enlarged. There is no abdominal mass or ascites noted and there is no inguinal adenopathy, Extremities - No edema, Neurologic - No focal neurologic deficits noted. Lab/Imaging: Test performed on Sep 10, 2021 09:22 Sodium 138 mmol/L Potassium 4.3 mmol/L Chloride 105 mmol/L CO2 22 mmol/L Anion Gap 15.3 BUN 15 mg/dL Creatinine 0.5 mg/dL Cr Clearance (Est) 128.1600 mL/min eGFR 122.7 mL/min Glucose 125 mg/dL Osmolality - Calculated 288 mOsm/kg Calcium 9.9 mg/dL Protein, Total 8.1 g/dL Albumin 4.1 g/dL Globulin 4.0 g/dL Bilirubin, Total 0.3 mg/dL ALT (SGPT) 12 U/L AST (SGOT) 15 U/L Alkaline Phosphatase 80 IU/L WBC 5.9 10 3/uL RBC 4.64 10 6/uL HGB 11.2 g/dL HCT 37.4 % MCV 80.6 fl MCH 24.1 pg MCHC 29.9 g/dL RDW 14.6 % Platelet Count 272 10 3/cmm MPV 9.2 fL Neutrophils 4.17 10 3/uL Lymphocytes 1.0 10 3/uL Monocytes 0.4 10 3/uL Eosinophils 0.2 10 3/uL Basophils 0.0 10 3/uL Neutrophil % 70.9 % Lymphocyte % 17.7 % Monocyte % 6.6 % Eosinophil % 3.2 % Basophils % 0.7 % NRBC % 0 % CA 15-3 1072.0 U/mL Problem List: 1. Metastatic breast cancer, ER/NE positive and HER-2 bel negative. 2. Hyperlipidemia. 3. Type II diabetes. 4. She has a longstanding microcytic anemia, presumed to be thalassemia trait. 5. GERD. 6. She was diagnosed with COVID-19 virus infection in July 2020. Problems Addressed with this Encounter and Plan: 1. Patient with metastatic breast cancer, ER/NE positive and HER-2/bel negative. She had originally undergone left mastectomy and adjuvant chemotherapy for breast cancer in 1999. She had subsequently presented with multiple pulmonary nodules. She underwent left thoracoscopy with wedge resection of left lower lobe pulmonary nodule on 12/14/2016. In April 2017 she began treatment with letrozole 2.5 mg daily in combination with palbociclib 125 mg daily on a / day schedule. She had a good response with restaging PET/CT on 10/23/2017 showing no evidence for recurrent or residual malignancy. As of her visit on 10/12/2018 she appeared stable clinically with no obvious progression of the breast cancer. However, she was then lost to follow-up, and she stopped her treatment. In April 2020 she presented with symptomatic bony metastatic disease in the lumbar spine and pelvis. She was given palliative radiation and she began second line hormonal therapy with fulvestrant in combination with palbociclib. Her treatment was interrupted during the loading dose portion of her fulvestrant, first due to unspecified illness and subsequently to COVID-19 virus infection. She then had a recent hospitalization for symptomatic hypokalemia and hypomagnesemia. She also required treatment for urinary tract infection. She had significant improvement in her bone pain following the radiation. During subsequent follow-up it was difficult to determine if she had any response to the second line hormonal therapy. There was previously no evidence of further disease progression, but her CA-27.29 level remained significantly elevated. She then did show evidence of disease progression by restaging PET/CT on 12/31/2020. Findings included extensive metastatic bone involvement, but she has really not been overtly symptomatic with it. A next generation sequencing study on her initial lung biopsy showed no actionable mutations. In the setting of disease progression on second line endocrine therapy and with no actionable mutations identified, she was advised to proceed to a trial of chemotherapy with capecitabine. It was started in March 2021 at a reduced dosage of 1500 mg twice daily on a 7 days on/7 days off schedule. Her baseline CA 27-29 level was 533 U/mL. The dosage was subsequently decreased to 1000 mg twice daily due to GI toxicity. During subsequent follow-up she had tolerated the treatment well, but there was a gradual and progressive increase in her CA 15-3 level. As of 08/13/2021 it was up to 864.9 U/mL compared to 718.8 U/mL in May 2021, and it has now further increased to 1072 U/mL. During the past month she has had increased GI side effects associated with the Xeloda. She has otherwise been stable clinically, but with the progressive increase in her tumor marker, I will have her stop the Xeloda now and schedule a restaging PET/CT. I will see her again to discuss further treatment options when the PET/CT results are available. 2. She has metastatic bone involvement. She had been on supportive therapy with denosumab 120 mg by subcutaneous injection monthly. Due to requirements imposed by her insurance carrier, her treatment was changed to IV zoledronic acid, and that will be administered today with the dosage calculated at 4 mg. Signed By: Colt Brito M.D. <<Signature on File>>
== END 2021-09-10 08:57 | disposition home or self-care (01) ==
PROVIDERS: PCP Nurse Practitioner Family; Visit Provider Internal Medicine Medical Oncology
DX: C50.812 Malignant neoplasm of overlapping sites of left female breast (principal); Z17.0 Estrogen receptor positive status [ER+]; C78.02 Secondary malignant neoplasm of left lung; C79.51 Secondary malignant neoplasm of bone; E78.5 Hyperlipidemia, unspecified; E11.9 Type 2 diabetes mellitus without complications; D56.3 Thalassemia minor; K21.9 Gastro-esophageal reflux disease without esophagitis; E87.6 Hypokalemia; E83.42 Hypomagnesemia; N39.0 Urinary tract infection, site not specified; Z79.4 Long term (current) use of insulin; Z79.890 Hormone replacement therapy; Z79.899 Other long term (current) drug therapy; Z86.16 Personal history of COVID-19
CPT/HCPCS: 80053; 85025; 86300; 96365; 99215; J3489

== ENCOUNTER 2021-10-07 08:22 | Outpatient (CLI) | payer MEDICARE, SELFPAY ==
--- NOTE | 2021-10-09 14:43 | ONC FU_ITS ---
Dr. Brito Patient Follow-Up Note Patient: Dacia Way Unit #: [id number]: 1955 Dicatated By: Colt Brito M.D.Date of Visit:Oct 07, 2021 Onc Med Follow-up/Prog Note Chief Complaint: Metastatic breast cancer. 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 On 10/31/2016 she had presented to the emergency room with chest pain. Chest x-ray at that time showed a well-circumscribed opacity in the left lung base measuring 2.1 cm. The appearance was suggestive of pleural or intraparenchymal nodule. She had further evaluation with contrast enhanced chest CT on 11/23/2016. That study showed numerous left upper and left lower lobe pulmonary nodules, the largest in the left lower lobe measuring 1.9 x 2.0 x 1.6 cm. The appearance was suspicious for metastatic disease or primary lung cancer with metastatic disease. Also noted was an anterosuperior mediastinal mass measuring 3.8 x 2.3 cm. The reported differential diagnosis included thymoma/thymic tumor, lymphadenopathy, and germ cell tumor. There was no additional adenopathy identified, and thymic etiology was favored. She was referred to Dr. Villalpando. On 12/14/2016 she underwent left thoracoscopy with wedge resection of the left lower lobe nodule. 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 The tumor was positive for NSE, CK-7, CK-CAM 5.2, and CK-HMW. It was focally positive for synaptophysin and for TTF-1. It was negative for CD-56, chromogranin, and CK-20. It measured 3.0 x 2.3 x 1.5 cm and it was noted to extend to the pleural surface. I had seen her initially on 12/30/2016. At that point she was still recovering from her surgery. Based on the pathology, it was difficult to determine whether her tumor was more in the category of neuroendocrine cancer or non-small cell lung cancer. Her subsequent laboratory evaluation included CBC showing hemoglobin 11.8 g, white blood cell count 10,500, and platelet count 338,000. The red cell indices were hypochromic/microcytic with MCV 73 MCH 24. Chem profile was unremarkable. Her neuroendocrine markers included a chromogranin A of 1 nmol/L, normal range 0-5, whole blood serotonin 178 ng/mL, normal range 50-200, and nonspecific enolase 4.4 ng/mL, normal range 0.0-12.5. Further pathologic evaluation showed that her tumor was strongly positive for BCA-225, suggestive of breast origin. A breast prognostic profile then showed the tumor to be ER positive at 99% with WY positive at 1%, both strong intensity. It was negative for overexpression of HER-2/bel, 0+ by IHC and amplification ratio by FISH 1.1 with 1.8 HER-2 copies/cell. She had a known history of breast cancer for which she had undergone left mastectomy in 1999. She apparently did receive adjuvant chemotherapy, but those records were not available. There had previously been no evidence of recurrence of the breast cancer. Restaging chest CT on 02/16/2017 showed postsurgical changes in the left lower lobe with a residual left lower lobe nodule measuring 2.3 x 1.8 cm. Three pulmonary nodules were noted in the left upper lobe, largest measuring 1.3 x 1.0 cm, and it appeared unchanged. Two additional smaller nodules included a subpleural nodule in the left upper lobe which had increased from 6 mm to 9 mm. There was a new left pulmonary ligament lymph node. 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 Given the pathologic findings, she then began treatment with letrozole 2.5 mg daily in combination with palbociclib on 04/14/2017. She tolerated her initial cycle of palbociclib without significant adverse effects. She then continued treatment at the same dosage and schedule. Repeat chest CT on 08/25/2017 showed smaller anterior mediastinal mass measuring 2.0 x 2.1 cm compared to 3.0 x 3.9 cm on the February 2017 study. A left infrahilar nodule also was slightly smaller. Left upper and lower lobe pulmonary nodules appeared unchanged. Restaging PET/CT on 10/23/2017 reported no evidence for recurrent or residual malignancy. A 1.5 cm anterior mediastinal soft tissue lesion showed less FDG uptake than normal mediastinal background. Left lower lobe pulmonary nodules were FDG negative. On 09/13/2018 she underwent laparoscopic cholecystectomy for chronic cholecystitis. She also underwent liver biopsy. Pathology showed acute and chronic cholecystitis and cholelithiasis. The liver biopsy showed benign hepatic parenchyma with minimal chronic inflammation within portal triads. I had seen her for a follow-up visit on 10/12/2018. At that point she appeared stable clinically with no obvious progression of the breast cancer. She continued her treatment with letrozole/palbociclib. Following that visit, we were unable to get her scheduled for follow-up despite multiple attempts to contact her to get her prescription renewed. On 04/07/2020 she presented to the emergency room with pain in her lower back and left leg following a fall 2 weeks earlier. According to her daughter, the back pain actually started well before the fall occurred. In any case, her CT of the lumbar spine and pelvis showed multiple lytic lesions including the sacrum, L1, L4 and L5 levels. At the L5 level the posterior element lytic lesion was noted to extend to the posterior aspect of the left L5/S1 neural foramina contributing to mild to moderate narrowing. The pelvis showed a lytic lesion in the left superior pubic ramus measuring 4.0 cm in transverse oblique defect dimension. An associated soft tissue component measured 2.3 x 2.0 cm. There appeared to be no associated fracture. X-ray of the left knee showed prepatellar soft tissue defect with adjacent edema and/or hematoma with small to moderate suprapatellar joint effusion. Her laboratory studies showed mild anemia, hemoglobin 10.6 g. The nonfasting blood sugar was significantly elevated. Her transferrin saturation was slightly low at 19.1%. Her alkaline phosphatase was just slightly elevated at 108/105 U/L. The bilirubin and liver enzymes were normal. In the setting of symptomatic bony metastatic disease, she was given palliative radiation to the pelvis, completed on 05/28/2020 to a total dose of 3000 cGy. In the meantime, on 05/23/2020 she began second line hormonal therapy with fulvestrant in combination with palbociclib. She tolerated the initial injection of fulvestrant with no adverse effects, and she did return in 2 weeks to complete for the second injection as part of her loading dose schedule. During that time, she also started treatment with denosumab for the metastatic bone involvement. Her further treatment was then delayed, first in June due to unspecified illness, and then in July when she was diagnosed with COVID-19 virus infection. On 08/06/2020 she was admitted to the hospital after presenting to the emergency room with weakness and numbness in both hands. She was found to have hypokalemia and hypomagnesemia. She also was found to have urinary tract infection. She was discharged home on antibiotic therapy with cefdinir and with potassium and magnesium replacement. As of 08/13/2020 she restarted treatment with a loading dose of fulvestrant in combination with palbociclib, and she also started monthly denosumab injections for the metastatic bone involvement. As of 09/10/2020 she continued fulvestrant and denosumab on a monthly schedule, but she apparently did not receive her supply of palbociclib for that cycle, but it was restarted in October with the dosage reduced to 100 mg daily on a 21/28-day schedule. In November her treatment was put on hold due to neutropenia with her ANC at 300. Restaging PET/CT on 12/31/2020 showed a small focus of increased metabolic activity in the left hilum, SUV 4.1. A nodular density in the left lower lobe base adjacent to the major fissure measuring 2.3 x 2.9 cm was FDG avid with SUV 4.94. A left upper lobe subpleural nodular density showed no significant metabolic activity. There was no evidence of metastatic involvement in the abdomen/pelvis. There was extensive metabolicallyactive osseous metastatic disease which included destructive changes in the left glenoid, left symphysis, and left sacrum. With those findings, I had requested next generation sequencing study on the lung biopsy from 2016. It did confirm that the tumor was ER/WY positive, and it was also was positive for androgen receptor. However, there were no actionable mutations identified. I had seen her for a follow-up visit on 02/04/2021. With evidence of disease progression and with no other treatment options available, she was recommended to proceed with a trial of chemotherapy with Xeloda. Her other medical illnesses have been limited to hyperlipidemia and type II diabetes. She has had a long-standing hypochromic/microcytic anemia, presumably thalassemia trait. She does have a history of smoking 1 pack of cigarettes daily beginning at age 23. She quit smoking in October 2016. INTERIM HISTORY: In March she began treatment with Xeloda 1500 mg twice daily on a 7 days on/7 days off schedule. Initially she was having significant nausea with it, but she was able to manage it adequately taking ondansetron 30 minutes prior to each dosage. As of her follow-up visit on 05/20/2021 she was tolerating treatment with acceptable toxicity. She appeared stable clinically, and she continued her treatment with capecitabine 1000 mg twice daily on a 7 days on/7 days off schedule. She also continued denosumab injections for the metastatic bone involvement. As of July 2021 that treatment was changed to IV zoledronic acid, as mandated by her insurance carrier. Restaging PET/CT on 09/29/2021 showed increasing size and metabolic activity in left hilar lymph nodes and in the nodular density at the left lung base. A left upper lobe subpleural nodular density also increased in size and metabolic activity compared to the prior study. Multiple new small rounded metastatic lesions were noted to involve all lobes of the lungs. There was no evidence of metastatic involvement in the abdomen/pelvis. There was increase in size and metabolic activity of all previous osseous lesions. Overall, the findings were consistent with significant disease progression. She is seen for a follow-up visit. She says she is feeling okay. Her main complaint is that she recently has been having some postprandial abdominal discomfort/indigestion. She sometimes has nausea. She is having some constipation, though bowel function has been adequate. She still has good energy and activity tolerance. ECOG score is 0. She does not have fever, night sweats, or hot flashes. She has not had sore mouth or throat. She has just occasional cough. She does not complain of shortness of breath or chest pain. She has no complaints. She has had pain just occasionally in the left shoulder and/or left hip. She has no other joint or bone pain. She does not complain of headache or dizziness. She has some numbness in her left foot. Medications: Farxiga 1 Tablet (of 5 mg) Oral daily, Klor-Con Sprinkle (8 meq) Capsule, controlled release Oral daily, MetFORMIN HCl 1 (1000 mg) Tablet Oral b.i.d., Ondansetron HCl 1 Tablet (of 4 mg) Oral q 4 hours PRN, Pantoprazole Sodium 1 Tablet (of 40 mg) Tablet, enteric coated Oral daily, Prochlorperazine Maleate 1 Tablet (of 10 mg) Oral q 4 hours PRN, Trulicity 1.5 mg (of 0.75 mg/0.5mL) Subcutaneous q 7 days Allergies: No Known Allergies. Vital Signs: Performed on Oct 07, 2021 08:57 Height - 62.00 in Weight - 162 lbs (LOW) BSA - 1.75 sq.m BMI - 29.63 Temperature - 97.9 F (LOW) Pulse - 81 /min Respiration - 18 /min BP - 148/84 mm(hg) (HIGH) O2 Sat - 98 % Pain - 0 Fatigue - 0 Physical Examination: Constitutional - She looks pretty good generally, Eyes - Sclerae nonicteric. Conjunctivae clear, ENMT - No lesions noted in the oral cavity, Hematologic/Lymphatic - No cervical or clavicular adenopathy, Respiratory - Lungs sound clear with some decrease in air movement bilaterally, Cardiovascular - Heart rhythm is regular. There is no murmur, gallop or rub noted, Breasts - There are no lesions noted in the left chest wall. There is no axillary adenopathy noted, Abdomen - Soft. Liver and spleen are not enlarged. There is no abdominal mass or ascites noted and there is no inguinal adenopathy, Extremities - No edema, Neurologic - No focal neurologic deficits noted. Lab/Imaging: Test performed on Sep 10, 2021 09:22 Sodium 138 mmol/L Potassium 4.3 mmol/L Chloride 105 mmol/L CO2 22 mmol/L Anion Gap 15.3 BUN 15 mg/dL Creatinine 0.5 mg/dL Cr Clearance (Est) 127.0800 mL/min eGFR 122.7 mL/min Glucose 125 mg/dL Osmolality - Calculated 288 mOsm/kg Calcium 9.9 mg/dL Protein, Total 8.1 g/dL Albumin 4.1 g/dL Globulin 4.0 g/dL Bilirubin, Total 0.3 mg/dL ALT (SGPT) 12 U/L AST (SGOT) 15 U/L Alkaline Phosphatase 80 IU/L WBC 5.9 10 3/uL RBC 4.64 10 6/uL HGB 11.2 g/dL HCT 37.4 % MCV 80.6 fl MCH 24.1 pg MCHC 29.9 g/dL RDW 14.6 % Platelet Count 272 10 3/cmm MPV 9.2 fL Neutrophils 4.17 10 3/uL Lymphocytes 1.0 10 3/uL Monocytes 0.4 10 3/uL Eosinophils 0.2 10 3/uL Basophils 0.0 10 3/uL Neutrophil % 70.9 % Lymphocyte % 17.7 % Monocyte % 6.6 % Eosinophil % 3.2 % Basophils % 0.7 % NRBC % 0 % CA 15-3 1072.0 U/mL Problem List: 1. Metastatic breast cancer, ER/WY positive and HER-2 bel negative. 2. Hyperlipidemia. 3. Type II diabetes. 4. She has a longstanding microcytic anemia, presumed to be thalassemia trait. 5. GERD. 6. She was diagnosed with COVID-19 virus infection in July 2020. Problems Addressed with this Encounter and Plan: 1. Patient with metastatic breast cancer, ER/WY positive and HER-2/bel negative. She had originally undergone left mastectomy and adjuvant chemotherapy for breast cancer in 1999. She had subsequently presented with multiple pulmonary nodules. She underwent left thoracoscopy with wedge resection of left lower lobe pulmonary nodule on 12/14/2016. In April 2017 she began treatment with letrozole 2.5 mg daily in combination with palbociclib 125 mg daily on a day schedule. She had a good response with restaging PET/CT on 10/23/2017 showing no evidence for recurrent or residual malignancy. As of her visit on 10/12/2018 she appeared stable clinically with no obvious progression of the breast cancer. However, she was then lost to follow-up, and she stopped her treatment. In April 2020 she presented with symptomatic bony metastatic disease in the lumbar spine and pelvis. She was given palliative radiation and she began second line hormonal therapy with fulvestrant in combination with palbociclib. Her treatment was interrupted during the loading dose portion of her fulvestrant, first due to unspecified illness and subsequently to COVID-19 virus infection. She then had a recent hospitalization for symptomatic hypokalemia and hypomagnesemia. She also required treatment for urinary tract infection. She had significant improvement in her bone pain following the radiation. During subsequent follow-up it was difficult to determine if she had any response to the second line hormonal therapy. There was previously no evidence of further disease progression, but her CA-27.29 level remained significantly elevated. She then did show evidence of disease progression by restaging PET/CT on 12/31/2020. Findings included extensive metastatic bone involvement, but she has really not been overtly symptomatic with it. A next generation sequencing study on her initial lung biopsy showed no actionable mutations. In the setting of disease progression on second line endocrine therapy and with no actionable mutations identified, she was advised to proceed to a trial of chemotherapy with capecitabine. It was started in March 2021 at a reduced dosage of 1500 mg twice daily on a 7 days on/7 days off schedule. Her baseline CA 27-29 level was 533 U/mL. The dosage was subsequently decreased to 1000 mg twice daily due to GI toxicity. During subsequent follow-up she had tolerated the treatment well, but there was a gradual and progressive increase in her CA 15-3 level. As of 08/13/2021 it was up to 864.9 U/mL compared to 718.8 U/mL in May 2021, and it has now further increased to 1072 U/mL. As of her follow-up visit on 09/10/2021 she appeared to be having more side effects with the Xeloda. As such, her treatment was put on hold. She then had further evaluation with restaging PET/CT on 09/29/2021. It showed significant progression of pulmonary metastatic disease and of the bony metastatic disease. The PET/CT findings reviewed with the patient. She is clearly showing disease progression. She still has good performance status. In the absence of any evidence of a targetable mutation, she is advised to proceed to second line chemotherapy with a taxane monotherapy. Given her underlying diabetes, I will recommend using weekly Abraxane to minimize her steroid exposure, but that will be subject to verification of insurance coverage. In the meantime, though, I will proceed with arrangements for placement of Port-A-Cath venous access device. 2. She has metastatic bone involvement. She had been on supportive therapy with denosumab 120 mg by subcutaneous injection monthly. Due to requirements imposed by her insurance carrier, her treatment was changed to IV zoledronic acid, and that will be administered today with the dosage calculated at 4 mg. Signed By: Colt Brito M.D. <<Signature on File>>
== END 2021-10-07 08:23 | disposition home or self-care (01) ==
PROVIDERS: PCP Nurse Practitioner Family; Visit Provider Internal Medicine Medical Oncology
DX: C50.812 Malignant neoplasm of overlapping sites of left female breast (principal); Z17.0 Estrogen receptor positive status [ER+]; C79.51 Secondary malignant neoplasm of bone; C78.01 Secondary malignant neoplasm of right lung; C78.02 Secondary malignant neoplasm of left lung; E87.6 Hypokalemia; E83.42 Hypomagnesemia; E11.9 Type 2 diabetes mellitus without complications; D56.3 Thalassemia minor; Z86.16 Personal history of COVID-19; Z87.440 Personal history of urinary (tract) infections; Z79.818 Long term (current) use of other agents affecting estrogen receptors and estrogen levels; Z79.899 Other long term (current) drug therapy; Z92.21 Personal history of antineoplastic chemotherapy; Z92.25 Personal history of immunosuppression therapy
CPT/HCPCS: 99214

== ENCOUNTER → 2021-10-29 15:36 | Outpatient (BNVA) | payer MEDICARE, SELFPAY | PROVIDERS: PCP Nurse Practitioner Family; Referring Provider Internal Medicine Medical Oncology; Visit Provider Surgery | DX: C50.919 Malignant neoplasm of unspecified site of unspecified female breast (principal) | CPT/HCPCS: 99203 ==

== ENCOUNTER 2021-11-04 09:56 | Day surgery (SDC) | payer MEDICARE, SELFPAY ==
--- NOTE | 2021-11-04 | SCC_ITS ---
Procedure done: 1.? Placement of Power Port via right subclavian vein 2.? Fluoroscopic guidance and interpretation for placement of catheter 19.3 seconds of fluoroscopic guidance, for a cumulative dose of 4.36 mGy, was provided to Dr. Salomon by the radiology department. C-arm images of the chest were saved for the patient's permanent record. [facility]
[2021-11-04 10:08] VITALS: BMI 30.2
--- NOTE | 2021-11-04 10:11 | SC_ITS ---
WS: [id number] C-ARM RADIOGRAPHS CHEST; 2 IMAGES HISTORY: Powerport Placement COMPARISON: None available. Intraoperative imaging during Mediport placement of the RIGHT subclavian vein. SC/C-arm FL for CVA [id number] IMPRESSION: Intraoperative imaging during Mediport placement.
--- NOTE | 2021-11-04 10:14 | W.PM.OPSUD ---
Surgery/Procedure H&P Update DATE OF PROCEDURE: November 04, 2021 DATE H&P PERFORMED: 10/29/21 H&P UPDATE INFORMATION: I have reviewed H&P completed within last 30 days, I have examined patient prior to procedure and No changes to prior documentation PREOP DIAGNOSIS: Metastatic breast cancer PRIMARY INDICATION FOR PROCEDURE: The same PLANNED PROCEDURE: Operation Date: 11/04/21 10:30 Proposed Procedures p Portacath Placement 35468/c79.51(Not Applicable) - Ovidio Salomon MD
[2021-11-04 10:18] VITALS: BP 161/106; PULSE 89; RESP 18; TEMP 36.4; O2SAT 97
[2021-11-04] MEDS: sodium chloride 0.9% 1,000 ML 30 ML IV (10:28)
--- NOTE | 2021-11-04 10:32 | P.ANESASSM_ITS ---
Pre-Anesthetic Assessment Height/Weight: Height 1.55 m Weight 72.575 kg Temp Pulse Resp BP Pulse Ox 97.5 F L 89 18 161/106 97 11/04/21 10:18 11/04/21 10:18 11/04/21 10:18 11/04/21 10:18 11/04/21 10:18 Preop Diagnosis: Metastatic breast cancer Operation Date: 11/04/21 10:30 Proposed Procedures p Portacath Placement 60627/c79.51(Not Applicable) - Ovidio Salomon MD Familial anesthetic complications: None Was Beta Keyanna taken within 24 hours: N/A Was Clonidine taken within 24 hours: N/A Last intake: Intake Last Liquid Date 11/03/21 Last Liquid Time 21:30 Last Solid Date 11/03/21 Last Solid Time 18:00 Social No alcohol and No tobacco Exam alert, oriented x 3, clear to auscultation bilaterally and regular rate & rhythm Airway Mallampati: Class I Dentition: other (no teeth) Pulmonary None reported CV/HEM None reported None reported Hepatic None reported GI Gastroesophageal Reflux Disease Metabolic Diabetes Mellitus [facility] [place] breast cancer Neuropsych None reported Anesthetic Plan ASA status: 2 Anesthesia: MAC Risk of > 500 ml blood loss (7ml/kg in children): No Medications/Allergies Home Medications Medication Instructions Recorded Confirmed Last Taken Type metformin 500 mg tablet 500 mg PO DAILY@2230 08/06/20 11/04/21 11/03/21 History morphine 15 mg immediate release 15 mg PO Q4H PRN 08/28/20 11/04/21 11/03/21 History tablet dulaglutide 1.5 mg/0.5 mL 1.5 mg SUBCUT Q7D 09/30/20 11/04/21 10/04/21 History subcutaneous pen injector (Trulicity) ondansetron 8 mg oral soluble film 8 mg PO Q8H PRN 09/30/20 11/04/21 Unknown History potassium chloride 8 mEq 8 meq PO DAILY@0800 09/30/20 11/04/21 11/03/21 History tablet,extended release (K-Tab) esomeprazole magnesium 40 mg 40 mg PO DAILY 10/29/21 11/04/21 11/01/21 History capsule,delayed release (Nexium) Allergies Allergy/AdvReac Type Severity Reaction Status Date / Time No Known Allergies Allergy Verified 11/04/21 10:16 Current Medications Generic Name Dose Route Start Last Admin Trade Name Ramakrishnaq PRN Reason Stop Dose Admin Sodium Chloride 1,000 mls @ 30 mls/hr 11/04/21 10:15 11/04/21 10:28 Sodium Chloride 0.9% IV 11/05/21 10:14 30 mls/hr .Q24H SHARON Administration PFSH Anesthesia Medical History Left hemiparesis Family History Other Cancer Heart disease Psychiatric illness Social History Smoking and tobacco status: former smoker Alcohol intake: never Housing: House History of recent travel: No Data Anesthesia Cardiac Studies: No Data to Display
[2021-11-04 10:33] LABS: Glucose Point of Care 123 mg/dL (70-110)
[2021-11-04] MEDS: heparin, porcine 1,000 unit/mL INJ 10 mL 10000 UNIT IRRIGATION (11:00)
[2021-11-04] MEDS: lidocaine 2% INJ 20 mL INJECTION (11:01)
--- NOTE | 2021-11-04 11:29 | PM.OP ---
Operative Report Date of procedure: November 04, 2021 Pre-op diagnosis: Preop Diagnosis Metastatic breast cancer Post-op diagnosis: The same Procedure done: 1.? Placement of Power Port via right subclavian vein 2.? Fluoroscopic guidance and interpretation for placement of catheter Implants: Right subclavian PowerPort Surgeon: Ovidio Salomon MD Air Director: video game repair technician Ginny Circulating nurses Nhung Anesthesia: MAC (Pool Gonzalez and Dr. Kraus) Estimated blood loss: 5 Procedure: Procedure: Patient was identified in the holding area and taken to the operative room and placed in supine position IV propofol was given by the anesthesia provider ,both arms were tucked,Time-out was done verifying the patient's name/date of /planned procedure and destination after the procedure, all were in agreement.? SCDs confirmed to be functioning, preoperative antibiotics administered per protocol, and beta melonie protocol was confirmed, appropriate positioning of the patient was done by me. Medications were reviewed to assess for anticoagulant usage.? Risks and benefits and prevention of central line associated blood stream infection (CLABSI) were discussed with the patient/CPOA, and a consent was obtained.? Monitors were in place and monitored throughout the procedure. All necessary supplies were available prior to start.? Hand hygiene was completed prior to starting.? Maximum barrier technique was utilized including a sterile gown, sterile gloves with a hat and mask.? Site was was prepped with [chlorhexidine] and a full body drape was placed. 5 mL of 2% lidocaine was injected into the skin with a 25 gauge needle. Prep& drape was done under the usual sterile technique, lidocaine 2% was injected at the site of the stick, started by right sub-clavian vein stick that retrieved venous blood was obtained from the first stick, a guide wire was then threaded and under the guidance of fluoroscopy position was confirmed to be in the IVC and my interpretation, there were no PVC changes, at that point the guide wire was secured to the drapes with a hemostat and the needle was taken out, attention was then deviated towards creation of a pocket for the port were lidocaine 2% was injected using an 15 blade knife skin incision was created dissection using the Bovie to create a pocket for the Power Port to be accommodated. Hemostasis was secured, after the port being appropriately flushed it was inserted into the pocket and a tunneler was used to accommodate the catheter of the port catheter to be delivered through the incision first created at the site of the stick, at that point under fluoroscopy an estimated length was measured for the catheter and was cut at the designed level, followed by that a dilator with the sheath introduced onto the guide wire the dilator and the wire were retrieved and the catheter of the port was introduced via the sheath where it was peeled off and the catheter maintained to be in the SVC that was confirmed with fluoroscopy, and the fluoroscopy interpretation was done by me throughout the entire procedure. Note that the catheter looked to be little bit longer so I had to deliver the port from the wound and had the catheter cut shorter and we hooked it to the port without complications, then it was flushed without difficulty ?The port was kept in its pocket,3-0 Vicryl deep subdermal interrupted sutures, skin was then closed by 4-0 Monocryl as subcuticular closure.The port was appropriately flushed with heparin and venous blood was withdrawn without difficulty.The stick site was closed by 4-0 Monocryl and Dermabond was used followed by dressing.Count was correct at the end of the procedure.Patient tolerated the procedure well was taken to the recovery area. I was present for the whole entire procedure. Position of the catheter was checked with a postoperative chest x-ray and it was in good position without evidence of pneumothorax
--- NOTE | 2021-11-04 11:32 | XRR_ITS ---
PROCEDURE INFORMATION: Exam: XR Chest Exam date and time: 11/04/2021 11:38 AM Age: 66 years old Clinical indication: Device placement; Other: Status post right subclavian powerport placement; Prior surgery; Surgery date: Post-operative (0-2 days) TECHNIQUE: Imaging protocol: XR of the chest. Views: 1 view. COMPARISON: CR XR chest 1V portable [id number] 09/30/2020 5:43 PM FINDINGS: Tubes, catheters and devices: A MediPort catheter is present with the tip projecting in the SVC. Lungs: There is a 3.4 cm mass in the left lung base which has increased in size since the previous chest x-ray. The left pulmonary hilum is enlarged and similar to previous study. The right lung is clear. Pleural spaces: Unremarkable. No pleural effusion. No pneumothorax. Heart/Mediastinum: Unremarkable. No cardiomegaly. Bones/joints: Unremarkable. XR/XR chest 1V portable [id number] IMPRESSION: Left basilar lung mass and left hilar enlargement. The left basilar lung mass has increased to a diameter of 3.4 cm.
[2021-11-04 11:34] VITALS: BP 133/76; PULSE 74; RESP 11; TEMP 36.1; O2SAT 100
[2021-11-04 11:39] VITALS: BP 147/78; PULSE 76; RESP 16; O2SAT 100
[2021-11-04 11:44] VITALS: BP 138/80; PULSE 76; RESP 16; TEMP 36.1; O2SAT 99
[2021-11-04 11:48] VITALS: BP 133/79; PULSE 77; RESP 18; TEMP 36.5; O2SAT 96
[2021-11-04 12:07] VITALS: BP 159/67; PULSE 79; RESP 18; TEMP 36.6; O2SAT 96
--- NOTE | 2021-11-04 18:58 | ANE.PACU2 ---
Inpatient post-anesthesia follow up: Airway intact: Yes Vital signs: Temperature 97.9 F Pulse Rate 79 Respiratory Rate 18 Blood Pressure 159/67 Pulse Oximetry 96 Oxygen Delivery Me thod Room Air Oxygen Flow Rate 8 Fraction of Inspir ed Oxygen Hydration adequate: Yes Nausea and vomiting: No Pain level: 1 Mental status: Baseline
== END 2021-11-04 12:28 | disposition home or self-care (01) ==
PROVIDERS: PCP Nurse Practitioner Family; Visit Provider Surgery
PROC: (CPT 36561; principal; 2021-11-04 10:20)
DX: C50.919 Malignant neoplasm of unspecified site of unspecified female breast (principal); C79.51 Secondary malignant neoplasm of bone; K21.9 Gastro-esophageal reflux disease without esophagitis; E11.9 Type 2 diabetes mellitus without complications; Z79.84 Long term (current) use of oral hypoglycemic drugs; Z87.891 Personal history of nicotine dependence; Z82.49 Family history of ischemic heart disease and other diseases of the circulatory system
CPT/HCPCS: 36561; 36416; 71045; 76000; 77001; 82962; C1788; J0690; J1644; J2704; J3010; J7030

== ENCOUNTER 2021-11-07 18:52 | Emergency (ER) | payer MEDICARE, SELFPAY ==
[2021-11-07 19:27] VITALS: BP 130/79; PULSE 102; RESP 18; TEMP 36.6; O2SAT 97; BMI 29.8
--- NOTE | 2021-11-07 20:12 | ED_ITS ---
HPI - General Adult General: Chief complaint: General Medical Stated complaint: possible port infection post surgery Time Seen by Provider: 11/07/21 20:12 History of Present Illness: 66-year-old female comes in today for complaints of soreness to the port site. Patient and family were both concerned about infection. Patient denies any fever. Patient appears chronically ill. Patient does have metastatic breast cancer and started chemotherapy on Wednesday. Patient had the port placed on Wednesday. Associated symptoms: Reports nausea Review of Systems General: Reports: 10 or more systems reviewed and unremarkable except in HPI and below Const: Denies: fever(s) GI: Reports: nausea Skin/Breast: Reports: erythema PFSH ED PFSH: Medical History (Updated 11/07/21 @ 20:43 by ALONSO Moreno) Left hemiparesis Family History (Updated 11/05/21 @ 13:12 by Yanci Lomeli LPN) Other Cancer Diabetes Heart disease Hyperlipidemia Hypertension Psychiatric illness Stroke Suicide Denies family history of CAD (coronary artery disease) Clotting disorder Dementia Chronic kidney disease (CKD) Anesthesia complication Bleeding disorder Lung disease Social History Smoking and tobacco status: never smoked Alcohol intake: never Housing: House History of recent travel: No Physical Exam Const: COMMON NORMALS: alert HENMT: COMMON NORMALS: atraumatic HEAD & SCALP: atraumatic Neck/C-Spine: COMMON NORMALS: full ROM Chest: CHEST: Yes tenderness (Anterior chest wall tenderness) Resp: COMMON NORMALS: normal respiratory effort Cardio: COMMON NORMALS: regular rate RATE: regular rate Extremity: COMMON NORMALS: normal to inspection Neuro: SENSORIUM/ORIENTATION: Yes alert Skin: RASHES: rashes noted (Light erythematous rash to the chest wall, no induration or fever) Course Vital Signs: Vital signs: Vital Signs Temperature 97.9 F 11/07/21 19:27 Pulse Rate 102 H 11/07/21 19:27 Respiratory Rate 18 11/07/21 19:27 Blood Pressure 130/79 11/07/21 19:27 Pulse Oximetry 97 11/07/21 19:27 MDM - General Adult Medical Decision Making Patient comes in today with some erythema to the chest wall. On exam patient has no induration of the tissue. There is a light red rash along the open area of her shirt and a V-neck pattern. Incision sites have minimal erythema from access port. Patient is afebrile. Differential diagnosis includes cellulitis, port infection, rash secondary to chemotherapy. No signs of infection is noted. Believe the rash is probably secondary to patient's chemotherapy medication. Recommended avoidance of direct sunlight. Drink plenty of water. Monitor for fever greater than 100.4. Lab Data Radiology Impressions Chest X-Ray 11/07/21 20:16 IMPRESSION: 1. Right-sided Port-A-Cath seen in place with tip in the superior vena cava. 2. Cardiomegaly. 3. Emphysematous changes. 4. Minimal pulmonary vascular congestion. 5. Bibasilar atelectasis versus early infiltrate. 6. Left lower lobe 3.4 center pulmonary nodule partially visualized, somewhat similar to prior exam, may reflect metastatic disease. Discharge Plan Discharge Patient Disposition: Home Clinical Impression: Chemotherapy adverse reaction Qualifiers: Encounter type: initial encounter Qualified Code(s): T45.1X5A - Adverse effect of antineoplastic and immunosuppressive drugs, initial encounter Condition: Stable Prescriptions: No Action morphine 15 mg tablet 15 mg PO Q4H PRN (Reason: Pain) 0RF esomeprazole magnesium [Nexium] 40 mg capsule,delayed release(DR/EC) 40 mg PO DAILY 0RF Farxiga 5 mg tablet 5 mg PO DAILY 0RF metformin 500 mg Tablet 500 mg PO DAILY@2230 0RF potassium chloride [K-Tab] 8 mEq tablet extended release 8 meq PO DAILY@0800 0RF ondansetron 8 mg Film 8 mg PO Q8H PRN (Reason: NAUSEA/VOMITING) 0RF Trulicity 1.5 mg/0.5 mL pen injector 1.5 mg SUBCUT Q7D 0RF Rx Instructions: TAKE ON SUNDAYS Discharge Orders: Discharge ED (Routine); Ordered 11/07/21 Ordered By: Nahid yMers Referrals: Morteza Cote NP [Primary Care Provider] - Patient Instructions: Intravenous Chemotherapy (DC) Activity Restrictions/Additional Instructions: Home and rest. Drink plenty of fluids. Continue with routine care as directed. Monitor for temperature greater than 100.4. Return to the ER for high fever or new concerns. Coding Level of Care Code ED Printed Circuit Board Assembly Repairer for Jeffrey Fwd Exam Comprehensive
--- NOTE | 2021-11-07 20:16 | XRR_ITS ---
PROCEDURE INFORMATION: Exam: XR Chest Exam date and time: 11/07/2021 8:23 PM Age: 66 years old Clinical indication: Other: At port site; Prior surgery; Surgery date: 3-7 days post-operative; Surgery type: Port placement; Patient HX: C/O pain at site of port; Additional info: Port evaluation TECHNIQUE: Imaging protocol: XR of the chest. Views: 1 view. COMPARISON: CR XR chest 1V portable [id number] 11/04/2021 11:38 AM FINDINGS: Tubes, catheters and devices: Right-sided Port-A-Cath seen in place with tip in the superior vena cava. Lungs: Emphysematous changes. Minimal pulmonary vascular congestion. Bibasilar atelectasis versus early infiltrate. Left lower lobe 3.4 center pulmonary nodule partially visualized, somewhat similar to prior exam, may reflect metastatic disease. Pleural spaces: Unremarkable. No pleural effusion. No pneumothorax. Heart/Mediastinum: Cardiomegaly. Bones/joints: Unremarkable. XR/XR chest 1V portable [id number] IMPRESSION: 1. Right-sided Port-A-Cath seen in place with tip in the superior vena cava. 2. Cardiomegaly. 3. Emphysematous changes. 4. Minimal pulmonary vascular congestion. 5. Bibasilar atelectasis versus early infiltrate. 6. Left lower lobe 3.4 center pulmonary nodule partially visualized, somewhat similar to prior exam, may reflect metastatic disease.
== END 2021-11-07 20:50 | disposition home or self-care (01) ==
PROVIDERS: Emergency Provider Nurse Practitioner Family; PCP Nurse Practitioner Family
DX: L23.3 Allergic contact dermatitis due to drugs in contact with skin (principal); T45.1X5A Adverse effect of antineoplastic and immunosuppressive drugs, initial encounter
CPT/HCPCS: 71045; 99283

== ENCOUNTER 2021-11-24 05:53 | Day surgery (SDC) | payer MEDICARE, SELFPAY ==
[2021-11-21 11:18] VITALS: BMI 27.6
[2021-11-24] VITALS (7 sets, daily range): BP systolic 136–173; BP diastolic 76–112; PULSE 78–98; RESP 12–18; TEMP 36.2–36.3; O2SAT 94–97
--- NOTE | 2021-11-24 | SCC_ITS ---
Procedure done: 1. Placement of PowerPort catheter via right internal jugular vein 2. Fluoroscopic guidance and interpretation for placement of catheter 3. Ultrasound guidance to access the right internal jugular vein 12.2 seconds of fluoroscopic guidance, for a cumulative dose of 2.03 mGy, was provided to Dr. Salomon by the radiology department. C-arm images of the chest were saved for the patient's permanent record. [facility]
--- NOTE | 2021-11-24 06:00 | SC_ITS ---
WS: [id number] Exam: C-arm FL for CVA [id number] Date/Time of Exam: 11/24/2021 8:09 AM Reason For Exam: Powerport Placement Single anterior posterior C-arm image of the upper chest is submitted for evaluation. A right-sided subclavian port is noted. The catheter appears to be looped in the right subclavian vei n and appears to end in the medial aspect of the right subclavian vein. The lungs are fully expanded as visualized. No other significant finding on this limited study.
--- NOTE | 2021-11-24 06:06 | W.PM.OPSUD ---
Surgery/Procedure H&P Update DATE OF PROCEDURE: November 24, 2021 DATE H&P PERFORMED: 11/12/21 H&P UPDATE INFORMATION: I have reviewed H&P completed within last 30 days, I have examined patient prior to procedure and Changes to prior documentation as noted here (Chest skin reaction much better) PREOP DIAGNOSIS: Malfunction of PowerPort PRIMARY INDICATION FOR PROCEDURE: The same PLANNED PROCEDURE: Operation Date: 11/24/21 07:00 Proposed Procedures p Port a cath removal [id number], port a cath placement 28348/C79.51/C79.5(Not Applicable) - Ovidio Salomon MD s Portacath Placement(Not Applicable) - Ovidio Salomon MD
[2021-11-24] MEDS: sodium chloride 0.9% 1,000 ML 30 ML IV (06:30)
[2021-11-24 06:37] LABS: Glucose Point of Care 127 mg/dL (70-110)
--- NOTE | 2021-11-24 06:45 | ANES.PREANE2 ---
Pre-Anesthetic Assessment Height/Weight: Height 1.55 m Weight 66.224 kg Temp Pulse Resp BP Pulse Ox 97.4 F L 98 16 136/95 95 11/24/21 06:12 11/24/21 06:12 11/24/21 06:12 11/24/21 06:12 11/24/21 06:12 Preop Diagnosis: Malfunction of PowerPort Operation Date: 11/24/21 07:00 Proposed Procedures p Port a cath removal [id number], port a cath placement 58396/C79.51/C79.5(Not Applicable) - Ovidio Salomon MD s Portacath Placement(Not Applicable) - Ovidio Salomon MD Familial anesthetic complications: None Was Beta Keyanna taken within 24 hours: N/A Was Clonidine taken within 24 hours: N/A Last intake: Intake Last Liquid Date 11/23/21 Last Liquid Time 23:00 Last Solid Date 11/23/21 Last Solid Time 18:30 Social No alcohol and No tobacco Exam alert, oriented x 3, clear to auscultation bilaterally and regular rate & rhythm Airway Submandibular: within normal limits Cervical ROM: within normal limits Mallampati: Class II Dentition: false Pulmonary Metastatic breast cancer CV/HEM Arrythmia (1st degree AV block on EKG 2020) and None reported TTE 11/2021 CONCLUSIONS ?1. Normal left ventricular size, systolic function and wall ?thickness, with no regional wall motion abnormalities. Left ?ventricular ejection fraction is estimated at 60 %.? ?2. Normal right ventricular size and systolic function. ?3. No prior similar studies to compare. None reported Hepatic None reported GI Gastroesophageal Reflux Disease (Well controlled ) Metabolic Diabetes Mellitus [facility] Osteoarthritis/DJD and Weakness (left sided hemiparesis ) Neuropsych denies hx of stroke, seizure Anesthetic Plan ASA status: 3 Anesthesia: Anesthesia Evaluation, General and MAC Other: I discussed with the patient risks, goals, and benefits of MAC and general anesthesia. We discussed spectrum of MAC anesthesia including conversion to general as well as possibility of recall of intraoperative stimuli including discomfort/pain. Patient agrees to proceed with MAC. Risk of > 500 ml blood loss (7ml/kg in children): No Medications/Allergies Home Medications Medication Instructions Recorded Confirmed Last Taken Type metformin 500 mg tablet 500 mg PO DAILY@2230 08/06/20 11/24/21 11/23/21 History dulaglutide 1.5 mg/0.5 mL 1.5 mg SUBCUT Q7D 09/30/20 11/24/21 11/22/21 History subcutaneous pen injector (Trulicity) ondansetron 8 mg oral soluble film 8 mg PO Q8H PRN 09/30/20 11/24/21 11/23/21 History potassium chloride 8 mEq 8 meq PO DAILY@0800 09/30/20 11/24/21 11/23/21 History tablet,extended release (K-Tab) esomeprazole magnesium 40 mg 40 mg PO DAILY 10/29/21 11/24/21 11/23/21 History capsule,delayed release (Nexium) dapagliflozin 5 mg tablet (Farxiga) 5 mg PO DAILY 11/05/21 11/24/21 11/23/21 History morphine 15 mg immediate release 15 mg PO Q4H PRN 30 Days #90 tab 11/17/21 11/24/21 11/23/21 Rx tablet Allergies Allergy/AdvReac Type Severity Reaction Status Date / Time No Known Allergies Allergy Verified 11/24/21 06:07 COUNTS INCLUDE 234 BEDS AT THE [facility] Anesthesia Medical History Diabetes 1.5, managed as type 2 History of 2019 novel coronavirus disease (COVID-19) (07/2020) Hyperlipidemia Left hemiparesis Malignant neoplasm of unspecified site of left female breast Metastatic breast cancer Port-A-Cath in place Placed 11/04/21 at [place], [place] to right chest wall by Dr. Salomon. Thalassemia trait Surgical History History of appendectomy History of cholecystectomy History of left mastectomy (1999) History of lung surgery (12/14/16) left thoracoscopy with wedge resection of left lower lobe nodule Family History Other Cancer Diabetes Heart disease Hyperlipidemia Hypertension Psychiatric illness Stroke Suicide Denies family history of CAD (coronary artery disease) Clotting disorder Dementia Chronic kidney disease (CKD) Anesthesia complication Bleeding disorder Lung disease Social History Smoking and tobacco status: former smoker Quit status (tobacco): has quit using tobacco Year quit tobacco: 2017 Alcohol intake: never Housing: House History of recent travel: No Data Anesthesia Cardiac Studies: Echocardiogram Limited Views 11/04/21
[2021-11-24] MEDS: lidocaine 2% INJ 20 mL INJECTION (07:34)
[2021-11-24] MEDS: heparin, porcine 1,000 unit/mL INJ 10 mL 10000 UNIT IRRIGATION (07:36)
--- NOTE | 2021-11-24 08:03 | XR_ITS ---
WS: [id number] Exam: XR chest 1V portable [id number] Date/Time of Exam: 11/24/2021 8:09 AM Reason For Exam: Status post right internal jugular vein PowerPort Comparison 11/04/2021. The lungs are fully expanded. A right-sided IJ catheter has been placed and appears to end in the low er one third of the SVC in good position. Again noted is a mass in the left lower lobe and also possi christian the left hilar region. No pleural effusion. Cardiomediastinal contours are otherwise unremarkable . Marked degenerative change at the left glenohumeral joint. XR/XR chest 1V portable [id number] IMPRESSION: 1. Right-sided IJ catheter in satisfactory position. 2. Left lower lobe pulmonary mass and possible left hilar mass.
--- NOTE | 2021-11-24 08:04 | P.OP_ITS ---
Operative Report Date of procedure: November 24, 2021 Pre-op diagnosis: Preop Diagnosis Malfunction of PowerPort Procedure done: 1. Placement of PowerPort catheter via right internal jugular vein 2. Fluoroscopic guidance and interpretation for placement of catheter 3. Ultrasound guidance to access the right internal jugular vein 4. Explantation of right upper chest PowerPort Surgeon: Ovidio Salomon MD Sales Representative Adding Machines: Mansi Vuong Circulating nurse Stefany Anesthesia: MAC (Pool Carranza) Estimated blood loss (mL): 5 Procedure: Patient was identified in the holding area and taken to the operative room and placed in supine position IV propofol was given by the anesthesia provider ,both arms were tucked,Time-out was done verifying the patient's name/date of /planned procedure and destination after the procedure, all were in agreement. SCDs confirmed to be functioning, preoperative antibiotics administered per protocol, and beta melonie protocol was confirmed, appropriate positioning of the patient was done by me. Medications were reviewed to assess for anticoagulant usage. Risks and benefits and prevention of central line associated blood stream infection (CLABSI) were discussed with the patient/CPOA, and a consent was obtained. Monitors were in place and monitored throughout the procedure. All necessary supplies were available prior to start. Hand hygiene was completed prior to starting. Maximum barrier technique was utilized including a sterile gown, sterile gloves with a hat and mask. Site was was prepped with [chlorhexidine] and a full body drape was placed. 5 mL of 2% lidocaine was injected into the skin with a 25 gauge needle. Prep& drape was done under the usual sterile technique, lidocaine 2% was injected at the site of the removal of the right upper chest PowerPort. Skin incision was created by a 15 blade knife. The port was dissected and freed and got removed, there was no evidence of infection. Before removal of the port a basic fluoroscopy image was obtained showing coiling of the catheter and after removal another x-ray was taken showing no retained foreign articles. After the port being removed the pocket of the wound was thoroughly irrigated. And closed later on in layers. appropriate pressure was held at least 5 minutes and the right subclavian vein stick Attention now was deviated towards the right internal jugular vein. Started by stick via right Internal Juglar vein,that retrieved venous blood was obtained from the first stick under ultrasound guidance and there was no evidence of intraluminal thrombosis, interpretation was done by me through the whole entire procedure, a guidewire was then threaded and under the guidance of fluoroscopy position was confirmed to be in the IVC and my interpretation, there was no PVC changes, at that point the guidewire was secured to the drapes with a hemostat and the needle was taken out. Attention was then deviated towards creation of a pocket for the port were lidocaine 2% was injected using an 15 blade knife skin incision was created at the right upper Chest ,dissection using the Bovie to create a pocket for the PowerPort to be accommodated, hemostasis was secured, after the port being appropriately flushed it was inserted into the pocket and a tunneler was used to accommodate the catheter of the port cath to be delivered through the incision first created at the site of the stick , and then I was able to retrieve the catheter at the index site of the stick. At that point under fluoroscopy an estimated length was measured for the catheter and was cut at the designed level, followed by that a dilator with the sheath introduced onto the guidewire the dilator and the wire were retrieved and the catheter of the port was introduced via the sheath where it was peeled off and the catheter maintained to be in the SVC that was confirmed with fluoroscopy, and the fluoroscopy interpretation was done by me throughout the entire procedure. Multiple flushes of the port was done by diluted heparin and I was able to retrieve without difficulty venous blood as well as appropriate flushing was achieved. The port was kept in its pocket, 4-0 Vicryl deep subdermal interrupted sutures, skin was then closed by 4-0 Monocryl as subcuticular closure. Also the original incision of removal of the port was closed. The port was appropriately flushed with heparin and venous blood was withdrawn without difficulty The stick site was closed by 4-0 Monocryl and Dermabond was used followed by dressing. Patient tolerated the procedure well was taken to the recovery area Count was correct at the end of the procedure I was present for the whole entire procedure
--- NOTE | 2021-11-24 10:53 | ANE.PACU2 ---
Inpatient post-anesthesia follow up: Airway intact: Yes Vital signs: Temperature 97.2 F Pulse Rate 83 Respiratory Rate 16 Blood Pressure 140/78 Pulse Oximetry 97 Oxygen Delivery Me thod Room Air Oxygen Flow Rate 6 Fraction of Inspir ed Oxygen Hydration adequate: Yes Nausea and vomiting: No Pain level: 1 Mental status: Baseline
== END 2021-11-24 08:55 | disposition home or self-care (01) ==
PROVIDERS: PCP Nurse Practitioner Family; Visit Provider Surgery
PROC: (CPT 36589; principal; 2021-11-24 07:00)
PROC: (CPT 36561; 2021-11-24 07:00)
DX: T82.594A Other mechanical complication of infusion catheter, initial encounter (principal); C50.919 Malignant neoplasm of unspecified site of unspecified female breast; I44.30 Unspecified atrioventricular block; K21.9 Gastro-esophageal reflux disease without esophagitis; Z79.84 Long term (current) use of oral hypoglycemic drugs; E13.9 Other specified diabetes mellitus without complications; Z86.16 Personal history of COVID-19; E78.5 Hyperlipidemia, unspecified
CPT/HCPCS: 36561; 36416; 71045; 76000; 77001; 82962; C1788; J0690; J1644; J2370; J2704; J3010; J7030

== ENCOUNTER 2021-11-25 08:00 | Oncology outpatient (recurring) (ONCR) | payer MEDICARE, SELFPAY ==
--- NOTE | 2021-11-04 08:13 | USCV_ITS ---
Dacia Way Age: 66 Gender: F : 1955 Exam Date: 11/04/2021 08:22 Ordering Phys: Colt Brito MD Technologist: Blanca oV Exam Location: [facility] [place] Indication: HIGH RISK MEDICATION, BREAST CANCER BP: 121 / 80 HR: 80 Rhythm: Sinus Technical Quality: Adequate MEASUREMENTS (Male / Female) Normal Values 2D ECHO LV Diastolic Diameter PLAX 2.8 cm 4.2 - 5.9 / 3.9 - 5.3 cm LV Systolic Diameter PLAX 1.8 cm IVS Diastolic Thickness 0.9 cm 0.6 - 1.0 / 0.6 - 0.9 cm IVS Systolic Thickness 1.0 cm LVPW Diastolic Thickness 1.0 cm 0.6 - 1.0 / 0.6 - 0.9 cm LVPW Systolic Thickness 1.1 cm RV Chamber Size 2.7 cm LVOT Diameter 2.0 cm LV Ejection Fraction 2D Teich 67.7 % LV Ejection Fraction MOD 2C 61.5 % LV Ejection Fraction 2C AL 63.4 % LA Diameter 2.3 cm LA Width 2.9 cm LA Height 4.9 cm RA Width 3.7 cm RA Height 4.8 cm Aorta at Sinotubular Diameter 2.5 cm M-MODE Aortic Annulus Diameter 2.8 cm LA Ao Ratio MM 0.8 MV E Point Septal Separation 0.7 cm FINDINGS Left Ventricle Normal left ventricular size, systolic function and wall thickness, with no regional wall motion abnormalities. Left ventricular ejection fraction is estimated at 65 %. Diastolic function was not assessed. Right Ventricle Normal right ventricular size and systolic function. Right Atrium Normal right atrial size. Left Atrium Normal left atrial size. Mitral Valve Mild mitral annular calcification. Mildly thickened mitral valve. Aortic Valve Structurally normal trileaflet aortic valve. No aortic valve stenosis. Tricuspid Valve Structurally normal tricuspid valve. Pulmonic Valve Structurally normal pulmonic valve. Pericardium No pericardial effusion. Aorta Normal size aortic root and proximal ascending aorta. CONCLUSIONS 1. Normal left ventricular size, systolic function and wall thickness, with no regional wall motion abnormalities. Left ventricular ejection fraction is estimated at 60 %. 2. Normal right ventricular size and systolic function. 3. No prior similar studies to compare. Raquel Watts MD (Electronically Signed) Final Date: 04 Nov 2021 13:16 S
[2021-11-05 11:52] VITALS: BMI 30.4
[2021-11-05 11:59] LABS: Basophils % 0.3 %; Eosinophils # 0.2 10^3/uL (0.0-0.8); Eosinophils % 2.9 %; Hematocrit 34.7 % (37.0-47.0); Hemoglobin 10.4 g/dL (11.5-15.3); Lymphocytes # 1.1 10^3/uL (0.8-4.8); Mean Corpuscular Hemoglobin 23.6 pg (28.0-34.0); Mean Corpuscular Volume 78.9 fl (81-99); Mean Platelet Volume 9.2 fL (7.4-10.4); Monocytes # 0.4 10^3/uL (0.2-0.9); Monocytes % 7.2 %; Neutrophils # 4.23 10^3/uL (1.8-7.7); Neutrophils % 71.1 %; Nucleated Red Blood Cells % 0 %; Platelet Count 247 10^3/cmm (130-400); Red Cell Distribution Width 15.1 % (12.1-15.1)
[2021-11-05 12:12] LABS: Alanine Aminotransferase 6 U/L (0-33); Alkaline Phosphatase 91 IU/L (35-105); Anion Gap 16.7 (5-19); Aspartate Amino Transferase 15 U/L (0-32); Blood Urea Nitrogen 11 mg/dL (8-23); Calcium 9.9 mg/dL (8.5-10.5); Carbon Dioxide 24 mmol/L (22-29); Chloride 100 mmol/L (98-107); Globulin 3.2 g/dL (1.3-4.6); Glomerular Filtration Rate 99.4 mL/min (90-130); Glucose 99 mg/dL (65-115); Osmolality Calculated 283 mOsm/kg (285-295); Potassium 3.7 mmol/L (3.5-5.1); Sodium 137 mmol/L (136-145); Total Bilirubin 0.4 mg/dL (0.15-1.2); Total Protein 7.2 g/dL (6.6-8.7)
[2021-11-05] MEDS: sodium chloride 0.9% 250 ML 75 ML IV (14:55)
[2021-11-05] MEDS: ondansetron 2 mg/ML SDV 2 mL 8 MG IVP (14:55)
[2021-11-05 15:54] VITALS: BP 134/72; PULSE 74; RESP 18; TEMP 36.6; O2SAT 99
[2021-11-05] MEDS: zoledronic acid 4 MG in sodium chloride 0.9% (100 ml) 100 ML 420 MG IV (16:10)
[2021-11-12 09:37] VITALS: BMI 28.8
[2021-11-12] MEDS: alteplase 1 mg/mL SDV 2 mL 2 MG INTRACATH (10:03)
[2021-11-12 10:54] LABS: Basophils % 0.6 %; Eosinophils # 0.2 10^3/uL (0.0-0.8); Eosinophils % 5.4 %; Hematocrit 35.9 % (37.0-47.0); Hemoglobin 11.2 g/dL (11.5-15.3); Lymphocytes # 0.6 10^3/uL (0.8-4.8); Lymphocytes % 17.8 %; Mean Corpuscular HGB Conc 31.2 g/dL (30.0-36.0); Mean Corpuscular Volume 76.9 fl (81-99); Mean Platelet Volume 9.1 fL (7.4-10.4); Monocytes # 0.2 10^3/uL (0.2-0.9); Monocytes % 5.9 %; Neutrophils # 2.45 10^3/uL (1.8-7.7); Neutrophils % 69.5 %; Nucleated Red Blood Cells % 0 %; Platelet Count 281 10^3/cmm (130-400); Red Blood Count 4.67 10^6/uL (4.1-5.3); Red Cell Distribution Width 14.9 % (12.1-15.1); White Blood Count 3.5 10^3/uL (4.0-10.0)
[2021-11-12 11:23] LABS: Alanine Aminotransferase 11 U/L (0-33); Albumin Level 3.9 g/dL (3.5-5.2); Alkaline Phosphatase 90 IU/L (35-105); Anion Gap 18.7 (5-19); Aspartate Amino Transferase 24 U/L (0-32); Blood Urea Nitrogen 20 mg/dL (8-23); Calcium 9.2 mg/dL (8.5-10.5); Carbon Dioxide 22 mmol/L (22-29); Chloride 97 mmol/L (98-107); Globulin 4.2 g/dL (1.3-4.6); Glomerular Filtration Rate 71.3 mL/min (90-130); Glucose 227 mg/dL (65-115); Osmolality Calculated 288 mOsm/kg (285-295); Potassium 3.7 mmol/L (3.5-5.1); Sodium 134 mmol/L (136-145); Total Bilirubin 0.5 mg/dL (0.15-1.2); Total Protein 8.1 g/dL (6.6-8.7)
--- NOTE | 2021-11-12 15:09 | XR_ITS ---
WS: [id number] XR chest 2V* [id number] REASON FOR EXAM: port a cath placement FINDINGS: Chemotherapy infusion port over the lower right chest. The chemotherapy port appears to be more infer ior in position than on the previous examination of 11/04/2021 The trans right subclavian vein catheter is retracted from its position on 11/07/2021 at the junction o f the right innominate vein and superior vena cava into the right subclavian vein midclavicular head. Mass in the left lower lobe is unchanged. Interstitial reticular nodular pattern centrally and in the lower lung chappell is unchanged. XR/XR chest 2V* [id number] IMPRESSION: Retraction of chemotherapy port and catheter as above. No other interval change.
[2021-11-25 09:15] LABS: Basophils % 0.5 %; Eosinophils # 0.1 10^3/uL (0.0-0.8); Eosinophils % 0.8 %; Hemoglobin 10.6 g/dL (11.5-15.3); Lymphocytes % 13.4 %; Mean Corpuscular HGB Conc 31.2 g/dL (30.0-36.0); Mean Corpuscular Hemoglobin 23.9 pg (28.0-34.0); Mean Corpuscular Volume 76.7 fl (81-99); Mean Platelet Volume 8.7 fL (7.4-10.4); Monocytes # 0.6 10^3/uL (0.2-0.9); Monocytes % 8.2 %; Neutrophils # 5.84 10^3/uL (1.8-7.7); Neutrophils % 76.1 %; Nucleated Red Blood Cells % 0 %; Platelet Count 260 10^3/cmm (130-400); Red Blood Count 4.43 10^6/uL (4.1-5.3); Red Cell Distribution Width 15.9 % (12.1-15.1); White Blood Count 7.7 10^3/uL (4.0-10.0)
[2021-11-25 09:37] LABS: Alanine Aminotransferase 8 U/L (0-33); Albumin Level 3.7 g/dL (3.5-5.2); Alkaline Phosphatase 130 IU/L (35-105); Aspartate Amino Transferase 17 U/L (0-32); Blood Urea Nitrogen 8 mg/dL (8-23); Calcium 8.4 mg/dL (8.5-10.5); Carbon Dioxide 23 mmol/L (22-29); Chloride 103 mmol/L (98-107); Creatinine Clr Calc Pharmacy 60.8107; Globulin 3.3 g/dL (1.3-4.6); Glomerular Filtration Rate 99.4 mL/min (90-130); Glucose 107 mg/dL (65-115); Osmolality Calculated 287 mOsm/kg (285-295); Sodium 139 mmol/L (136-145); Total Bilirubin 0.4 mg/dL (0.15-1.2)
[2021-11-25] MEDS: sodium chloride 0.9% 250 ML 75 ML IV (10:21)
[2021-11-25] MEDS: ondansetron 2 mg/ML SDV 2 mL 8 MG IVP (10:21)
--- NOTE | 2021-11-27 16:29 | PC.NURSE ---
Patient's daughter Aylin called letting this nurse know that while at Dr. Arcos office she had a 99.7 temp and was starting to get a rash. The patient also had a 101.7 temp at home as well. Dr. Arcos sent in script for Bactrim. This nurse spoke to Rachael Barrera NP about the rash and temp and per Aubree, the patient can take OTC Benadryl and Tylenol and to also take Bactrim. THis nurse called the daughter back and let her know. The daughter acknowledged understanding and had no other questions.
== END 2021-12-02 23:59 | disposition home or self-care (01) ==
PROVIDERS: Nurse Practitioner Family; PCP Nurse Practitioner Family; Visit Provider Internal Medicine Medical Oncology
DX: Z51.11 Encounter for antineoplastic chemotherapy (principal); C50.912 Malignant neoplasm of unspecified site of left female breast; Z17.0 Estrogen receptor positive status [ER+]; C79.51 Secondary malignant neoplasm of bone
CPT/HCPCS: 36415; 36591; 36593; 71046; 80053; 85025; 86300; 93308; 96367; 96375; 96413; 99214; 99999; J1100; J2405; J2997; J3489; J7050; J9264

== ENCOUNTER → 2021-11-27 12:49 | Outpatient (BNVA) | payer MEDICARE, SELFPAY | PROVIDERS: PCP Nurse Practitioner Family; Visit Provider Surgery | DX: Z09 Encounter for follow-up examination after completed treatment for conditions other than malignant neoplasm (principal) | CPT/HCPCS: 99024 ==

== ENCOUNTER → 2021-12-03 11:51 | Outpatient (BNVA) | payer MEDICARE, SELFPAY | PROVIDERS: PCP Nurse Practitioner Family; Visit Provider Surgery | DX: Z09 Encounter for follow-up examination after completed treatment for conditions other than malignant neoplasm (principal) | CPT/HCPCS: 99024 ==

== ENCOUNTER 2021-12-31 09:00 | Oncology outpatient (recurring) (ONCR) | payer MEDICARE, SELFPAY ==
[2021-12-04 08:29] LABS: Basophils % 0.7 %; Eosinophils # 0.3 10^3/uL (0.0-0.8); Eosinophils % 10.9 %; Hematocrit 30.6 % (37.0-47.0); Hemoglobin 9.5 g/dL (11.5-15.3); Lymphocytes # 1.2 10^3/uL (0.8-4.8); Lymphocytes % 38.8 %; Mean Corpuscular Hemoglobin 23.6 pg (28.0-34.0); Mean Corpuscular Volume 76.1 fl (81-99); Mean Platelet Volume 9.9 fL (7.4-10.4); Monocytes # 0.4 10^3/uL (0.2-0.9); Monocytes % 11.8 %; Neutrophils # 1.06 10^3/uL (1.8-7.7); Neutrophils % 34.8 %; Nucleated Red Blood Cells % 0 %; Platelet Count 211 10^3/cmm (130-400); Red Blood Count 4.02 10^6/uL (4.1-5.3); Red Cell Distribution Width 15.5 % (12.1-15.1)
[2021-12-04 08:53] LABS: Alanine Aminotransferase 14 U/L (0-33); Albumin Level 3.8 g/dL (3.5-5.2); Alkaline Phosphatase 102 IU/L (35-105); Anion Gap 17.6 (5-19); Aspartate Amino Transferase 20 U/L (0-32); Blood Urea Nitrogen 19 mg/dL (8-23); Calcium 9.1 mg/dL (8.5-10.5); Carbon Dioxide 21 mmol/L (22-29); Chloride 105 mmol/L (98-107); Creatinine Clr Calc Pharmacy 60.7385; Globulin 3.2 g/dL (1.3-4.6); Glomerular Filtration Rate 71.3 mL/min (90-130); Glucose 110 mg/dL (65-115); Osmolality Calculated 293 mOsm/kg (285-295); Potassium 3.6 mmol/L (3.5-5.1); Sodium 140 mmol/L (136-145); Total Bilirubin 0.3 mg/dL (0.15-1.2)
[2021-12-04] MEDS: ondansetron 2 mg/ML SDV 2 mL 4 MG IVP (09:14)
[2021-12-04] MEDS: sodium chloride 0.9% 1,000 ML 500 ML IV (09:14)
[2021-12-04] MEDS: zoledronic acid 4 MG in sodium chloride 0.9% (100 ml) 100 ML 420 MG IV (09:19)
[2021-12-11 09:03] LABS: Basophils % 0.8 %; Eosinophils # 0.2 10^3/uL (0.0-0.8); Eosinophils % 3.6 %; Hematocrit 30.6 % (37.0-47.0); Hemoglobin 9.5 g/dL (11.5-15.3); Lymphocytes % 20.7 %; Mean Corpuscular Hemoglobin 23.9 pg (28.0-34.0); Mean Corpuscular Volume 76.9 fl (81-99); Mean Platelet Volume 9.6 fL (7.4-10.4); Monocytes # 0.4 10^3/uL (0.2-0.9); Monocytes % 7.8 %; Neutrophils # 3.12 10^3/uL (1.8-7.7); Neutrophils % 65.8 %; Nucleated Red Blood Cells % 0 %; Platelet Count 208 10^3/cmm (130-400); Red Blood Count 3.98 10^6/uL (4.1-5.3); Red Cell Distribution Width 16.4 % (12.1-15.1); White Blood Count 4.7 10^3/uL (4.0-10.0)
[2021-12-11 09:30] LABS: Alanine Aminotransferase 8 U/L (0-33); Albumin Level 3.5 g/dL (3.5-5.2); Alkaline Phosphatase 100 IU/L (35-105); Anion Gap 13.3 (5-19); Aspartate Amino Transferase 16 U/L (0-32); Blood Urea Nitrogen 12 mg/dL (8-23); Calcium 8.9 mg/dL (8.5-10.5); Carbon Dioxide 24 mmol/L (22-29); Chloride 104 mmol/L (98-107); Globulin 2.8 g/dL (1.3-4.6); Glomerular Filtration Rate 99.4 mL/min (90-130); Glucose 85 mg/dL (65-115); Osmolality Calculated 285 mOsm/kg (285-295); Potassium 3.3 mmol/L (3.5-5.1); Sodium 138 mmol/L (136-145); Total Bilirubin 0.3 mg/dL (0.15-1.2); Total Protein 6.3 g/dL (6.6-8.7)
[2021-12-11] MEDS: sodium chloride 0.9% 250 ML 75 ML IV (12:21)
[2021-12-11] MEDS: palonosetron 0.25 mg/5 mL SDV IVP (12:22)
[2021-12-11] MEDS: ondansetron 2 mg/ML SDV 2 mL 8 MG IVP (12:28)
[2021-12-11] MEDS: sodium chloride 0.9% 1,000 ML 75 ML IV (12:32)
[2021-12-11] MEDS: fosaprepitant 150 MG in sodium chloride 0.9% 150 ML 300 MG IV (12:46)
[2021-12-18 08:33] LABS: Eosinophils # 0.1 10^3/uL (0.0-0.8); Eosinophils % 4.2 %; Hematocrit 29.9 % (37.0-47.0); Hemoglobin 9.4 g/dL (11.5-15.3); Lymphocytes # 0.8 10^3/uL (0.8-4.8); Lymphocytes % 26.7 %; Mean Corpuscular HGB Conc 31.4 g/dL (30.0-36.0); Mean Corpuscular Hemoglobin 24.2 pg (28.0-34.0); Mean Corpuscular Volume 76.9 fl (81-99); Mean Platelet Volume 9.6 fL (7.4-10.4); Monocytes # 0.1 10^3/uL (0.2-0.9); Monocytes % 4.2 %; Neutrophils # 1.81 10^3/uL (1.8-7.7); Neutrophils % 62.9 %; Nucleated Red Blood Cells % 0 %; Platelet Count 254 10^3/cmm (130-400); Red Blood Count 3.89 10^6/uL (4.1-5.3); Red Cell Distribution Width 16.6 % (12.1-15.1); White Blood Count 2.9 10^3/uL (4.0-10.0)
[2021-12-18] MEDS: ondansetron 2 mg/ML SDV 2 mL 8 MG IVP (09:46)
[2021-12-18] MEDS: sodium chloride 0.9% 250 ML 75 ML IV (09:46)
[2021-12-18] MEDS: palonosetron 0.25 mg/5 mL SDV IVP (09:56)
[2021-12-18 11:05] VITALS: BP 143/83; PULSE 78; TEMP 36.1; O2SAT 99
[2021-12-25 09:11] LABS: Basophils % 1.3 %; Eosinophils # 0.1 10^3/uL (0.0-0.8); Eosinophils % 4.3 %; Hematocrit 28.6 % (37.0-47.0); Hemoglobin 9.1 g/dL (11.5-15.3); Lymphocytes # 0.9 10^3/uL (0.8-4.8); Lymphocytes % 37.8 %; Mean Corpuscular HGB Conc 31.8 g/dL (30.0-36.0); Mean Corpuscular Hemoglobin 24.4 pg (28.0-34.0); Mean Corpuscular Volume 76.7 fl (81-99); Mean Platelet Volume 9.5 fL (7.4-10.4); Monocytes # 0.2 10^3/uL (0.2-0.9); Monocytes % 7.8 %; Neutrophils # 0.99 10^3/uL (1.8-7.7); Neutrophils % 43.1 %; Nucleated Red Blood Cells % 0 %; Platelet Count 246 10^3/cmm (130-400); Red Blood Count 3.73 10^6/uL (4.1-5.3); Red Cell Distribution Width 16.5 % (12.1-15.1); White Blood Count 2.3 10^3/uL (4.0-10.0)
[2021-12-25 09:22] LABS: Alanine Aminotransferase 11 U/L (0-33); Albumin Level 3.6 g/dL (3.5-5.2); Alkaline Phosphatase 80 IU/L (35-105); Anion Gap 15.7 (5-19); Aspartate Amino Transferase 17 U/L (0-32); Blood Urea Nitrogen 7 mg/dL (8-23); Calcium 8.4 mg/dL (8.5-10.5); Carbon Dioxide 22 mmol/L (22-29); Chloride 107 mmol/L (98-107); Globulin 2.9 g/dL (1.3-4.6); Glomerular Filtration Rate 83.2 mL/min (90-130); Glucose 89 mg/dL (65-115); Osmolality Calculated 289 mOsm/kg (285-295); Potassium 3.7 mmol/L (3.5-5.1); Sodium 141 mmol/L (136-145); Total Bilirubin 0.3 mg/dL (0.15-1.2); Total Protein 6.5 g/dL (6.6-8.7)
[2021-12-25 09:49] LABS: Slide Review Slide Review Perform
[2021-12-31 09:34] LABS: Basophils % 0.8 %; Eosinophils # 0.1 10^3/uL (0.0-0.8); Eosinophils % 1.6 %; Hematocrit 28.6 % (37.0-47.0); Hemoglobin 9.1 g/dL (11.5-15.3); Lymphocytes % 20.4 %; Mean Corpuscular HGB Conc 31.8 g/dL (30.0-36.0); Mean Corpuscular Hemoglobin 24.1 pg (28.0-34.0); Mean Corpuscular Volume 75.7 fl (81-99); Mean Platelet Volume 9.2 fL (7.4-10.4); Monocytes # 0.5 10^3/uL (0.2-0.9); Monocytes % 10.6 %; Neutrophils # 2.93 10^3/uL (1.8-7.7); Neutrophils % 60.1 %; Nucleated Red Blood Cells % 0.4 %; Platelet Count 262 10^3/cmm (130-400); Red Blood Count 3.78 10^6/uL (4.1-5.3); Red Cell Distribution Width 17.6 % (12.1-15.1); White Blood Count 4.9 10^3/uL (4.0-10.0)
[2021-12-31 09:39] VITALS: BMI 29.2
[2021-12-31 10:03] LABS: Alanine Aminotransferase 8 U/L (0-33); Albumin Level 3.7 g/dL (3.5-5.2); Alkaline Phosphatase 100 IU/L (35-105); Anion Gap 16.3 (5-19); Aspartate Amino Transferase 16 U/L (0-32); Blood Urea Nitrogen 6 mg/dL (8-23); Carbon Dioxide 24 mmol/L (22-29); Chloride 105 mmol/L (98-107); Globulin 2.8 g/dL (1.3-4.6); Glomerular Filtration Rate 99.4 mL/min (90-130); Glucose 90 mg/dL (65-115); Osmolality Calculated 291 mOsm/kg (285-295); Potassium 3.3 mmol/L (3.5-5.1); Sodium 142 mmol/L (136-145); Total Bilirubin 0.4 mg/dL (0.15-1.2); Total Protein 6.5 g/dL (6.6-8.7)
[2021-12-31 10:29] LABS: Slide Review Slide Review Perform
[2021-12-31] MEDS: sodium chloride 0.9% 250 ML 75 ML IV (11:19)
[2021-12-31] MEDS: ondansetron 2 mg/ML SDV 2 mL 8 MG IVP (11:20)
[2021-12-31] MEDS: palonosetron 0.25 mg/5 mL SDV IVP (11:20)
[2021-12-31 13:19] VITALS: BP 133/76; PULSE 82; RESP 16; TEMP 36.2; O2SAT 98
== END 2022-01-01 23:59 | disposition home or self-care (01) ==
PROVIDERS: Nurse Practitioner Family; PCP Nurse Practitioner Family; Visit Provider Internal Medicine Medical Oncology
DX: Z51.11 Encounter for antineoplastic chemotherapy (principal); C50.812 Malignant neoplasm of overlapping sites of left female breast; Z17.0 Estrogen receptor positive status [ER+]; C79.51 Secondary malignant neoplasm of bone; Z90.12 Acquired absence of left breast and nipple
CPT/HCPCS: 36591; 80053; 85025; 96365; 96367; 96375; 96413; 99214; J1100; J1453; J2405; J2469; J3489; J7030; J7050; J9264

== ENCOUNTER 2022-01-29 11:00 | Oncology outpatient (recurring) (ONCR) | payer MEDICARE, SELFPAY ==
[2022-01-08 09:46] VITALS: BMI 28.3
[2022-01-08 10:00] LABS: Basophils % 1.1 %; Eosinophils # 0.1 10^3/uL (0.0-0.8); Eosinophils % 2.7 %; Hematocrit 30.4 % (37.0-47.0); Hemoglobin 9.2 g/dL (11.5-15.3); Lymphocytes % 26.5 %; Mean Corpuscular HGB Conc 30.3 g/dL (30.0-36.0); Mean Corpuscular Hemoglobin 24.3 pg (28.0-34.0); Mean Corpuscular Volume 80.4 fl (81-99); Mean Platelet Volume 9.9 fL (7.4-10.4); Monocytes # 0.3 10^3/uL (0.2-0.9); Monocytes % 7.2 %; Neutrophils # 2.21 10^3/uL (1.8-7.7); Neutrophils % 59.3 %; Nucleated Red Blood Cells % 0.5 %; Platelet Count 300 10^3/cmm (130-400); Red Blood Count 3.78 10^6/uL (4.1-5.3); Red Cell Distribution Width 17.3 % (12.1-15.1); White Blood Count 3.7 10^3/uL (4.0-10.0)
[2022-01-08 10:16] LABS: Alanine Aminotransferase 9 U/L (0-33); Albumin Level 3.8 g/dL (3.5-5.2); Alkaline Phosphatase 76 IU/L (35-105); Anion Gap 16.3 (5-19); Aspartate Amino Transferase 23 U/L (0-32); Blood Urea Nitrogen 11 mg/dL (8-23); Calcium 9.4 mg/dL (8.5-10.5); Carbon Dioxide 23 mmol/L (22-29); Chloride 107 mmol/L (98-107); Globulin 2.8 g/dL (1.3-4.6); Glomerular Filtration Rate 99.4 mL/min (90-130); Glucose 97 mg/dL (65-115); Osmolality Calculated 295 mOsm/kg (285-295); Potassium 3.3 mmol/L (3.5-5.1); Sodium 143 mmol/L (136-145); Total Bilirubin 0.3 mg/dL (0.15-1.2); Total Protein 6.6 g/dL (6.6-8.7)
[2022-01-08 12:18] LABS: CA 15-3 > 300.0 U/mL (0-25)
[2022-01-15 08:26] VITALS: BMI 29.2
[2022-01-15 08:32] LABS: Basophils % 0.8 %; Eosinophils # 0.3 10^3/uL (0.0-0.8); Eosinophils % 7.1 %; Hematocrit 30.7 % (37.0-47.0); Lymphocytes % 25.9 %; Mean Corpuscular HGB Conc 29.3 g/dL (30.0-36.0); Mean Corpuscular Hemoglobin 24.3 pg (28.0-34.0); Mean Corpuscular Volume 82.7 fl (81-99); Mean Platelet Volume 9.6 fL (7.4-10.4); Monocytes # 0.4 10^3/uL (0.2-0.9); Monocytes % 10.4 %; Neutrophils # 1.99 10^3/uL (1.8-7.7); Neutrophils % 54.2 %; Nucleated Red Blood Cells % 0 %; Platelet Count 209 10^3/cmm (130-400); Red Blood Count 3.71 10^6/uL (4.1-5.3); Red Cell Distribution Width 18.2 % (12.1-15.1); White Blood Count 3.7 10^3/uL (4.0-10.0)
[2022-01-15 08:51] LABS: Alanine Aminotransferase < 5 U/L (0-33); Albumin Level 3.5 g/dL (3.5-5.2); Alkaline Phosphatase 85 IU/L (35-105); Anion Gap 15.2 (5-19); Aspartate Amino Transferase 13 U/L (0-32); Blood Urea Nitrogen 10 mg/dL (8-23); Calcium 8.6 mg/dL (8.5-10.5); Carbon Dioxide 24 mmol/L (22-29); Chloride 108 mmol/L (98-107); Globulin 2.5 g/dL (1.3-4.6); Glomerular Filtration Rate 83.2 mL/min (90-130); Glucose 101 mg/dL (65-115); Osmolality Calculated 295 mOsm/kg (285-295); Potassium 4.2 mmol/L (3.5-5.1); Sodium 143 mmol/L (136-145); Total Bilirubin 0.4 mg/dL (0.15-1.2)
[2022-01-15] MEDS: sodium chloride 0.9% 250 ML 75 ML IV (09:49)
[2022-01-15] MEDS: ondansetron 2 mg/ML SDV 2 mL 8 MG IVP (09:55)
[2022-01-15] MEDS: fosaprepitant 150 MG in sodium chloride 0.9% 150 ML 300 MG IV (10:06)
[2022-01-15] MEDS: paclitaxel protein-bound 180 MG in empty flexible container 1 EACH 72 MG IV (11:16)
[2022-01-15 12:18] VITALS: BP 170/84; PULSE 78; RESP 18; TEMP 35.9; O2SAT 98
[2022-01-22 08:18] VITALS: BMI 28.7
[2022-01-22 08:38] LABS: Eosinophils # 0.1 10^3/uL (0.0-0.8); Hematocrit 28.6 % (37.0-47.0); Hemoglobin 8.8 g/dL (11.5-15.3); Lymphocytes # 0.8 10^3/uL (0.8-4.8); Lymphocytes % 18.8 %; Mean Corpuscular HGB Conc 30.8 g/dL (30.0-36.0); Mean Corpuscular Volume 77.9 fl (81-99); Monocytes # 0.2 10^3/uL (0.2-0.9); Monocytes % 4.8 %; Neutrophils # 2.87 10^3/uL (1.8-7.7); Neutrophils % 71.9 %; Nucleated Red Blood Cells % 0 %; Platelet Count 241 10^3/cmm (130-400); Red Blood Count 3.67 10^6/uL (4.1-5.3); Red Cell Distribution Width 17.3 % (12.1-15.1)
[2022-01-22 09:14] LABS: Alanine Aminotransferase 14 U/L (0-33); Albumin Level 3.7 g/dL (3.5-5.2); Alkaline Phosphatase 83 IU/L (35-105); Anion Gap 14.8 (5-19); Aspartate Amino Transferase 16 U/L (0-32); Blood Urea Nitrogen 13 mg/dL (8-23); Calcium 9.1 mg/dL (8.5-10.5); Carbon Dioxide 24 mmol/L (22-29); Chloride 106 mmol/L (98-107); Globulin 2.4 g/dL (1.3-4.6); Glomerular Filtration Rate 99.4 mL/min (90-130); Glucose 120 mg/dL (65-115); Osmolality Calculated 293 mOsm/kg (285-295); Potassium 3.8 mmol/L (3.5-5.1); Sodium 141 mmol/L (136-145); Total Bilirubin 0.3 mg/dL (0.15-1.2); Total Protein 6.1 g/dL (6.6-8.7)
--- NOTE | 2022-01-22 10:04 | XR_ITS ---
WS: [id number] XR hip LT 2-3V wo/w pel* [id number] REASON FOR EXAM: Left hip pain FINDINGS: No fracture. Large area of ill-defined sclerosis and lucency in the superior aspect of the left sacral wing. CT sc an 04/07/2020 demonstrated a large destructive neoplastic lesion in this region. Similar appearing lesion in the right iliac wing. Additional lesion in the left superior pubic ramus and left pubic bone. Destructive lesions are identified in these regions on the examination of 020. No definite bone lesion within the femoral head, femoral neck, or proximal femur. There is soft tissue ossification adjacent to the proximal right femur laterally which is progressive compared to examination of 04/07/2020. Multiple traction enthesophytes from the greater trochanter. Mild narrowing of the hip joint with sub chondral sclerosis and small osteophytosis of the acetabulum. XR/XR hip LT 2-3V wo/w pel* [id number] IMPRESSION: The bone lesions described above are presumably bony metastatic disease with so me response to treatment. Superior pubic ramus lesion likely extends to the acetabulum. Degenerative changes in the hip joint and greater trochanter.
[2022-01-22] MEDS: sodium chloride 0.9% 250 ML 100 ML IV (10:50)
[2022-01-22] MEDS: palonosetron 0.25 mg/5 mL SDV IVP (10:51)
[2022-01-22] MEDS: ondansetron 2 mg/ML SDV 2 mL 8 MG IVP (10:53)
[2022-01-22] MEDS: fosaprepitant 150 MG in sodium chloride 0.9% 150 ML 300 MG IV (11:38)
[2022-01-22] MEDS: paclitaxel protein-bound 180 MG in empty flexible container 1 EACH 72 MG IV (12:12)
[2022-01-22 12:55] VITALS: BP 144/70; PULSE 95; RESP 18; TEMP 36.1; O2SAT 99
--- NOTE | 2022-01-29 | CT_ITS ---
Radiation Therapy Planning CT images; total exam DLP: 1179.92 mGy-cm MTDD
--- NOTE | 2022-01-29 11:08 | N.ONRAD NP_ITS ---
Radiation Oncology New Patient Visit Patient: Dacia Way MR#: [id number] : 1955> Age: 66> Sex: Female> Dictated by: Dr. 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 Radiotherapy to date: Summary > 05/14-05/28/2020, SI joints and left anterior superior iliac spine, 30 Bower in 10 fractions. Chief Complaint / History of Present Illness: Ms. Way is a 66-year-old lady with metastatic breast cancer. She is currently on systemic therapy and from a performance status standpoint is doing remarkably well. She carries out most of her household duties, just requiring assistance occasionally. She is completely ambulatory without assistance. On bad days she may use a cane. She has had previous palliative radiation to the SI joints and the left anterior superior iliac spine. This treatment was delivered at [facility] in May 2020. She had a good result with resolution of the pain in the area. Recently she has been experiencing left hip pain. She points to the greater trochanter area and the hip joint when localizing her area of discomfort. It does not affect her activity during the day all that much but it bothers her significantly at night and she has to take morphine at bedtime to rest well. A left hip film performed 01/22/2022 shows sclerosis and lucency in the left sacral wing where she previously had radiation. This area is stable. He has sclerosis and possibly a pathologic fracture in the left superior pubic ramus. There is no bone displacement. Ms. Way is referred for evaluation and possible palliative radiation to the left hip. Current Medications: Alendronate Sodium, exemestane, farxiga, faslodex, femara, first-Mouthwash BLM, hydrocodone-Acetaminophen, ibrance, klor-Con Sprinkle, lansoprazole, metFORMIN HCl, metFORMIN HCl, morphine Sulfate, ondansetron, ondansetron HCl, ondansetron HCl, pantoprazole Sodium, pantoprazole Sodium, priLOSEC OTC, prochlorperazine Maleate, prochlorperazine Maleate, sulfamethoxazole-Trimethoprim, trulicity, zithromax Z-Amilcar. Allergies: No Known Allergies Medical History: COVID-19 in 06/2020, diabetes type II, history of breast cancer, hyperlipidemia. No history of collagen vascular disease. No previous radiation therapy. Surgical History: Appendectomy in 1960, cholecystectomy in 09/2018, covid vaccine #1 moderna in 01/2021, covid vaccine #2 modrna in 02/2021, left mastectomy in 1999 and left thoracoscopy with wedge biopsy of left lower lobe containing pulmonary nodule on 12/14/2016. Family History: Father is at age 64 having experienced coronary artery disease, and suicide. Mother is at age 79 having experienced coronary artery disease, and breast cancer, and diabetes. Brother is alive. Brother is having experienced coronary artery disease, and diabetes. Sister is alive. Sister is having experienced coronary artery disease. Sister is having experienced diabetes. Father had heart disease and of suicide. Her mother had diabetes and heart disease. She also had been treated for breast cancer. One brother and 2 sisters also with heart disease and diabetes. Social History: Last screened on 09/10/2021 - Yes - but has quit. Smoked 1.0 pack/day for 41 years (41 pack years). Last screened on 09/10/2021 - Never drank. Patient indicated access to the following support systems: lives with spouse, significant other, family, or friends, lives in own house, supportive family/friends willing to assist with needs, and adequate transportation available for expected visits. Patient indicated the following nutritional habits: regular meals. Patient indicated participation in the following forms of activity: daily activities. Current Complaints / Review of Systems: . Vital Signs: Performed on 01/29/2022 10:00 AM BMI - 27.801 kg/m2 (high), Height - 62 in, Weight - 152 lbs, Temperature - 96.6 f, Pulse - 79 /min, Respiration - 18 /min, O2 Sat - 100 %, Pain - 0, Fatigue - 0 and BP - 135/ 74 mm(hg). Physical Exam: General: alert, oriented, no acute distress. She is slightly pale and has alopecia from systemic therapy. Neck: Supple. No masses. No tenderness. No cervical or supraclavicular lymphadenopathy. Lungs: Clear to percussion. On auscultation no rales, rhonchi, or wheezes. Heart: Regular rhythm. No murmur, gallop, or rub. Musculoskeletal normal gait. No difficulty getting on the exam table. No tenderness of the spine, ribs, shoulders or elsewhere in the upper body. No tenderness of the right hip on palpation or rotational movements. On the left she has tenderness on palpation over the greater trochanter trochanter and the left hip joint. There is no significant discomfort with rotational movements of the hip. Pain was elicited when she tried to elevate the left leg against resistance placed over the lower thigh. This reproduced the pain she experiences at night. The pain was in the hip joint. Performance Status: ECOG 0 Pathology: Primary, c79.51 - secondary malignant neoplasm of bone, Diagnosed 04/08/2020 (active), Primary, c50.912 - malignant neoplasm of unspecified site of left female breast, Diagnosed 03/26/2017 (active) stage iv, tx, nx, m1, gx, Primary, c78.02 - secondary malignant neoplasm of left lung, Diagnosed 03/26/2017 (active) and Primary, c34.32 - malignant neoplasm of lower lobe, left bronchus or lung, Diagnosed 12/30/2016 (active). Lab: Test performed on 09/10/2021 9:22 AM CA 15-3 - 1072.0 u/ml (high), Test performed on 12/25/2021 8:50 AM WBC - 2.3 10 3/ul (low), RBC - 3.73 10 6/ul (low), HGB - 9.1 g/dl (low), HCT - 28.6 % (low), MCV - 76.7 fl (low), MCH - 24.4 pg (low), RDW - 16.5 % (high), Neutrophils - 0.99 10 3/ul (low), BUN - 7 mg/dl (low), eGFR - 83.2 ml/min (low), Calcium - 8.4 mg/dl (low) and Protein, Total - 6.5 g/dl (low). Imaging: See HPI I reviewed the left hip plain films. The superior left pubic ramus has significant sclerotic changes consistent with metastatic disease. This area of metastasis probably extends into the acetabulum. Impression: Symptomatic bone metastasis involving the left hip area. It has a significant impact on the patient's quality of life because she has to take narcotics to sleep at night. Although it is not limiting her daily activities at this point, it is becoming more constant and may begin to limit her activity in the near future. I feel that she needs radiation for palliation of the pain and to try to avoid a debilitating pathologic fracture. She wishes to proceed with treatment. I discussed that she may have some bowel or bladder symptoms but they should be self-limited and there should be no risk of major injury. She will need 3D planning because of the proximity to her previously treated field. Plan: Simulation performed. Signed by: 01/29/2022 11:07:05 AM <<Signature on File>> Time spent with patient: CPT Code: CPT Code:
[2022-01-29 11:29] LABS: Basophils % 0.8 %; Eosinophils # 0.1 10^3/uL (0.0-0.8); Eosinophils % 3.3 %; Hematocrit 28.7 % (37.0-47.0); Hemoglobin 8.7 g/dL (11.5-15.3); Lymphocytes # 0.8 10^3/uL (0.8-4.8); Lymphocytes % 35.1 %; Mean Corpuscular HGB Conc 30.3 g/dL (30.0-36.0); Mean Corpuscular Hemoglobin 24.6 pg (28.0-34.0); Mean Corpuscular Volume 81.1 fl (81-99); Mean Platelet Volume 10.2 fL (7.4-10.4); Monocytes # 0.2 10^3/uL (0.2-0.9); Monocytes % 8.4 %; Neutrophils # 1.13 10^3/uL (1.8-7.7); Neutrophils % 47.4 %; Nucleated Red Blood Cells % 0 %; Platelet Count 248 10^3/cmm (130-400); Red Blood Count 3.54 10^6/uL (4.1-5.3); White Blood Count 2.4 10^3/uL (4.0-10.0)
[2022-01-29 11:41] LABS: Alanine Aminotransferase 11 U/L (0-33); Albumin Level 3.8 g/dL (3.5-5.2); Alkaline Phosphatase 75 IU/L (35-105); Anion Gap 14.9 (5-19); Aspartate Amino Transferase 16 U/L (0-32); Blood Urea Nitrogen 9 mg/dL (8-23); Calcium 8.6 mg/dL (8.5-10.5); Carbon Dioxide 23 mmol/L (22-29); Chloride 107 mmol/L (98-107); Globulin 2.3 g/dL (1.3-4.6); Glomerular Filtration Rate 122.7 mL/min (90-130); Glucose 76 mg/dL (65-115); Osmolality Calculated 289 mOsm/kg (285-295); Potassium 3.9 mmol/L (3.5-5.1); Sodium 141 mmol/L (136-145); Total Bilirubin 0.3 mg/dL (0.15-1.2); Total Protein 6.1 g/dL (6.6-8.7)
== END 2022-02-01 23:59 | disposition home or self-care (01) ==
PROVIDERS: Nurse Practitioner Family; PCP Nurse Practitioner Family; Visit Provider Internal Medicine Medical Oncology
DX: Z51.0 Encounter for antineoplastic radiation therapy; C50.812 Malignant neoplasm of overlapping sites of left female breast; Z17.0 Estrogen receptor positive status [ER+]; C79.51 Secondary malignant neoplasm of bone; C78.02 Secondary malignant neoplasm of left lung; E11.9 Type 2 diabetes mellitus without complications; Z79.4 Long term (current) use of insulin; E78.5 Hyperlipidemia, unspecified; Z86.16 Personal history of COVID-19; Z90.12 Acquired absence of left breast and nipple; Z79.818 Long term (current) use of other agents affecting estrogen receptors and estrogen levels; Z79.899 Other long term (current) drug therapy
CPT/HCPCS: 36591; 73502; 77290; 77295; 77300; 77334; 77470; 80053; 85025; 86300; 96367; 96375; 96413; 99214; 99215; J1100; J1453; J2405; J2469; J7050; J9264

== ENCOUNTER 2022-02-26 10:00 | Oncology outpatient (recurring) (ONCR) | payer MEDICARE, SELFPAY ==
--- NOTE | 2022-02-03 11:56 | ONCRAD TMN_ITS ---
Radiation Oncology Treatment Management Note Patient Name: Dacia Way Date of : 1955 Date of Service: 02/03/2022 Attending Physician: Dinesh Vizcarra M.D. Dacia Way is a 66 year-old white female diagnosed with metastatic breast cancer. The patient has received 6 Gy of a prescribed 30 Bower to the left hip with a 3-dimensional conformal radiotherapy plan utilizing STEWART/BULGARIAN and PA treatment chappell. Upon review of systems, she reported improvement in the hip pain. On physical examination, the patient weighed 152 lbs. Her temperature was 96.9 ???F and the blood pressure was 156/85 mmHg. Her pulse was 90 bpm and the respiratory rate was 17. Continue palliative radiotherapy as prescribed. Signed by: Dr. Dinesh Vizcarra 02/03/2022 11:55:48 AM
--- NOTE | 2022-02-10 10:31 | ONCRAD TMN_ITS ---
Radiation Oncology Treatment Management Note Patient Name: Dacia Way Date of : 1955 Date of Service: 02/09/2022 Attending Physician: Dinesh Vizcarra M.D. Dacia Way is a 66 year-old white female diagnosed with metastatic breast cancer. The patient has received 18 Gy of a prescribed 30 Bower to the left hip with a 3-dimensional conformal radiotherapy plan utilizing STEWART/JOANNE and PA treatment chappell. Upon review of systems, she continued to describe improvement in the hip pain. On physical examination, the patient weighed 149 lbs. Her temperature was 96.9 ???F and the blood pressure was 119/77 mmHg. Her pulse was 93 bpm and the respiratory rate was 18. Continue palliative radiotherapy as planned. Signed by: Dr. Dinesh Vizcarra 02/10/2022 10:30:17 AM
[2022-02-12 09:56] VITALS: BMI 28.2
[2022-02-12 10:10] LABS: Basophils % 0.5 %; Eosinophils # 0.1 10^3/uL (0.0-0.8); Eosinophils % 1.8 %; Hematocrit 30.3 % (37.0-47.0); Hemoglobin 9.2 g/dL (11.5-15.3); Lymphocytes # 0.8 10^3/uL (0.8-4.8); Lymphocytes % 14.5 %; Mean Corpuscular HGB Conc 30.4 g/dL (30.0-36.0); Mean Corpuscular Hemoglobin 24.8 pg (28.0-34.0); Mean Corpuscular Volume 81.7 fl (81-99); Mean Platelet Volume 9.6 fL (7.4-10.4); Monocytes # 0.3 10^3/uL (0.2-0.9); Monocytes % 5.8 %; Neutrophils # 4.31 10^3/uL (1.8-7.7); Neutrophils % 76.3 %; Nucleated Red Blood Cells % 0 %; Platelet Count 203 10^3/cmm (130-400); Red Blood Count 3.71 10^6/uL (4.1-5.3); Red Cell Distribution Width 18.4 % (12.1-15.1); White Blood Count 5.7 10^3/uL (4.0-10.0)
[2022-02-12 10:39] LABS: Alanine Aminotransferase < 5 U/L (0-33); Albumin Level 3.8 g/dL (3.5-5.2); Alkaline Phosphatase 81 IU/L (35-105); Anion Gap 16.1 (5-19); Aspartate Amino Transferase 15 U/L (0-32); Blood Urea Nitrogen 12 mg/dL (8-23); Calcium 9.1 mg/dL (8.5-10.5); Carbon Dioxide 23 mmol/L (22-29); Chloride 109 mmol/L (98-107); Globulin 2.5 g/dL (1.3-4.6); Glomerular Filtration Rate 122.7 mL/min (90-130); Glucose 117 mg/dL (65-115); Osmolality Calculated 299 mOsm/kg (285-295); Potassium 4.1 mmol/L (3.5-5.1); Sodium 144 mmol/L (136-145); Total Bilirubin 0.4 mg/dL (0.15-1.2); Total Protein 6.3 g/dL (6.6-8.7)
[2022-02-12] MEDS: sodium chloride 0.9% 250 ML 75 ML IV (12:09)
[2022-02-12] MEDS: ondansetron 2 mg/ML SDV 2 mL 8 MG IVP (12:11)
[2022-02-12] MEDS: paclitaxel protein-bound 170 MG in empty flexible container 1 EACH 68 MG IV (12:39)
[2022-02-12 13:36] VITALS: BP 131/77; PULSE 94; RESP 18; TEMP 35.9; O2SAT 98
--- NOTE | 2022-02-13 11:49 | N.ONRD TS_ITS ---
Radiation OncologyTreatment Summary Patient Name: Dacia Way Date of : 1955 Date of Service: 02/13/2022 Attending Physician: Dinesh Vizcarra M.D. Dacia Way has completed palliative radiotherapy for the management of metastatic breast cancer. Daily radiotherapy was administered between the dates of February 02, 2022 through February 13, 2022. A prescribed dose of 30 Gy was delivered in 10 fractions encompassing 12 elapsed days. The left hip was treated utilizing a 3-dimensional conformal radiotherapy plan with 3-field design. The JOANNE field utilized a 40??? gantry angle with a collimator angle of 270???. The field size measured 7.4 cm x 6.9 cm within the X-direction and 12.2 cm x 8.7 cm within the Y-direction. The SSD measured was 89.6 cm with the field delivering 79 monitor units. The STEWART port employed a gantry angle of 320??? and a collimator angle of 270???. The field size was 8.1 cm x 7.7 cm within X-direction and 7.2 cm x 7.2 cm within the Y-direction. The measured SSD was 84.5 cm with the field allocating 97 monitor units. The PA port was designed with a gantry angle of 180??? with an associated collimator angle of 270???. The field size spanned 7.3 cm x 6.8 cm within the X-direction and 9.2 cm x 9.2 cm within the Y-direction. The SSD was 89.5 cm and the field administered 159 monitor units. Photon energies of 15 MV were prescribed with the plan normalized to deliver 100% of the prescription dose to 95% of the planning target volume. All treatments were performed with the HeyAnita linear accelerator and an isocentric technique. The dose was calculated by Anisotropic Analytic Algorithm. The plan was designed and approved by the [facility] physician. Signed by: Dr. Dinesh Vizcarra 02/13/2022 11:47:37 AM
[2022-02-16 13:32] VITALS: BP 107/72; PULSE 111; RESP 16; TEMP 35.7; O2SAT 98
[2022-02-16] MEDS: sodium chloride 0.9% 1,000 ML 999 ML IV (13:50)
[2022-02-17] MEDS: sodium chloride 0.9% 500 ML 999 ML IV (13:45)
[2022-02-17 13:47] LABS: Eosinophils # 0.1 10^3/uL (0.0-0.8); Eosinophils % 3.5 %; Hematocrit 30.6 % (37.0-47.0); Hemoglobin 9.2 g/dL (11.5-15.3); Lymphocytes # 0.5 10^3/uL (0.8-4.8); Lymphocytes % 13.4 %; Mean Corpuscular HGB Conc 30.1 g/dL (30.0-36.0); Mean Corpuscular Hemoglobin 24.9 pg (28.0-34.0); Mean Corpuscular Volume 82.9 fl (81-99); Mean Platelet Volume 9.1 fL (7.4-10.4); Monocytes # 0.1 10^3/uL (0.2-0.9); Monocytes % 2.5 %; Neutrophils # 3.12 10^3/uL (1.8-7.7); Neutrophils % 79.1 %; Nucleated Red Blood Cells % 0 %; Platelet Count 186 10^3/cmm (130-400); Red Blood Count 3.69 10^6/uL (4.1-5.3); Red Cell Distribution Width 17.3 % (12.1-15.1)
[2022-02-17 14:10] LABS: Alanine Aminotransferase 11 U/L (0-33); Albumin Level 3.6 g/dL (3.5-5.2); Alkaline Phosphatase 76 U/L (35-105); Anion Gap 14.7 (5-19); Aspartate Amino Transferase 18 U/L (0-32); Blood Urea Nitrogen 16 mg/dL (8-23); Carbon Dioxide 22 mmol/L (22-29); Chloride 108 mmol/L (98-107); Globulin 2.8 g/dL (1.3-4.6); Glomerular Filtration Rate 71.3 mL/min (90-130); Glucose 136 mg/dL (65-115); Osmolality Calculated 295 mOsm/kg (285-295); Potassium 3.7 mmol/L (3.5-5.1); Sodium 141 mmol/L (136-145); Total Bilirubin 0.6 mg/dL (0.15-1.2); Total Protein 6.4 g/dL (6.6-8.7)
--- NOTE | 2022-02-18 09:49 | PC.NURSE ---
patients sister called with the request of the lab work yesterday which was reviewed and instructed. She did state she was feeling better with no diarrhea since yesterday early and had something to eat last night. She was instructed to keep drinking fluids and if any other changes with diarrhea or nausea to call again.deejay
[2022-02-26 10:37] LABS: Basophils % 0.6 %; Eosinophils # 0.1 10^3/uL (0.0-0.8); Eosinophils % 4.1 %; Hematocrit 29.6 % (37.0-47.0); Hemoglobin 9.2 g/dL (11.5-15.3); Lymphocytes # 0.7 10^3/uL (0.8-4.8); Lymphocytes % 18.9 %; Mean Corpuscular HGB Conc 31.1 g/dL (30.0-36.0); Mean Corpuscular Hemoglobin 25.1 pg (28.0-34.0); Mean Corpuscular Volume 80.7 fl (81-99); Mean Platelet Volume 9.1 fL (7.4-10.4); Monocytes # 0.4 10^3/uL (0.2-0.9); Neutrophils % 63.9 %; Nucleated Red Blood Cells % 0 %; Platelet Count 160 10^3/cmm (130-400); Red Blood Count 3.67 10^6/uL (4.1-5.3); Red Cell Distribution Width 17.4 % (12.1-15.1); White Blood Count 3.4 10^3/uL (4.0-10.0)
[2022-02-26 10:55] LABS: Alanine Aminotransferase 7 U/L (0-33); Albumin Level 3.3 g/dL (3.5-5.2); Alkaline Phosphatase 80 U/L (35-105); Anion Gap 15.2 (5-19); Aspartate Amino Transferase 15 U/L (0-32); Blood Urea Nitrogen 5 mg/dL (8-23); Calcium 8.6 mg/dL (8.5-10.5); Carbon Dioxide 25 mmol/L (22-29); Chloride 107 mmol/L (98-107); Globulin 2.3 g/dL (1.3-4.6); Glomerular Filtration Rate 99.4 mL/min (90-130); Glucose 84 mg/dL (65-115); Osmolality Calculated 294 mOsm/kg (285-295); Potassium 3.2 mmol/L (3.5-5.1); Sodium 144 mmol/L (136-145); Total Bilirubin 0.5 mg/dL (0.15-1.2); Total Protein 5.6 g/dL (6.6-8.7)
[2022-02-26] MEDS: sodium chloride 0.9% 1,000 ML 999 ML IV (11:54)
== END 2022-03-04 23:59 | disposition home or self-care (01) ==
PROVIDERS: Internal Medicine Medical Oncology; Nurse Practitioner Family; PCP Nurse Practitioner Family; Visit Provider Radiology Radiation Oncology
DX: C79.51 Secondary malignant neoplasm of bone (principal); Z85.3 Personal history of malignant neoplasm of breast; D70.1 Agranulocytosis secondary to cancer chemotherapy; T45.1X5A Adverse effect of antineoplastic and immunosuppressive drugs, initial encounter; R19.7 Diarrhea, unspecified; E87.6 Hypokalemia; Z90.12 Acquired absence of left breast and nipple; Z79.899 Other long term (current) drug therapy
CPT/HCPCS: 77336; 77387; 77412; 80053; 85025; 86300; 96365; 96367; 96375; 96413; 99214; 99215; J1100; J2405; J7030; J7040; J7050; J9264

== ENCOUNTER → 2022-03-23 09:56 | Outpatient (BNVA) | payer MEDICARE, SELFPAY | PROVIDERS: PCP Nurse Practitioner Family; Visit Provider Nurse Practitioner | DX: C50.812 Malignant neoplasm of overlapping sites of left female breast (principal); Z17.0 Estrogen receptor positive status [ER+]; C79.51 Secondary malignant neoplasm of bone | CPT/HCPCS: 99215 ==

== ENCOUNTER 2022-03-26 15:42 | Outpatient (CLI) | payer MEDICARE, SELFPAY ==
[2022-03-26 17:28] LABS: Anion Gap 15.2 (5-19); Blood Urea Nitrogen 7 mg/dL (8-23); Carbon Dioxide 29 mmol/L (22-29); Chloride 101 mmol/L (98-107); Glomerular Filtration Rate 99.4 mL/min (90-130); Glucose 101 mg/dL (65-115); Magnesium 1.3 mg/dL (1.7-2.3); Osmolality Calculated 292 mOsm/kg (285-295); Potassium 3.2 mmol/L (3.5-5.1); Sodium 142 mmol/L (136-145)
== END 2022-03-26 15:43 | disposition home or self-care (01) ==
PROVIDERS: PCP Nurse Practitioner Family; Visit Provider Family Medicine
DX: E87.6 Hypokalemia (principal); E83.42 Hypomagnesemia
CPT/HCPCS: 80048; 83735

== ENCOUNTER 2022-03-27 08:30 | Oncology outpatient (recurring) (ONCR) | payer MEDICARE, SELFPAY ==
[2022-03-23 10:21] VITALS: BMI 27.6
[2022-03-23 10:30] LABS: Basophils % 0.5 %; Eosinophils # 0.1 10^3/uL (0.0-0.8); Eosinophils % 1.8 %; Hematocrit 35.9 % (37.0-47.0); Hemoglobin 10.9 g/dL (11.5-15.3); Lymphocytes # 0.9 10^3/uL (0.8-4.8); Lymphocytes % 22.8 %; Mean Corpuscular HGB Conc 30.4 g/dL (30.0-36.0); Mean Corpuscular Hemoglobin 25.4 pg (28.0-34.0); Mean Corpuscular Volume 83.7 fl (81-99); Mean Platelet Volume 9.4 fL (7.4-10.4); Monocytes # 0.3 10^3/uL (0.2-0.9); Monocytes % 8.4 %; Neutrophils % 65.7 %; Nucleated Red Blood Cells % 0 %; Platelet Count 177 10^3/cmm (130-400); Red Blood Count 4.29 10^6/uL (4.1-5.3); Red Cell Distribution Width 16.6 % (12.1-15.1)
[2022-03-23 11:04] LABS: Alanine Aminotransferase 8 U/L (0-33); Albumin Level 2.6 g/dL (3.5-5.2); Alkaline Phosphatase 91 U/L (35-105); Anion Gap 12.8 (5-19); Aspartate Amino Transferase 18 U/L (0-32); Blood Urea Nitrogen 5 mg/dL (8-23); Calcium 6.9 mg/dL (8.5-10.5); Carbon Dioxide 29 mmol/L (22-29); Chloride 103 mmol/L (98-107); Globulin 2.8 g/dL (1.3-4.6); Glomerular Filtration Rate 122.7 mL/min (90-130); Glucose 93 mg/dL (65-115); Osmolality Calculated 291 mOsm/kg (285-295); Sodium 142 mmol/L (136-145); Total Bilirubin 0.5 mg/dL (0.15-1.2); Total Protein 5.4 g/dL (6.6-8.7)
[2022-03-23 11:14] LABS: Potassium 2.8 mmol/L (3.5-5.1)
[2022-03-23 12:27] LABS: Magnesium 0.9 mg/dL (1.7-2.3)
[2022-03-23] MEDS: sodium chloride 0.9% 250 ML 75 ML IV (12:50)
[2022-03-23] MEDS: ondansetron 2 mg/ML SDV 2 mL 8 MG IVP (12:51)
[2022-03-23] MEDS: zoledronic acid 4 MG in sodium chloride 0.9% (100 ml) 100 ML 420 MG IV (13:33)
[2022-03-23] MEDS: paclitaxel protein-bound 170 MG in empty flexible container 1 EACH 68 MG IV (14:03)
[2022-03-23 15:10] VITALS: BP 160/96; PULSE 86; RESP 18; TEMP 35.8; O2SAT 97
[2022-03-27] MEDS: sodium chloride 0.9% 250 ML 100 ML IV (08:44)
[2022-03-27] MEDS: potassium chloride premix 100 ML 50 MEQ IV (08:46)
[2022-03-27 08:55] VITALS: BP 153/88; PULSE 94; RESP 16; O2SAT 98
[2022-03-27 11:10] VITALS: BP 133/85; PULSE 92; RESP 16; TEMP 36.1; O2SAT 99
== END 2022-04-03 23:59 | disposition home or self-care (01) ==
PROVIDERS: Internal Medicine Medical Oncology; Nurse Practitioner; PCP Nurse Practitioner Family; Visit Provider Radiology Radiation Oncology
DX: Z53.9 Procedure and treatment not carried out, unspecified reason; C79.51 Secondary malignant neoplasm of bone; C50.912 Malignant neoplasm of unspecified site of left female breast; Z17.0 Estrogen receptor positive status [ER+]
CPT/HCPCS: 80053; 83735; 85025; 86300; 96365; 96366; 96367; 96375; 96413; 99214; J1100; J2405; J3480; J3489; J7050; J9264

== ENCOUNTER 2022-04-27 10:00 | Oncology outpatient (recurring) (ONCR) | payer MEDICARE, SELFPAY ==
[2022-04-06 08:36] LABS: Basophils % 1.3 %; Eosinophils % 1.7 %; Hematocrit 32.6 % (37.0-47.0); Hemoglobin 9.9 g/dL (11.5-15.3); Lymphocytes # 0.8 10^3/uL (0.8-4.8); Lymphocytes % 35.9 %; Mean Corpuscular HGB Conc 30.4 g/dL (30.0-36.0); Mean Corpuscular Hemoglobin 25.2 pg (28.0-34.0); Mean Platelet Volume 9.1 fL (7.4-10.4); Monocytes # 0.4 10^3/uL (0.2-0.9); Monocytes % 15.2 %; Neutrophils % 42.4 %; Nucleated Red Blood Cells % 0 %; Platelet Count 196 10^3/cmm (130-400); Red Blood Count 3.93 10^6/uL (4.1-5.3); Red Cell Distribution Width 15.5 % (12.1-15.1); White Blood Count 2.3 10^3/uL (4.0-10.0)
[2022-04-06 08:43] VITALS: BMI 26.8
[2022-04-06 09:25] LABS: Alanine Aminotransferase 13 U/L (0-33); Albumin Level 2.9 g/dL (3.5-5.2); Alkaline Phosphatase 83 U/L (35-105); Anion Gap 14.3 (5-19); Aspartate Amino Transferase 25 U/L (0-32); Blood Urea Nitrogen 9 mg/dL (8-23); Calcium 8.4 mg/dL (8.5-10.5); Carbon Dioxide 24 mmol/L (22-29); Chloride 108 mmol/L (98-107); Globulin 2.8 g/dL (1.3-4.6); Glomerular Filtration Rate 99.4 mL/min (90-130); Glucose 168 mg/dL (65-115); Osmolality Calculated 299 mOsm/kg (285-295); Potassium 3.3 mmol/L (3.5-5.1); Sodium 143 mmol/L (136-145); Total Bilirubin 0.3 mg/dL (0.15-1.2); Total Protein 5.7 g/dL (6.6-8.7)
[2022-04-06 09:37] LABS: Neutrophils # 0.98 10^3/uL (1.8-7.7)
[2022-04-13 09:07] LABS: Basophils % 0.4 %; Eosinophils % 0.9 %; Hematocrit 32.5 % (37.0-47.0); Hemoglobin 10.1 g/dL (11.5-15.3); Lymphocytes % 21.8 %; Mean Corpuscular HGB Conc 31.1 g/dL (30.0-36.0); Mean Corpuscular Hemoglobin 25.5 pg (28.0-34.0); Mean Corpuscular Volume 82.1 fl (81-99); Mean Platelet Volume 8.8 fL (7.4-10.4); Monocytes # 0.4 10^3/uL (0.2-0.9); Neutrophils # 3.06 10^3/uL (1.8-7.7); Neutrophils % 68.2 %; Nucleated Red Blood Cells % 0 %; Platelet Count 220 10^3/cmm (130-400); Red Blood Count 3.96 10^6/uL (4.1-5.3); Red Cell Distribution Width 15.3 % (12.1-15.1); White Blood Count 4.5 10^3/uL (4.0-10.0)
[2022-04-13 09:33] LABS: Alanine Aminotransferase 9 U/L (0-33); Albumin Level 3.1 g/dL (3.5-5.2); Alkaline Phosphatase 96 U/L (35-105); Aspartate Amino Transferase 18 U/L (0-32); Blood Urea Nitrogen 11 mg/dL (8-23); Calcium 8.7 mg/dL (8.5-10.5); Carbon Dioxide 25 mmol/L (22-29); Chloride 106 mmol/L (98-107); Globulin 3.1 g/dL (1.3-4.6); Glomerular Filtration Rate 99.4 mL/min (90-130); Glucose 146 mg/dL (65-115); Osmolality Calculated 292 mOsm/kg (285-295); Sodium 140 mmol/L (136-145); Total Bilirubin 0.4 mg/dL (0.15-1.2); Total Protein 6.2 g/dL (6.6-8.7)
[2022-04-13] MEDS: sodium chloride 0.9% 250 ML 100 ML IV (10:03)
[2022-04-13] MEDS: ondansetron 2 mg/ML SDV 2 mL 8 MG IVP (10:04)
[2022-04-13] MEDS: paclitaxel protein-bound 170 MG in empty flexible container 1 EACH 68 MG IV (10:32)
[2022-04-13 11:26] VITALS: BP 177/88; PULSE 85; TEMP 36.4; O2SAT 99
[2022-04-27 10:34] LABS: Basophils % 0.5 %; Eosinophils # 0.1 10^3/uL (0.0-0.8); Eosinophils % 1.9 %; Hematocrit 29.5 % (37.0-47.0); Hemoglobin 9.2 g/dL (11.5-15.3); Lymphocytes % 24.5 %; Mean Corpuscular HGB Conc 31.2 g/dL (30.0-36.0); Mean Corpuscular Hemoglobin 24.8 pg (28.0-34.0); Mean Corpuscular Volume 79.5 fl (81-99); Mean Platelet Volume 9.3 fL (7.4-10.4); Monocytes # 0.4 10^3/uL (0.2-0.9); Monocytes % 9.9 %; Neutrophils # 2.49 10^3/uL (1.8-7.7); Neutrophils % 60.3 %; Nucleated Red Blood Cells % 0 %; Platelet Count 255 10^3/cmm (130-400); Red Blood Count 3.71 10^6/uL (4.1-5.3); Red Cell Distribution Width 14.8 % (12.1-15.1); White Blood Count 4.1 10^3/uL (4.0-10.0)
[2022-04-27 11:05] LABS: Alanine Aminotransferase 8 U/L (0-33); Albumin Level 3.3 g/dL (3.5-5.2); Alkaline Phosphatase 96 U/L (35-105); Anion Gap 12.4 (5-19); Aspartate Amino Transferase 18 U/L (0-32); Blood Urea Nitrogen 11 mg/dL (8-23); Carbon Dioxide 23 mmol/L (22-29); Chloride 103 mmol/L (98-107); Globulin 3.2 g/dL (1.3-4.6); Glomerular Filtration Rate 122.7 mL/min (90-130); Glucose 94 mg/dL (65-115); Osmolality Calculated 277 mOsm/kg (285-295); Potassium 4.4 mmol/L (3.5-5.1); Sodium 134 mmol/L (136-145); Total Bilirubin 0.4 mg/dL (0.15-1.2); Total Protein 6.5 g/dL (6.6-8.7)
== END 2022-05-04 23:59 | disposition home or self-care (01) ==
PROVIDERS: Internal Medicine Medical Oncology; Nurse Practitioner; PCP Nurse Practitioner Family; Visit Provider Radiology Radiation Oncology
DX: C79.51 Secondary malignant neoplasm of bone; Z79.899 Other long term (current) drug therapy; C78.02 Secondary malignant neoplasm of left lung; Z85.3 Personal history of malignant neoplasm of breast; Z90.12 Acquired absence of left breast and nipple
CPT/HCPCS: 36591; 80053; 85025; 86300; 96367; 96375; 96413; 99214; J1100; J2405; J7050; J9264

== ENCOUNTER 2022-06-23 10:00 | Oncology outpatient (recurring) (ONCR) | payer MEDICARE, SELFPAY ==
[2022-06-09 08:48] LABS: Basophils % 0.5 %; Eosinophils # 0.1 10^3/uL (0.0-0.8); Eosinophils % 2.6 %; Hematocrit 28.4 % (37.0-47.0); Hemoglobin 8.5 g/dL (11.5-15.3); Lymphocytes # 0.9 10^3/uL (0.8-4.8); Lymphocytes % 22.5 %; Mean Corpuscular HGB Conc 29.9 g/dL (30.0-36.0); Mean Corpuscular Hemoglobin 23.2 pg (28.0-34.0); Mean Corpuscular Volume 77.6 fl (81-99); Mean Platelet Volume 8.6 fL (7.4-10.4); Monocytes # 0.4 10^3/uL (0.2-0.9); Monocytes % 9.6 %; Neutrophils # 2.68 10^3/uL (1.8-7.7); Neutrophils % 64.1 %; Nucleated Red Blood Cells % 0 %; Platelet Count 258 10^3/cmm (130-400); Red Blood Count 3.66 10^6/uL (4.1-5.3); Red Cell Distribution Width 14.8 % (12.1-15.1); White Blood Count 4.2 10^3/uL (4.0-10.0)
[2022-06-09 08:54] VITALS: BMI 26.6
[2022-06-09 09:07] LABS: Alanine Aminotransferase 8 U/L (0-33); Albumin Level 3.2 g/dL (3.5-5.2); Alkaline Phosphatase 93 U/L (35-105); Anion Gap 12.1 (5-19); Aspartate Amino Transferase 16 U/L (0-32); Blood Urea Nitrogen 19 mg/dL (8-23); Calcium 9.3 mg/dL (8.5-10.5); Carbon Dioxide 24 mmol/L (22-29); Chloride 103 mmol/L (98-107); Globulin 3.6 g/dL (1.3-4.6); Glomerular Filtration Rate 83.2 mL/min (90-130); Glucose 98 mg/dL (65-115); Osmolality Calculated 282 mOsm/kg (285-295); Potassium 4.1 mmol/L (3.5-5.1); Sodium 135 mmol/L (136-145); Total Bilirubin 0.2 mg/dL (0.15-1.2); Total Protein 6.8 g/dL (6.6-8.7)
[2022-06-09] MEDS: sodium chloride 0.9% 250 ML 75 ML IV (10:50)
[2022-06-09] MEDS: zoledronic acid 4 MG in sodium chloride 0.9% (100 ml) 100 ML 420 MG IV (10:58)
[2022-06-09] MEDS: ondansetron 2 mg/ML SDV 2 mL 8 MG IVP (11:52)
[2022-06-09] MEDS: paclitaxel protein-bound 170 MG in empty flexible container 1 EACH 68 MG IV (12:13)
[2022-06-09 13:15] VITALS: BP 118/68; PULSE 67; RESP 17; TEMP 36.9; O2SAT 97
[2022-06-23 10:23] LABS: Basophils % 0.9 %; Eosinophils # 0.1 10^3/uL (0.0-0.8); Eosinophils % 2.9 %; Hematocrit 27.8 % (37.0-47.0); Hemoglobin 8.3 g/dL (11.5-15.3); Mean Corpuscular HGB Conc 29.9 g/dL (30.0-36.0); Mean Corpuscular Hemoglobin 23.4 pg (28.0-34.0); Mean Corpuscular Volume 78.5 fl (81-99); Mean Platelet Volume 8.5 fL (7.4-10.4); Monocytes # 0.4 10^3/uL (0.2-0.9); Monocytes % 11.8 %; Neutrophils # 1.85 10^3/uL (1.8-7.7); Neutrophils % 53.2 %; Nucleated Red Blood Cells % 0 %; Platelet Count 223 10^3/cmm (130-400); Red Blood Count 3.54 10^6/uL (4.1-5.3); Red Cell Distribution Width 16.5 % (12.1-15.1); White Blood Count 3.5 10^3/uL (4.0-10.0)
[2022-06-23 10:49] LABS: Alanine Aminotransferase 7 U/L (0-33); Albumin Level 3.5 g/dL (3.5-5.2); Alkaline Phosphatase 107 U/L (35-105); Anion Gap 13.6 (5-19); Aspartate Amino Transferase 17 U/L (0-32); Blood Urea Nitrogen 13 mg/dL (8-23); Calcium 9.4 mg/dL (8.5-10.5); Carbon Dioxide 21 mmol/L (22-29); Chloride 106 mmol/L (98-107); Glomerular Filtration Rate 83.2 mL/min (90-130); Glucose 85 mg/dL (65-115); Osmolality Calculated 281 mOsm/kg (285-295); Potassium 4.6 mmol/L (3.5-5.1); Sodium 136 mmol/L (136-145); Total Bilirubin 0.3 mg/dL (0.15-1.2); Total Protein 6.5 g/dL (6.6-8.7)
[2022-06-23] MEDS: ondansetron 2 mg/ML SDV 2 mL 8 MG IVP (12:12)
[2022-06-23] MEDS: sodium chloride 0.9% 250 ML 100 ML IV (12:12)
[2022-06-23] MEDS: paclitaxel protein-bound 170 MG in empty flexible container 1 EACH 68 MG IV (12:45)
[2022-06-23 14:27] VITALS: BP 123/77; PULSE 80; TEMP 36.1; O2SAT 99
== END 2022-07-04 23:59 | disposition home or self-care (01) ==
PROVIDERS: PCP Family Medicine; Visit Provider Internal Medicine Medical Oncology
DX: C50.812 Malignant neoplasm of overlapping sites of left female breast (principal); Z51.11 Encounter for antineoplastic chemotherapy; Z79.899 Other long term (current) drug therapy; Z79.52 Long term (current) use of systemic steroids; Z17.0 Estrogen receptor positive status [ER+]
CPT/HCPCS: 80053; 85025; 86300; 96367; 96375; 96413; 99214; J1100; J2405; J3489; J7050; J9264

== ENCOUNTER 2022-06-25 12:34 | Emergency (ER) | payer MEDICARE, SELFPAY ==
[2022-06-25 13:08] VITALS: BP 141/74; PULSE 115; RESP 18; TEMP 36.7; O2SAT 97; BMI 26.1
--- NOTE | 2022-06-25 13:11 | ECG_ITS ---
[facility] Test Date: 2022-06-25 Pat Name: Dacia Way Department: Room: Gender: Female Circulation Clerk: : 1955 Requested By: Home [place] Order Number: [id number] Golden MD: Praful Luna M.D. Measurements Intervals [place] Rate: 107 P: 172 NV: 210 QRS: 149 QRSD: 132 T: -18 QT: 348 QTc: 466 Interpretive Statements ECTOPIC ATRIAL TACHYCARDIA WITH FIRST DEGREE AV BLOCK RIGHT BUNDLE BRANCH BLOCK [120+ ms QRS DURATION, UPRIGHT V1, 40+ ms S IN I/aVL/V4/V5/V6] LEFT POSTERIOR FASCICULAR BLOCK [QRS AXIS > 109, INFERIOR Q] Compared to ECG 09/30/2020 15:01:44 Left posterior fascicular block now present Sinus rhythm no longer present Electronically Signed On 06-25-2022 13:28:16 HIGH PRESSURE OPERATOR by Praful Luna M.D. [id number]
--- NOTE | 2022-06-25 13:21 | PC.NURSE ---
EKG completed in triage and taken to Dr. Daniels
--- NOTE | 2022-06-25 13:35 | XR_ITS ---
WS: [id number] Exam: XR chest 1V portable [id number] Date/Time of Exam: 06/25/2022 1:35 PM Reason For Exam: chest pain Comparison 11/24/2021. The lungs are fully expanded. A 3.3 cm soft tissue mass seen in the left lower lobe. There is also a left hilar mass significantly larger than noted on the prior study. Additionally there are numerous t iny nodular densities throughout both lungs that may represent lymphangitic metastatic pulmonary dise ase. No pneumothorax. The cardiomediastinal silhouette is unremarkable. A right-sided port ends in th e lower SVC. Healing fracture with callus formation involving the lateral margin of the left 10th rib . Moderate degenerative change of the left glenohumeral joint. XR/XR chest 1V portable [id number] IMPRESSION: 1. 3.3 cm mass in the left lower lobe. Enlarging left hilar soft tissue mass. 2. Miliary nodular pattern throughout both lungs which may represent lymphatic metastatic pulmonary disease. 3. Trace left pleural effusion. 4. Healing fracture of the lateral aspect of the left 10th rib.
[2022-06-25 14:04] LABS: Basophils % 0.4 %; Eosinophils % 0.8 %; Hematocrit 31.3 % (37.0-47.0); Hemoglobin 9.3 g/dL (11.5-15.3); Lymphocytes # 0.7 10^3/uL (0.8-4.8); Lymphocytes % 14.3 %; Mean Corpuscular HGB Conc 29.7 g/dL (30.0-36.0); Mean Corpuscular Hemoglobin 23.6 pg (28.0-34.0); Mean Corpuscular Volume 79.4 fl (81-99); Mean Platelet Volume 9.1 fL (7.4-10.4); Monocytes # 0.1 10^3/uL (0.2-0.9); Monocytes % 2.7 %; Neutrophils # 4.22 10^3/uL (1.8-7.7); Neutrophils % 81.4 %; Nucleated Red Blood Cells % 0 %; Platelet Count 239 10^3/cmm (130-400); Red Blood Count 3.94 10^6/uL (4.1-5.3); Red Cell Distribution Width 16.5 % (12.1-15.1); White Blood Count 5.2 10^3/uL (4.0-10.0)
[2022-06-25 14:20] LABS: Troponin(5th) Baseline 9 ng/L (0-10)
[2022-06-25 14:21] LABS: Alanine Aminotransferase 10 U/L (0-33); Albumin Level 3.7 g/dL (3.5-5.2); Alkaline Phosphatase 109 U/L (35-105); Anion Gap 15.2 (5-19); Aspartate Amino Transferase 25 U/L (0-32); Blood Urea Nitrogen 16 mg/dL (8-23); Calcium 9.1 mg/dL (8.5-10.5); Carbon Dioxide 20 mmol/L (22-29); Chloride 103 mmol/L (98-107); Globulin 3.3 g/dL (1.3-4.6); Glomerular Filtration Rate 83.2 mL/min (90-130); Glucose 152 mg/dL (65-115); Osmolality Calculated 282 mOsm/kg (285-295); Potassium 4.2 mmol/L (3.5-5.1); Sodium 134 mmol/L (136-145); Total Bilirubin 0.3 mg/dL (0.15-1.2)
[2022-06-25 14:29] LABS: Add Urine Microscopic? YES; Bilirubin Urine Neg (Negative); Blood Urine 3+ (Negative); Glucose Urine UA Norm (Normal); Ketones Urine Negative (Negative); Leukocyte Esterase Urine Trace (Negative); Nitrate Urine Negative (Negative); Protein Urine Neg (Negative); Specific Gravity, Urine 1.015 (1.005-1.030); Urine Appearance Hazy (CLEAR); Urine Color Yellow (Yellow); Urobilinogen Urine Neg (Negative); pH Urine 5 (5-7)
[2022-06-25 14:57] LABS: Add Urine Culture? Yes; Bacteria Urine 1+ /hpf; RBC Urine 50-80 /hpf (0-2); Squamous Epithelial Cell Urine 0-4 /hpf (0-5); WBC Urine 25-40 /hpf (0-5)
--- NOTE | 2022-06-25 15:07 | PC.NURSE ---
lab work obtained from [facility]
[2022-06-25 15:31] LABS: INR 1.02 (0.8-1.2)
[2022-06-25 15:32] LABS: Partial Thromboplastin Time 26.2 SECONDS (23.9-36.7)
--- NOTE | 2022-06-25 15:41 | ECG_ITS ---
[facility] Test Date: 2022-06-25 Pat Name: Dacia Way Department: Room: Gender: Female [place] Printer: JULIANA: 1955 Requested By: Fiona Messer Order Number: [id number] Golden MD: Praful Luna M.D. Measurements Intervals [place] Rate: 106 P: 72 WA: 223 QRS: 97 QRSD: 120 T: -24 QT: 316 QTc: 420 Interpretive Statements SINUS TACHYCARDIA WITH FIRST DEGREE AV BLOCK RIGHT BUNDLE BRANCH BLOCK [120+ ms QRS DURATION, UPRIGHT V1, 40+ ms S IN I/aVL/V4/V5/V6] Compared to ECG 06/25/2022 13:15:40 Left posterior fascicular block no longer present Electronically Signed On 06-26-2022 7:51:46 ALCOHOL LAW ENFORCEMENT AGENT by Praful Luna M.D. [id number]
--- NOTE | 2022-06-25 15:44 | ED_ITS ---
HPI - Chest Pain General: Chief Complaint: Chest Pain Stated Complaint: chest pain/left sided Time Seen by Provider: 06/25/22 15:44 History of Present Illness: Ms. Way is a 66-year-old lady with history of metastatic breast cancer currently on chemotherapy presenting to the emergency department due to left-sided chest pain. Onset of symptoms was last night without known specific provoking event. Notes stabbing pain with radiation down the left arm. Moderate to severe in intensity. Denies similar episodes in the past. No other specific changes in health, exacerbating, or alleviating factors identified. Onset (ago): day(s) Timing of current episode: constant Onset: during rest Pain location: left chest Pain radiation: left arm Severity: moderate Quality: sharp Relieving factors: nothing Exacerbating factors: exertion and inspiration Context: other Review of Systems General: Reports: 10 or more systems reviewed and unremarkable except in HPI and below PFS ED PFSH: Medical History History of 2019 novel coronavirus disease (COVID-19) (07/2020) Hyperlipidemia Left hemiparesis Metastatic breast cancer Thalassemia trait Type 2 diabetes mellitus Surgical History History of appendectomy History of cholecystectomy History of left mastectomy (1999) History of lung surgery (12/14/16) left thoracoscopy with wedge resection of left lower lobe nodule Port-A-Cath in place Placed 11/04/21 at [place], [place] to right chest wall by Dr. Salomon. Family History Son Stroke At age 35 Other Cancer Diabetes Heart disease Hyperlipidemia Hypertension Psychiatric illness Suicide Denies family history of CAD (coronary artery disease) Clotting disorder Dementia Chronic kidney disease (CKD) Anesthesia complication Bleeding disorder Lung disease Social History Smoking and tobacco status: former smoker (smoked x 20 years) Quit status (tobacco): has quit using tobacco Year quit tobacco: 2017 Alcohol intake: never Housing: House History of recent travel: No Physical Exam Const: COMMON NORMALS: alert GENERAL APPEARANCE: cooperative, well developed and ill appearing (Mildly) HENMT: COMMON NORMALS: normocephalic and atraumatic HEAD & SCALP: normocephalic and atraumatic Eye: COMMON NORMALS: conjunctivae normal CONJUNCTIVA: Yes conjunctivae normal SCLERA: sclerae normal Neck/C-Spine: COMMON NORMALS: supple GENERAL: Yes trachea midline Resp: COMMON NORMALS: clear to auscultation bilaterally EFFORT & INSPECTION: Yes able to speak in complete sentences AUSCULTATION: clear to auscultation bilaterally Cardio: COMMON NORMALS: regular rhythm RATE: tachycardic RHYTHM: regular rhythm GI: COMMON NORMALS: Soft to palpation PALPATION: Yes Soft to palpation and No Tenderness to palpation present (GI) Extremity: GENERAL: Yes normal exam except as noted and No edema Neuro: COMMON NORMALS: moves all extremities SENSORIUM/ORIENTATION: Yes alert and No Orientation impaired Psych: COMMON NORMALS: mental status grossly normal and Normal thought process present THOUGHT PROCESS: Normal thought process present Course Vital Signs: Vital signs: Vital Signs Temperature 98.1 F 06/25/22 13:08 Pulse Rate 84 06/25/22 18:23 Respiratory Rate 16 06/25/22 18:23 Blood Pressure 119/64 06/25/22 18:23 Pulse Oximetry 98 06/25/22 18:23 Oxygen Delivery Me thod 06/25/22 15:56 MDM - Chest Pain Medical Decision Making 66-year-old lady with history of cancer on chemotherapy presenting due to chest pain. Exam as above. EKG notable for sinus rhythm with left bundle branch block, no STEMI. Labs notable for no leukocytosis, anemia similar to baseline. Minimal pain with perhaps mild dehydration. 2-hour delta troponin is negative. Urinalysis with possible evidence of UTI however nitrate negative and patient denies symptoms. Chest x-ray redemonstrates mass, no lobar consolidation or pneumothorax. CTA negative for pulm embolism, there is worsening metastatic disease and osseous metastatic disease. Incidental findings discussed with patient. Patient feels improved with analgesia. Turns out the patient later reported that she has been out of her home analgesia which likely certainly contributes to patient worsening symptoms in addition to underlying cancer related pain. Patient is comfortable with outpatient management. The results of ED evaluation were discussed with the patient including prescriptions and/or symptomatic cares (if applicable) including appropriate and responsible use, followup plan, and return precautions. The patient verbalized understanding and felt safe for discharge. Medical Records I reviewed the patient's medical records. Lab Data I reviewed the patient's lab results. 06/25/22 13:48 06/25/22 13:48 Radiology Impressions Chest X-Ray 06/25/22 13:35 IMPRESSION: 1. 3.3 cm mass in the left lower lobe. Enlarging left hilar soft tissue mass. 2. Miliary nodular pattern throughout both lungs which may represent lymphatic metastatic pulmonary disease. 3. Trace left pleural effusion. 4. Healing fracture of the lateral aspect of the left 10th rib. Chest CTA 06/25/22 15:48 IMPRESSION: 1. Negative for pulmonary embolism. 2. Worsening metastatic disease within the chest and osseous structures compared to comparison study dated 09/30/2020. 3. There is a partially callused posterolateral left 10th rib fracture. Laboratory Results WBC 5.2 10^3/uL (4.0-10.0) 06/25/22 13:48 RBC 3.94 10^6/uL (4.1-5.3) L 06/25/22 13:48 Hgb 9.3 g/dL (11.5-15.3) L 06/25/22 13:48 Hct 31.3 % (37.0-47.0) L 06/25/22 13:48 MCV 79.4 fl (81-99) L 06/25/22 13:48 MCH 23.6 pg (28.0-34.0) L 06/25/22 13:48 MCHC 29.7 g/dL (30.0-36.0) L 06/25/22 13:48 RDW 16.5 % (12.1-15.1) H 06/25/22 13:48 Plt Count 239 10^3/cmm (130-400) 06/25/22 13:48 MPV 9.1 fL (7.4-10.4) 06/25/22 13:48 Neut % (Auto) 81.4 % 06/25/22 13:48 Lymph % (Auto) 14.3 % 06/25/22 13:48 [place] % (Auto) 2.7 % 06/25/22 13:48 Eos % (Auto) 0.8 % 06/25/22 13:48 Baso % (Auto) 0.4 % 06/25/22 13:48 Neut # (Auto) 4.22 10^3/uL (1.8-7.7) 06/25/22 13:48 Lymph # (Auto) 0.7 10^3/uL (0.8-4.8) L 06/25/22 13:48 [place] # (Auto) 0.1 10^3/uL (0.2-0.9) L 06/25/22 13:48 Eos # (Auto) 0.0 10^3/uL (0.0-0.8) 06/25/22 13:48 Baso # (Auto) 0.0 10^3/uL (0.0-0.1) 06/25/22 13:48 Nucleated RBC % (auto) 0 % 06/25/22 13:48 Nucleated RBCs # 0.0 /100WBC 06/25/22 13:48 PT 13.70 SECONDS (12.1-14.9) 06/25/22 15:00 INR 1.02 (0.8-1.2) 06/25/22 15:00 APTT 26.2 SECONDS (23.9-36.7) 06/25/22 15:00 Sodium 134 mmol/L (136-145) L 06/25/22 13:48 Potassium 4.2 mmol/L (3.5-5.1) 06/25/22 13:48 Chloride 103 mmol/L (98-107) 06/25/22 13:48 Carbon Dioxide 20 mmol/L (22-29) L 06/25/22 13:48 Anion Gap 15.2 (5-19) 06/25/22 13:48 BUN 16 mg/dL (8-23) 06/25/22 13:48 Creatinine 0.7 mg/dL (0.5-0.9) 06/25/22 13:48 GFR Calculation 83.2 mL/min (90-130) L 06/25/22 13:48 Glucose 152 mg/dL (65-115) H 06/25/22 13:48 Calculated Osmolality 282 mOsm/kg (285-295) L 06/25/22 13:48 Calcium 9.1 mg/dL (8.5-10.5) 06/25/22 13:48 Total Bilirubin 0.3 mg/dL (0.15-1.2) 06/25/22 13:48 AST 25 U/L (0-32) 06/25/22 13:48 ALT 10 U/L (0-33) 06/25/22 13:48 Alkaline Phosphatase 109 U/L (35-105) H 06/25/22 13:48 Troponin T Baseline 9 ng/L (0-10) 06/25/22 13:48 Troponin T 120 Minute 8.96 ng/L (0-10) 06/25/22 14:05 Delta Troponin T -0.04 ABS# (0-10) L 06/25/22 14:05 Total Protein 7.0 g/dL (6.6-8.7) 06/25/22 13:48 Albumin 3.7 g/dL (3.5-5.2) 06/25/22 13:48 Globulin 3.3 g/dL (1.3-4.6) 06/25/22 13:48 Urine Color Yellow (Yellow) 06/25/22 13:19 Urine Appearance Hazy (CLEAR) A 06/25/22 13:19 Urine pH 5 (5-7) 06/25/22 13:19 Ur Specific [place] 1.015 (1.005-1.030) 06/25/22 13:19 Urine Protein Neg (Negative) 06/25/22 13:19 Urine Glucose (UA) Norm (Normal) 06/25/22 13:19 Urine Ketones Negative (Negative) 06/25/22 13:19 Urine Blood 3+ (Negative) H 06/25/22 13:19 Urine Nitrate Negative (Negative) 06/25/22 13:19 Urine Bilirubin Neg (Negative) 06/25/22 13:19 Urine Urobilinogen Neg mg/dL (Negative) 06/25/22 13:19 Ur Leukocyte Esterase Trace (Negative) H 06/25/22 13:19 Urine RBC 50-80 /hpf (0-2) H 06/25/22 13:19 Urine WBC 25-40 /hpf (0-5) H 06/25/22 13:19 Ur Squamous Epith Cells 0-4 /hpf (0-5) H 06/25/22 13:19 Amorphous Sediment Not Reportable 06/25/22 13:19 Urine Bacteria 1+ /hpf (NONE) H 06/25/22 13:19 Discharge Plan Discharge Patient Disposition: Home Clinical Impression: Chest pain, Metastatic breast cancer, Cancer related pain Condition: Stable Prescriptions: New morphine 15 mg tablet 15 mg PO Q4H PRN (Reason: pain) Qty: 30 0RF No Action dietary supplement Capsule See Rx Instructions PO .COMPLEX Rx Instructions: Neuropaway 2 capsules daily PO; potassium chloride 8 mEq tablet extended release 8 meq PO DAILY@0800 Qty: 30 2RF magnesium oxide [MagOx] 400 mg (241.3 mg magnesium) tablet 400 mg PO BID Qty: 60 3RF esomeprazole magnesium [Nexium] 40 mg capsule,delayed release(DR/EC) 40 mg PO DAILY Qty: 30 5RF ondansetron 8 mg Film 8 mg PO Q8H PRN (Reason: NAUSEA/VOMITING) Discharge Orders: Discharge ED (Routine); Ordered 06/25/22 Ordered By: Jose G Brown Referrals: Janice Moody DO [Primary Care Provider] - Discharge Diet: Usual diet Discharge Activity: Increase activity as tolerated Patient Instructions: Cancer Pain, Chest Pain (ED), Opioid Safety, Pain Management Activity Restrictions/Additional Instructions: Thank you for visiting the emergency department. You were seen and evaluated for chest pain. The exact cause of your symptoms is unclear. It may be related to underlying cancer and being out of her medication. I will dispense a refill your prescription however you still require follow-up with oncology and your primary care provider. Please use medications cautiously as previously instructed. I will message case management for follow-up regarding your chest pain and other potential causes. Return to the emergency department for anything that you are concerned about a feel needs emergency department evaluation. Coding Level of Care Code ED Associate Professor Of Geography for Jeffrey Gonzalez Exam Comprehensive
--- NOTE | 2022-06-25 15:48 | CTR_ITS ---
PROCEDURE INFORMATION: Exam: CTA Chest With Contrast Exam date and time: 06/25/2022 4:48 PM Age: 66 years old Clinical indication: Chest wall pain and left-sided; Additional info: L chest pain, HX cancer on chemo TECHNIQUE: Imaging protocol: Computed tomographic angiography of the chest with contrast. 3D rendering (Not supervised by radiologist): MIP and/or 3D reconstructed images were created by the technologist. Radiation optimization: All CT scans at this facility use at least one of these dose optimization techniques: automated exposure control; mA and/or kV adjustment per patient size (includes targeted exams where dose is matched to clinical indication); or iterative reconstruction. Contrast material: OMNIPAQUE 350; Contrast volume: 65 ml; Contrast route: INTRAVENOUS (IV); COMPARISON: CT angio chest PE protcl [id number] 09/30/2020 6:54 PM RADIATION DOSE METRICS: Total DLP (mGy-cm): 397.44 FINDINGS: Tubes, catheters and devices: Right chest port noted terminating in the distal SVC. Pulmonary arteries: Normal. No pulmonary emboli. Aorta: No aortic aneurysm. No aortic dissection. Lungs: Innumerable metastatic lesions seen throughout both lungs. The largest mass in the left lower lobe has increased in size from prior comparison measuring 3.6 x 2.8 cm on today's study previously measuring 2.9 x 2.3 cm. No consolidation. Pleural spaces: No pneumothorax. No pleural effusion. Heart: Cardiomegaly. Coronary artery calcifications noted. No pericardial effusion. Lymph nodes: Left hilar adenopathy, consistent with metastatic adenopathy, which has increased in size from prior study. Bones/joints: Worsening multifocal sclerotic osseous metastatic disease scattered throughout the visualized axial skeleton. There is a partially callused left posterolateral 10th rib fracture. Soft tissues: Unremarkable. CT/CT angio chest PE protcl [id number] IMPRESSION: 1. Negative for pulmonary embolism. 2. Worsening metastatic disease within the chest and osseous structures compared to comparison study dated 09/30/2020. 3. There is a partially callused posterolateral left 10th rib fracture.
[2022-06-25 15:56] VITALS: BP 132/89; PULSE 100; RESP 16; O2SAT 99
[2022-06-25 16:02] LABS: Troponin 5 2HR 8.96 ng/L (0-10)
[2022-06-25 16:08] LABS: Troponin 5 2HR Delta -0.04 ABS# (0-10)
[2022-06-25 16:16] VITALS: RESP 18
[2022-06-25] MEDS: fentaNYL 50 mcg/mL INJ 2mL IVP (16:16)
[2022-06-25] MEDS: aspirin 81 mg Chew Tablet 324 MG PO (16:16)
[2022-06-25] MEDS: iohexol 350 mg/mL 500 mL Btl (per mL) IV (16:54)
[2022-06-25 18:17] VITALS: RESP 18
[2022-06-25] MEDS: morphine IR 15 mg Tablet 90 MG PO (18:17)
[2022-06-25 18:23] VITALS: BP 119/64; PULSE 84; RESP 16; O2SAT 98
== END 2022-06-25 18:24 | disposition home or self-care (01) ==
PROVIDERS: Nurse Practitioner Family; Emergency Provider Emergency Medicine; PCP Family Medicine
DX: R07.9 Chest pain, unspecified (principal); C50.919 Malignant neoplasm of unspecified site of unspecified female breast; G89.3 Neoplasm related pain (acute) (chronic); I44.7 Left bundle-branch block, unspecified; E11.9 Type 2 diabetes mellitus without complications; Z79.899 Other long term (current) drug therapy
CPT/HCPCS: 36415; 71045; 71275; 80053; 81001; 84484; 85025; 85610; 85730; 87086; 93005; 96374; 99285; J3010; Q9967

== ENCOUNTER 2022-07-14 18:19 | Emergency (ER) | payer MEDICARE, SELFPAY ==
[2022-07-14 18:23] VITALS: BP 169/84; PULSE 102; RESP 20; TEMP 36.7; O2SAT 97; BMI 27.9
--- NOTE | 2022-07-14 18:44 | W.ED.CHESTPA ---
HPI - Chest Pain General: Chief Complaint: Chest Pain Stated Complaint: cp Time Seen by Provider: 07/14/22 18:44 History of Present Illness: Ms. Way is a 66-year-old lady with significant past medical history of metastatic breast cancer presenting to the emergency department due to chest pain. She reports pain has been well controlled at home however began to worsen yesterday with sharp right substernal chest pain with radiation to the back. Mild associated shortness of breath and cough. Intensity symptoms is moderate. Course has persisted. No other specific changes in health, exacerbating, or alleviating factors identified. Onset (ago): day(s) Timing of current episode: constant Prior episodes: Yes Onset: during rest Pain location: right chest Pain radiation: back Severity: moderate Quality: sharp Relieving factors: nothing Exacerbating factors: exertion, inspiration and movement Context: other Associated symptoms: Reports no associated symptoms Review of Systems General: Reports: 10 or more systems reviewed and unremarkable except in HPI and below PFSH ED PFSH: Medical History History of 2019 novel coronavirus disease (COVID-19) (07/2020) Hyperlipidemia Left hemiparesis Metastatic breast cancer Thalassemia trait Type 2 diabetes mellitus Surgical History History of appendectomy History of cholecystectomy History of left mastectomy (1999) History of lung surgery (12/14/16) left thoracoscopy with wedge resection of left lower lobe nodule Port-A-Cath in place Placed 11/04/21 at [place], [place] to right chest wall by Dr. Salomon. Family History Son Stroke At age 35 Other Cancer Diabetes Heart disease Hyperlipidemia Hypertension Psychiatric illness Suicide Denies family history of CAD (coronary artery disease) Clotting disorder Dementia Chronic kidney disease (CKD) Anesthesia complication Bleeding disorder Lung disease Social History Smoking and tobacco status: former smoker (smoked x 20 years) Quit status (tobacco): has quit using tobacco Year quit tobacco: 2017 Alcohol intake: never Housing: House History of recent travel: No Physical Exam Const: COMMON NORMALS: alert GENERAL APPEARANCE: cooperative, well developed and ill appearing (mildly) HENMT: COMMON NORMALS: normocephalic and atraumatic HEAD & SCALP: normocephalic and atraumatic Eye: COMMON NORMALS: conjunctivae normal CONJUNCTIVA: Yes conjunctivae normal SCLERA: sclerae normal Neck/C-Spine: COMMON NORMALS: supple GENERAL: Yes trachea midline Resp: COMMON NORMALS: clear to auscultation bilaterally EFFORT & INSPECTION: Yes able to speak in complete sentences AUSCULTATION: clear to auscultation bilaterally Cardio: COMMON NORMALS: regular rhythm RATE: tachycardic RHYTHM: regular rhythm GI: COMMON NORMALS: Soft to palpation PALPATION: Yes Soft to palpation and No Tenderness to palpation present (GI) Extremity: GENERAL: Yes normal exam except as noted and No edema Neuro: COMMON NORMALS: moves all extremities SENSORIUM/ORIENTATION: Yes alert and No Orientation impaired Psych: COMMON NORMALS: mental status grossly normal and Normal thought process present THOUGHT PROCESS: Normal thought process present Course Vital Signs: Vital signs: Vital Signs Temperature 98.0 F 07/14/22 18:23 Pulse Rate 95 07/14/22 22:23 Respiratory Rate 18 07/14/22 22:23 Blood Pressure 157/68 07/14/22 22:23 Pulse Oximetry 97 07/14/22 22:23 Oxygen Delivery Me thod 07/14/22 18:23 MDM - Chest Pain Medical Decision Making 66-year-old lady presented to the emergency department for chest discomfort in the context of known cancer. She is mildly tachycardic and pain does have pleuritic characteristic. Exam as above, patient is nontoxic in appearance. EKG shows sinus rhythm with right bundle branch block, no STEMI. Labs with no leukocytosis, microcytic anemia is again present. Developmental with no acute electrolyte derangement to explain symptoms. Given tachycardia and history of cancer patient cannot be ruled out by Wells/PERC and D-dimer was obtained and elevated. Chest x-ray with pulmonary disease again noted. CTA negative for pulm embolism. Discussed findings with the patient. Patient proved with analgesia on reassessment. Exact etiology of patient symptoms is unclear, may be related to cancer related pain. Given current status with regards to cancer I do not feel that inpatient cardiac testing is warranted. Patient feels comfortable with this. I extensively discussed precautions and risks with opioids. Given uncontrolled pain I will refill patient's morphine and also add as needed oxycodone for between morphine doses. Patient verbalizes understanding of all risks and instructions. The results of ED evaluation were discussed with the patient including prescriptions and/or symptomatic cares (if applicable) including appropriate and responsible use, followup plan, and return precautions. The patient verbalized understanding and felt safe for discharge. Medical Records I reviewed the patient's medical records. Lab Data I reviewed the patient's lab results. 07/14/22 19:29 07/14/22: Radiology Impressions Chest X-Ray 07/14/22 18:59 IMPRESSION: 1. Widespread pulmonary metastasis not significantly changed from prior study. 2. Mild cardiomegaly, stable. 3. Bone metastasis left scapula, stable. Chest CTA 07/14/22 20:09 IMPRESSION: 1. No pulmonary embolus. 2. Widespread metastatic disease in the chest and osseous structures is not significantly changed with CT 06/25/2022. Recommend continued follow-up. 3. Unchanged 11 mm left adrenal gland nodule, indeterminate, but statistically most likely an adenoma. Laboratory Results WBC 6.9 10^3/uL (4.0-10.0) 07/14/22: RBC 4.12 10^6/uL (4.1-5.3) 07/14/22: Hgb 9.6 g/dL (11.5-15.3) L 07/14/22: Hct 32.4 % (37.0-47.0) L 07/14/22: MCV 78.6 fl (81-99) L 07/14/22: MCH 23.3 pg (28.0-34.0) L 07/14/22: MCHC 29.6 g/dL (30.0-36.0) L 07/14/22: RDW 18.2 % (12.1-15.1) H 07/14/22 Plt Count 305 10^3/cmm (130-400) 07/14/22 MPV 9.4 fL (7.4-10.4) 07/14/22: Neut % (Auto) 77.3 % 07/14/22: Lymph % (Auto) 12.2 % 07/14/22: [place] % (Auto) 8.5 % 07/14/22 19: Eos % (Auto) 1.0 % 07/14/22 19: Baso % (Auto) 0.3 % 07/14/22 19: Neut # (Auto) 5.36 10^3/uL (1.8-7.7) 07/14/22 19: Lymph # (Auto) 0.9 10^3/uL (0.8-4.8) 07/14/22 19: [place] # (Auto) 0.6 10^3/uL (0.2-0.9) 07/14/22: Eos # (Auto) 0.1 10^3/uL (0.0-0.8) 07/14/22: Baso # (Auto) 0.0 10^3/uL (0.0-0.1) 07/14/22: Nucleated RBC % (auto) 0 % 07/14/22: Nucleated RBCs # 0.0 /100WBC 07/14/22 19: D-Dimer 1.40 ug/mIFEU (0-0.59) H 07/14/22 19:29 Sodium 138 mmol/L (136-145) 07/14/22 19: Potassium 4.4 mmol/L (3.5-5.1) 07/14/22 19: Chloride 103 mmol/L (98-107) 07/14/22 19: Carbon Dioxide 21 mmol/L (22-29) L 07/14/22: Anion Gap 18.4 (5-19) 07/14/22 19:29 BUN 19 mg/dL (8-23) 07/14/22 19: Creatinine 0.7 mg/dL (0.5-0.9) 07/14/22 19: GFR Calculation 83.2 mL/min (90-130) L 07/14/22 19: Glucose 109 mg/dL (65-115) 07/14/22 19: Calculated Osmolality 289 mOsm/kg (285-295) 07/14/22 19: Calcium 9.9 mg/dL (8.5-10.5) 07/14/22 19: Total Bilirubin 0.5 mg/dL (0.15-1.2) 07/14/22 19:29 AST 20 U/L (0-32) 07/14/22 19:29 ALT 9 U/L (0-33) 07/14/22 19:29 Alkaline Phosphatase 111 U/L (35-105) H 07/14/22 19:29 Troponin T Baseline 7 ng/L (0-10) 07/14/22 19:29 Troponin T 120 Minute 7.20 ng/L (0-10) 07/14/22 21:00 Delta Troponin T 0.20 ABS# (0-10) 07/14/22 21:00 NT-Pro-B Natriuret Pep 554 pg/mL (0-125) H 07/14/22 19: Total Protein 6.9 g/dL (6.6-8.7) 07/14/22 19: Albumin 4.0 g/dL (3.5-5.2) 07/14/22 19: Globulin 2.9 g/dL (1.3-4.6) 07/14/22 19:29 Discharge Plan Discharge Patient Disposition: Home Clinical Impression: Chest pain, Cancer related pain Condition: Stable Prescriptions: New Narcan 4 mg/actuation spray,non-aerosol 4 mg intranasal Q2M PRN (Reason: opioid overdose) Qty: 2 2RF Rx Instructions: spray 1 dose into ONE nostril; alternate nostrils until help arrives Discontinued morphine 15 mg tablet 15 mg PO Q4H PRN (Reason: pain) Qty: 30 0RF No Action dietary supplement Capsule See Rx Instructions PO .COMPLEX Rx Instructions: Neuropaway 2 capsules daily PO; ibuprofen 200 mg capsule 400 mg PO .COMPLEX PRN Rx Instructions: 400 mg orally every 4 to 6 hours PRN; potassium chloride 8 mEq tablet extended release 8 meq PO DAILY@0800 Qty: 30 2RF morphine 15 mg tablet 15 mg PO Q4H PRN (Reason: pain) 30 Days Qty: 120 0RF magnesium oxide [MagOx] 400 mg (241.3 mg magnesium) tablet 400 mg PO BID Qty: 60 3RF esomeprazole magnesium [Nexium] 40 mg capsule,delayed release(DR/EC) 40 mg PO DAILY Qty: 30 5RF ondansetron 8 mg Film 8 mg PO Q8H PRN (Reason: NAUSEA/VOMITING) Discharge Orders: Discharge ED (Routine); Ordered 07/14/22 Ordered By: Jose G Brown Referrals: Janice Moody DO [Primary Care Provider] - Discharge Diet: Usual diet Discharge Activity: Increase activity as tolerated Patient Instructions: Cancer Pain, Medication Safety for Older Adults (ED), Opioid Safety, Pain Management Activity Restrictions/Additional Instructions: Thank you for visiting the emergency department. You were seen and evaluated for chest pain. The exact cause of your chest pain is unclear however may be related to cancer. Please follow-up with your oncologist and primary care provider. I will refill your pain medication however please use this extremely cautiously as discussed. Do not take morphine and oxycodone at the same time. Ensure that someone can watch you closely and ensure that you do not experience respiratory depression or alteration in mental status. Return to the emergency department for uncontrolled symptoms or anything else that you are concerned about a feel needs emergency department evaluation. Coding Level of Care Code ED Physician Chief Of Pathology for Jeffrey Fwsheila Exam Comprehensive
--- NOTE | 2022-07-14 18:59 | XRR_ITS ---
PROCEDURE INFORMATION: Exam: XR Chest Exam date and time: 07/14/2022 7:13 PM Age: 66 years old Clinical indication: Angina; Prior surgery; Surgery date: 6+ months; Surgery type: Mastectomy, port; Additional info: Cp. Known pulmonary metastasis. TECHNIQUE: Imaging protocol: Radiologic exam of the chest. Views: 1 view. COMPARISON: CR XR chest 1V portable [id number] 06/25/2022 1:45 PM and CTA chest performed June 25, 2022 FINDINGS: Tubes, catheters and devices: There is a right-sided chest port whose tip terminates above the cavoatrial junction unchanged. Lungs: There are numerous small nodular opacities again noted consistent with widespread pulmonary metastasis. There is a more ill-defined and larger masslike density at the left lung base also demonstrated previously believe metastatic in nature. Pleural spaces: Unremarkable. No pleural effusion. No pneumothorax. Heart/Mediastinum: Cardiac silhouette appears mildly enlarged, unchanged. Bones/joints: There is diffuse mottled sclerotic bone changes involving the left scapula likely metastatic in nature, unchanged. XR/XR chest 1V portable [id number] IMPRESSION: 1. Widespread pulmonary metastasis not significantly changed from prior study. 2. Mild cardiomegaly, stable. 3. Bone metastasis left scapula, stable.
--- NOTE | 2022-07-14 18:59 | ECG_ITS ---
[facility] Test Date: 2022-07-14 Pat Name: Dacia Way Department: Room: Gender: Female Retail Helper: : [phone] Requested By: Jose G Brown Order Number: [id number] Franks MD: Praful Luna M.D. Measurements Intervals [place] Rate: 82 P: 26 NE: 220 QRS: 99 QRSD: 125 T: 55 QT: 388 QTc: 455 Interpretive Statements SINUS RHYTHM WITH FIRST DEGREE AV BLOCK RIGHT BUNDLE BRANCH BLOCK [120+ ms QRS DURATION, UPRIGHT V1, 40+ ms S IN I/aVL/V4/V5/V6] Compared to ECG 06/25/2022 15:41:43 Sinus tachycardia no longer present Electronically Signed On 07-15-2022 8:14:11 SECURITY SYSTEM ENGINEER by Praful Luna M.D. [id number]
[2022-07-14] MEDS: ketorolac 30 mg/mL INJ 15 MG IVP (19:45)
[2022-07-14] MEDS: acetaminophen 500 mg Tablet 1000 MG PO (19:45)
[2022-07-14 19:59] LABS: Basophils % 0.3 %; Eosinophils # 0.1 10^3/uL (0.0-0.8); Hematocrit 32.4 % (37.0-47.0); Hemoglobin 9.6 g/dL (11.5-15.3); Lymphocytes # 0.9 10^3/uL (0.8-4.8); Lymphocytes % 12.2 %; Mean Corpuscular HGB Conc 29.6 g/dL (30.0-36.0); Mean Corpuscular Hemoglobin 23.3 pg (28.0-34.0); Mean Corpuscular Volume 78.6 fl (81-99); Mean Platelet Volume 9.4 fL (7.4-10.4); Monocytes # 0.6 10^3/uL (0.2-0.9); Monocytes % 8.5 %; Neutrophils # 5.36 10^3/uL (1.8-7.7); Neutrophils % 77.3 %; Nucleated Red Blood Cells % 0 %; Platelet Count 305 10^3/cmm (130-400); Red Blood Count 4.12 10^6/uL (4.1-5.3); Red Cell Distribution Width 18.2 % (12.1-15.1); White Blood Count 6.9 10^3/uL (4.0-10.0)
--- NOTE | 2022-07-14 20:09 | CTR_ITS ---
PROCEDURE INFORMATION: Exam: CTA Chest With Contrast Exam date and time: 07/14/2022 8:43 PM Age: 66 years old Clinical indication: Pain and abnormal findings; Abnormal diagnostic tests; Elevated d-dimer; On breathing and right-sided; Prior surgery; Surgery type: Left mastectomy. Gb. Patient HX: C/O RT sided chest pain with painful inspiration. Elevated d dimer. History of breast cancer with bone mets. ; Additional info: R cp, worse inspiration, SOB, elevated ddimer, HX CA TECHNIQUE: Imaging protocol: Computed tomographic angiography of the chest with contrast. 3D rendering (Not supervised by radiologist): MIP and/or 3D reconstructed images were created by the technologist. Radiation optimization: All CT scans at this facility use at least one of these dose optimization techniques: automated exposure control; mA and/or kV adjustment per patient size (includes targeted exams where dose is matched to clinical indication); or iterative reconstruction. Contrast material: OMNI 350; Contrast volume: 57 ml; Contrast route: INTRAVENOUS (IV); COMPARISON: 1. CT angio chest PE protcl [id number] 06/25/2022 4:48 PM 2. CR (CHEST, ) 07/14/2022 7:13 PM RADIATION DOSE METRICS: Total DLP (mGy-cm): 296.05 FINDINGS: Tubes, catheters and devices: Unchanged right chest MediPort. Pulmonary arteries: Normal. No pulmonary emboli. Aorta: Unremarkable. No aortic aneurysm. No aortic dissection. Lungs: Innumerable pulmonary masses again visualized. Largest mass in the left lower lobe abutting the hilum measures 2.9 x 2.3 cm on series 4, image 23, not significantly changed. No significant interval progression of disease. Pleural spaces: Curvilinear left lower lobe and pleural calcifications are unchanged. Small left pleural effusion is increased. Heart: Unremarkable. No cardiomegaly. No pericardial effusion. Lymph nodes: Unchanged left hilar adenopathy. Adrenal glands: 11 mm left adrenal gland nodules unchanged and indeterminate. Bones/joints: Widespread sclerotic osseous metastases are again visualized, with no definite new bone lesion. Stable mild T3 central chronic compression deformity. Partial interval healing of the previously described posterior left 10th rib fracture. Soft tissues: Unremarkable. CT/CT angio chest PE protcl [id number] IMPRESSION: 1. No pulmonary embolus. 2. Widespread metastatic disease in the chest and osseous structures is not significantly changed with CT 06/25/2022. Recommend continued follow-up. 3. Unchanged 11 mm left adrenal gland nodule, indeterminate, but statistically most likely an adenoma.
--- NOTE | 2022-07-14 20:21 | ECG_ITS ---
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 Measurements Intervals [place] Rate: 86 P: 55 DC: 239 QRS: 100 QRSD: 126 T: 52 QT: 394 QTc: 474 Interpretive Statements SINUS RHYTHM WITH FIRST DEGREE AV BLOCK RIGHT BUNDLE BRANCH BLOCK [120+ ms QRS DURATION, UPRIGHT V1, 40+ ms S IN I/aVL/V4/V5/V6] Compared to ECG 07/14/2022 19:09:05 No significant changes Electronically Signed On 07-15-2022 8:12:24 SPD TECH by Praful Luna M.D. [id number]
[2022-07-14 20:26] LABS: Troponin(5th) Baseline 7 ng/L (0-10)
[2022-07-14 20:33] LABS: Alanine Aminotransferase 9 U/L (0-33); Alkaline Phosphatase 111 U/L (35-105); Anion Gap 18.4 (5-19); Aspartate Amino Transferase 20 U/L (0-32); Blood Urea Nitrogen 19 mg/dL (8-23); Calcium 9.9 mg/dL (8.5-10.5); Carbon Dioxide 21 mmol/L (22-29); Chloride 103 mmol/L (98-107); Globulin 2.9 g/dL (1.3-4.6); Glomerular Filtration Rate 83.2 mL/min (90-130); Glucose 109 mg/dL (65-115); NT Pro B Type Natriuretic Pept 554 pg/mL (0-125); Osmolality Calculated 289 mOsm/kg (285-295); Potassium 4.4 mmol/L (3.5-5.1); Sodium 138 mmol/L (136-145); Total Bilirubin 0.5 mg/dL (0.15-1.2); Total Protein 6.9 g/dL (6.6-8.7)
[2022-07-14] MEDS: iohexol 350 mg/mL 500 mL Btl (per mL) IV (20:48)
[2022-07-14 22:23] VITALS: BP 157/68; PULSE 95; RESP 18; O2SAT 97
--- NOTE | 2022-07-15 09:28 | DCPLANNER ---
Addendum entered by Morelia Sawyer 08/07/22 14:26: Patient had a follow up appointment scheduled with oncology - patient did attend appointment. Original Note: clinical data management manager had message to schedule a follow up appointment for patient with oncology. clinical data management manager called Lilli, residence life coordinator, at [facility]. clinical data management manager gave clinic patients information, a follow up appointment is scheduled for Wednesday, July 22, 2022 at 10:[address] Brito. Clinic will call patient with appointment information.
== END 2022-07-14 22:25 | disposition home or self-care (01) ==
PROVIDERS: Emergency Provider Emergency Medicine; PCP Family Medicine
DX: G89.3 Neoplasm related pain (acute) (chronic) (principal); R07.9 Chest pain, unspecified; E78.5 Hyperlipidemia, unspecified; Z85.3 Personal history of malignant neoplasm of breast; E11.9 Type 2 diabetes mellitus without complications; Z87.891 Personal history of nicotine dependence
CPT/HCPCS: 71045; 71275; 80053; 83880; 84484; 85025; 85378; 93005; 96374; 99285; J1885; Q9967

== ENCOUNTER 2022-08-03 11:00 | Oncology outpatient (recurring) (ONCR) | payer MEDICARE, SELFPAY ==
[2022-07-07 09:03] LABS: Basophils % 0.4 %; Eosinophils # 0.1 10^3/uL (0.0-0.8); Eosinophils % 3.1 %; Hematocrit 26.9 % (37.0-47.0); Hemoglobin 7.9 g/dL (11.5-15.3); Lymphocytes # 0.8 10^3/uL (0.8-4.8); Lymphocytes % 29.7 %; Mean Corpuscular HGB Conc 29.4 g/dL (30.0-36.0); Mean Corpuscular Hemoglobin 23.2 pg (28.0-34.0); Mean Corpuscular Volume 79.1 fl (81-99); Mean Platelet Volume 8.7 fL (7.4-10.4); Monocytes # 0.3 10^3/uL (0.2-0.9); Monocytes % 9.8 %; Neutrophils # 1.39 10^3/uL (1.8-7.7); Neutrophils % 54.3 %; Nucleated Red Blood Cells % 0 %; Platelet Count 227 10^3/cmm (130-400); Red Cell Distribution Width 17.6 % (12.1-15.1); White Blood Count 2.6 10^3/uL (4.0-10.0)
[2022-07-07 09:20] LABS: Alanine Aminotransferase 7 U/L (0-33); Albumin Level 3.5 g/dL (3.5-5.2); Alkaline Phosphatase 92 U/L (35-105); Anion Gap 13.2 (5-19); Aspartate Amino Transferase 15 U/L (0-32); Blood Urea Nitrogen 14 mg/dL (8-23); Calcium 8.8 mg/dL (8.5-10.5); Carbon Dioxide 22 mmol/L (22-29); Chloride 106 mmol/L (98-107); Globulin 2.8 g/dL (1.3-4.6); Glomerular Filtration Rate 99.4 mL/min (90-130); Glucose 118 mg/dL (65-115); Osmolality Calculated 286 mOsm/kg (285-295); Potassium 4.2 mmol/L (3.5-5.1); Sodium 137 mmol/L (136-145); Total Bilirubin 0.2 mg/dL (0.15-1.2); Total Protein 6.3 g/dL (6.6-8.7)
[2022-07-22 09:13] VITALS: BMI 28.3
[2022-07-22 09:18] LABS: Basophils % 0.7 %; Eosinophils # 0.3 10^3/uL (0.0-0.8); Eosinophils % 4.4 %; Hematocrit 29.1 % (37.0-47.0); Hemoglobin 8.6 g/dL (11.5-15.3); Lymphocytes # 0.9 10^3/uL (0.8-4.8); Mean Corpuscular HGB Conc 29.6 g/dL (30.0-36.0); Mean Corpuscular Volume 77.8 fl (81-99); Mean Platelet Volume 8.8 fL (7.4-10.4); Monocytes # 0.5 10^3/uL (0.2-0.9); Monocytes % 7.6 %; Neutrophils # 4.22 10^3/uL (1.8-7.7); Neutrophils % 71.3 %; Nucleated Red Blood Cells % 0 %; Platelet Count 258 10^3/cmm (130-400); Red Blood Count 3.74 10^6/uL (4.1-5.3); White Blood Count 5.9 10^3/uL (4.0-10.0)
[2022-07-22 09:56] LABS: Alanine Aminotransferase 8 U/L (0-33); Albumin Level 3.7 g/dL (3.5-5.2); Alkaline Phosphatase 96 U/L (35-105); Anion Gap 12.5 (5-19); Aspartate Amino Transferase 15 U/L (0-32); Blood Urea Nitrogen 25 mg/dL (8-23); Calcium 9.6 mg/dL (8.5-10.5); Carbon Dioxide 25 mmol/L (22-29); Chloride 104 mmol/L (98-107); Globulin 3.2 g/dL (1.3-4.6); Glomerular Filtration Rate 83.2 mL/min (90-130); Glucose 146 mg/dL (65-115); Osmolality Calculated 291 mOsm/kg (285-295); Potassium 4.5 mmol/L (3.5-5.1); Sodium 137 mmol/L (136-145); Total Bilirubin 0.3 mg/dL (0.15-1.2); Total Protein 6.9 g/dL (6.6-8.7)
[2022-08-03 11:14] VITALS: BMI 29.3
[2022-08-03 11:14] LABS: Basophils % 0.5 %; Eosinophils # 0.2 10^3/uL (0.0-0.8); Eosinophils % 3.2 %; Hematocrit 28.3 % (37.0-47.0); Hemoglobin 8.3 g/dL (11.5-15.3); Lymphocytes # 0.8 10^3/uL (0.8-4.8); Lymphocytes % 13.6 %; Mean Corpuscular HGB Conc 29.3 g/dL (30.0-36.0); Mean Corpuscular Hemoglobin 22.8 pg (28.0-34.0); Mean Corpuscular Volume 77.7 fl (81-99); Mean Platelet Volume 8.8 fL (7.4-10.4); Monocytes # 0.5 10^3/uL (0.2-0.9); Monocytes % 8.4 %; Neutrophils # 4.52 10^3/uL (1.8-7.7); Neutrophils % 73.5 %; Nucleated Red Blood Cells % 0 %; Platelet Count 262 10^3/cmm (130-400); Red Blood Count 3.64 10^6/uL (4.1-5.3); Red Cell Distribution Width 16.9 % (12.1-15.1); White Blood Count 6.2 10^3/uL (4.0-10.0)
[2022-08-03 11:33] LABS: Alanine Aminotransferase 6 U/L (0-33); Albumin Level 3.5 g/dL (3.5-5.2); Alkaline Phosphatase 103 U/L (35-105); Anion Gap 13.4 (5-19); Aspartate Amino Transferase 17 U/L (0-32); Blood Urea Nitrogen 24 mg/dL (8-23); Calcium 9.2 mg/dL (8.5-10.5); Carbon Dioxide 25 mmol/L (22-29); Chloride 102 mmol/L (98-107); Globulin 3.4 g/dL (1.3-4.6); Glomerular Filtration Rate 83.2 mL/min (90-130); Glucose 129 mg/dL (65-115); Osmolality Calculated 288 mOsm/kg (285-295); Potassium 4.4 mmol/L (3.5-5.1); Sodium 136 mmol/L (136-145); Total Bilirubin 0.3 mg/dL (0.15-1.2); Total Protein 6.9 g/dL (6.6-8.7)
[2022-08-03] MEDS: sodium chloride 0.9% 250 ML 75 ML IV (12:29)
[2022-08-03] MEDS: ondansetron 4 MG Tablet 8 MG PO (12:33)
[2022-08-03] MEDS: zoledronic acid 4 MG in sodium chloride 0.9% (100 ml) 100 ML 420 MG IV (13:28)
[2022-08-03 13:55] VITALS: BP 131/71; PULSE 83; RESP 16; TEMP 35.7; O2SAT 100
== END 2022-08-04 23:59 | disposition home or self-care (01) ==
PROVIDERS: Internal Medicine Medical Oncology; PCP Family Medicine; Visit Provider Nurse Practitioner
DX: C79.51 Secondary malignant neoplasm of bone (principal); Z51.11 Encounter for antineoplastic chemotherapy; Z79.899 Other long term (current) drug therapy; Z85.3 Personal history of malignant neoplasm of breast; Z92.3 Personal history of irradiation; Z90.12 Acquired absence of left breast and nipple
CPT/HCPCS: 36415; 36591; 80053; 85025; 86300; 96365; 96375; 99213; 99214; 99215; J3489; J7050; J9179; Q0162

== ENCOUNTER → 2022-08-17 09:37 | Outpatient (BNVA) | payer MEDICARE, SELFPAY | PROVIDERS: PCP Family Medicine; Visit Provider Nurse Practitioner | DX: C50.812 Malignant neoplasm of overlapping sites of left female breast (principal); Z17.0 Estrogen receptor positive status [ER+] | CPT/HCPCS: 99214 ==

== ENCOUNTER 2022-08-31 08:00 | Oncology outpatient (recurring) (ONCR) | payer MEDICARE, SELFPAY ==
[2022-08-06 14:42] LABS: Basophils % 0.4 %; Eosinophils # 0.1 10^3/uL (0.0-0.8); Eosinophils % 3.4 %; Hematocrit 26.2 % (37.0-47.0); Hemoglobin 7.8 g/dL (11.5-15.3); Lymphocytes # 0.6 10^3/uL (0.8-4.8); Lymphocytes % 25.8 %; Mean Corpuscular HGB Conc 29.8 g/dL (30.0-36.0); Mean Corpuscular Hemoglobin 23.2 pg (28.0-34.0); Mean Platelet Volume 9.1 fL (7.4-10.4); Monocytes # 0.2 10^3/uL (0.2-0.9); Monocytes % 8.6 %; Neutrophils # 1.43 10^3/uL (1.8-7.7); Neutrophils % 61.4 %; Nucleated Red Blood Cells % 0 %; Platelet Count 217 10^3/cmm (130-400); Red Blood Count 3.36 10^6/uL (4.1-5.3); Red Cell Distribution Width 16.9 % (12.1-15.1); White Blood Count 2.3 10^3/uL (4.0-10.0)
[2022-08-07] VITALS (10 sets, daily range): BP systolic 118–140; BP diastolic 62–92; PULSE 71–86; RESP 15–18; TEMP 36.3–36.6; O2SAT 95–97
[2022-08-07] MEDS: acetaminophen 325 mg Tablet 650 MG PO (12:24)
[2022-08-07] MEDS: diphenhydrAMINE 25 mg Capsule PO (12:25)
[2022-08-10 09:15] LABS: Hematocrit 33.2 % (37.0-47.0); Hemoglobin 10.3 g/dL (11.5-15.3); Mean Corpuscular Hemoglobin 23.8 pg (28.0-34.0); Mean Corpuscular Volume 76.9 fl (81-99); Mean Platelet Volume 9.2 fL (7.4-10.4); Platelet Count 263 10^3/cmm (130-400); Red Blood Count 4.32 10^6/uL (4.1-5.3); Red Cell Distribution Width 16.6 % (12.1-15.1); White Blood Count 2.9 10^3/uL (4.0-10.0)
[2022-08-10 09:16] VITALS: BMI 28.7
[2022-08-10 09:27] LABS: Alanine Aminotransferase 8 U/L (0-33); Albumin Level 3.3 g/dL (3.5-5.2); Alkaline Phosphatase 76 U/L (35-105); Anion Gap 14.4 (5-19); Aspartate Amino Transferase 20 U/L (0-32); Blood Urea Nitrogen 18 mg/dL (8-23); Calcium 8.8 mg/dL (8.5-10.5); Carbon Dioxide 22 mmol/L (22-29); Chloride 103 mmol/L (98-107); Globulin 2.9 g/dL (1.3-4.6); Glomerular Filtration Rate 71.3 mL/min (90-130); Glucose 126 mg/dL (65-115); Osmolality Calculated 285 mOsm/kg (285-295); Potassium 3.4 mmol/L (3.5-5.1); Sodium 136 mmol/L (136-145); Total Bilirubin 0.5 mg/dL (0.15-1.2); Total Protein 6.2 g/dL (6.6-8.7)
[2022-08-10 10:44] LABS: Absolute Neutrophil 1.6 10^3/cmm (1.4-6.5); Absolute Segmented Neutrophil 1.6 10/cmm (1.6-7.1); Eosinophils 0 %; Lymphocytes 31 %; Lymphocytes Absolute 0.9 10^3/cmm (1.2-3.4); Monocytes Absolute 0.3 10^3/cmm (0.1-0.6); Platelet Estimate Normal (Normal); Segmented Neutrophils 54 %; Slide Review Slide Review Perform; Total Cells Counted 100 (0-100)
--- NOTE | 2022-08-10 13:33 | PC.NURSE ---
This nurse called the patient to let her know that her appointment on (08/13/22) is scheduled at 11:30 am for lab draw and then appt with Donna Abraham NP at 1:00 pm. Patient acknowledged understanding and had no other questions.
[2022-08-13 12:02] VITALS: BMI 29.2
[2022-08-13 12:06] LABS: Basophils % 0.4 %; Eosinophils % 0.4 %; Hematocrit 32.2 % (37.0-47.0); Hemoglobin 9.8 g/dL (11.5-15.3); Lymphocytes # 0.9 10^3/uL (0.8-4.8); Lymphocytes % 37.8 %; Mean Corpuscular HGB Conc 30.4 g/dL (30.0-36.0); Mean Corpuscular Hemoglobin 23.7 pg (28.0-34.0); Mean Platelet Volume 8.8 fL (7.4-10.4); Monocytes # 0.5 10^3/uL (0.2-0.9); Monocytes % 23.5 %; Neutrophils % 35.7 %; Nucleated Red Blood Cells % 0 %; Platelet Count 239 10^3/cmm (130-400); Red Blood Count 4.13 10^6/uL (4.1-5.3); Red Cell Distribution Width 17.2 % (12.1-15.1); White Blood Count 2.3 10^3/uL (4.0-10.0)
[2022-08-13 12:45] LABS: Neutrophils # 0.82 10^3/uL (1.8-7.7)
[2022-08-13 13:04] LABS: Slide Review Slide Review Perform
[2022-08-14] MEDS: filgrastim-sndz 480 mcg/0.8 mL Syringe SUBCUT (10:51)
[2022-08-15 10:11] VITALS: BP 127/67; PULSE 76; RESP 18; TEMP 35.9; O2SAT 98
[2022-08-15] MEDS: filgrastim-sndz 480 mcg/0.8 mL Syringe SUBCUT (10:45)
[2022-08-17 10:09] VITALS: BMI 29.5
[2022-08-17 10:10] LABS: Basophils # 0.1 10^3/uL (0.0-0.1); Basophils % 0.6 %; Eosinophils % 0.1 %; Hematocrit 33.5 % (37.0-47.0); Lymphocytes # 1.4 10^3/uL (0.8-4.8); Lymphocytes % 8.9 %; Mean Corpuscular HGB Conc 29.9 g/dL (30.0-36.0); Mean Corpuscular Hemoglobin 23.4 pg (28.0-34.0); Mean Corpuscular Volume 78.5 fl (81-99); Mean Platelet Volume 8.8 fL (7.4-10.4); Monocytes # 1.5 10^3/uL (0.2-0.9); Monocytes % 9.3 %; Neutrophils # 11.89 10^3/uL (1.8-7.7); Neutrophils % 76.2 %; Nucleated Red Blood Cells % 0.1 %; Platelet Count 227 10^3/cmm (130-400); Red Blood Count 4.27 10^6/uL (4.1-5.3); Red Cell Distribution Width 17.9 % (12.1-15.1); White Blood Count 15.6 10^3/uL (4.0-10.0)
[2022-08-17 10:30] LABS: Alanine Aminotransferase 8 U/L (0-33); Albumin Level 3.4 g/dL (3.5-5.2); Alkaline Phosphatase 107 U/L (35-105); Aspartate Amino Transferase 17 U/L (0-32); Blood Urea Nitrogen 15 mg/dL (8-23); Calcium 8.5 mg/dL (8.5-10.5); Carbon Dioxide 24 mmol/L (22-29); Chloride 104 mmol/L (98-107); Globulin 2.8 g/dL (1.3-4.6); Glomerular Filtration Rate 71.3 mL/min (90-130); Glucose 106 mg/dL (65-115); Osmolality Calculated 287 mOsm/kg (285-295); Sodium 138 mmol/L (136-145); Total Bilirubin 0.4 mg/dL (0.15-1.2); Total Protein 6.2 g/dL (6.6-8.7)
[2022-08-17] MEDS: sodium chloride 0.9% 250 ML 100 ML IV (12:59)
[2022-08-17] MEDS: ondansetron 4 MG Tablet 8 MG PO ×2 (13:00→13:13)
[2022-08-17 13:40] VITALS: BP 128/83; PULSE 76; RESP 16; TEMP 35.8; O2SAT 96
[2022-08-24 12:38] LABS: Hematocrit 29.9 % (37.0-47.0); Hemoglobin 9.2 g/dL (11.5-15.3); Mean Corpuscular HGB Conc 30.8 g/dL (30.0-36.0); Mean Corpuscular Volume 78.1 fl (81-99); Mean Platelet Volume 9.2 fL (7.4-10.4); Platelet Count 223 10^3/cmm (130-400); Red Blood Count 3.83 10^6/uL (4.1-5.3); Red Cell Distribution Width 17.3 % (12.1-15.1); White Blood Count 2.7 10^3/uL (4.0-10.0)
[2022-08-24 12:53] LABS: Alanine Aminotransferase 10 U/L (0-33); Alkaline Phosphatase 85 U/L (35-105); Anion Gap 12.6 (5-19); Aspartate Amino Transferase 24 U/L (0-32); Blood Urea Nitrogen 16 mg/dL (8-23); Calcium 8.9 mg/dL (8.5-10.5); Carbon Dioxide 23 mmol/L (22-29); Chloride 103 mmol/L (98-107); Globulin 2.8 g/dL (1.3-4.6); Glucose 157 mg/dL (65-115); Osmolality Calculated 284 mOsm/kg (285-295); Potassium 3.6 mmol/L (3.5-5.1); Sodium 135 mmol/L (136-145); Total Bilirubin 0.4 mg/dL (0.15-1.2); Total Protein 5.8 g/dL (6.6-8.7)
[2022-08-24 13:08] LABS: Absolute Segmented Neutrophil 1.8 10/cmm (1.6-7.1); Eosinophils 0 %; Lymphocytes 27 %; Monocytes Absolute 0.1 10^3/cmm (0.1-0.6); Segmented Neutrophils 67 %; Slide Review Slide Review Perform; Total Cells Counted 100 (0-100)
[2022-08-24 13:09] LABS: Absolute Neutrophil 1.8 10^3/cmm (1.4-6.5); Lymphocytes Absolute 0.7 10^3/cmm (1.2-3.4); Platelet Estimate Normal (Normal)
[2022-08-31 08:19] LABS: Basophils # 0.1 10^3/uL (0.0-0.1); Eosinophils % 0.2 %; Hematocrit 30.9 % (37.0-47.0); Hemoglobin 9.4 g/dL (11.5-15.3); Lymphocytes % 20.4 %; Mean Corpuscular HGB Conc 30.4 g/dL (30.0-36.0); Mean Corpuscular Hemoglobin 23.3 pg (28.0-34.0); Mean Corpuscular Volume 76.7 fl (81-99); Mean Platelet Volume 8.6 fL (7.4-10.4); Monocytes # 0.7 10^3/uL (0.2-0.9); Monocytes % 14.3 %; Neutrophils # 2.99 10^3/uL (1.8-7.7); Nucleated Red Blood Cells % 0.4 %; Platelet Count 257 10^3/cmm (130-400); Red Blood Count 4.03 10^6/uL (4.1-5.3); Red Cell Distribution Width 17.9 % (12.1-15.1); White Blood Count 4.9 10^3/uL (4.0-10.0)
[2022-08-31 08:35] LABS: Alanine Aminotransferase 8 U/L (0-33); Albumin Level 3.4 g/dL (3.5-5.2); Alkaline Phosphatase 89 U/L (35-105); Anion Gap 14.8 (5-19); Aspartate Amino Transferase 19 U/L (0-32); Blood Urea Nitrogen 18 mg/dL (8-23); Calcium 9.1 mg/dL (8.5-10.5); Carbon Dioxide 22 mmol/L (22-29); Chloride 104 mmol/L (98-107); Globulin 3.3 g/dL (1.3-4.6); Glucose 125 mg/dL (65-115); Osmolality Calculated 287 mOsm/kg (285-295); Potassium 3.8 mmol/L (3.5-5.1); Sodium 137 mmol/L (136-145); Total Bilirubin 0.4 mg/dL (0.15-1.2); Total Protein 6.7 g/dL (6.6-8.7)
--- NOTE | 2022-08-31 09:26 | XRR_ITS ---
PROCEDURE INFORMATION: Exam: XR Left Hip Exam date and time: 08/31/2022 9:29 AM Age: 67 years old Clinical indication: Pain and injury or trauma; Fall; Blunt trauma (contusions or hematomas); Hip pain; Left hip; Injury date: 08/27/22; Injury details: PT fell and hurt her lt hip. PT states that the pain is on the lateral portion of the hip; Patient HX: HX of metastatic breast cancer; Additional info: Pain in left hip area after fall TECHNIQUE: Imaging protocol: Radiologic exam of the left hip. Views: 2 or 3 views hip with pelvis when performed. COMPARISON: 1. CR XR hip LT 2-3V wo/w pel* [id number] 01/22/2022 10:[address] chest abdpel w/*[id number] 08/05/2018 10:[address] pelvis wo con [id number] 04/07/2020 2:53 PM FINDINGS: Bones/joints: Chronic irregularity of the left superior pubic rami and left iliac wing similar to prior exams , related to osseous metastatic disease. Chronic periosteal reaction along the lateral margin of the proximal left femur similar to prior exams. No radiographically evident proximal left femoral fracture. The left hip maintains normal alignment. Soft tissues: Unremarkable. XR/XR hip LT 2-3V wo/w pel* [id number] IMPRESSION: No radiographically evident left hip fracture.
[2022-08-31] MEDS: sodium chloride 0.9% 250 ML 75 ML IV (11:06)
[2022-08-31] MEDS: ondansetron 4 MG Tablet 8 MG PO (11:12)
[2022-08-31 11:58] VITALS: BP 156/73; PULSE 80; RESP 18; TEMP 36.5; O2SAT 95
== END 2022-09-01 23:59 | disposition home or self-care (01) ==
PROVIDERS: Internal Medicine Medical Oncology; Nurse Practitioner Family; PCP Family Medicine; Visit Provider Nurse Practitioner
DX: C79.51 Secondary malignant neoplasm of bone (principal); Z85.3 Personal history of malignant neoplasm of breast; Z92.3 Personal history of irradiation; Z90.12 Acquired absence of left breast and nipple; K21.9 Gastro-esophageal reflux disease without esophagitis; M25.552 Pain in left hip; Z79.899 Other long term (current) drug therapy; Z51.11 Encounter for antineoplastic chemotherapy
CPT/HCPCS: 36430; 36591; 73502; 80053; 85007; 85025; 86850; 86900; 86920; 96361; 96372; 96401; 96409; 99214; J7050; J9179; P9016; Q0162; Q5101

== ENCOUNTER → 2022-09-21 10:05 | Outpatient (BNVA) | payer MEDICARE, SELFPAY | PROVIDERS: PCP Family Medicine; Visit Provider Nurse Practitioner | DX: C50.812 Malignant neoplasm of overlapping sites of left female breast (principal); Z17.0 Estrogen receptor positive status [ER+] | CPT/HCPCS: 99214 ==

== ENCOUNTER 2022-10-01 09:30 | Oncology outpatient (recurring) (ONCR) | payer MEDICARE, SELFPAY ==
[2022-09-07 12:51] VITALS: BP 119/75; PULSE 74; RESP 18; TEMP 35.8; O2SAT 96
[2022-09-07 13:37] LABS: Basophils % 0.6 %; Hematocrit 29.3 % (37.0-47.0); Hemoglobin 8.7 g/dL (11.5-15.3); Lymphocytes # 1.1 10^3/uL (0.8-4.8); Lymphocytes % 33.6 %; Mean Corpuscular HGB Conc 29.7 g/dL (30.0-36.0); Mean Corpuscular Volume 77.5 fl (81-99); Mean Platelet Volume 8.9 fL (7.4-10.4); Monocytes # 0.3 10^3/uL (0.2-0.9); Neutrophils # 1.64 10^3/uL (1.8-7.7); Neutrophils % 50.2 %; Nucleated Red Blood Cells % 0.6 %; Platelet Count 303 10^3/cmm (130-400); Red Blood Count 3.78 10^6/uL (4.1-5.3); Red Cell Distribution Width 17.6 % (12.1-15.1); White Blood Count 3.3 10^3/uL (4.0-10.0)
[2022-09-07 14:08] LABS: Slide Review Slide Review Perform
[2022-09-07] MEDS: ondansetron 4 MG Tablet 8 MG PO (15:06)
[2022-09-07] MEDS: sodium chloride 0.9% 250 ML 75 ML IV (15:06)
[2022-09-07 15:34] VITALS: BP 149/81; PULSE 71; RESP 18; TEMP 36; O2SAT 98
[2022-09-08] MEDS: filgrastim-sndz 480 mcg/0.8 mL Syringe SUBCUT (13:47)
[2022-09-09] MEDS: filgrastim-sndz 480 mcg/0.8 mL Syringe SUBCUT (13:47)
[2022-09-09 13:50] VITALS: BP 116/62; PULSE 89; RESP 18; TEMP 36.2; O2SAT 97
[2022-09-10] MEDS: filgrastim-sndz 480 mcg/0.8 mL Syringe SUBCUT (13:14)
[2022-09-10 13:21] VITALS: BP 106/63; PULSE 89; RESP 18; TEMP 36.5; O2SAT 95
[2022-09-14 13:21] LABS: Hematocrit 31.5 % (37.0-47.0); Hemoglobin 9.5 g/dL (11.5-15.3); Mean Corpuscular HGB Conc 30.2 g/dL (30.0-36.0); Mean Corpuscular Hemoglobin 23.5 pg (28.0-34.0); Mean Platelet Volume 9.5 fL (7.4-10.4); Platelet Count 220 10^3/cmm (130-400); Red Blood Count 4.04 10^6/uL (4.1-5.3); Red Cell Distribution Width 20.1 % (12.1-15.1); White Blood Count 14.6 10^3/uL (4.0-10.0)
[2022-09-14 13:38] LABS: Alanine Aminotransferase 15 U/L (0-33); Albumin Level 3.3 g/dL (3.5-5.2); Alkaline Phosphatase 120 U/L (35-105); Anion Gap 16.2 (5-19); Aspartate Amino Transferase 33 U/L (0-32); Blood Urea Nitrogen 18 mg/dL (8-23); Calcium 8.4 mg/dL (8.5-10.5); Carbon Dioxide 22 mmol/L (22-29); Chloride 105 mmol/L (98-107); Globulin 3.3 g/dL (1.3-4.6); Glomerular Filtration Rate 62.1 mL/min (90-130); Glucose 247 mg/dL (65-115); Osmolality Calculated 298 mOsm/kg (285-295); Potassium 4.2 mmol/L (3.5-5.1); Sodium 139 mmol/L (136-145); Total Bilirubin 0.7 mg/dL (0.15-1.2); Total Protein 6.6 g/dL (6.6-8.7)
[2022-09-14 13:57] LABS: Slide Review Slide Review Perform
[2022-09-14 13:58] LABS: Absolute Segmented Neutrophil 9.3 10/cmm (1.6-7.1); Band Neutrophils Absolute 0.3 10^3/cmm (0.0-1.2); Eosinophils 0 %; Lymphocytes 9 %; Lymphocytes Absolute 1.3 10^3/cmm (1.2-3.4); Monocytes Absolute 2.2 10^3/cmm (0.1-0.6); Segmented Neutrophils 64 %; Total Cells Counted 100 (0-100)
[2022-09-14 13:59] LABS: Absolute Neutrophil 9.6 10^3/cmm (1.4-6.5); Platelet Estimate Normal (Normal)
[2022-09-14] MEDS: sodium chloride 0.9% 1,000 ML 999 ML IV (14:28)
[2022-09-14 15:53] VITALS: BP 135/67; PULSE 98; RESP 16; TEMP 36.6; O2SAT 98
[2022-09-14 16:32] LABS: Blood Urine 3+ (Negative); Glucose Urine UA Norm (Normal); Ketones Urine Negative (Negative); Nitrate Urine Positive (Negative); Protein Urine 1+ (Negative); Specific Gravity, Urine 1.015 (1.005-1.030); Urine Appearance Cloudy (CLEAR); Urine Color Yellow (Yellow); pH Urine 5 (5-7)
[2022-09-14 16:33] LABS: Add Urine Microscopic? YES; Bilirubin Urine Neg (Negative); Leukocyte Esterase Urine 2+ (Negative); Urobilinogen Urine Neg (Negative); WBC Urine >100 /hpf (0-5)
[2022-09-14 16:34] LABS: Add Urine Culture? Yes; Bacteria Urine 3+ /hpf; Mucus Urine 2+ /hpf; Squamous Epithelial Cell Urine 0-4 /hpf (0-5)
[2022-09-21 10:31] VITALS: BMI 27.4
[2022-09-21 10:34] LABS: Basophils % 0.4 %; Hematocrit 31.6 % (37.0-47.0); Hemoglobin 9.3 g/dL (11.5-15.3); Lymphocytes # 0.9 10^3/uL (0.8-4.8); Lymphocytes % 16.2 %; Mean Corpuscular HGB Conc 29.4 g/dL (30.0-36.0); Mean Corpuscular Hemoglobin 23.1 pg (28.0-34.0); Mean Corpuscular Volume 78.6 fl (81-99); Mean Platelet Volume 9.2 fL (7.4-10.4); Monocytes # 0.3 10^3/uL (0.2-0.9); Monocytes % 5.6 %; Neutrophils # 4.24 10^3/uL (1.8-7.7); Neutrophils % 77.1 %; Nucleated Red Blood Cells % 0 %; Platelet Count 268 10^3/cmm (130-400); Red Blood Count 4.02 10^6/uL (4.1-5.3); Red Cell Distribution Width 20.1 % (12.1-15.1); White Blood Count 5.5 10^3/uL (4.0-10.0)
[2022-09-21 11:03] LABS: Alanine Aminotransferase 10 U/L (0-33); Albumin Level 3.3 g/dL (3.5-5.2); Alkaline Phosphatase 94 U/L (35-105); Anion Gap 13.8 (5-19); Aspartate Amino Transferase 31 U/L (0-32); Blood Urea Nitrogen 19 mg/dL (8-23); Calcium 8.6 mg/dL (8.5-10.5); Carbon Dioxide 24 mmol/L (22-29); Chloride 104 mmol/L (98-107); Globulin 3.2 g/dL (1.3-4.6); Glomerular Filtration Rate 99.1 mL/min (90-130); Glucose 105 mg/dL (65-115); Osmolality Calculated 289 mOsm/kg (285-295); Potassium 3.8 mmol/L (3.5-5.1); Sodium 138 mmol/L (136-145); Total Bilirubin 0.3 mg/dL (0.15-1.2); Total Protein 6.5 g/dL (6.6-8.7)
[2022-09-21] MEDS: sodium chloride 0.9% 250 ML 50 ML IV (13:03)
[2022-09-21] MEDS: zoledronic acid 4 MG in sodium chloride 0.9% (100 ml) 100 ML 420 MG IV (13:05)
[2022-09-21 13:13] LABS: Ferritin 298 ng/mL (15-150); Iron 45 ug/dL (37-145); Percent Saturation 21.5 % (20-50); Total Iron Binding Capacity 209 mcg/dl; Unsaturated Iron Binding 164 ug/dL (112-347)
[2022-09-21 14:23] VITALS: BP 130/67; PULSE 69; RESP 18; TEMP 36.1; O2SAT 100
[2022-10-01 10:12] VITALS: BP 118/61; PULSE 68; RESP 16; TEMP 36.1; O2SAT 97
[2022-10-01 10:14] VITALS: BMI 27.4
[2022-10-01 10:14] LABS: Basophils % 1.6 %; Eosinophils % 0.5 %; Hematocrit 29.7 % (37.0-47.0); Hemoglobin 8.7 g/dL (11.5-15.3); Lymphocytes # 0.8 10^3/uL (0.8-4.8); Lymphocytes % 42.9 %; Mean Corpuscular HGB Conc 29.3 g/dL (30.0-36.0); Mean Corpuscular Hemoglobin 23.2 pg (28.0-34.0); Mean Corpuscular Volume 79.2 fl (81-99); Mean Platelet Volume 9.6 fL (7.4-10.4); Monocytes # 0.3 10^3/uL (0.2-0.9); Monocytes % 15.7 %; Neutrophils % 37.7 %; Nucleated Red Blood Cells % 0 %; Platelet Count 237 10^3/cmm (130-400); Red Blood Count 3.75 10^6/uL (4.1-5.3); Red Cell Distribution Width 20.3 % (12.1-15.1); White Blood Count 1.9 10^3/uL (4.0-10.0)
[2022-10-01 10:20] LABS: Neutrophils # 0.72 10^3/uL (1.8-7.7)
[2022-10-01 11:20] LABS: Alanine Aminotransferase 10 U/L (0-33); Albumin Level 3.4 g/dL (3.5-5.2); Alkaline Phosphatase 74 U/L (35-105); Anion Gap 14.5 (5-19); Aspartate Amino Transferase 28 U/L (0-32); Blood Urea Nitrogen 22 mg/dL (8-23); Calcium 8.1 mg/dL (8.5-10.5); Carbon Dioxide 23 mmol/L (22-29); Chloride 107 mmol/L (98-107); Globulin 2.9 g/dL (1.3-4.6); Glomerular Filtration Rate 99.1 mL/min (90-130); Glucose 119 mg/dL (65-115); Osmolality Calculated 296 mOsm/kg (285-295); Potassium 3.5 mmol/L (3.5-5.1); Sodium 141 mmol/L (136-145); Total Bilirubin 0.4 mg/dL (0.15-1.2); Total Protein 6.3 g/dL (6.6-8.7)
[2022-10-01 11:26] LABS: Urine Color Dark Yellow (Yellow)
[2022-10-01 11:27] LABS: Urine Appearance Turbid (CLEAR)
[2022-10-01 11:28] LABS: Add Urine Microscopic? YES; Bilirubin Urine Neg (Negative); Blood Urine 3+ (Negative); Glucose Urine UA Norm (Normal); Ketones Urine Negative (Negative); Leukocyte Esterase Urine 2+ (Negative); Nitrate Urine Positive (Negative); Protein Urine 1+ (Negative); Specific Gravity, Urine 1.025 (1.005-1.030); Urobilinogen Urine 1 mg/dL (Negative); pH Urine 5 (5-7)
[2022-10-01 11:32] LABS: RBC Urine TOO NUMEROUS TO CNT /hpf (0-2)
[2022-10-01 11:33] LABS: Add Urine Culture? Yes; Bacteria Urine 4+ /hpf; WBC Urine TOO NUMEROUS TO CNT /hpf (0-5)
[2022-10-01 11:52] VITALS: BP 118/62; PULSE 68; RESP 16; TEMP 36.4; O2SAT 98
== END 2022-10-02 23:59 | disposition home or self-care (01) ==
PROVIDERS: Internal Medicine Hematology & Oncology; Internal Medicine Medical Oncology; Nurse Practitioner Family; PCP Family Medicine; Visit Provider Nurse Practitioner
DX: C50.812 Malignant neoplasm of overlapping sites of left female breast (principal); Z17.0 Estrogen receptor positive status [ER+]; Z90.12 Acquired absence of left breast and nipple; C78.02 Secondary malignant neoplasm of left lung; Z90.2 Acquired absence of lung [part of]; C79.51 Secondary malignant neoplasm of bone; D70.1 Agranulocytosis secondary to cancer chemotherapy; T45.1X5A Adverse effect of antineoplastic and immunosuppressive drugs, initial encounter; Z79.899 Other long term (current) drug therapy; Z79.2 Long term (current) use of antibiotics; R82.81 Pyuria
CPT/HCPCS: 36591; 80053; 81001; 82728; 83540; 83550; 85007; 85025; 86300; 87077; 87086; 87186; 96360; 96365; 96372; 96375; 96409; 96411; 99214; J3489; J7030; J7050; J9179; Q0162; Q5101

== ENCOUNTER 2022-10-27 10:00 | Oncology outpatient (recurring) (ONCR) | payer MEDICARE, SELFPAY ==
[2022-10-08 14:02] LABS: Basophils % 0.7 %; Eosinophils % 0.7 %; Hematocrit 31.1 % (37.0-47.0); Hemoglobin 9.1 g/dL (11.5-15.3); Lymphocytes # 1.1 10^3/uL (0.8-4.8); Lymphocytes % 26.3 %; Mean Corpuscular HGB Conc 29.3 g/dL (30.0-36.0); Mean Corpuscular Volume 78.5 fl (81-99); Mean Platelet Volume 9.2 fL (7.4-10.4); Monocytes # 0.5 10^3/uL (0.2-0.9); Monocytes % 11.8 %; Neutrophils # 2.59 10^3/uL (1.8-7.7); Neutrophils % 59.6 %; Nucleated Red Blood Cells % 0 %; Platelet Count 202 10^3/cmm (130-400); Red Blood Count 3.96 10^6/uL (4.1-5.3); Red Cell Distribution Width 19.5 % (12.1-15.1); White Blood Count 4.3 10^3/uL (4.0-10.0)
[2022-10-08 14:08] VITALS: BMI 28.1
[2022-10-08 14:18] LABS: Alanine Aminotransferase 9 U/L (0-33); Albumin Level 3.4 g/dL (3.5-5.2); Alkaline Phosphatase 82 U/L (35-105); Anion Gap 13.4 (5-19); Aspartate Amino Transferase 18 U/L (0-32); Blood Urea Nitrogen 19 mg/dL (8-23); Calcium 8.7 mg/dL (8.5-10.5); Carbon Dioxide 23 mmol/L (22-29); Chloride 105 mmol/L (98-107); Globulin 3.3 g/dL (1.3-4.6); Glomerular Filtration Rate 99.1 mL/min (90-130); Glucose 150 mg/dL (65-115); Osmolality Calculated 289 mOsm/kg (285-295); Potassium 4.4 mmol/L (3.5-5.1); Sodium 137 mmol/L (136-145); Total Bilirubin 0.3 mg/dL (0.15-1.2); Total Protein 6.7 g/dL (6.6-8.7)
[2022-10-08 15:05] VITALS: BP 116/65; PULSE 64; RESP 18; TEMP 35.8; O2SAT 99
[2022-10-13 11:26] VITALS: BP 128/68; PULSE 69; TEMP 36.1; O2SAT 99
[2022-10-13 11:30] LABS: Basophils % 0.7 %; Eosinophils % 0.7 %; Hematocrit 32.2 % (37.0-47.0); Hemoglobin 9.7 g/dL (11.5-15.3); Lymphocytes # 1.2 10^3/uL (0.8-4.8); Mean Corpuscular HGB Conc 30.1 g/dL (30.0-36.0); Mean Corpuscular Hemoglobin 23.4 pg (28.0-34.0); Mean Corpuscular Volume 77.8 fl (81-99); Mean Platelet Volume 8.5 fL (7.4-10.4); Monocytes # 0.5 10^3/uL (0.2-0.9); Monocytes % 8.5 %; Neutrophils # 3.78 10^3/uL (1.8-7.7); Neutrophils % 68.4 %; Nucleated Red Blood Cells % 0 %; Platelet Count 225 10^3/cmm (130-400); Red Blood Count 4.14 10^6/uL (4.1-5.3); Red Cell Distribution Width 18.9 % (12.1-15.1); White Blood Count 5.5 10^3/uL (4.0-10.0)
[2022-10-13 11:46] LABS: Alanine Aminotransferase 11 U/L (0-33); Albumin Level 3.6 g/dL (3.5-5.2); Alkaline Phosphatase 83 U/L (35-105); Anion Gap 13.7 (5-19); Aspartate Amino Transferase 26 U/L (0-32); Blood Urea Nitrogen 24 mg/dL (8-23); Calcium 8.7 mg/dL (8.5-10.5); Carbon Dioxide 23 mmol/L (22-29); Chloride 106 mmol/L (98-107); Creatinine Clr Calc Pharmacy 57.8631; Globulin 3.4 g/dL (1.3-4.6); Glomerular Filtration Rate 99.1 mL/min (90-130); Glucose 109 mg/dL (65-115); Osmolality Calculated 291 mOsm/kg (285-295); Potassium 4.7 mmol/L (3.5-5.1); Sodium 138 mmol/L (136-145); Total Bilirubin 0.3 mg/dL (0.15-1.2)
[2022-10-13] MEDS: sodium chloride 0.9% 250 ML 100 ML IV (13:34)
[2022-10-13] MEDS: ondansetron 4 MG Tablet 8 MG PO (13:34)
[2022-10-13 14:20] VITALS: BP 123/67; PULSE 71; TEMP 36.1; O2SAT 99
[2022-10-14] MEDS: filgrastim-sndz 480 mcg/0.8 mL Syringe SUBCUT (14:46)
[2022-10-14 15:00] VITALS: BP 125/78; PULSE 92; TEMP 36.3; O2SAT 97
[2022-10-14 16:12] LABS: Protein Urine Neg (Negative); Specific Gravity, Urine 1.015 (1.005-1.030); Urine Appearance Cloudy (CLEAR); Urine Color Dark Yellow (Yellow); pH Urine 5 (5-7)
[2022-10-14 16:13] LABS: Add Urine Microscopic? YES; Bilirubin Urine 1+ (Negative); Blood Urine 3+ (Negative); Glucose Urine UA Norm (Normal); Ketones Urine 1+ (Negative); Leukocyte Esterase Urine 2+ (Negative); Nitrate Urine Positive (Negative); Urobilinogen Urine Neg (Negative)
[2022-10-14 16:15] LABS: RBC Urine 15-25 /hpf (0-2); WBC Urine 80-100 /hpf (0-5)
[2022-10-14 16:16] LABS: Add Urine Culture? No; Bacteria Urine 2+ /hpf; Mucus Urine 1+ /hpf; Squamous Epithelial Cell Urine 80-100 /hpf (0-5)
[2022-10-15 14:28] VITALS: BP 115/69; PULSE 93; RESP 16; TEMP 36.8; O2SAT 95
[2022-10-15] MEDS: filgrastim-sndz 480 mcg/0.8 mL Syringe SUBCUT (14:36)
[2022-10-20 09:50] VITALS: BP 130/71; PULSE 71; RESP 18; TEMP 36.3; O2SAT 98
[2022-10-20 10:19] LABS: Hematocrit 30.6 % (37.0-47.0); Hemoglobin 9.3 g/dL (11.5-15.3); Mean Corpuscular HGB Conc 30.4 g/dL (30.0-36.0); Mean Corpuscular Hemoglobin 23.4 pg (28.0-34.0); Mean Corpuscular Volume 77.1 fl (81-99); Mean Platelet Volume 8.8 fL (7.4-10.4); Platelet Count 239 10^3/cmm (130-400); Red Blood Count 3.97 10^6/uL (4.1-5.3); Red Cell Distribution Width 18.5 % (12.1-15.1)
[2022-10-20 10:34] LABS: Alanine Aminotransferase 15 U/L (0-33); Albumin Level 3.6 g/dL (3.5-5.2); Alkaline Phosphatase 85 U/L (35-105); Anion Gap 14.1 (5-19); Aspartate Amino Transferase 23 U/L (0-32); Blood Urea Nitrogen 22 mg/dL (8-23); Calcium 8.9 mg/dL (8.5-10.5); Carbon Dioxide 23 mmol/L (22-29); Chloride 107 mmol/L (98-107); Globulin 3.4 g/dL (1.3-4.6); Glomerular Filtration Rate 99.1 mL/min (90-130); Glucose 133 mg/dL (65-115); Osmolality Calculated 295 mOsm/kg (285-295); Potassium 4.1 mmol/L (3.5-5.1); Sodium 140 mmol/L (136-145); Total Bilirubin 0.3 mg/dL (0.15-1.2)
[2022-10-20 10:53] LABS: Absolute Segmented Neutrophil 1.4 10/cmm (1.6-7.1); Eosinophils 1 %; Lymphocytes 36 %; Lymphocytes Absolute 1.1 10^3/cmm (1.2-3.4); Monocytes Absolute 0.2 10^3/cmm (0.1-0.6); Segmented Neutrophils 46 %; Slide Review Slide Review Perform; Total Cells Counted 100 (0-100)
[2022-10-20 10:54] LABS: Absolute Neutrophil 1.4 10^3/cmm (1.4-6.5); Platelet Estimate Normal (Normal)
[2022-10-20] MEDS: sodium chloride 0.9% 250 ML 75 ML IV (11:33)
[2022-10-20] MEDS: zoledronic acid 4 MG in sodium chloride 0.9% (100 ml) 100 ML 420 MG IV (11:48)
[2022-10-20 12:05] LABS: Magnesium 1.6 mg/dL (1.7-2.3)
[2022-10-20 12:13] VITALS: BP 130/71; PULSE 71; RESP 18; TEMP 36.3; O2SAT 98
[2022-10-27 10:32] LABS: Basophils # 0.1 10^3/uL (0.0-0.1); Eosinophils % 0.8 %; Hematocrit 31.8 % (37.0-47.0); Hemoglobin 9.5 g/dL (11.5-15.3); Lymphocytes # 1.2 10^3/uL (0.8-4.8); Lymphocytes % 22.5 %; Mean Corpuscular HGB Conc 29.9 g/dL (30.0-36.0); Mean Corpuscular Hemoglobin 23.5 pg (28.0-34.0); Mean Corpuscular Volume 78.5 fl (81-99); Mean Platelet Volume 8.8 fL (7.4-10.4); Monocytes # 0.3 10^3/uL (0.2-0.9); Monocytes % 6.4 %; Neutrophils # 3.59 10^3/uL (1.8-7.7); Neutrophils % 69.1 %; Nucleated Red Blood Cells % 0 %; Platelet Count 266 10^3/cmm (130-400); Red Blood Count 4.05 10^6/uL (4.1-5.3); Red Cell Distribution Width 19.5 % (12.1-15.1); White Blood Count 5.2 10^3/uL (4.0-10.0)
[2022-10-27 10:41] VITALS: BMI 27.8
[2022-10-27 10:48] VITALS: BP 109/65; PULSE 71; RESP 18; TEMP 36.1; O2SAT 99
[2022-10-27 10:53] LABS: Alanine Aminotransferase 11 U/L (0-33); Albumin Level 3.7 g/dL (3.5-5.2); Alkaline Phosphatase 84 U/L (35-105); Anion Gap 15.4 (5-19); Aspartate Amino Transferase 21 U/L (0-32); Blood Urea Nitrogen 23 mg/dL (8-23); Calcium 8.9 mg/dL (8.5-10.5); Carbon Dioxide 21 mmol/L (22-29); Chloride 105 mmol/L (98-107); Globulin 3.4 g/dL (1.3-4.6); Glucose 100 mg/dL (65-115); Osmolality Calculated 286 mOsm/kg (285-295); Potassium 5.4 mmol/L (3.5-5.1); Sodium 136 mmol/L (136-145); Total Bilirubin 0.2 mg/dL (0.15-1.2); Total Protein 7.1 g/dL (6.6-8.7)
[2022-10-27] MEDS: ondansetron 4 MG Tablet 8 MG PO (12:48)
[2022-10-27] MEDS: sodium chloride 0.9% 250 ML 75 ML IV (12:53)
[2022-10-27 13:16] VITALS: BP 99/63; PULSE 90; RESP 16; TEMP 36.7; O2SAT 98
== END 2022-10-27 23:59 | disposition home or self-care (01) ==
PROVIDERS: Nurse Practitioner Family; PCP Family Medicine; Visit Provider Nurse Practitioner
DX: Z51.11 Encounter for antineoplastic chemotherapy (principal); C50.812 Malignant neoplasm of overlapping sites of left female breast; Z17.0 Estrogen receptor positive status [ER+]; Z90.12 Acquired absence of left breast and nipple; C78.01 Secondary malignant neoplasm of right lung; C78.02 Secondary malignant neoplasm of left lung; Z90.2 Acquired absence of lung [part of]; C79.51 Secondary malignant neoplasm of bone; D70.1 Agranulocytosis secondary to cancer chemotherapy; T45.1X5A Adverse effect of antineoplastic and immunosuppressive drugs, initial encounter; Z79.899 Other long term (current) drug therapy
CPT/HCPCS: 80053; 81001; 83735; 85007; 85025; 87077; 87086; 87186; 96372; 96409; 99214; J3489; J7050; J9179; Q0162; Q5101

== ENCOUNTER 2022-10-29 14:30 | Oncology outpatient (recurring) (ONCR) | payer MEDICARE, SELFPAY ==
[2022-10-28] MEDS: filgrastim-sndz 480 mcg/0.8 mL Syringe SUBCUT (14:29)
[2022-10-28 14:36] VITALS: BP 106/72; PULSE 105; TEMP 36.1; O2SAT 99
[2022-10-29 14:16] VITALS: BP 97/61; PULSE 93; RESP 16; TEMP 36.2; O2SAT 97
[2022-10-29] MEDS: sodium chloride 0.9% 500 ML 999 ML IV (14:35)
[2022-10-29] MEDS: filgrastim-sndz 480 mcg/0.8 mL Syringe SUBCUT (14:40)
[2022-10-29 15:42] VITALS: BP 105/62; PULSE 84; RESP 16; TEMP 36.3; O2SAT 95
== END 2022-11-01 23:59 | disposition home or self-care (01) ==
PROVIDERS: PCP Family Medicine; Visit Provider Nurse Practitioner
DX: D70.1 Agranulocytosis secondary to cancer chemotherapy (principal)
CPT/HCPCS: 96360; 96372; J7040; Q5101

== ENCOUNTER 2022-11-24 09:30 | Oncology outpatient (recurring) (ONCR) | payer MEDICARE, SELFPAY ==
[2022-11-03 07:48] VITALS: BMI 27.6
[2022-11-03 07:50] VITALS: BP 106/64; PULSE 72; RESP 16; TEMP 35.9; O2SAT 96
[2022-11-03 08:00] LABS: Hematocrit 31.3 % (37.0-47.0); Hemoglobin 9.3 g/dL (11.5-15.3); Mean Corpuscular HGB Conc 29.7 g/dL (30.0-36.0); Mean Corpuscular Hemoglobin 23.3 pg (28.0-34.0); Mean Corpuscular Volume 78.3 fl (81-99); Mean Platelet Volume 8.3 fL (7.4-10.4); Platelet Count 273 10^3/cmm (130-400); Red Cell Distribution Width 18.9 % (12.1-15.1); White Blood Count 2.9 10^3/uL (4.0-10.0)
[2022-11-03 08:18] LABS: Alanine Aminotransferase 11 U/L (0-33); Albumin Level 3.8 g/dL (3.5-5.2); Alkaline Phosphatase 76 U/L (35-105); Anion Gap 15.8 (5-19); Aspartate Amino Transferase 28 U/L (0-32); Calcium 9.2 mg/dL (8.5-10.5); Chloride 107 mmol/L (98-107); Globulin 3.3 g/dL (1.3-4.6); Osmolality Calculated 293 mOsm/kg (285-295); Potassium 4.8 mmol/L (3.5-5.1); Sodium 139 mmol/L (136-145); Total Bilirubin 0.3 mg/dL (0.15-1.2); Total Protein 7.1 g/dL (6.6-8.7)
[2022-11-03 08:59] LABS: Absolute Neutrophil 1.2 10^3/cmm (1.4-6.5); Band Neutrophils Absolute 0.2 10^3/cmm (0.0-1.2); Lymphocytes 23 %; Lymphocytes Absolute 1.1 10^3/cmm (1.2-3.4); Monocytes Absolute 0.2 10^3/cmm (0.1-0.6); Platelet Estimate Normal (Normal); Segmented Neutrophils 34 %; Total Cells Counted 100 (0-100)
[2022-11-03 09:01] LABS: Macrocytosis 1+; Polychromasia Trace
[2022-11-03 09:09] LABS: Blood Urea Nitrogen 24 mg/dL (8-23); Carbon Dioxide 21 mmol/L (22-29); Glucose 117 mg/dL (65-115)
[2022-11-03 09:10] LABS: Creatinine Clr Calc Pharmacy 57.8631; Glomerular Filtration Rate 71.1 mL/min (90-130)
[2022-11-03 09:26] VITALS: BP 111/67; PULSE 66; RESP 16; TEMP 35.9; O2SAT 97
[2022-11-03 09:40] LABS: Thyroid Stimulating Hormone 2.25 uIU/mL (0.27-4.20)
[2022-11-03 10:58] LABS: Cortisol Random 14.07 ug/dL (2.47-19.5)
--- NOTE | 2022-11-06 11:45 | MR_ITS ---
WS: [id number] MRI HEAD WITH CONTRAST TECHNIQUE: Sagittal T1, T2 axial, T2 axial FLAIR, axial susceptibility weighted imaging, axial diffus ion weighted images, and coronal T2 images were obtained. Pre and post-T1 axial and post T1 coronal i mages. ADC and FSPGR images. CLINICAL INFORMATION: dysequilibrium COMPARISON: MRI November 21, 2020 FINDINGS: Previously described RIGHT frontal and parietal transcalvarial metastasis has progressed compared to previous. Increased extension to the underlying brain parenchyma with increased mass effect. Small am ount of underlying T2 hyperintensity in the underlying parenchyma. Associated hemosiderin about this lesion. Today this measures approximately 2.6 x 2.3 x 1.7 cm AP or transverse by craniocaudal. Associ ated dural thickening. Additional new punctate foci of metastatic disease with enhancement involving the posterior LEFT keyonna etal lobe, LEFT parietal occipital junction, LEFT temporal lobe, RIGHT cerebellum, midline vermis, RI GHT posterior frontal lobe, inferior LEFT frontal lobe near the suprasellar cistern. Additional new e nhancing dural based lesion involving the planum sphenoidale measuring 8.5 x 8.1 x 9.4 mm associated dural thickening. This is eccentric to the LEFT with slight impingement on the inferior frontal lobe. This involves the prechiasmatic LEFT optic nerve. Optic chiasm appears normal. Normal posterior fossa. Normal vascular flow voids at the skull base. No extra-axial fluid collection s. Paranasal sinuses are well aerated. Mastoid air cells are well aerated. Trace mucosal thickening e thmoid air cells and maxillary sinuses. Replacement normal bone marrow signal in the upper cervical s pine suspicious for metastatic disease. Tiny focus of hemosiderin in the RIGHT cerebellum. MR/MR head wo/w con [id number] IMPRESSION: 1. Evidence of progressed metastatic disease compared to previous. Progressed trans-calvarial extension of the RIGHT frontoparietal calvarial metastasis with involvement of the underlying brain parenchyma today. Minimal underlying edema in this location. 2. In addition, numerous punctate bilateral parenchymal metastasis subcentimet er in size the largest measuring approximately 4.5 mm posterior LEFT temporal l obe. 3. In addition, new enhancing dural based lesion extending along the LEFT aspe ct of the planum sphenoidale just anterior to the sella with associated dural t hickening. This involves the LEFT prechiasmatic optic nerve with associated ind entation on the inferior frontal lobe. 4. No hydrocephalus. 5. Mild small vessel changes. Mild parenchymal volume loss. 6. Replacement normal bone marrow signal in the upper cervical spine more prom inent at C3 and C4 partially visualized suspicious for metastatic disease. This can be further evaluated with bone scan. Message LEFT for Colt Brito MD at 11/06/2022 3:08 PM.
[2022-11-06] MEDS: gadobenate dimeglumine 20 mL vial IV (12:19)
--- NOTE | 2022-11-09 13:11 | ONCRAD EPV_ITS ---
Radiation Oncology Follow-Up Note Patient Name: Dacia Way Date of : 1955 Date of Service: 11/09/2022 Attending Physician: Dinesh Vizcarra M.D. Dacia aWy was seen in consultation this morning at the request of Colt Brito M.D. for consideration of palliative cranial radiotherapy in the management of metastatic breast cancer with brain metastases. She was initially diagnosed in 1999 with breast cancer and was treated with a left mastectomy. In October of 2016, she was evaluated for multiple pulmonary nodules. A left thoracostomy with wedge resection of a left lower lobe nodule performed on December 14, 2016 diagnosed metastatic ER/[place] positive and HER2 negative breast cancer. She was prescribed letrozole and palbociclib in April 2017. Three years later she was evaluated for lower back pain. A lumbar spine and pelvic CT scan demonstrated lytic lesions and a soft tissue mass in the superior left pubic ramus. In May of 2020, second-line hormonal therapy (fulvestrant) in combination with palbociclib was started. Disease progression was noted on PET imaging in December 2020. Xeloda was prescribed. Restaging PET scan ordered in September 2021 revealed progressive disease. A trial of Abraxane was instituted. Osseous metastatic disease continued to worsen and third-line chemotherapy with Halaven was prescribed in July of 2022. She completed her fourth cycle on October 13, 2022. During a routine follow-up appointment on November 06, 2022 with medical oncology she reported disequilibrium. An MRI of the head (independently reviewed in [facility]) revealed a 2.6 cm x 2.3 cm x 1.7 cm right frontal-parietal trans-calvarial metastasis, a sphenoidal lesion measuring 8.5 mm x 8.1 mm x 9.4 mm and multiple punctate foci of enhancement involving the bilateral cerebral hemispheres and right cerebellum. The patient was referred to discuss cranial radiotherapy. I reviewed with the Ms. Way The National Comprehensive Cancer Network Guidelines for extensive brain metastases and the role of hypothalamic- avoidance whole brain radiotherapy and memantine, cranial radiotherapy with or without memantine, and stereotactic radiosurgery for the management of cranial metastases. In consideration of the patient's metastatic disease burden, I anticipate a short-course of radiotherapy. A CT scan will be performed for radiotherapy planning prior to implementing treatment to delineate the clinical target volume. I discussed the potential toxicity of whole brain radiotherapy. The patient verbalized understanding and would like to proceed as recommended. The patient???s treatment plan was discussed with Colt Brito M.D. Signed by: Dinesh Vizcarra 11/09/2022 1:10:28 PM
--- NOTE | 2022-11-10 | CT_ITS ---
Radiation Therapy Planning CT images; total exam DLP: 330.94 mGy-cm MTDD
[2022-11-10 09:15] LABS: Basophils % 0.2 %; Hematocrit 30.9 % (37.0-47.0); Hemoglobin 9.3 g/dL (11.5-15.3); Lymphocytes # 0.7 10^3/uL (0.8-4.8); Mean Corpuscular HGB Conc 30.1 g/dL (30.0-36.0); Mean Corpuscular Hemoglobin 23.4 pg (28.0-34.0); Mean Corpuscular Volume 77.8 fl (81-99); Mean Platelet Volume 9.3 fL (7.4-10.4); Monocytes # 0.1 10^3/uL (0.2-0.9); Monocytes % 0.8 %; Neutrophils # 5.74 10^3/uL (1.8-7.7); Neutrophils % 88.4 %; Nucleated Red Blood Cells % 0 %; Platelet Count 207 10^3/cmm (130-400); Red Blood Count 3.97 10^6/uL (4.1-5.3); Red Cell Distribution Width 18.7 % (12.1-15.1); White Blood Count 6.5 10^3/uL (4.0-10.0)
[2022-11-10 09:27] VITALS: BP 106/72; PULSE 81; RESP 18; TEMP 36.2; O2SAT 98
[2022-11-10 09:38] LABS: Alanine Aminotransferase 10 U/L (0-33); Albumin Level 3.7 g/dL (3.5-5.2); Alkaline Phosphatase 77 U/L (35-105); Anion Gap 14.9 (5-19); Aspartate Amino Transferase 17 U/L (0-32); Blood Urea Nitrogen 26 mg/dL (8-23); Carbon Dioxide 20 mmol/L (22-29); Chloride 103 mmol/L (98-107); Creatinine Clr Calc Pharmacy 57.8631; Globulin 3.3 g/dL (1.3-4.6); Glomerular Filtration Rate 71.1 mL/min (90-130); Glucose 232 mg/dL (65-115); Osmolality Calculated 288 mOsm/kg (285-295); Potassium 4.9 mmol/L (3.5-5.1); Sodium 133 mmol/L (136-145); Total Bilirubin 0.3 mg/dL (0.15-1.2)
[2022-11-10 10:13] LABS: Slide Review Slide Review Perform
--- NOTE | 2022-11-17 14:22 | N.ONRD TS_ITS ---
Radiation OncologyTreatment Summary Patient Name: Dacia Way Date of : 1955 Date of Service: 11/17/2022 Attending Physician: Dinesh Vizcarra M.D. Dacia Way has completed cranial radiotherapy for the management of metastatic breast cancer. She was initially diagnosed in 1999 with breast cancer and was treated with a left mastectomy. In October of 2016, she was evaluated for multiple pulmonary nodules. A left thoracostomy with wedge resection of a left lower lobe nodule performed on December 14, 2016 diagnosed metastatic ER/ID positive and HER2 negative breast cancer. She was prescribed letrozole and palbociclib in April 2017. Three years later she was evaluated for lower back pain. A lumbar spine and pelvic CT scan demonstrated lytic lesions and a soft tissue mass in the superior left pubic ramus. In May of 2020, second-line hormonal therapy (fulvestrant) in combination with palbociclib was started. Disease progression was noted on PET imaging in December 2020. Xeloda was prescribed. Restaging PET scan ordered in September 2021 revealed progressive disease. A trial of Abraxane was instituted. Osseous metastatic disease continued to worsen and third-line chemotherapy with Halaven was prescribed in July of 2022. She completed her fourth cycle on October 13, 2022. During a routine follow-up appointment on November 06, 2022 with medical oncology she reported disequilibrium. An MRI of the head revealed a 2.6 cm x 2.3 cm x 1.7 cm right frontal-parietal trans-calvarial metastasis, a sphenoidal lesion measuring 8.5 mm x 8.1 mm x 9.4 mm and multiple punctate foci of enhancement involving the bilateral cerebral hemispheres and right cerebellum. Daily radiotherapy was administered between the dates November 11, 2022 through November 17, 2022. A prescribed dose of 20 Gy was delivered in 5 fractions encompassing 7 elapsed days. The cranial fossa was treated utilizing a 3-dimensional conformal radiotherapy plan with an opposed lateral portal field design with a half beam treatment technique. The left lateral port employed a gantry angle of 90??? and a collimator angle of 318???. The field size measured 10.5 cm x 10.5 cm within X-direction and 0 cm x 16 cm within the Y-direction. The measured SSD was 92.6 cm with the field allocating 198 monitor units. The right lateral field utilized a 270??? gantry angle with a collimator angle of 42???. The field size measured 10.5 cm x 10.5 cm within the X-direction and 0 cm x 16 cm within the Y-direction. The SSD measured 93.3 cm with the port delivering 198 monitor units. All treatments were performed with the Fiix linear accelerator and an isocentric technique. The dose was calculated by Anisotropic Analytic Algorithm. Photon energies of 15 MV were prescribed with the plan normalized to deliver 100% of the prescription dose to 99% of the planning target volume. Signed by: Dinesh Vizcarra 11/17/2022 3:04:53 PM
--- NOTE | 2022-11-17 14:43 | ONCRAD TMN_ITS ---
Radiation Oncology Treatment Management Note Patient Name: Dacia Way Date of : 1955 Date of Service: 11/17/2022 Attending Physician: Dinesh Vizcarra M.D. Dacia Way is a 67 year old white female diagnosed with metastatic breast cancer. She was initially diagnosed in 1999 with breast cancer and was treated with a left mastectomy. In October of 2016, she was evaluated for multiple pulmonary nodules. A left thoracostomy with wedge resection of a left lower lobe nodule performed on December 14, 2016 diagnosed metastatic ER/[place] positive and HER2 negative breast cancer. She was prescribed letrozole and palbociclib in April 2017. Three years later she was evaluated for lower back pain. A lumbar spine and pelvic CT scan demonstrated lytic lesions and a soft tissue mass in the superior left pubic ramus. In May of 2020, second-line hormonal therapy (fulvestrant) in combination with palbociclib was started. Disease progression was noted on PET imaging in December 2020. Xeloda was prescribed. Restaging PET scan ordered in September 2021 revealed progressive disease. A trial of Abraxane was instituted. Osseous metastatic disease continued to worsen and third-line chemotherapy with Halaven was prescribed in July of 2022. She completed her fourth cycle on October 13, 2022. During a routine follow-up appointment on November 06, 2022 with medical oncology she reported disequilibrium. An MRI of the head revealed a 2.6 cm x 2.3 cm x 1.7 cm right frontal-parietal trans-calvarial metastasis, a sphenoidal lesion measuring 8.5 mm x 8.1 mm x 9.4 mm and multiple punctate foci of enhancement involving the bilateral cerebral hemispheres and right cerebellum. The patient has received 20 Gy of a prescribed 20 Bower with a 3-dimensional conformal radiotherapy plan utilizing a half-beam block treatment technique with opposed lateral portal chappell. Upon review of systems, she denied neurological symptoms. On physical examination, the patient weighed 138 lbs. Her temperature was 97 ???F and the blood pressure was 107/57 mmHg. Her pulse was 83 bpm and the respiratory rate was 18 . Cranial nerves were intact. Whole brain radiotherapy completed today. Signed by: Dinesh Vizcarra 11/17/2022 2:45:51 PM
[2022-11-24 09:00] VITALS: BP 145/78; PULSE 78; RESP 18; TEMP 36.6; O2SAT 97
[2022-11-24 10:10] LABS: Basophils % 0.1 %; Eosinophils # 0.1 10^3/uL (0.0-0.8); Eosinophils % 0.9 %; Hematocrit 32.5 % (37.0-47.0); Hemoglobin 9.9 g/dL (11.5-15.3); Lymphocytes # 0.8 10^3/uL (0.8-4.8); Lymphocytes % 10.7 %; Mean Corpuscular HGB Conc 30.5 g/dL (30.0-36.0); Mean Corpuscular Hemoglobin 24.3 pg (28.0-34.0); Mean Corpuscular Volume 79.7 fl (81-99); Monocytes # 0.5 10^3/uL (0.2-0.9); Monocytes % 6.4 %; Neutrophils # 5.99 10^3/uL (1.8-7.7); Neutrophils % 81.2 %; Nucleated Red Blood Cells % 0 %; Platelet Count 188 10^3/cmm (130-400); Red Blood Count 4.08 10^6/uL (4.1-5.3); Red Cell Distribution Width 19.5 % (12.1-15.1); White Blood Count 7.4 10^3/uL (4.0-10.0)
[2022-11-24 10:26] LABS: Alanine Aminotransferase 18 U/L (0-33); Albumin Level 3.8 g/dL (3.5-5.2); Alkaline Phosphatase 57 U/L (35-105); Anion Gap 15.8 (5-19); Aspartate Amino Transferase 13 U/L (0-32); Blood Urea Nitrogen 34 mg/dL (8-23); Calcium 8.4 mg/dL (8.5-10.5); Carbon Dioxide 24 mmol/L (22-29); Chloride 103 mmol/L (98-107); Creatinine Clr Calc Pharmacy 57.8631; Globulin 2.5 g/dL (1.3-4.6); Glomerular Filtration Rate 99.1 mL/min (90-130); Glucose 117 mg/dL (65-115); Osmolality Calculated 297 mOsm/kg (285-295); Potassium 3.8 mmol/L (3.5-5.1); Sodium 139 mmol/L (136-145); Total Bilirubin 0.3 mg/dL (0.15-1.2); Total Protein 6.3 g/dL (6.6-8.7)
[2022-11-24] MEDS: zoledronic acid 4 MG in sodium chloride 0.9% (100 ml) 100 ML 420 MG IV (11:41)
[2022-11-24 12:20] VITALS: BP 122/78; BP 123/76; PULSE 65; RESP 16; TEMP 36.4; O2SAT 99
== END 2022-12-02 23:59 | disposition home or self-care (01) ==
PROVIDERS: Internal Medicine Medical Oncology; Nurse Practitioner Family; PCP Family Medicine; Visit Provider Radiology Radiation Oncology
DX: C50.812 Malignant neoplasm of overlapping sites of left female breast (principal); C79.51 Secondary malignant neoplasm of bone; Z17.0 Estrogen receptor positive status [ER+]; Z90.12 Acquired absence of left breast and nipple; C79.31 Secondary malignant neoplasm of brain; C78.01 Secondary malignant neoplasm of right lung; C78.02 Secondary malignant neoplasm of left lung; Z90.2 Acquired absence of lung [part of]; Z79.52 Long term (current) use of systemic steroids; Z79.899 Other long term (current) drug therapy
CPT/HCPCS: 36591; 70553; 77280; 77290; 77295; 77300; 77334; 77336; 77412; 80053; 82533; 84443; 85007; 85025; 86300; 96372; 96374; 99024; 99214; A9577; J1642; J3489

== ENCOUNTER 2022-12-16 10:21 | Emergency (ER) | payer MEDICARE, SELFPAY ==
[2022-12-16] VITALS (14 sets, daily range): BP systolic 118–178; BP diastolic 54–144; PULSE 64–78; RESP 11–22; TEMP 36.8; O2SAT 96–100; BMI 26.4
--- NOTE | 2022-12-16 10:38 | ED_ITS ---
HPI - Neuro Symptoms/Deficit General: Chief Complaint: Neuro Symptoms/Deficit Stated Complaint: slurred speech, confusion, weakness Time Seen by Provider: 12/16/22 10:34 Source: patient and family Mode of arrival: ambulatory History of Present Illness: 67-year-old female with a history of breast cancer with brain metastasis pres ents to the emergency room with complaints of slurring of words altered mental status confusion generalized weakness she has generally been deteriorating recently. She was reassessed for her cancer and found to have her recurrence with mets to the brain she underwent a series of whole brain radiation and has been generally deteriorating per the family since that time. Oncology notes reviewed. Shortly after arriving patient had tonic-clonic seizures she [place]. Onset (ago): hour(s) Location: speech and altered History of same: No Severity: severe Quality: weak Relieving factors: none Exacerbating factors: none Context: other (Brain mets secondary to breast cancer awoke with symptoms) Associated symptoms: Deny cough, fevers/chills, anorexia, seizures, short of breath, tingling or weakness Review of Systems General: Reports: ROS unobtainable due to mental status Neuro: Reports: confusion, Slurred speech present, difficulty communicating thoughts and seizure-like activity PFSH ED PFSH: Medical History History of 2019 novel coronavirus disease (COVID-19) (07/2020) Hyperlipidemia Left hemiparesis Metastatic breast cancer Thalassemia trait Type 2 diabetes mellitus Surgical History History of appendectomy History of cholecystectomy History of left mastectomy (1999) History of lung surgery (12/14/16) left thoracoscopy with wedge resection of left lower lobe nodule Port-A-Cath in place Placed 11/04/21 at [place], [place] to right chest wall by Merced Salomon. Family History Son Stroke At age 35 Other Cancer Diabetes Heart disease Hyperlipidemia Hypertension Psychiatric illness Suicide Denies family history of CAD (coronary artery disease) Clotting disorder Dementia Chronic kidney disease (CKD) Anesthesia complication Bleeding disorder Lung disease Social History Smoking and tobacco status: former smoker (smoked x 20 years) Quit status (tobacco): has quit using tobacco Year quit tobacco: 2017 Alcohol intake: never Substance/Drug Use: never Housing: House Physical Exam Const: GENERAL APPEARANCE: cooperative and comfortable ORIENTATION/CONSCIOUSNESS: Yes awake HENMT: COMMON NORMALS: normocephalic, atraumatic and hearing grossly normal bilaterally HEAD & SCALP: normocephalic and atraumatic Resp: COMMON NORMALS: normal respiratory effort, No retractions, No use of accessory muscles and clear to auscultation bilaterally AUSCULTATION: clear to auscultation bilaterally Cardio: COMMON NORMALS: regular rate, regular rhythm and No murmurs present (Cardio) RATE: regular rate RHYTHM: regular rhythm GI: COMMON NORMALS: Soft to palpation and No hepatosplenomegaly present AUSCULTATION: Yes normoactive bowel sounds PALPATION: Yes Soft to palpation, No Tenderness to palpation present (GI), No Guarding due to palpation present (GI) and Yes No hepatosplenomegaly present Extremity: COMMON NORMALS: normal to inspection, capillary refill normal, no clubbing, cyanosis or edema, no calf tenderness and no pedal edema Skin: COMMON NORMALS: no rashes or lesions noted GENERAL SKIN EXAM: no rashes or lesions noted Course Vital Signs: Vital signs: Vital Signs Temperature 98.2 F 12/16/22 10:31 Pulse Rate 71 12/16/22 16:34 Respiratory Rate 22 H 12/16/22 16:34 Blood Pressure 159/75 12/16/22 16:34 Pulse Oximetry 99 12/16/22 16:34 Oxygen Delivery Me thod Room Air 12/16/22 10:31 MDM - Neuro Symptoms/Deficit Medical Decision Making CT shows metastasis into the metastatic lesions which is now with surrounding edema. Shortly after arrival patient was given dexamethasone anticipating she likely had blood in to her meds. Subsequent to that she had a seizure. Patient was given Ativan and Keppra. She had no further seizures. After long discussion with the family and consulting Dr. Brito we recommended hospice care the alternative was offered to go to [place] however given her underlying comorbidities with her breast cancer with mets there are no good treatment options at this point. Family opted for discharge to home with hospice. We have made arrangements for hospice to see them at their home to get him enrolled. Medical Records I reviewed the patient's medical records. Lab Data I reviewed the patient's lab results. 12/16/22 13:07 12/16/22 13:[address] 12/16/22 12:27 IMPRESSION: 1. Acute parenchymal hemorrhage LEFT parieto-occipital region. This is at the site of a previously described metastatic lesion. Acute hemorrhage measures 2.6 x 1.7 cm. 2. Moderate edema surrounding the acute hemorrhage. Very slight mass effect upon the occipital horn LEFT lateral ventricle. 3. Additional hyperdense lesions involving the RIGHT frontal vertex and the LEFT anterior frontal lobe. These demonstrate increased T1 signal on the recent MRI suggesting prior hemorrhage. 4. No intraventricular blood. Notified Home Daniels DO at 12/16/2022 1:33 PM. Laboratory Results WBC 6.9 10^3/uL (4.0-10.0) 12/16/22 13:07 RBC 4.68 10^6/uL (4.1-5.3) 12/16/22 13:07 Hgb 11.3 g/dL (11.5-15.3) L 12/16/22 13:07 Hct 37.1 % (37.0-47.0) 12/16/22 13:07 MCV 79.3 fl (81-99) L 12/16/22 13:07 MCH 24.1 pg (28.0-34.0) L 12/16/22 13:07 MCHC 30.5 g/dL (30.0-36.0) 12/16/22 13:07 RDW 17.9 % (12.1-15.1) H 12/16/22 13:07 Plt Count 206 10^3/cmm (130-400) 12/16/22 13:07 MPV 8.7 fL (7.4-10.4) 12/16/22 13:07 Neut % (Auto) 86.6 % 12/16/22 13:07 Lymph % (Auto) 9.5 % 12/16/22 13:07 [place] % (Auto) 2.3 % 12/16/22 13:07 Eos % (Auto) 0.3 % 12/16/22 13:07 Baso % (Auto) 0.1 % 12/16/22 13:07 Neut # (Auto) 5.94 10^3/uL (1.8-7.7) 12/16/22 13:07 Lymph # (Auto) 0.7 10^3/uL (0.8-4.8) L 12/16/22 13:07 [place] # (Auto) 0.2 10^3/uL (0.2-0.9) 12/16/22 13:07 Eos # (Auto) 0.0 10^3/uL (0.0-0.8) 12/16/22 13:07 Baso # (Auto) 0.0 10^3/uL (0.0-0.1) 12/16/22 13:07 Nucleated RBC % (auto) 0 % 12/16/22 13:07 Nucleated RBCs # 0.0 /100WBC 12/16/22 13:07 Sodium 134 mmol/L (136-145) L 12/16/22 13:07 Potassium 4.1 mmol/L (3.5-5.1) 12/16/22 13:07 Chloride 101 mmol/L (98-107) 12/16/22 13:07 Carbon Dioxide 22 mmol/L (22-29) 12/16/22 13:07 Anion Gap 15.1 (5-19) 12/16/22 13:07 BUN 29 mg/dL (8-23) H 12/16/22 13:07 Creatinine 0.6 mg/dL (0.5-0.9) 12/16/22 13:07 GFR Calculation 99.1 mL/min (90-130) 12/16/22 13:07 Glucose 144 mg/dL (65-115) H 12/16/22 13:07 POC Glucose 89 mg/dL (70-110) 12/16/22 10:31 Calculated Osmolality 286 mOsm/kg (285-295) 12/16/22 13:07 Calcium 9.1 mg/dL (8.5-10.5) 12/16/22 13:07 Total Bilirubin 0.3 mg/dL (0.15-1.2) 12/16/22 13:07 AST 14 U/L (0-32) 12/16/22 13:07 ALT 16 U/L (0-33) 12/16/22 13:07 Alkaline Phosphatase 62 U/L (35-105) 12/16/22 13:07 Total Protein 6.8 g/dL (6.6-8.7) 12/16/22 13:07 Albumin 4.2 g/dL (3.5-5.2) 12/16/22 13:07 Globulin 2.6 g/dL (1.3-4.6) 12/16/22 13:07 Discharge Plan Discharge Patient Disposition: Home Clinical Impression: Breast cancer metastasized to brain, Metastatic breast cancer, Intracranial hemorrhage Condition: Stable Prescriptions: No Action ibuprofen 200 mg capsule 400 mg PO Q4H PRN (Reason: Pain) magnesium oxide [MagOx] 400 mg (241.3 mg magnesium) tablet 400 mg PO BID Qty: 60 3RF metformin 500 mg tablet 500 mg PO DAILY esomeprazole magnesium [Nexium] 40 mg capsule,delayed release(DR/EC) 40 mg PO DAILY Qty: 30 5RF ondansetron 4 mg tablet,disintegrating 4 mg PO Q6H PRN (Reason: nausea and vomiting) Qty: 30 0RF dexamethasone 4 mg tablet 4 mg PO DAILY Qty: 30 3RF ondansetron 4 mg tablet,disintegrating 4 mg translingual Q4H PRN (Reason: nausea) Qty: 5 0RF Rx Instructions: Dissolve 1 tablet under tongue every 4 hours PRN for nausea bisacodyl 10 mg suppository 10 mg NM DAILY PRN (Reason: constipation) Qty: 5 0RF Rx Instructions: 1 suppository per rectum every day PRN for constipation. lorazepam 2 mg/mL concentrate 2 mg sublingual Q4H PRN (Reason: Anxiety/Seizure) Qty: 30 0RF Rx Instructions: 0.25ml-1ml q4H PRN Anxiety/Seizure Start 0.25ml may increase to 0.5ml-1ml q4H morphine concentrate 100 mg/5 mL (20 mg/mL) solution 20 mg sublingual DIRECTED PRN (Reason: Pain/SOB) 14 Days Qty: 30 0RF Rx Instructions: 0.25ml-1ml q1H PRN may increase to 0.5ml-1ml Q1H PRN atropine 1 % drops 4 drp sublingual Q4H PRN (Reason: secretions) Qty: 5 0RF Rx Instructions: 4 drops SL q 4 hours PRN for terminal congestion/excessive secretions. morphine 15 mg tablet 15 mg PO QPM [place]uropaway 1 tab PO DAILY Discharge Orders: Discharge ED (Routine); Ordered 12/16/22 Ordered By: Home Daniels Referrals: Janice Moody DO [Primary Care Provider] - Patient Instructions: Opioid Safety, Pain Management Activity Restrictions/Additional Instructions: You are seen today for altered mental status difficulty with word finding. CT shows there is bleeding to the metastatic lesions inside the brain. Discharged home with hospice care. Hospice will meet you at your home Case management has made arrangements. Coding Level of Care Code ED Compensation Supervisor for Jeffrey Gonzalez
[2022-12-16] MEDS: dexamethasone 10 mg/mL INJ IVP (10:47)
[2022-12-16] MEDS: LORazepam 2 mg/mL INJ 1 mL IVP (10:47)
--- NOTE | 2022-12-16 10:48 | ECG_ITS ---
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 Measurements Intervals [place] Rate: 89 P: 0 [place]: 0 QRS: 29 QRSD: 134 T: 78 QT: 386 QTc: 472 Interpretive Statements UNCERTAIN IRREGULAR RHYTHM INDETERMINATE AXIS RIGHT BUNDLE BRANCH BLOCK [120+ ms QRS DURATION, UPRIGHT V1, 40+ ms S IN I/aVL/V4/V5/V6] INTERPRETATION BASED ON A DEFAULT AGE OF 40 YEARS Compared to ECG 07/14/2022 20:21:59 Indeterminate axis now present Sinus rhythm no longer present First degree AV block no longer present Electronically Signed On 12-16-2022 13:55:30 CDT by Praful Luna M.D. [id number] f
--- NOTE | 2022-12-16 12:27 | CT_ITS ---
WS: [id number] CT HEAD NONCONTRAST HISTORY: Breast CA with mets new onset seizures TECHNIQUE: Contiguous axial imaging performed through the brain in 2.5 mm imaging. Bone and soft tiss ue windows. Sagittal and coronal reformats reviewed. All CT scans at [facility] use at least one of these dose optimization techniques: automated exposure control; mA and/or kV adjustment per pa tient size (includes targeted exams where dose is matched to clinical indication); or iterative recon struction. DLP: 1133.38 mGy.cm COMPARISON: MRI brain 11/06/[address] 08/06/2020. Parenchymal hemorrhage involving the LEFT parieto-occipital region. The area of hemorrhage measures 2 .6 x 1.7 cm. There is surrounding edema causing sulcal effacement. There is slight mass effect on the occipital horn of the LEFT lateral ventricle. This area of hemorrhage is at the site of a previously described metastatic lesion. There is an additional hyperdense focus towards the RIGHT frontal verte x. Mixed density lesion measures 1.5 x 1.1 cm. This contained hemosiderin on the recent MRI. There is an additional lesion of increased density measuring 1.1 x 1.3 cm involving the LEFT frontal straight gyrus. This was also of increased T1 signal on the recent MRI brain. Likely hemosiderin from prior b leeding. Mild atrophy. Mild small vessel ischemic disease otherwise. Ventricles: Normal size with no hydrocephalus. Paranasal sinuses: As visualized are clear. Mastoid air cells: Well pneumatized. Calvarium and scalp: Skull is intact with no soft tissue edema or swelling. CT/CT head wo con* [id number] IMPRESSION: 1. Acute parenchymal hemorrhage LEFT parieto-occipital region. This is at the site of a previously described metastatic lesion. Acute hemorrhage measures 2.6 x 1.7 cm. 2. Moderate edema surrounding the acute hemorrhage. Very slight mass effect up on the occipital horn LEFT lateral ventricle. 3. Additional hyperdense lesions involving the RIGHT frontal vertex and the LE FT anterior frontal lobe. These demonstrate increased T1 signal on the recent M RI suggesting prior hemorrhage. 4. No intraventricular blood. Notified Home Daniels DO at 12/16/2022 1:33 PM.
[2022-12-16 13:17] LABS: Basophils % 0.1 %; Eosinophils % 0.3 %; Hematocrit 37.1 % (37.0-47.0); Hemoglobin 11.3 g/dL (11.5-15.3); Lymphocytes # 0.7 10^3/uL (0.8-4.8); Lymphocytes % 9.5 %; Mean Corpuscular HGB Conc 30.5 g/dL (30.0-36.0); Mean Corpuscular Hemoglobin 24.1 pg (28.0-34.0); Mean Corpuscular Volume 79.3 fl (81-99); Mean Platelet Volume 8.7 fL (7.4-10.4); Monocytes # 0.2 10^3/uL (0.2-0.9); Monocytes % 2.3 %; Neutrophils # 5.94 10^3/uL (1.8-7.7); Neutrophils % 86.6 %; Nucleated Red Blood Cells % 0 %; Platelet Count 206 10^3/cmm (130-400); Red Blood Count 4.68 10^6/uL (4.1-5.3); Red Cell Distribution Width 17.9 % (12.1-15.1); White Blood Count 6.9 10^3/uL (4.0-10.0)
[2022-12-16 13:35] LABS: Alanine Aminotransferase 16 U/L (0-33); Albumin Level 4.2 g/dL (3.5-5.2); Alkaline Phosphatase 62 U/L (35-105); Anion Gap 15.1 (5-19); Aspartate Amino Transferase 14 U/L (0-32); Blood Urea Nitrogen 29 mg/dL (8-23); Calcium 9.1 mg/dL (8.5-10.5); Carbon Dioxide 22 mmol/L (22-29); Chloride 101 mmol/L (98-107); Creatinine Clr Calc Pharmacy 56.6632; Globulin 2.6 g/dL (1.3-4.6); Glomerular Filtration Rate 99.1 mL/min (90-130); Glucose 144 mg/dL (65-115); Osmolality Calculated 286 mOsm/kg (285-295); Potassium 4.1 mmol/L (3.5-5.1); Sodium 134 mmol/L (136-145); Total Bilirubin 0.3 mg/dL (0.15-1.2); Total Protein 6.8 g/dL (6.6-8.7)
[2022-12-16 14:59] LABS: Glucose Point of Care 89 mg/dL (70-110)
--- NOTE | 2022-12-16 15:20 | DCPLANNER ---
manager sap was asked to speak with patients family about hospice care. Case manage spoke with patients family, who decided to go with [facility]. manager sap asked the ER physician to put a hospice consult in for patient. manager sap called William with [facility], who will have someone reach out to the family to set up a time to visit with the family.
== END 2022-12-16 16:40 | disposition home or self-care (01) ==
PROVIDERS: Emergency Provider Family Medicine; PCP Family Medicine
DX: I62.9 Nontraumatic intracranial hemorrhage, unspecified (principal); C50.919 Malignant neoplasm of unspecified site of unspecified female breast; C79.31 Secondary malignant neoplasm of brain
CPT/HCPCS: 36415; 36416; 70450; 80053; 82962; 85025; 93005; 96374; 96375; 96376; 99285; J1100; J1953; J2060